=== PATIENT | female | born 1940 | race Caucasian/White ===

== ENCOUNTER 2020-09-12 22:04 | Inpatient (IN) | payer MEDICARE, BC ==
[~2020-09-12] VITALS: Ht 165.1 cm; Wt 102.3 kg
[~2020-09-12 22:04] MED LIST: ASPI-630 PO; FENO145T PO; FENO145T3 PO; FLAX1CAP PO; HYDR-2145 PO; LEVO125T PO; MAG355OR11 PO; MULT-245 PO; OMEG1CAP6 PO; PANT40TA77 PO; RAMI10CA53 PO; RAMI2.5C41 PO; SLOW RELEASE I142 MG PO
[2020-09-13] VITALS (7 sets, daily range): BP systolic 101–151; BP diastolic 65–80
--- NOTE | 2020-09-13 01:37 | NUR ---
Pt arrived to unit per cart accompanied by ems, pt ambulated to bed from cart.Tele monitor applied vs obtained and stable Assessment completed pt with c/o discomfort to lt side, Poc explained call light placed in reach will resume care and continue to monitor pt. Call placed to Dr. Bell for further admit orders. Orders received.
[2020-09-13] MEDS ORDERED: levOFLOXacin PER PHARMACY. MC PRN (01:45)
[2020-09-13] MEDS ORDERED: fentaNYL PF VIAL 100 MCG/2 ML VIAL IVP PRN (01:45)
[2020-09-13 06:27] LABS: ALBUMIN 2.7 g/dL (3.4-5.0); ALBUMIN/GLOBULIN RATIO 0.6 (1.0-1.7); CALCIUM 9.9 mg/dL (8.5-10.1); CREATININE 1.2 mg/dL (0.6-1.0); GFR 43.2; POTASSIUM 3.5 mmol/L (3.5-5.1); TOTAL BILIRUBIN 0.5 mg/dL (0.2-1.0)
[2020-09-13 07:00] LABS: HEMATOCRIT 41.8 % (36.0-47.0); HEMOGLOBIN 13.9 g/dL (12.0-15.5); RED BLOOD COUNT 4.66 x10^6/uL (3.50-5.40); RED CELL DISTRIBUTION WIDTH 13.2 % (11.5-14.5); WHITE BLOOD COUNT 11.6 x10^3/uL (4.0-11.0)
[2020-09-13] MEDS: ENOXAPARIN 40 MG/0.4 ML SYRINGE. SQ SCH ×2 (08:35→14:34)
[2020-09-13] MEDS ORDERED: ASPI-630 PO (08:45)
[2020-09-13] MEDS ORDERED: ACET325T9 PO (08:45)
[2020-09-13] MEDS ORDERED: FUROSEMIDE 40 MG/4 ML VIAL. IVP SCH (09:00)
[2020-09-13] MEDS ORDERED: HYDR12.58 PO (09:37)
[2020-09-13] MEDS ORDERED: METO-239 PO (09:37)
[2020-09-13] MEDS ORDERED: ATOR20TA58 PO (09:37)
[2020-09-13] MEDS ORDERED: LEVO112T55 PO (09:38)
[2020-09-13] MEDS ORDERED: VIT1CAPS12 PO (10:07)
--- NOTE | 2020-09-13 10:47 | HP ---
ADMIT DATE: 09/13/2020 HISTORY OF PRESENT ILLNESS: The patient is an 80-year-old female patient, who presented to the Emergency Room of [facility] with complaint of shortness of breath that has been going on for almost 10 days. She apparently was seen at urgent care about on 09/06/2020. She was treated with steroids, antibiotic and pain medication; however, felt a little bit better, but over the last 2-3 days, her shortness of breath has worsened. She also complained of orthopnea and swelling of both legs, but denied any paroxysmal nocturnal dyspnea. Denied any chest pain. She has cough, which is mostly dry. Denied any chills, rigors or fever. She apparently was extensively investigated in the Emergency Room and has had lab work, including a CBC and CMP as well as urinalysis. Has had a chest x-ray, which basically showed that the patient has large left-sided pleural effusion with adjacent opacities, hyperinflation with emphysematous changes, no pneumothorax. The heart size is obscured. Postoperative changes are left axilla. She apparently was treated with IV antibiotic in the form of levofloxacin. She was given IV Lasix and was transferred to [facility] for further evaluation and treatment. PAST MEDICAL HISTORY: Significant for hypertension, hyperlipidemia, coronary artery disease, status post PCI with stent deployment, hypothyroidism, generalized osteoarthritis. She has also history of breast cancer. PAST SURGICAL HISTORY: Significant for PCI and stent deployment, left mastectomy about 21 years ago, total abdominal hysterectomy, bilateral salpingo-oophorectomy, right total knee arthroplasty, bilateral cataract extraction, tonsillectomy and appendectomy. ALLERGIES: She has no known drug allergies. MEDICATIONS: She is currently on Synthroid 112 mcg once a day, fenofibrate 145 mg once a day, hydrochlorothiazide 12.5 mg once a day, atorvastatin 20 mg once a day, metoprolol extended release 25 mg once a day. FAMILY HISTORY: She has one older sister who at the age of 80 with Alzheimer disease. One of her younger brother at the age of 65 because of complication of diabetes. One brother who is younger and has diabetes. Her father at the age of 84 because of CVA and mother at the age of 92 of natural causes. SOCIAL HISTORY: She lives alone. She quit smoking when she was 26 years old. She does not drink alcohol or use any recreational drugs. She is fairly independent normally, but has been more short of breath and has been using her walker recently. REVIEW OF SYSTEMS: The patient denied any blurring of vision. Has had bilateral cataract extraction and is known to have senile macular degeneration; however, she denied any earache, tinnitus or sensorineural deafness. Denied any nosebleeds, stuffy nose or postnasal drip. Denied any sore throat, sore tongue, toothache, hoarseness of voice or difficulty swallowing. Denied any nausea, vomiting, diarrhea or constipation. Denied any hematemesis, melena or hematochezia. 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 She has had at the time esophagogastroduodenoscopy and colonoscopy. Denied any dysuria, frequency or hematuria. She denied any chest pain. Did complain of shortness of breath on exertion as well as orthopnea, but denied any paroxysmal nocturnal dyspnea. Has cough that is mostly dry. Denied any dizziness, lightheadedness, or vertigo. Denied any chills, rigors or fever. PHYSICAL EXAMINATION: GENERAL: On arrival to the Emergency Room, she looked well and was clearly in no apparent respiratory distress. No pallor, jaundice, cyanosis or thyromegaly. No jugular venous distension. No lower limb edema. VITAL SIGNS: Her heart rate on arrival was 91, blood pressure was 122/73, temperature was 98, respiratory rate 20, and oxygen saturation was 94% on 2 liters of oxygen. When she arrived, her oxygen was only 89% on room air. HEAD, EYES, EARS, NOSE AND THROAT: Showed normocephalic, atraumatic. NECK: Supple. HEART: Normal first and second heart sounds. No gallop or murmur. CHEST: Shows central trachea, equal bilateral chest expansion, air entry, vesicular breath sounds anteriorly, she has dull percussion noted and absent breath sound mostly on the left side posteriorly. I could not appreciate any rhonchi. ABDOMEN: Distended, soft, nontender. NEUROLOGIC: She is awake, alert, responding appropriately. All cranial nerves intact. EXTREMITIES: She moves extremities without difficulty. She apparently ambulates with a cane or a walker. LABORATORY DATA: Her lab work on arrival to the Emergency Room showed a white cell count of 10,900; hemoglobin 13.8; hematocrit 42; MCV 91; and platelet count of 579,000 with normal manual differential. Her chemistry showed a serum sodium 138, potassium 4.2, chloride 100, bicarbonate 29, anion gap of 9, BUN 33, creatinine 1.1, estimated GFR was 48 mL per minute. Her glucose was 114, calcium was 9.9. Total bilirubin, AST, ALT, alkaline phosphatase were normal. Her first set of cardiac enzymes showed troponin to be less than 0.017. Her beta natriuretic peptide was 171. Total protein was 7.4, albumin was 2.9. Her urinalysis was essentially unremarkable. Her chest x-ray showed that the patient has a large left-sided pleural effusion with adjacent opacities, hyperinflation with emphysematous changes, no pneumothorax. Heart size is obscured. She does have postoperative change at the left axilla. The patient was transferred to [facility] after she was treated with IV Lasix and levofloxacin. I have consulted the hoop riveter, the senior electrical design engineer as well as the interventional radiologist. Did have a CT scan done on 09/06/2020 at an urgent clinic, which basically showed that the patient has solid noncalcified pulmonary nodule in the right lower lobe, measuring 1.2 cm. Further characterization with a PET scan could be beneficial. Differential consideration include infectious/inflammatory pneumonitis versus metastatic disease or primary lung malignancy. She also has ill-defined band-like opacities in the left upper lobe abutting the major fissure, measuring up to 1.8 x 1.3 cm. This may be infectious and inflammatory, although metastatic disease remains a differential consideration. She has moderate left-sided pleural effusion with adjacent compressive atelectasis versus infiltrate. No pathologically enlarged thoracic lymph nodes were seen. OTONIEL SCOTT MD DR: SERGEI/ezio JOB#: [id number] / [id number]
[2020-09-13] MEDS ORDERED: POTASSIUM CHLORIDE 20 MEQ TABLET.ER. PO ONE (11:00)
[2020-09-13] MEDS: LEVOTHYROXINE 112 MCG TABLET PO SCH (11:57)
[2020-09-13] MEDS: MULTIVITAMIN I-VITE TABLET. PO SCH (11:57)
[2020-09-13] MEDS: FENOFIBRATE,MICRONIZED 134 MG CAPSULE PO SCH (11:57)
[2020-09-13] MEDS: MULTIVITAMIN with MINERAL TABLET. PO SCH (11:58)
[2020-09-13] MEDS: ASPIRIN CHEWABLE 81 MG TABLET. PO SCH (11:58)
[2020-09-13] MEDS: METOPROLOL SUCC 24HR ER 25 MG TAB.ER.24H. PO SCH (11:58)
--- NOTE | 2020-09-13 12:06 | NUR ---
SS following for discharge planning. SS reviewed pt chart and discussed with pt RN. Pt is from home alone and is currently requiring oxygen at two liters nasal canula. Pt has no home oxygen. Pt having thoracentesis tomorrow. Pt on IV Levaquin. SS will continue to follow for discharge planning.
--- NOTE | 2020-09-13 12:53 | CONS ---
DATE OF CONSULTATION: 09/13/2020 ATTENDING PHYSICIAN: Ivan Bell MD CONSULTING PHYSICIAN: Rafy Camp MD REASON FOR CONSULTATION: The patient is seen in pulmonary consultation at the request of Dr. Bell for a large left-sided effusion. HISTORY OF PRESENT ILLNESS: The patient is an 80-year-old that presented to the Emergency Room at [facility] after having undergone an outpatient CT chest. Several days ago, the patient was having some right-sided chest discomfort, shortness of air. She went to an urgent care center. She was treated with pain medication, steroids and antibiotics. CT chest was obtained. CT chest subsequently revealed several findings including a large right-sided effusion and pulmonary nodules on the right and the left. The patient was admitted. I was asked to see her in consultation for further evaluation and management. The patient denies any fever, chills, night sweats. There is no prior history of congestive heart failure. She does have a history of coronary artery disease, previous angioplasty approximately 3-5 years ago. PAST MEDICAL HISTORY: Remarkable for hypertension; hyperlipidemia; coronary artery disease, status post previous angioplasty 5 years ago. No history of CHF. There is a history of hypothyroidism, arthritis and breast cancer. Prior history of DVT, status post previous knee replacement. PAST SURGICAL HISTORY: PCI and stent deployment. She has had a mastectomy 21 years ago on the left side, total abdominal hysterectomy, bilateral salpingo-oophorectomy, right total knee arthroplasty, tonsillectomy, appendectomy. ALLERGIES: No known drug allergies. CURRENT MEDICATIONS: List was reviewed. FAMILY HISTORY: One sister at the age of 80 from complications of Alzheimer's. Brother with complications of diabetes. Father of 84 from CVA. Mother at the age of 92 from natural causes. SOCIAL HISTORY: She quit tobacco when she was 26 years old, lives alone. REVIEW OF SYSTEMS: CONSTITUTIONAL: No fever or chills. EYES: No change in visual acuity. HENT: No nasal congestion or sore throat. PULMONARY: As indicated above. CARDIOVASCULAR: As indicated above. GASTROINTESTINAL: No nausea, vomiting, diarrhea. GENITOURINARY: No dysuria or frequency. MUSCULOSKELETAL: No localized muscle aches or joint pains. SKIN: No new skin rashes. NEUROLOGIC: No headaches, diplopia or blurred vision. MEDICATIONS: List was reviewed. She is currently on Levaquin and multiple other antibiotics. She received a dose of furosemide. She did receive Lovenox today 40 mg. PHYSICAL EXAMINATION: VITAL SIGNS: Stable. O2 saturation was greater than 92%, currently on 2 liters of oxygen supplementation. GENERAL: The patient did not appear to be in any significant respiratory distress. HEENT: Eyes, the sclerae were nonicteric. NECK: Jugular venous distention was not elevated. No lymphadenopathy. CHEST: Full expansion. Previous history of mastectomy. LUNGS: Diminished breath sounds on the left. No wheezes. CARDIOVASCULAR: Regular rate and rhythm with S1, S2, no S3. ABDOMEN: Soft, nontender, nondistended. EXTREMITIES: No clubbing, cyanosis or edema. LABORATORY DATA: White count was 11,000, hemoglobin and hematocrit were noted. BUN and creatinine were elevated. Troponin was not elevated. Albumin was noted. BNP at [facility] was normal. IMPRESSION: 1. Large left-sided effusion. 2. CT scan dated 09/06/2020 showed a solid noncalcified pulmonary nodule right lower lobe measuring 1.2 cm, ill-defined band-like opacity in left upper lobe measuring 1.8 x 1.3. 3. History of breast cancer. 4. Left-sided chest pain, shortness of air related to pleural effusion. 5. Coronary artery disease with previous angioplasty. 6. Remote history of deep venous thrombosis 5 years ago, status post knee replacement. 7. Obesity. 8. Remote history of tobacco dependent. 9. Status post COVID-19 vaccination, first dose. Differential diagnosis in this case includes more than likely an exudative process such as malignancy, clinically I do not think that this is pneumonia with parapneumonic effusion, her BNP was normal at [facility], I doubt that this is CHF. PLAN: 1. We will proceed with continue empiric antibiotics. 2. Thoracentesis, rule out noncomplicated parapneumonic effusion versus related to malignancy. 3. We will need a repeat CT chest in approximately 6-8 weeks. 4. Follow up on fluid analysis and make further recommendations. 5. A 6-minute walk prior to discharge. I do appreciate the privilege in sharing in the patient's care. RAFY CAMP MD DR: EVANGELIST/ezio JOB#: [id number] / [id number]
[2020-09-13] MEDS ORDERED: DEXTROSE 50% 25 GM / 50ML DISP.SYRIN. IV PRN (13:30)
[2020-09-13] MEDS: LORazepam 0.5 MG TABLET PO PRN ×2 (15:39→21:21)
[2020-09-13] MEDS: INSULIN LISPRO 300 UNITS/3 ML VIAL. SQ SCH ×2 (16:30→21:22)
--- NOTE | 2020-09-13 17:41 | PDOC2 ---
CARDIAC CONSULT DATE OF CONSULT Date of Consult DATE: 09/13/20 TIME: 1015 REASON FOR CONSULT Reason for Consult: CHF REFERRING PHYSICIAN Referring Physician: Ray SOURCE Source: Chart review, Patient HISTORY OF PRESENT ILLNESS HISTORY OF PRESENT ILLNESS This is a pleasant 80 yo female admitted for complains of shortness of breath. Reports that she has been coughing at times and hurts on her left side sharp pain. She has been SOA with exertion and it has progressed to SOA at rest. Could not lay flat but denies any significant leg edema. Denies any nausea or vomiting. She was initially at urgent care few days ago and was sent home with antibiotics and steroids. She went to [facility] first then was noted with large pleur al effusion and was also suspected for CHF. She was then transferred to [facility] for further pulmonary evaluation and thoracentesis. Reports no palpitations. No recent falls or injury. No rpior covid-19 infection but had her vaccine last week. 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 No reported fever. PAST MEDICAL HISTORY Cardiovascular: CAD, CHF, HTN, Hyperlipidemia Pulmonary: COPD (?) CENTRAL NERVOUS SYSTEM: Other (No pertinent history) Heme/Onc: Cancer (breast), Other (DVT) Psych: Anxiety Musculoskeletal: Osteoarthritis Rheumatologic: No pertinent hx Infectious disease: No pertinent hx ENT: Other (macular degeneration) Renal/: No pertinent hx Endocrine: Hypothyroidism Dermatology: No pertinent hx PAST SURGICAL HISTORY Past Surgical History: Mastectomy (left), Other (PCI/NAN to LAD) FAMILY HISTORY Family History: Hypertension SOCIAL HISTORY Smoke: Quit ALCOHOL: none Drugs: None Lives: with Family CURRENT MEDICATIONS CURRENT MEDICATIONS Current Medications Medications (Trade) Dose Ordered Sig/Nelson Route PRN Reason Start Time Stop Time Status Last Admin Dose Admin Furosemide (Lasix) 40 mg DAILY IVP 09/13/20 09:00 09/13/20 10:25 DC 09/13/20 08:34 Enoxaparin Sodium (Lovenox 40mg Syringe) 40 mg Q24H SQ 09/13/20 09:00 09/13/20 08:35 Aspirin (Aspirin Chewable) 81 mg DAILY PO 09/13/20 12:00 09/13/20 11:58 Levothyroxine Sodium (Synthroid) 112 mcg DAILY06 PO 09/13/20 10:30 09/13/20 11:57 Metoprolol Succinate (Toprol Xl) 25 mg DAILY PO 09/13/20 12:00 09/13/20 11:58 Fenofibrate (Lofibra) 134 mg DAILY PO 09/13/20 12:00 09/13/20 11:57 Multivitamins (Thera M Plus) 1 tab DAILY PO 09/13/20 12:00 09/13/20 11:58 Multivitamins/ Minerals (I-Cheyanne) 1 tab DAILY PO 09/13/20 12:00 09/13/20 11:57 Potassium Chloride (Klor-Con) 40 meq 1X ONCE PO 09/13/20 11:00 09/13/20 11:01 DC 09/13/20 11:58 Lorazepam (Ativan) 0.5 mg PRN Q6HRS PRN PO ANXIETY / AGITATION 09/13/20 15:30 09/13/20 15:39 ALLERGIES ALLERGIES: Coded Allergies: No Known Drug Allergies (Unverified , 07/04/14) ROS Review of System 14 point ROS evaluated with pertinent positives noted per HPI PHYSICAL EXAM General: Alert, Oriented X3, Cooperative HEENT: Atraumatic, Mucous membr. moist/pink Lungs: Other (diminished ) Heart: Regular rate (SR), Other (distant heart sounds) Abdomen: Soft, No tenderness Extremities: No cyanosis, Other (1+ bilaterl LE pitting edema) Skin: No breakdown, No significant lesion Neuro: Normal speech, Sensation intact Psych/Mental Status: Mental status NL, Mood NL MUSCULOSKELETAL: Osteoarthritic changes both hands VITALS/I&O VITALS/I&O: Vital Signs Date Time Temp Pulse Resp B/P (MAP) Pulse Ox O2 Delivery O2 Flow Rate FiO2 09/13/20 14:44 98.1 83 18 151/76 (101) 96 Nasal Cannula 2.0 98.1 I & O 09/12/20 09/12/20 09/13/20 15:00 23:00 07:00 Intake Total 100 ml Balance 100 ml LABS Lab: Laboratory Tests Test 09/13/20 02:20 09/13/20 05:44 09/13/20 07:17 09/13/20 11:33 Troponin I Quantitative < 0.017 ng/mL (0.000-0.055) < 0.017 ng/mL (0.000-0.055) White Blood Count 11.6 x10^3/uL (4.0-11.0) H Red Blood Count 4.66 x10^6/uL (3.50-5.40) Hemoglobin 13.9 g/dL (12.0-15.5) Hematocrit 41.8 % (36.0-47.0) Mean Corpuscular Volume 90 fL (79-100) Mean Corpuscular Hemoglobin 30 pg (25-35) Mean Corpuscular Hemoglobin Concent 33 g/dL (31-37) Red Cell Distribution Width 13.2 % (11.5-14.5) Platelet Count 575 x10^3/uL (140-400) H Sodium Level 140 mmol/L (136-145) Potassium Level 3.5 mmol/L (3.5-5.1) Chloride Level 100 mmol/L (98-107) Carbon Dioxide Level 32 mmol/L (21-32) Anion Gap 8 (6-14) Blood Urea Nitrogen 29 mg/dL (7-20) H Creatinine 1.2 mg/dL (0.6-1.0) H Estimated GFR (Cockcroft-Gault) 43.2 BUN/Creatinine Ratio 24 (6-20) H Glucose Level 131 mg/dL (70-99) H Calcium Level 9.9 mg/dL (8.5-10.1) Total Bilirubin 0.5 mg/dL (0.2-1.0) Aspartate Amino Transferase (AST) 19 U/L (15-37) Alanine Aminotransferase (ALT) 15 U/L (14-59) Alkaline Phosphatase 59 U/L (46-116) Total Protein 7.0 g/dL (6.4-8.2) Albumin 2.7 g/dL (3.4-5.0) L Albumin/Globulin Ratio 0.6 (1.0-1.7) L Glucose (Fingerstick) 217 mg/dL (70-99) H Test 09/13/20 16:20 Glucose (Fingerstick) 189 mg/dL (70-99) H Laboratory Tests 09/13/20 05:44 Laboratory Tests 09/13/20 05:44 ECHOCARDIOGRAM ECHOCARDIOGRAM 05/2019 [facility] Left Ventricle: Normal size and mass. Concentric remodeling. Normal ejection fraction with LVEF=62% b Chatterjee's biplane and normal segmental wall motion. Right Ventricle: Normal size and ejection fraction. Normal biatrial size. The aortic valve is tricuspid. The non-coronary cusp is thickened/calcified with restricted motion. No stenosis. No regurgitation. Estimated Peak Systolic PA Pressure 17 mmHg No pericardial effusion. The ascending aorta is moderately dilated.(4.1cm) Compared with study dated 02/25/18, no significant change is noted STRESS TEST STRESS TEST FINDINGS: [facility] 12/14/2018 Pharmacological Stress Electrocardiogram: The patient's resting heart rate was 75 bpm and the resting blood pressure was 124/72. The patients peak stress heart rate was 94 bpm and the peak stress blood pressure was 120/68. Following demonstration of Regadenoson the patient experienced slight nausea, cramping, the symptoms resolved after administration of aminophylline. The resting ECG shows normal sinus rhythm with frequent PVCs. Upon administration of Regadenoson the PVCs continue. ST segments remained isoelectric. Conclusion: Pharmacologic stress ECG is negative for ischemia, note is made of frequent PVCs. ASSESSMENT/PLAN ASSESSMENT/PLAN 1. Large left pleural effusion: pneumonia? 2. Chronic diastolic CHF: clinically not acute CHF with pro NT BNP normal 3. Pleuritic chest pain with recent intractable coughing 4. CAD: past PCI/NAN to LAD with [employer] to RCA. Known to Dr. Serrano at [facility] Clinically stable. 5. HTN: controlled 6. HLP 7. Hypothyroidism 8. Mild MALDONADO: per PCP 9. Possible COPD 10. Hx of breast CA with left mastectomy. no checmo/rad 11. Steroid induced hyperglycemia vs DM2 Recommendations 1. Will obtain TTE tomorrow. Check TSH 2. Consult pulmonary, thoracentesis pending. 3. Continue secondary prevention measures 4. Supportive care. ROBIN DUNLAP APRN Sep 13, 2020 17:41
--- NOTE | 2020-09-13 19:45 | NUR ---
Assessment completed vss poc explained pt denied pain, c/o iv site hurting will restart iv and discontinue previous site. Will resume care and continue to monitor pt. Call light in reach.
[2020-09-13] MEDS: ACETAMINOPHEN 325 MG TABLET. PO PRN (20:03)
[2020-09-13] MEDS: ATORVASTATIN CALCIUM 20 MG TABLET PO SCH (21:22)
[2020-09-14] VITALS (8 sets, daily range): BP systolic 107–167; BP diastolic 55–83
[2020-09-14] MEDS: LEVOTHYROXINE 112 MCG TABLET PO SCH (05:55)
[2020-09-14] MEDS: LORazepam 0.5 MG TABLET PO PRN ×3 (05:55→18:44)
[2020-09-14] MEDS: INSULIN LISPRO 300 UNITS/3 ML VIAL. SQ SCH ×4 (07:30→21:11)
[2020-09-14 07:43] LABS: HEMATOCRIT 42.2 % (36.0-47.0); HEMOGLOBIN 13.6 g/dL (12.0-15.5); RED BLOOD COUNT 4.68 x10^6/uL (3.50-5.40); RED CELL DISTRIBUTION WIDTH 13.5 % (11.5-14.5); WHITE BLOOD COUNT 10.3 x10^3/uL (4.0-11.0)
[2020-09-14 08:01] LABS: ALBUMIN 2.6 g/dL (3.4-5.0); ALBUMIN/GLOBULIN RATIO 0.7 (1.0-1.7); CALCIUM 9.2 mg/dL (8.5-10.1); CREATININE 1.3 mg/dL (0.6-1.0); GFR 39.4; POTASSIUM 3.4 mmol/L (3.5-5.1); TOTAL BILIRUBIN 0.6 mg/dL (0.2-1.0); TOTAL PROTEIN 6.6 g/dL (6.4-8.2)
[2020-09-14 10:08] LABS: PROTHROMBIN TIME PATIENT 14.6 SEC (11.7-14.0)
--- NOTE | 2020-09-14 10:34 | PDOC ---
PULMONARY PROGRESS NOTES DATE: 09/14/20 TIME: 10:30 Subjective c/o SOA when laying flat on RA Vitals Vital Signs Date Time Temp Pulse Resp B/P (MAP) Pulse Ox O2 Delivery O2 Flow Rate FiO2 09/14/20 08:00 Nasal Cannula 2.0 09/14/20 06:46 98.8 82 18 131/71 (91) 95 98.8 General: Alert, No acute distress Lungs: Other (DECREASE LEFT BASE) Cardiovascular: S1 Abdomen: Soft Neuro Exam: Alert Extremities: No Edema Skin: Warm Labs Laboratory Tests Test 09/13/20 02:20 09/13/20 05:44 09/13/20 07:17 09/13/20 11:33 Troponin I Quantitative < 0.017 ng/mL (0.000-0.055) < 0.017 ng/mL (0.000-0.055) White Blood Count 11.6 x10^3/uL (4.0-11.0) Red Blood Count 4.66 x10^6/uL (3.50-5.40) Hemoglobin 13.9 g/dL (12.0-15.5) Hematocrit 41.8 % (36.0-47.0) Mean Corpuscular Volume 90 fL (79-100) Mean Corpuscular Hemoglobin 30 pg (25-35) Mean Corpuscular Hemoglobin Concent 33 g/dL (31-37) Red Cell Distribution Width 13.2 % (11.5-14.5) Platelet Count 575 x10^3/uL (140-400) Sodium Level 140 mmol/L (136-145) Potassium Level 3.5 mmol/L (3.5-5.1) Chloride Level 100 mmol/L (98-107) Carbon Dioxide Level 32 mmol/L (21-32) Anion Gap 8 (6-14) Blood Urea Nitrogen 29 mg/dL (7-20) Creatinine 1.2 mg/dL (0.6-1.0) Estimated GFR (Cockcroft-Gault) 43.2 BUN/Creatinine Ratio 24 (6-20) Glucose Level 131 mg/dL (70-99) Calcium Level 9.9 mg/dL (8.5-10.1) Total Bilirubin 0.5 mg/dL (0.2-1.0) Aspartate Amino Transf (AST/SGOT) 19 U/L (15-37) Alanine Aminotransferase (ALT/SGPT) 15 U/L (14-59) Alkaline Phosphatase 59 U/L (46-116) Total Protein 7.0 g/dL (6.4-8.2) Albumin 2.7 g/dL (3.4-5.0) Albumin/Globulin Ratio 0.6 (1.0-1.7) Thyroid Stimulating Hormone (TSH) 5.435 uIU/mL (0.358-3.74) Glucose (Fingerstick) 217 mg/dL (70-99) Test 09/13/20 16:20 09/13/20 20:19 09/14/20 06:30 09/14/20 09:12 Glucose (Fingerstick) 189 mg/dL (70-99) 164 mg/dL (70-99) White Blood Count 10.3 x10^3/uL (4.0-11.0) Red Blood Count 4.68 x10^6/uL (3.50-5.40) Hemoglobin 13.6 g/dL (12.0-15.5) Hematocrit 42.2 % (36.0-47.0) Mean Corpuscular Volume 90 fL (79-100) Mean Corpuscular Hemoglobin 29 pg (25-35) Mean Corpuscular Hemoglobin Concent 32 g/dL (31-37) Red Cell Distribution Width 13.5 % (11.5-14.5) Platelet Count 534 x10^3/uL (140-400) Prothrombin Time 14.6 SEC (11.7-14.0) Prothromb Time International Ratio 1.2 (0.8-1.1) Activated Partial Thromboplast Time 31 SEC (24-38) Sodium Level 138 mmol/L (136-145) Potassium Level 3.4 mmol/L (3.5-5.1) Chloride Level 99 mmol/L (98-107) Carbon Dioxide Level 30 mmol/L (21-32) Anion Gap 9 (6-14) Blood Urea Nitrogen 25 mg/dL (7-20) Creatinine 1.3 mg/dL (0.6-1.0) Estimated GFR (Cockcroft-Gault) 39.4 BUN/Creatinine Ratio 19 (6-20) Glucose Level 145 mg/dL (70-99) Calcium Level 9.2 mg/dL (8.5-10.1) Total Bilirubin 0.6 mg/dL (0.2-1.0) Aspartate Amino Transf (AST/SGOT) 18 U/L (15-37) Alanine Aminotransferase (ALT/SGPT) 10 U/L (14-59) Alkaline Phosphatase 54 U/L (46-116) Total Protein 6.6 g/dL (6.4-8.2) Albumin 2.6 g/dL (3.4-5.0) Albumin/Globulin Ratio 0.7 (1.0-1.7) SARS-CoV-2 Antigen (Rapid) Negative (NEGATIVE) Test 09/14/20 09:41 Glucose (Fingerstick) 152 mg/dL (70-99) Laboratory Tests Test 09/13/20 11:33 09/13/20 16:20 09/13/20 20:19 09/14/20 06:30 Glucose (Fingerstick) 217 mg/dL (70-99) 189 mg/dL (70-99) 164 mg/dL (70-99) White Blood Count 10.3 x10^3/uL (4.0-11.0) Red Blood Count 4.68 x10^6/uL (3.50-5.40) Hemoglobin 13.6 g/dL (12.0-15.5) Hematocrit 42.2 % (36.0-47.0) Mean Corpuscular Volume 90 fL (79-100) Mean Corpuscular Hemoglobin 29 pg (25-35) Mean Corpuscular Hemoglobin Concent 32 g/dL (31-37) Red Cell Distribution Width 13.5 % (11.5-14.5) Platelet Count 534 x10^3/uL (140-400) Prothrombin Time 14.6 SEC (11.7-14.0) Prothromb Time International Ratio 1.2 (0.8-1.1) Activated Partial Thromboplast Time 31 SEC (24-38) Sodium Level 138 mmol/L (136-145) Potassium Level 3.4 mmol/L (3.5-5.1) Chloride Level 99 mmol/L (98-107) Carbon Dioxide Level 30 mmol/L (21-32) Anion Gap 9 (6-14) Blood Urea Nitrogen 25 mg/dL (7-20) Creatinine 1.3 mg/dL (0.6-1.0) Estimated GFR (Cockcroft-Gault) 39.4 BUN/Creatinine Ratio 19 (6-20) Glucose Level 145 mg/dL (70-99) Calcium Level 9.2 mg/dL (8.5-10.1) Total Bilirubin 0.6 mg/dL (0.2-1.0) Aspartate Amino Transf (AST/SGOT) 18 U/L (15-37) Alanine Aminotransferase (ALT/SGPT) 10 U/L (14-59) Alkaline Phosphatase 54 U/L (46-116) Total Protein 6.6 g/dL (6.4-8.2) Albumin 2.6 g/dL (3.4-5.0) Albumin/Globulin Ratio 0.7 (1.0-1.7) Test 09/14/20 09:12 09/14/20 09:41 SARS-CoV-2 Antigen (Rapid) Negative (NEGATIVE) Glucose (Fingerstick) 152 mg/dL (70-99) Medications Active Scripts Medications Dose Route/Sig Max Daily Dose Days Date Category Preservision Areds Softgel (Vit A/Vit C/Vit E/Zinc/Copper) 1 Each Capsule 2 Each PO DAILY 09/13/20 Reported Euthyrox (Levothyroxine Sodium) 112 Mcg Tablet 112 Mcg PO DAILY06 09/13/20 Reported Atorvastatin Calcium 20 Mg Tablet 20 Mg PO HS 09/13/20 Reported Metoprolol Succinate ( Xl ) (Metoprolol Succinate) 25 Mg Tab.er.24h 25 Mg PO DAILY 09/13/20 Reported Hydrochlorothiazide Tablet (Hydrochlorothiazide) 12.5 Mg Tablet 25 Mg PO DAILY 09/13/20 Reported Tylenol (Acetaminophen) 325 Mg Tablet 500 Mg PO Q6HRS PRN 09/13/20 Reported Aspirin 81 Mg Tab.chew 81 Mg PO DAILY 09/13/20 Reported Multi Vitamin Daily (Multivitamin) 1 Each Tablet 1 Each PO DAILY 07/02/14 Reported Fish Oil 1,000 Mg Capsule ([place]-3 Fatty Acids/Fish Oil) 1 Each Capsule 1 Each PO DAILY 07/02/14 Reported Fenofibrate (Fenofibrate Nanocrystallized) 145 Mg Tablet 1 Tab PO DAILY 04/15/14 Reported Impression . 1. Large left-sided effusion.Suspect malignant 2. CT scan dated 09/06/2020 showed a solid noncalcified pulmonary nodule right lower lobe measuring 1.2 cm, ill-defined band-like opacity in left upper lobe measuring 1.8 x 1.3. 3. History of breast cancer. 20 yrs ago, neg LN 4. Left-sided chest pain, shortness of air related to pleural effusion. 5. Coronary artery disease with previous angioplasty. 6. Remote history of deep venous thrombosis 5 years ago, status post knee replacement. 7. Obesity. 8. Remote history of tobacco dependent. 9. Status post COVID-19 vaccination, first dose. Plan . Differential diagnosis in this case includes more than likely an exudative process such as malignancy, clinically I do not think that this is pneumonia with parapneumonic effusion, her BNP was normal at [facility], I doubt that this is CHF.No trauma PLAN: 1. We will proceed with continue empiric antibiotics. 2. Thoracentesis, rule out noncomplicated parapneumonic effusion versus related to malignancy. 3. We will need a repeat CT chest with contrast after thoracentesis 4. Follow up on fluid analysis and make further recommendations. 5. A 6-minute walk prior to discharge. d/w FRIDA Roberts MD Sep 14, 2020 10:34
--- NOTE | 2020-09-14 10:45 | PN ---
DATE: SUBJECTIVE: The patient is resting, slightly propped up in bed, in no apparent distress. She continued to have complaint of orthopnea. Denied any chest pain or cough. She was seen by the Cardiology team, had an echocardiogram, the result of which is still pending. She is scheduled for thoracentesis. Her COVID test was undetectable. PHYSICAL EXAMINATION: GENERAL: When I examined her this morning, she looked well and was clearly in no apparent respiratory distress. No pallor, jaundice, cyanosis or thyromegaly. No jugular venous distension. No limb edema. VITAL SIGNS: Her heart rate was 82, blood pressure was 131/71, temperature was 98.8, respiratory rate was 18 and oxygen saturation was 95% on 2 liters of oxygen. The rest of clinical exam is stable. ASSESSMENT: 1. New onset of shortness of breath with CT scan and chest x-ray showed large left-sided pleural effusion. 2. Possible pneumonia with parapneumonic effusion. 3. Hypertension. 4. Hyperlipidemia. 5. Coronary artery disease, status post PCI with stent deployment. 6. Hypothyroidism. 7. Generalized osteoarthritis. 8. The patient has history of breast cancer treated with left mastectomy about 21 years ago. She has not received any chemo or radiation therapy. PLAN: I will order SCD for DVT prophylaxis and await the results of thoracentesis. OTONIEL SCOTT MD DR: SERGEI/ezio JOB#: [id number] / [id number]
[2020-09-14] MEDS: FENOFIBRATE,MICRONIZED 134 MG CAPSULE PO SCH (11:17)
[2020-09-14] MEDS: MULTIVITAMIN I-VITE TABLET. PO SCH (11:17)
[2020-09-14] MEDS: ASPIRIN CHEWABLE 81 MG TABLET. PO SCH (11:17)
[2020-09-14] MEDS: MULTIVITAMIN with MINERAL TABLET. PO SCH (11:17)
[2020-09-14] MEDS: METOPROLOL SUCC 24HR ER 25 MG TAB.ER.24H. PO SCH (11:18)
[2020-09-14] MEDS ORDERED: LIDOCAINE WITH 8.4% SOD BICARB 3 ML DISP.SYRIN. ONE (11:32)
[2020-09-14] MEDS ORDERED: LIDOCAINE WITH 8.4% SOD BICARB 3 ML DISP.SYRIN. INJ ONE (12:00)
--- NOTE | 2020-09-14 13:24 | NUR ---
SS following up with discharge planning. SS reviewed pt chart and discussed with pt RN. Pt is currently on room air. Thoracentesis today. Pt on IV Levaquin. Discharge plan is to home when medically ready. SS will continue to follow for discharge planning.
[2020-09-14 13:26] LABS: BF CLARITY CLOUDY; BF COLOR AMBER; BF RBC COUNT 7903 /cmm (Not Established); BF SOURCE PLEURAL; BF WBC COUNT 955 /cmm (Not Established); PH,BODY FLUID 7.43
--- NOTE | 2020-09-14 16:08 | RAD ---
Ultrasound Guided Thoracentesis, left side Indication: Adult female with left pleural effusion Sedation: Local anesthesia only. Sterility: The procedure was performed in its entirety using appropriate elements of sterile technique. Technique and Findings: Following informed consent, the patient was prepped and draped in the usual sterile fashion. Ultrasound interrogation of the area of interest was performed revealing the presence of a pleural fluid collection. 1% Lidocaine was used to achieve local anesthesia over the area of interest. A small dermatotomy was made and a 5F [id number] catheter was advanced under ultrasound guidance into the pleural space and 1150 cc's of clear memy fluid was removed. The catheter was then removed and hemostasis was achieved with manual compression. Impression: US thoracentesis as described.
--- NOTE | 2020-09-14 16:33 | RAD ---
EXAM: CHEST ONE VIEW. HISTORY: Left thoracentesis. COMPARISON: 09/12/2020. FINDINGS: A frontal view of the chest is obtained. There is a moderate left pleural effusion with left basilar atelectasis. There is no pneumothorax. Th ere are mild interstitial opacities in the right midlung and right base. The heart is not enlarged. S urgical clips are noted in the left axilla. IMPRESSION: 1. Moderate left pleural effusion. Stable mild right basilar interstitial opacities correspond with m ultiple nodules on prior CT. Electronically signed by: Ulysses Contreras MD (09/14/2020 4:31 PM) [id number]
--- NOTE | 2020-09-14 17:49 | CARD ---
MR#: [id number] Date of Study: 09/14/2020 Ordering Physician: ROBIN DUNLAP, Referring Physician: ROBIN DUNLAP Tech: Denise Recinos [facility] APPROVED REPORT EXAM: Two-dimensional and M-mode echocardiogram with Doppler and color Doppler. Other Information Quality : Technically LimitedHR: 90bpm Rhythm : NSR INDICATION Dyspnea RISK FACTORS Hypertension Obesity Hyperlipidemia 2D DIMENSIONS IVSd1.2 (0.7-1.1cm)Aortic Root(2D)3.2 (2.0-3.7cm) LVDd3.1 (3.9-5.9cm)LVOT Diameter2.0 (1.8-2.4cm) PWd1.2 (0.7-1.1cm)LVDs1.2 (2.5-4.0cm) FS (%) 60.7 %SV34.0 ml Aortic Valve AoV Peak Hubert.131.0cm/sAoV VTI22.3cm AO Peak GR.6.9mmHgAO Mean GR.4mmHg Mitral Valve MV E Lizqfqwb84.0cm/sMV DECEL [id number] MV A Nwvgrdiv322.2cm/sMV BIK05lz E/A Ratio0.6MVA (PHT)2.93cm2 Pulmonary Valve PV Peak Aihqsufs47.5cm/sPV Peak Grad.2mmHg Tricuspid Valve TR P. Shcplqta594mm/sTR Peak Gr.16mmHg LEFT VENTRICLE The left ventricle is normal size. There is moderate concentric left ventricular hypertrophy. The lef t ventricular systolic function is normal and the ejection fraction is within normal range. Estimate d ejection fraction 60-65%. There is normal LV segmental wall motion. RIGHT VENTRICLE The right ventricle is normal size. There is normal right ventricular wall thickness. The right ventr icular systolic function is normal. ATRIA The left atrium size is normal. The right atrium size is normal. The interatrial septum is intact wit h no evidence for an atrial septal defect or patent foramen ovale as noted on 2-D or Doppler imaging. AORTIC VALVE The aortic valve is calcified and displays decreased opening. Doppler and Color Flow revealed no sign ificant aortic regurgitation. There is trace valvular aortic stenosis. MITRAL VALVE The mitral valve is normal in structure and function. There is no evidence of mitral valve prolapse. There is no mitral valve stenosis. Doppler and Color Flow revealed trace mitral valve regurgitation. TRICUSPID VALVE The tricuspid valve is normal in structure and function. Doppler and Color Flow revealed mild tricusp id regurgitation. Estimated PAP 36 mmHg. PULMONIC VALVE The pulmonary valve is normal in structure and function. Doppler and Color Flow revealed no pulmonic valvular regurgitation. GREAT VESSELS The aortic root is normal in size. The ascending aorta is normal in size. The IVC is dilated and sary apses >50% with inspiration. PERICARDIAL EFFUSION There is large left pleural effusion. There is no evidence of significant pericardial effusion. Critical Notification Critical Value: No <Conclusion> The left ventricle is normal size. The left ventricular systolic function is normal and the ejection fraction is within normal range. Estimated ejection fraction 60-65%. There is moderate concentric left ventricular hypertrophy. Doppler and Color Flow revealed no significant aortic regurgitation. There is trace valvular aortic stenosis. Doppler and Color Flow revealed trace mitral valve regurgitation. Doppler and Color Flow revealed mild tricuspid regurgitation. Estimated PAP 36 mmHg. Signed by : Mina Reinoso MD Electronically Approved : 09/14/2020 17:48:51
[2020-09-14 18:00] LABS: BF MON % 41 %; BF PMN % 44 %
[2020-09-14 18:01] LABS: BF OTHER % 15 %
--- NOTE | 2020-09-14 19:25 | NUR ---
Assessment completed vss poc explained pt denied pain will resume care and continue to monitor pt.call light in reach.
[2020-09-14] MEDS: ATORVASTATIN CALCIUM 20 MG TABLET PO SCH (21:10)
[2020-09-14] MEDS: LACTOBACILLUS RHAMNOSUS GG 1 CAPSULE. PO SCH (21:10)
[2020-09-15 02:47] VITALS: BP 125/78
[2020-09-15] MEDS: ACETAMINOPHEN 325 MG TABLET. PO PRN ×3 (04:30→20:01)
[2020-09-15] MEDS: LORazepam 0.5 MG TABLET PO PRN ×2 (04:33→20:01)
[2020-09-15] MEDS: LEVOTHYROXINE 112 MCG TABLET PO SCH (06:01)
[2020-09-15 07:00] VITALS: BP 139/61
[2020-09-15] MEDS: MULTIVITAMIN with MINERAL TABLET. PO SCH (08:14)
[2020-09-15] MEDS: LACTOBACILLUS RHAMNOSUS GG 1 CAPSULE. PO SCH ×2 (08:14→20:01)
[2020-09-15] MEDS: FENOFIBRATE,MICRONIZED 134 MG CAPSULE PO SCH (08:14)
[2020-09-15] MEDS: MULTIVITAMIN I-VITE TABLET. PO SCH (08:14)
[2020-09-15] MEDS: ASPIRIN CHEWABLE 81 MG TABLET. PO SCH (08:14)
[2020-09-15 08:18] LABS: CALCIUM 9.5 mg/dL (8.5-10.1); GFR 53.3; POTASSIUM 3.6 mmol/L (3.5-5.1)
[2020-09-15] MEDS: METOPROLOL SUCC 24HR ER 25 MG TAB.ER.24H. PO SCH (08:18)
[2020-09-15] MEDS: INSULIN LISPRO 300 UNITS/3 ML VIAL. SQ SCH ×4 (08:28→20:06)
[2020-09-15] MEDS: ENOXAPARIN 40 MG/0.4 ML SYRINGE. SQ SCH (09:00)
--- NOTE | 2020-09-15 10:46 | PDOC ---
PULMONARY PROGRESS NOTES DATE: 09/15/20 TIME: 10:42 Subjective feels better , s/p left thoracentesis 1150 cc removed Vitals Vital Signs Date Time Temp Pulse Resp B/P (MAP) Pulse Ox O2 Delivery O2 Flow Rate FiO2 09/15/20 08:18 82 139/82 09/15/20 07:00 97.6 18 92 Room Air 97.6 09/14/20 14:38 2.0 General: Alert, No acute distress Lungs: Other (DECREASE LEFT BASE) Cardiovascular: S1 Abdomen: Soft Neuro Exam: Alert Extremities: No Edema Skin: Warm Labs Laboratory Tests Test 09/13/20 11:33 09/13/20 16:20 09/13/20 20:19 09/14/20 06:30 Glucose (Fingerstick) 217 mg/dL (70-99) 189 mg/dL (70-99) 164 mg/dL (70-99) White Blood Count 10.3 x10^3/uL (4.0-11.0) Red Blood Count 4.68 x10^6/uL (3.50-5.40) Hemoglobin 13.6 g/dL (12.0-15.5) Hematocrit 42.2 % (36.0-47.0) Mean Corpuscular Volume 90 fL (79-100) Mean Corpuscular Hemoglobin 29 pg (25-35) Mean Corpuscular Hemoglobin Concent 32 g/dL (31-37) Red Cell Distribution Width 13.5 % (11.5-14.5) Platelet Count 534 x10^3/uL (140-400) Prothrombin Time 14.6 SEC (11.7-14.0) Prothromb Time International Ratio 1.2 (0.8-1.1) Activated Partial Thromboplast Time 31 SEC (24-38) Sodium Level 138 mmol/L (136-145) Potassium Level 3.4 mmol/L (3.5-5.1) Chloride Level 99 mmol/L (98-107) Carbon Dioxide Level 30 mmol/L (21-32) Anion Gap 9 (6-14) Blood Urea Nitrogen 25 mg/dL (7-20) Creatinine 1.3 mg/dL (0.6-1.0) Estimated GFR (Cockcroft-Gault) 39.4 BUN/Creatinine Ratio 19 (6-20) Glucose Level 145 mg/dL (70-99) Calcium Level 9.2 mg/dL (8.5-10.1) Total Bilirubin 0.6 mg/dL (0.2-1.0) Aspartate Amino Transf (AST/SGOT) 18 U/L (15-37) Alanine Aminotransferase (ALT/SGPT) 10 U/L (14-59) Alkaline Phosphatase 54 U/L (46-116) Total Protein 6.6 g/dL (6.4-8.2) Albumin 2.6 g/dL (3.4-5.0) Albumin/Globulin Ratio 0.7 (1.0-1.7) Test 09/14/20 09:12 09/14/20 09:41 09/14/20 11:20 09/14/20 11:50 Coronavirus (PCR) Not detected (Not Detected) SARS-CoV-2 Antigen (Rapid) Negative (NEGATIVE) Glucose (Fingerstick) 152 mg/dL (70-99) 212 mg/dL (70-99) Body Fluid Source Pleural Body Fluid Color Dodie Body Fluid Clarity Cloudy Body Fluid pH 7.43 Body Fluid Nucleated Cells 955 /cmm (Not Established) Body Fluid Mononuclear WBCs (%) 41 % Body Fluid Polymorphonuclear Cells 44 % Body Fluid Total RBCs Counted 7903 /cmm (Not Established) Body Fluid Other Cells (%) 15 % Test 09/14/20 16:09 09/14/20 20:15 09/15/20 07:02 09/15/20 07:52 Glucose (Fingerstick) 247 mg/dL (70-99) 245 mg/dL (70-99) 151 mg/dL (70-99) Sodium Level 138 mmol/L (136-145) Potassium Level 3.6 mmol/L (3.5-5.1) Chloride Level 100 mmol/L (98-107) Carbon Dioxide Level 29 mmol/L (21-32) Anion Gap 9 (6-14) Blood Urea Nitrogen 21 mg/dL (7-20) Creatinine 1.0 mg/dL (0.6-1.0) Estimated GFR (Cockcroft-Gault) 53.3 Glucose Level 147 mg/dL (70-99) Calcium Level 9.5 mg/dL (8.5-10.1) Laboratory Tests Test 09/14/20 11:20 09/14/20 11:50 09/14/20 16:09 09/14/20 20:15 Glucose (Fingerstick) 212 mg/dL (70-99) 247 mg/dL (70-99) 245 mg/dL (70-99) Body Fluid Source Pleural Body Fluid Color Dodie Body Fluid Clarity Cloudy Body Fluid pH 7.43 Body Fluid Nucleated Cells 955 /cmm (Not Established) Body Fluid Mononuclear WBCs (%) 41 % Body Fluid Polymorphonuclear Cells 44 % Body Fluid Total RBCs Counted 7903 /cmm (Not Established) Body Fluid Other Cells (%) 15 % Test 09/15/20 07:02 09/15/20 07:52 Sodium Level 138 mmol/L (136-145) Potassium Level 3.6 mmol/L (3.5-5.1) Chloride Level 100 mmol/L (98-107) Carbon Dioxide Level 29 mmol/L (21-32) Anion Gap 9 (6-14) Blood Urea Nitrogen 21 mg/dL (7-20) Creatinine 1.0 mg/dL (0.6-1.0) Estimated GFR (Cockcroft-Gault) 53.3 Glucose Level 147 mg/dL (70-99) Calcium Level 9.5 mg/dL (8.5-10.1) Glucose (Fingerstick) 151 mg/dL (70-99) Medications Active Scripts Medications Dose Route/Sig Max Daily Dose Days Date Category Preservision Areds Softgel (Vit A/Vit C/Vit E/Zinc/Copper) 1 Each Capsule 2 Each PO DAILY 09/13/20 Reported Euthyrox (Levothyroxine Sodium) 112 Mcg Tablet 112 Mcg PO DAILY06 09/13/20 Reported Atorvastatin Calcium 20 Mg Tablet 20 Mg PO HS 09/13/20 Reported Metoprolol Succinate ( Xl ) (Metoprolol Succinate) 25 Mg Tab.er.24h 25 Mg PO DAILY 09/13/20 Reported Hydrochlorothiazide Tablet (Hydrochlorothiazide) 12.5 Mg Tablet 25 Mg PO DAILY 09/13/20 Reported Tylenol (Acetaminophen) 325 Mg Tablet 500 Mg PO Q6HRS PRN 09/13/20 Reported Aspirin 81 Mg Tab.chew 81 Mg PO DAILY 09/13/20 Reported Multi Vitamin Daily (Multivitamin) 1 Each Tablet 1 Each PO DAILY 07/02/14 Reported Fish Oil 1,000 Mg Capsule ([place]-3 Fatty Acids/Fish Oil) 1 Each Capsule 1 Each PO DAILY 07/02/14 Reported Fenofibrate (Fenofibrate Nanocrystallized) 145 Mg Tablet 1 Tab PO DAILY 04/15/14 Reported Impression . 1. Large left-sided effusion.Suspect malignant, s/p left thoracentesis 2. CT scan dated 09/06/2020 showed a solid noncalcified pulmonary nodule right lower lobe measuring 1.2 cm, ill-defined band-like opacity in left upper lobe measuring 1.8 x 1.3. 3. History of breast cancer. 20 yrs ago, neg LN 4. Left-sided chest pain, shortness of air related to pleural effusion. 5. Coronary artery disease with previous angioplasty. 6. Remote history of deep venous thrombosis 5 years ago, status post knee replacement. 7. Obesity. 8. Remote history of tobacco dependent. 9. Status post COVID-19 vaccination, first dose. Plan . Differential diagnosis in this case includes more than likely an exudative process such as malignancy, clinically I do not think that this is pneumonia with parapneumonic effusion, her BNP was normal at [facility], I doubt that this is CHF.No trauma, Echo normal EF 1. continue empiric antibiotics. 2. Await Thoracentesis fluid analysis 3. We will need a repeat CT chest with contrast after thoracentesis 4. Follow up on fluid analysis and make further recommendations. 5. A 6-minute walk prior to discharge. d/w FRIDA Roberts MD Sep 15, 2020 10:46
--- NOTE | 2020-09-15 10:50 | PN ---
DATE: 09/15/2020 SUBJECTIVE: The patient is resting, slightly propped up in bed, in no apparent respiratory distress. She is awake, alert, stated that she is less short of breath, sleeps much better overnight. Her appetite, however, continues to be poor. She underwent thoracentesis successfully yesterday and 1150 mL of clear emmy fluid were removed. The catheter was then removed and hemostasis was achieved with manual compression and the fluid was sent for cytology, cell count and differential and Gram-stain culture and sensitivity. PHYSICAL EXAMINATION: GENERAL: When I examined her this morning, she looked well and was clearly in no apparent respiratory distress. No pallor, jaundice, cyanosis, or thyromegaly. No jugular venous distension. No lower limb edema. VITAL SIGNS: Her heart rate was 82, blood pressure was 139/82, temperature was 97.6, respiratory rate was 18, and oxygen saturation was 92%. HEAD, EYES, EARS, NOSE, AND THROAT: Showed she is normocephalic, atraumatic. NECK: Supple. HEART: Showed normal first and second heart sounds. No gallop or murmur. CHEST: Clear to auscultation. No crepitation or rhonchi. The chest showed that the patient has dull percussion noted and absent breath sounds on the left side posteriorly. ABDOMEN: Distended, soft, nontender. NEUROLOGIC: She is grossly intact. Her intake and output are incompletely recorded. LABORATORY DATA: Her lab work this morning showed a serum sodium 138, potassium 3.6, chloride 100, bicarbonate 29, anion gap of 9, BUN 21, creatinine 1, estimated GFR was 53 mL per minute. Her glucose was 147, calcium was 9.5. ASSESSMENT: 1. New onset of shortness of breath and CT scan and chest x-ray showed large left-sided pleural effusion. 2. Possible pneumonia with parapneumonic effusion. 3. Hypertension. 4. Hyperlipidemia. 5. Coronary artery disease, status post percutaneous coronary intervention with stent deployment. 6. Hypothyroidism. 7. Generalized osteoarthritis. 8. The patient has a history of breast cancer treated with left mastectomy about 21 years ago. She has not received any chemotherapy or radiation treatment. PLAN: To continue to monitoring her blood sugar and adjust insulin as needed. Continue with SCD for DVT prophylaxis. Await the result of her pleural fluid analysis. OTONIEL SCOTT MD DR: SERGEI/ezio JOB#: [id number] / [id number]
[2020-09-15 11:00] VITALS: BP 139/72
--- NOTE | 2020-09-15 13:08 | NUR ---
SS following up with discharge planning. SS reviewed pt chart and discussed with pt RN. Pt is currently on room air. Pt on IV Levaquin. Pt had thoracentesis yesterday. Currently awaiting results of pleural fluid analysis. Discharge plan is to home when medically ready. SS will continue to follow for discharge planning.
--- NOTE | 2020-09-15 14:43 | RAD ---
Portable chest x-ray compared to similar exam dated September 142020 for effusion. FINDINGS: Large left pleural effusion is redemonstrated, perhaps slightly improved. Right lung is unc hanged. Postsurgical changes of the left axilla are again noted. IMPRESSION: 1. Stable or perhaps very subtly improved large left pleural effusion. Electronically signed by: Robbie Cheek MD (09/15/2020 2:41 PM) [id number]
[2020-09-15 15:00] VITALS: BP 104/53
[2020-09-15 19:00] VITALS: BP 134/71
[2020-09-15] MEDS: ATORVASTATIN CALCIUM 20 MG TABLET PO SCH (20:01)
[2020-09-15 23:00] VITALS: BP 116/74
[2020-09-16 01:11] LABS: HEMOGLOBIN A1C 8.5 % (4.8-5.6)
[2020-09-16] MEDS: LORazepam 0.5 MG TABLET PO PRN ×2 (02:54→21:36)
[2020-09-16 03:00] VITALS: BP 112/62
[2020-09-16] MEDS: ACETAMINOPHEN 325 MG TABLET. PO PRN ×2 (05:59→17:38)
[2020-09-16] MEDS: traMADol 50 MG TABLET PO PRN ×2 (05:59→21:37)
[2020-09-16] MEDS: LEVOTHYROXINE 112 MCG TABLET PO SCH (06:30)
[2020-09-16 07:27] VITALS: BP 116/56
[2020-09-16] MEDS: MULTIVITAMIN I-VITE TABLET. PO SCH (08:33)
[2020-09-16] MEDS: ASPIRIN CHEWABLE 81 MG TABLET. PO SCH (08:34)
[2020-09-16] MEDS: FENOFIBRATE,MICRONIZED 134 MG CAPSULE PO SCH (08:34)
[2020-09-16] MEDS: LACTOBACILLUS RHAMNOSUS GG 1 CAPSULE. PO SCH ×2 (08:34→21:36)
[2020-09-16] MEDS: MULTIVITAMIN with MINERAL TABLET. PO SCH (08:34)
[2020-09-16] MEDS: ENOXAPARIN 40 MG/0.4 ML SYRINGE. SQ SCH (08:35)
[2020-09-16] MEDS: METOPROLOL SUCC 24HR ER 25 MG TAB.ER.24H. PO SCH (08:35)
[2020-09-16] MEDS: INSULIN LISPRO 300 UNITS/3 ML VIAL. SQ SCH ×4 (08:40→20:51)
--- NOTE | 2020-09-16 09:39 | PN ---
DATE: SUBJECTIVE: The patient is resting, slightly propped up in bed, in no apparent distress. She apparently has been extremely anxious, has not slept last night. Otherwise, she denied any other complaints. PHYSICAL EXAMINATION: GENERAL: When I examined her this morning, she was pale, but no jaundice, cyanosis or thyromegaly. No jugular venous distention or limb edema. VITAL SIGNS: Her heart rate was 80, blood pressure was 116/66, temperature was 98, respiratory rate was 18, and her oxygen saturation was 94% on room air. HEAD, EYES, EARS, NOSE AND THROAT: Showed normocephalic, atraumatic. NECK: Supple. HEART: Normal first and second heart sounds. No gallop or murmur. CHEST: Shows central trachea, equal bilateral expansion, air entry, vesicular sounds. No crepitation or rhonchi anteriorly. She has dull percussion noted and absent breath sounds in the left side posteriorly. ABDOMEN: Distended, soft, nontender. NEUROLOGIC: She is grossly intact. LABORATORY DATA: Her intake was 700, output was 1150. Her blood sugar seems to be much better controlled. ASSESSMENT: 1. New onset of shortness of breath and CT scan and chest x-ray showing large left side pleural effusion. 2. Possible pneumonia with parapneumonic effusion. 3. Hypertension. 4. Hyperlipidemia. 5. Coronary artery disease, status post percutaneous coronary intervention with stent deployment. 6. Hypothyroidism. 7. Generalized osteoarthritis. 8. The patient has a history of breast cancer treated with left mastectomy about 20 years ago. She has not received any chemotherapy or radiation treatment. She does have questionable malignant nodules in both the right lower lobe and left upper lobe; however, the results of cytology are still pending at the time of this dictation. PLAN: To continue to monitor blood sugar, adjust insulin as needed, continue with SCD for deep venous thrombosis prophylaxis for her anorexia. I will start her on tramadol, meanwhile, we will continue with all other medications. OTONIEL SCOTT MD DR: SERGEI/ezio JOB#: [id number] / [id number]
[2020-09-16 10:20] VITALS: BP 103/65
--- NOTE | 2020-09-16 11:05 | PDOC ---
PULMONARY PROGRESS NOTES DATE: 09/16/20 TIME: 11:00 Subjective feels better , s/p left thoracentesis 1150 cc removed Remains on room air no increased cough or SOA Vitals Vital Signs Date Time Temp Pulse Resp B/P (MAP) Pulse Ox O2 Delivery O2 Flow Rate FiO2 09/16/20 10:20 98.7 81 18 103/65 (78) 93 Room Air 98.7 ROS: No Nausea, No Chest Pain, No Abdominal Pain, No Increase Cough General: Alert, Oriented X4, No acute distress Lungs: Other (DECREASE LEFT BASE) Cardiovascular: S1 Abdomen: Soft Neuro Exam: Alert Extremities: No Edema Skin: Warm, Dry Labs Laboratory Tests Test 09/14/20 11:20 09/14/20 11:50 09/14/20 16:09 09/14/20 20:15 Glucose (Fingerstick) 212 mg/dL (70-99) 247 mg/dL (70-99) 245 mg/dL (70-99) Body Fluid Source Pleural Body Fluid Color Dodie Body Fluid Clarity Cloudy Body Fluid pH 7.43 Body Fluid Nucleated Cells 955 /cmm (Not Established) Body Fluid Mononuclear WBCs (%) 41 % Body Fluid Polymorphonuclear Cells 44 % Body Fluid Total RBCs Counted 7903 /cmm (Not Established) Body Fluid Other Cells (%) 15 % Body Fluid Total Protein 4.8 g/dL (.) Body Fluid Lactate Dehydrogenase 398 IU/L (.) Test 09/15/20 07:02 09/15/20 07:52 09/15/20 11:42 09/15/20 16:49 Sodium Level 138 mmol/L (136-145) Potassium Level 3.6 mmol/L (3.5-5.1) Chloride Level 100 mmol/L (98-107) Carbon Dioxide Level 29 mmol/L (21-32) Anion Gap 9 (6-14) Blood Urea Nitrogen 21 mg/dL (7-20) Creatinine 1.0 mg/dL (0.6-1.0) Estimated GFR (Cockcroft-Gault) 53.3 Glucose Level 147 mg/dL (70-99) Hemoglobin A1c 8.5 % (4.8-5.6) Calcium Level 9.5 mg/dL (8.5-10.1) Glucose (Fingerstick) 151 mg/dL (70-99) 167 mg/dL (70-99) 186 mg/dL (70-99) Test 09/15/20 20:02 09/16/20 08:08 Glucose (Fingerstick) 178 mg/dL (70-99) 156 mg/dL (70-99) Laboratory Tests Test 09/15/20 11:42 09/15/20 16:49 09/15/20 20:02 09/16/20 08:08 Glucose (Fingerstick) 167 mg/dL (70-99) 186 mg/dL (70-99) 178 mg/dL (70-99) 156 mg/dL (70-99) Medications Active Scripts Medications Dose Route/Sig Max Daily Dose Days Date Category Preservision Areds Softgel (Vit A/Vit C/Vit E/Zinc/Copper) 1 Each Capsule 2 Each PO DAILY 09/13/20 Reported Euthyrox (Levothyroxine Sodium) 112 Mcg Tablet 112 Mcg PO DAILY06 09/13/20 Reported Atorvastatin Calcium 20 Mg Tablet 20 Mg PO HS 09/13/20 Reported Metoprolol Succinate ( Xl ) (Metoprolol Succinate) 25 Mg Tab.er.24h 25 Mg PO DAILY 09/13/20 Reported Hydrochlorothiazide Tablet (Hydrochlorothiazide) 12.5 Mg Tablet 25 Mg PO DAILY 09/13/20 Reported Tylenol (Acetaminophen) 325 Mg Tablet 500 Mg PO Q6HRS PRN 09/13/20 Reported Aspirin 81 Mg Tab.chew 81 Mg PO DAILY 09/13/20 Reported Multi Vitamin Daily (Multivitamin) 1 Each Tablet 1 Each PO DAILY 07/02/14 Reported Fish Oil 1,000 Mg Capsule ([place]-3 Fatty Acids/Fish Oil) 1 Each Capsule 1 Each PO DAILY 07/02/14 Reported Fenofibrate (Fenofibrate Nanocrystallized) 145 Mg Tablet 1 Tab PO DAILY 04/15/14 Reported Comments CXR 09/15 mod Left effusion Impression . 1. Large left-sided effusion.Suspect malignant, s/p left thoracentesis 2. CT scan dated 09/06/2020 showed a solid noncalcified pulmonary nodule right lower lobe measuring 1.2 cm, ill-defined band-like opacity in left upper lobe measuring 1.8 x 1.3. 3. History of breast cancer. 20 yrs ago, neg LN 4. Left-sided chest pain, shortness of air related to pleural effusion. 5. Coronary artery disease with previous angioplasty. 6. Remote history of deep venous thrombosis 5 years ago, status post knee replacement. 7. Obesity. 8. Remote history of tobacco dependent. 9. Status post COVID-19 vaccination, first dose. Plan . Pt. remains on room air Follow CXR PRN--reviewed S/P Thoracentesis -- pre-noble cytology Atypical cells await pathology, gram stain neg ECHO-EF WNL D/C ABX Hold CT chest as pt. has ongoing Mod. Left effusion DVT/GI PPX D/W RN and Family at bedside FRIDA FERNANDES MD Sep 16, 2020 11:05
[2020-09-16] MEDS: DRONABINOL 2.5 MG CAPSULE. PO SCH ×2 (12:20→17:38)
[2020-09-16 14:47] VITALS: BP 112/76
[2020-09-16 18:31] VITALS: BP 133/67
[2020-09-16] MEDS: ATORVASTATIN CALCIUM 20 MG TABLET PO SCH (21:37)
[2020-09-16 22:36] VITALS: BP 132/71
[2020-09-17] MEDS: ACETAMINOPHEN 325 MG TABLET. PO PRN (01:09)
[2020-09-17 02:54] VITALS: BP 121/77
[2020-09-17] MEDS: LEVOTHYROXINE 112 MCG TABLET PO SCH (06:00)
[2020-09-17 06:40] VITALS: BP 124/71
[2020-09-17] MEDS: INSULIN LISPRO 300 UNITS/3 ML VIAL. SQ SCH ×4 (07:30→20:53)
[2020-09-17 08:05] LABS: HEMATOCRIT 40.4 % (36.0-47.0); HEMOGLOBIN 13.6 g/dL (12.0-15.5); RED BLOOD COUNT 4.56 x10^6/uL (3.50-5.40); RED CELL DISTRIBUTION WIDTH 13.4 % (11.5-14.5); WHITE BLOOD COUNT 10.1 x10^3/uL (4.0-11.0)
[2020-09-17] MEDS: LACTOBACILLUS RHAMNOSUS GG 1 CAPSULE. PO SCH ×2 (08:26→21:05)
[2020-09-17] MEDS: FENOFIBRATE,MICRONIZED 134 MG CAPSULE PO SCH (08:26)
[2020-09-17] MEDS: ASPIRIN CHEWABLE 81 MG TABLET. PO SCH (08:26)
[2020-09-17] MEDS: MULTIVITAMIN I-VITE TABLET. PO SCH (08:26)
[2020-09-17] MEDS: MULTIVITAMIN with MINERAL TABLET. PO SCH (08:27)
[2020-09-17] MEDS: METOPROLOL SUCC 24HR ER 25 MG TAB.ER.24H. PO SCH (08:27)
[2020-09-17] MEDS: LORazepam 0.5 MG TABLET PO PRN (08:29)
[2020-09-17] MEDS: ENOXAPARIN 40 MG/0.4 ML SYRINGE. SQ SCH (08:30)
--- NOTE | 2020-09-17 08:43 | PN ---
DATE: 09/17/2020 SUBJECTIVE: The patient is resting, slightly propped up, eating her breakfast comfortably, in no apparent distress. She continued to be anxious and has slept very well, but denied any chest pain or shortness of breath. PHYSICAL EXAMINATION: GENERAL: When I examined her, she was pale. No jaundice, cyanosis or thyromegaly. No jugular venous distension. No limb edema. VITAL SIGNS: Her heart rate was 84, blood pressure was 124/71, temperature was 98.1, respiratory rate 18, and oxygen saturation was 91% on room air. The rest of exam is stable. LABORATORY DATA: Her CBC showed a white cell count of 10,100, hemoglobin 13.6, hematocrit 40.4, MCV 89 and platelet count of 436,000. Her chemistry is still pending at the time of this dictation. ASSESSMENT: 1. New onset shortness of breath. CT and chest x-ray showing large left sided pleural effusion. 2. Possible pneumonia with parapneumonic effusion. 3. Hypertension. 4. Hyperlipidemia. 5. Coronary artery disease, status post percutaneous coronary intervention with stent deployment. 6. Hypothyroidism. 7. Generalized osteoarthritis. 8. The patient has a history of breast cancer, treated with left mastectomy more than 20 years ago. She has not received any chemotherapy and radiation treatment. She does have questionable malignant nodules in both right lower lobe and left upper lobe. The result of the cytology are still pending at the time of this dictation. PLAN: To continue to monitor blood sugar and adjust insulin as needed. Continue with SCDs for DVT prophylaxis. Continue with Marinol for anorexia and tramadol and lorazepam for pain and anxiety. OTONIEL SCOTT MD DR: SERGEI/ezio JOB#: [id number] / [id number]
[2020-09-17 08:54] LABS: ALBUMIN 2.4 g/dL (3.4-5.0); ALBUMIN/GLOBULIN RATIO 0.6 (1.0-1.7); GFR 53.3; POTASSIUM 3.9 mmol/L (3.5-5.1); TOTAL BILIRUBIN 0.7 mg/dL (0.2-1.0); TOTAL PROTEIN 6.5 g/dL (6.4-8.2)
--- NOTE | 2020-09-17 09:52 | PDOC ---
PULMONARY PROGRESS NOTES DATE: 09/17/20 TIME: 09:50 Subjective feels better , s/p left thoracentesis 1150 cc removed Remains on room air no increased cough or SOA Vitals Vital Signs Date Time Temp Pulse Resp B/P (MAP) Pulse Ox O2 Delivery O2 Flow Rate FiO2 09/17/20 08:27 84 124/71 09/17/20 06:40 98.1 18 91 Room Air 98.1 ROS: No Nausea, No Chest Pain, No Abdominal Pain, No Increase Cough General: Alert, Oriented X4, No acute distress Lungs: Other (DECREASE LEFT BASE) Cardiovascular: S1 Abdomen: Soft Neuro Exam: Alert Extremities: No Edema Skin: Warm, Dry Labs Laboratory Tests Test 09/15/20 11:42 09/15/20 16:49 09/15/20 20:02 09/16/20 08:08 Glucose (Fingerstick) 167 mg/dL (70-99) 186 mg/dL (70-99) 178 mg/dL (70-99) 156 mg/dL (70-99) Test 09/16/20 12:06 09/16/20 16:50 09/16/20 20:32 09/17/20 07:25 Glucose (Fingerstick) 238 mg/dL (70-99) 233 mg/dL (70-99) 180 mg/dL (70-99) White Blood Count 10.1 x10^3/uL (4.0-11.0) Red Blood Count 4.56 x10^6/uL (3.50-5.40) Hemoglobin 13.6 g/dL (12.0-15.5) Hematocrit 40.4 % (36.0-47.0) Mean Corpuscular Volume 89 fL (79-100) Mean Corpuscular Hemoglobin 30 pg (25-35) Mean Corpuscular Hemoglobin Concent 34 g/dL (31-37) Red Cell Distribution Width 13.4 % (11.5-14.5) Platelet Count 436 x10^3/uL (140-400) Sodium Level 139 mmol/L (136-145) Potassium Level 3.9 mmol/L (3.5-5.1) Chloride Level 100 mmol/L (98-107) Carbon Dioxide Level 30 mmol/L (21-32) Anion Gap 9 (6-14) Blood Urea Nitrogen 14 mg/dL (7-20) Creatinine 1.0 mg/dL (0.6-1.0) Estimated GFR (Cockcroft-Gault) 53.3 BUN/Creatinine Ratio 14 (6-20) Glucose Level 138 mg/dL (70-99) Calcium Level 9.0 mg/dL (8.5-10.1) Total Bilirubin 0.7 mg/dL (0.2-1.0) Aspartate Amino Transf (AST/SGOT) 21 U/L (15-37) Alanine Aminotransferase (ALT/SGPT) 13 U/L (14-59) Alkaline Phosphatase 55 U/L (46-116) Total Protein 6.5 g/dL (6.4-8.2) Albumin 2.4 g/dL (3.4-5.0) Albumin/Globulin Ratio 0.6 (1.0-1.7) Test 09/17/20 08:01 Glucose (Fingerstick) 141 mg/dL (70-99) Laboratory Tests Test 09/16/20 12:06 09/16/20 16:50 09/16/20 20:32 09/17/20 07:25 Glucose (Fingerstick) 238 mg/dL (70-99) 233 mg/dL (70-99) 180 mg/dL (70-99) White Blood Count 10.1 x10^3/uL (4.0-11.0) Red Blood Count 4.56 x10^6/uL (3.50-5.40) Hemoglobin 13.6 g/dL (12.0-15.5) Hematocrit 40.4 % (36.0-47.0) Mean Corpuscular Volume 89 fL (79-100) Mean Corpuscular Hemoglobin 30 pg (25-35) Mean Corpuscular Hemoglobin Concent 34 g/dL (31-37) Red Cell Distribution Width 13.4 % (11.5-14.5) Platelet Count 436 x10^3/uL (140-400) Sodium Level 139 mmol/L (136-145) Potassium Level 3.9 mmol/L (3.5-5.1) Chloride Level 100 mmol/L (98-107) Carbon Dioxide Level 30 mmol/L (21-32) Anion Gap 9 (6-14) Blood Urea Nitrogen 14 mg/dL (7-20) Creatinine 1.0 mg/dL (0.6-1.0) Estimated GFR (Cockcroft-Gault) 53.3 BUN/Creatinine Ratio 14 (6-20) Glucose Level 138 mg/dL (70-99) Calcium Level 9.0 mg/dL (8.5-10.1) Total Bilirubin 0.7 mg/dL (0.2-1.0) Aspartate Amino Transf (AST/SGOT) 21 U/L (15-37) Alanine Aminotransferase (ALT/SGPT) 13 U/L (14-59) Alkaline Phosphatase 55 U/L (46-116) Total Protein 6.5 g/dL (6.4-8.2) Albumin 2.4 g/dL (3.4-5.0) Albumin/Globulin Ratio 0.6 (1.0-1.7) Test 09/17/20 08:01 Glucose (Fingerstick) 141 mg/dL (70-99) Medications Active Scripts Medications Dose Route/Sig Max Daily Dose Days Date Category Preservision Areds Softgel (Vit A/Vit C/Vit E/Zinc/Copper) 1 Each Capsule 2 Each PO DAILY 09/13/20 Reported Euthyrox (Levothyroxine Sodium) 112 Mcg Tablet 112 Mcg PO DAILY06 09/13/20 Reported Atorvastatin Calcium 20 Mg Tablet 20 Mg PO HS 09/13/20 Reported Metoprolol Succinate ( Xl ) (Metoprolol Succinate) 25 Mg Tab.er.24h 25 Mg PO DAILY 09/13/20 Reported Hydrochlorothiazide Tablet (Hydrochlorothiazide) 12.5 Mg Tablet 25 Mg PO DAILY 09/13/20 Reported Tylenol (Acetaminophen) 325 Mg Tablet 500 Mg PO Q6HRS PRN 09/13/20 Reported Aspirin 81 Mg Tab.chew 81 Mg PO DAILY 09/13/20 Reported Multi Vitamin Daily (Multivitamin) 1 Each Tablet 1 Each PO DAILY 07/02/14 Reported Fish Oil 1,000 Mg Capsule ([place]-3 Fatty Acids/Fish Oil) 1 Each Capsule 1 Each PO DAILY 07/02/14 Reported Fenofibrate (Fenofibrate Nanocrystallized) 145 Mg Tablet 1 Tab PO DAILY 04/15/14 Reported Comments CXR 09/15 mod Left effusion Impression . 1. Large left-sided effusion.Suspect malignant, s/p left thoracentesis 2. CT scan dated 09/06/2020 showed a solid noncalcified pulmonary nodule right lower lobe measuring 1.2 cm, ill-defined band-like opacity in left upper lobe measuring 1.8 x 1.3. 3. History of breast cancer. 20 yrs ago, neg LN 4. Left-sided chest pain, shortness of air related to pleural effusion. improved 5. Coronary artery disease with previous angioplasty. 6. Remote history of deep venous thrombosis 5 years ago, status post knee replacement. 7. Obesity. 8. Remote history of tobacco dependent. 9. Status post COVID-19 vaccination, first dose. Plan . Pt. remains on room air Follow CXR post tap, still has moderate left effusion S/P Thoracentesis -- pre-noble cytology Atypical cells await pathology, gram stain neg . If malignant, may consider PleurX catheter ECHO-EF WNL off ABX Tumor marke for breast cancer antigen ordered Hold repeat CT chest as pt. has ongoing Mod. Left effusion DVT/GI PPX D/W FRIDA MEJIA MD Sep 17, 2020 09:52
[2020-09-17 10:37] VITALS: BP 121/75
[2020-09-17] MEDS: DRONABINOL 2.5 MG CAPSULE. PO SCH ×2 (12:24→17:57)
[2020-09-17 14:37] VITALS: BP 122/72
[2020-09-17 18:37] VITALS: BP 136/53
[2020-09-17] MEDS: ATORVASTATIN CALCIUM 20 MG TABLET PO SCH (21:05)
[2020-09-17] MEDS: traMADol 50 MG TABLET PO PRN (21:05)
[2020-09-17] MEDS: TEMAZEPAM 15 MG CAPSULE PO PRN (22:47)
[2020-09-17 23:19] VITALS: BP 120/78
[2020-09-18] MEDS: ACETAMINOPHEN 325 MG TABLET. PO PRN (02:45)
[2020-09-18 03:08] VITALS: BP 135/76
[2020-09-18] MEDS: LEVOTHYROXINE 112 MCG TABLET PO SCH (06:11)
[2020-09-18 07:00] VITALS: BP 134/85
[2020-09-18] MEDS: INSULIN LISPRO 300 UNITS/3 ML VIAL. SQ SCH ×4 (07:30→20:42)
[2020-09-18] MEDS: ASPIRIN CHEWABLE 81 MG TABLET. PO SCH (08:48)
[2020-09-18] MEDS: LACTOBACILLUS RHAMNOSUS GG 1 CAPSULE. PO SCH ×2 (08:48→20:44)
[2020-09-18] MEDS: FENOFIBRATE,MICRONIZED 134 MG CAPSULE PO SCH (08:48)
[2020-09-18] MEDS: METOPROLOL SUCC 24HR ER 25 MG TAB.ER.24H. PO SCH (08:48)
[2020-09-18] MEDS: DRONABINOL 2.5 MG CAPSULE. PO SCH ×2 (08:48→16:28)
[2020-09-18] MEDS: MULTIVITAMIN I-VITE TABLET. PO SCH (08:48)
[2020-09-18] MEDS: MULTIVITAMIN with MINERAL TABLET. PO SCH (08:48)
[2020-09-18] MEDS: ENOXAPARIN 40 MG/0.4 ML SYRINGE. SQ SCH (08:49)
[2020-09-18 11:00] VITALS: BP 130/77
[2020-09-18] MEDS ORDERED: IOHEXOL 240 MG/ML 50ML VIAL. PO ONE (12:00)
[2020-09-18] MEDS ORDERED: IOHEXOL 300 MG/ML 100ML VIAL. IV ONE (12:00)
--- NOTE | 2020-09-18 12:07 | PDOC ---
PULMONARY PROGRESS NOTES DATE: 09/18/20 TIME: 12:01 Subjective feels better , s/p left thoracentesis 1150 cc removed on 09/13 now requiring 2 liters N/C mild SOA today Vitals Vital Signs Date Time Temp Pulse Resp B/P (MAP) Pulse Ox O2 Delivery O2 Flow Rate FiO2 09/18/20 11:00 97.8 84 18 130/77 (94) 90 Room Air 97.8 09/18/20 08:00 2.0 ROS: No Nausea, No Chest Pain, No Abdominal Pain, No Increase Cough General: Alert, Oriented X4, No acute distress Lungs: Other (DECREASE LEFT BASE) Cardiovascular: S1 Abdomen: Soft Neuro Exam: Alert Extremities: No Edema Skin: Warm, Dry Labs Laboratory Tests Test 09/16/20 12:06 09/16/20 16:50 09/16/20 20:32 09/17/20 07:25 Glucose (Fingerstick) 238 mg/dL (70-99) 233 mg/dL (70-99) 180 mg/dL (70-99) White Blood Count 10.1 x10^3/uL (4.0-11.0) Red Blood Count 4.56 x10^6/uL (3.50-5.40) Hemoglobin 13.6 g/dL (12.0-15.5) Hematocrit 40.4 % (36.0-47.0) Mean Corpuscular Volume 89 fL (79-100) Mean Corpuscular Hemoglobin 30 pg (25-35) Mean Corpuscular Hemoglobin Concent 34 g/dL (31-37) Red Cell Distribution Width 13.4 % (11.5-14.5) Platelet Count 436 x10^3/uL (140-400) Sodium Level 139 mmol/L (136-145) Potassium Level 3.9 mmol/L (3.5-5.1) Chloride Level 100 mmol/L (98-107) Carbon Dioxide Level 30 mmol/L (21-32) Anion Gap 9 (6-14) Blood Urea Nitrogen 14 mg/dL (7-20) Creatinine 1.0 mg/dL (0.6-1.0) Estimated GFR (Cockcroft-Gault) 53.3 BUN/Creatinine Ratio 14 (6-20) Glucose Level 138 mg/dL (70-99) Calcium Level 9.0 mg/dL (8.5-10.1) Total Bilirubin 0.7 mg/dL (0.2-1.0) Aspartate Amino Transf (AST/SGOT) 21 U/L (15-37) Alanine Aminotransferase (ALT/SGPT) 13 U/L (14-59) Alkaline Phosphatase 55 U/L (46-116) Total Protein 6.5 g/dL (6.4-8.2) Albumin 2.4 g/dL (3.4-5.0) Albumin/Globulin Ratio 0.6 (1.0-1.7) Test 09/17/20 08:01 09/17/20 12:08 09/17/20 16:39 09/17/20 20:35 Glucose (Fingerstick) 141 mg/dL (70-99) 159 mg/dL (70-99) 201 mg/dL (70-99) 217 mg/dL (70-99) Test 09/18/20 07:28 09/18/20 11:29 Glucose (Fingerstick) 141 mg/dL (70-99) 171 mg/dL (70-99) Laboratory Tests Test 09/17/20 12:08 09/17/20 16:39 09/17/20 20:35 09/18/20 07:28 Glucose (Fingerstick) 159 mg/dL (70-99) 201 mg/dL (70-99) 217 mg/dL (70-99) 141 mg/dL (70-99) Test 09/18/20 11:29 Glucose (Fingerstick) 171 mg/dL (70-99) Medications Active Scripts Medications Dose Route/Sig Max Daily Dose Days Date Category Preservision Areds Softgel (Vit A/Vit C/Vit E/Zinc/Copper) 1 Each Capsule 2 Each PO DAILY 09/13/20 Reported Euthyrox (Levothyroxine Sodium) 112 Mcg Tablet 112 Mcg PO DAILY06 09/13/20 Reported Atorvastatin Calcium 20 Mg Tablet 20 Mg PO HS 09/13/20 Reported Metoprolol Succinate ( Xl ) (Metoprolol Succinate) 25 Mg Tab.er.24h 25 Mg PO DAILY 09/13/20 Reported Hydrochlorothiazide Tablet (Hydrochlorothiazide) 12.5 Mg Tablet 25 Mg PO DAILY 09/13/20 Reported Tylenol (Acetaminophen) 325 Mg Tablet 500 Mg PO Q6HRS PRN 09/13/20 Reported Aspirin 81 Mg Tab.chew 81 Mg PO DAILY 09/13/20 Reported Multi Vitamin Daily (Multivitamin) 1 Each Tablet 1 Each PO DAILY 07/02/14 Reported Fish Oil 1,000 Mg Capsule ([place]-3 Fatty Acids/Fish Oil) 1 Each Capsule 1 Each PO DAILY 07/02/14 Reported Fenofibrate (Fenofibrate Nanocrystallized) 145 Mg Tablet 1 Tab PO DAILY 04/15/14 Reported Comments CXR 09/15 mod Left effusion Impression . 1. Large left-sided effusion, pre-noble pathology adenocarnioma, s/p left thorac entesis 2. CT scan dated 09/06/2020 showed a solid noncalcified pulmonary nodule right lower lobe measuring 1.2 cm, ill-defined band-like opacity in left upper lobe measuring 1.8 x 1.3. 3. History of breast cancer. 20 yrs ago, neg LN 4. Left-sided chest pain, shortness of air related to pleural effusion. improved 5. Coronary artery disease with previous angioplasty. 6. Remote history of deep venous thrombosis 5 years ago, status post knee replacement. 7. Obesity. 8. Remote history of tobacco dependent. 9. Status post COVID-19 vaccination, first dose. Plan . Continue Supplemental oxygen as need to keep sats above 94%, currently on 2 liters N/C Follow CXR post thoracentesis, still has moderate left effusion-- consult IR for PleurX catheter, D/W family and they are agreeable S/P Thoracentesis -- pre-noble cytology-- showed Adenocarcinoma, awaiting final pathology, planned for PleurX catheter ECHO-EF WNL Consult HEM/ONC obtain CT chest and ABD/PLV today Tumor marke for breast cancer antigen ordered-- still pending DVT/GI PPX D/W RN Discussed at length with Family and patient at bedside also Discussed with FRIDA Mullins MD Sep 18, 2020 12:07
[2020-09-18] MEDS ORDERED: CONTRAST GIVEN. MC PRN (12:15)
--- NOTE | 2020-09-18 12:31 | PN ---
DATE: 09/18/2020 SUBJECTIVE: The patient is sitting on the edge of the bed comfortably, in no apparent distress. She slept very well last night after we started her on temazepam. She continued to be weak. We did start her also on Marinol as an appetite stimulant. 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 She is scheduled for a CT scan of the chest, abdomen and pelvis with oral contrast as well as placement of a PleurX. PHYSICAL EXAMINATION: GENERAL: When I examined her this morning, she looked well and was clearly in no apparent respiratory distress. No pallor, jaundice, cyanosis or thyromegaly. No jugular venous distention. No lower limb edema. VITAL SIGNS: Her heart rate was 84, blood pressure was 130/77, temperature was 97.8, respiratory rate was 18 and oxygen saturation was 90% on room air. HEAD, EYES, EARS, NOSE AND THROAT: Showed normocephalic, atraumatic. NECK: Supple. HEART: Showed normal first and second heart sounds. No gallop, rub or murmur. CHEST: Clear to auscultation. No crepitation or rhonchi anteriorly. Posteriorly, she has dull percussion noted and absent breath sounds on the left side posteriorly. ABDOMEN: Distended, soft, nontender. NEUROLOGIC: She is grossly intact. LABORATORY DATA: Her intake was 1370, no output was recorded. Her blood sugars seems to be well controlled. As of yesterday, her white cell count was 10,000, hemoglobin 13.6, hematocrit 40, MCV 89 and platelet count of 436,000. Her most recent chemistry showed a serum sodium 139, potassium 3.9, chloride 100, bicarbonate 30, anion gap of 9, BUN 14, creatinine 1, estimated GFR was 53 mL per minute. She has glucose 138, calcium was 9. Total bilirubin, AST, ALT, alkaline phosphatase were normal. Total protein was 6.5, albumin was 2.4. ASSESSMENT: 1. New onset of shortness of breath. The CT scan and chest x-ray are showing left sided pleural effusion. Cytology of which showed adenocarcinoma. The primary could be breast or lung. 2. The patient was treated for possible pneumonia with parapneumonic effusion, although it is clearly malignant. 3. Hypertension. 4. Hyperlipidemia. 5. Coronary artery disease, status post percutaneous coronary intervention with stent deployment. 6. Hypothyroidism. 7. Generalized osteoarthritis. 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 She is scheduled for CT scan of the chest, abdomen and pelvis, as well as placement of a PleurX tube. We would consult the oncologist to assist with management of her malignant left sided pleural effusion. OTONIEL SCOTT MD DR: SERGEI/eizo JOB#: [id number] / [id number]
--- NOTE | 2020-09-18 13:40 | PDOC2 ---
CONSULT Date of Consult Date of Consult DATE: 09/18/20 TIME: 13:34 Reason for Consult Reason for Consult: Metastatic adenocarcinoma Referring Physician Referring Physician: Dr. Bell Identification/Chief Complaint Chief Complaint Shortness of breath Source Source: Caregiver, Chart review, Patient History of Present Illness Reason for Visit: Mary Mcallister is an 80-year-old female who has been admitted to the hospital for further evaluation and management of shortness of breath. She reports a history of breast cancer nearly 2 decades ago for which she underwent left mastectomy but did not receive adjuvant chemotherapy or endocrine therapy. Patient was informed at the time that it was an early stage cancer. She had been doing well up until 2 to 3 weeks ago when she developed worsening exert ional dyspnea. This progressed to dyspnea at rest. She received further evaluation with a x-ray chest showing a large left-sided pleural effusion. She underwent diagnostic and therapeutic thoracentesis with improvement in her dyspnea following this. She states her dyspnea has gradually worsened since then. Pathology from pleural fluid effusion evaluation has resulted in a prel iminary results of adenocarcinoma. Additional immunohistochemistry stains are in process to determine the organ of origin. Medical oncology consultation has been sought due to the patient's new diagnosis of metastatic cancer. Patient was accompanied by her daughter and son and her hospital room. She denies any additional concerns at this time. She denies chest pain She denies headache, blurred vision, double vision or loss of consciousness or seizure She denies abdominal pain, nausea, vomiting, hematemesis, melena, hematochezia She denies any new focal pain anywhere in her body Past Medical History Cardiovascular: CAD, CHF, HTN, Hyperlipidemia Pulmonary: COPD (?) CENTRAL NERVOUS SYSTEM: Other (No pertinent history) Heme/Onc: Cancer (breast), Other (DVT) Psych: Anxiety Musculoskeletal: Osteoarthritis Rheumatologic: No pertinent hx Infectious disease: No pertinent hx ENT: Other (macular degeneration) Renal/: No pertinent hx Endocrine: Hypothyroidism Dermatology: No pertinent hx Past Surgical History Past Surgical History: Mastectomy (left), Other (PCI/NAN to LAD) Family History Family History: Hypertension Social History Quit ALCOHOL: none Drugs: None Lives: with Family Current Medications Current Medications Current Medications Levofloxacin/ Dextrose (Levaquin Per Pharmacy) 1 each PRN DAILY PRN MC SEE COMMENTS; Start 09/13/20 at 01:45; Status Cancel Furosemide (Lasix) 40 mg DAILY IVP Last administered on 09/13/20at 08:34; Start 09/13/20 at 09:00; Stop 09/13/20 at 10:25; Status DC Enoxaparin Sodium (Lovenox 40mg Syringe) 40 mg Q24H SQ Last administered on 09/18/20at 08:49; Start 09/13/20 at 09:00 Fentanyl Citrate (Fentanyl 2ml Vial) 50 mcg PRN Q2HR PRN IVP SEVERE PAIN 7-10; Start 09/13/20 at 01:45 Levofloxacin/ Dextrose 100 ml @ 100 mls/hr Q24H IV Last administered on 09/13/20at 20:03; Start 09/13/20 at 20:00; Stop 09/14/20 at 14:43; Status DC Acetaminophen (Tylenol) 500 mg PRN Q6HRS PRN PO MILD PAIN 1-3 Last administered on 09/18/20at 02:45; Start 09/13/20 at 10:15 Aspirin (Aspirin Chewable) 81 mg DAILY PO Last administered on 09/18/20at 08:48; Start 09/13/20 at 12:00 Atorvastatin Calcium (Lipitor) 20 mg HS PO Last administered on 09/17/20at 21:05; Start 09/13/20 at 21:00 Levothyroxine Sodium (Synthroid) 112 mcg DAILY06 PO Last administered on 09/18/20at 06:11; Start 09/13/20 at 10:30 Metoprolol Succinate (Toprol Xl) 25 mg DAILY PO Last administered on 09/18/20at 08:48; Start 09/13/20 at 12:00 Fenofibrate (Lofibra) 134 mg DAILY PO Last administered on 09/18/20at 08:48; Start 09/13/20 at 12:00 Multivitamins (Thera M Plus) 1 tab DAILY PO Last administered on 09/18/20at 08:48; Start 09/13/20 at 12:00 Multivitamins/ Minerals (I-Cheyanne) 1 tab DAILY PO Last administered on 09/18/20at 08:48; Start 09/13/20 at 12:00 Potassium Chloride (Klor-Con) 40 meq 1X ONCE PO Last administered on 09/13/20at 11:58; Start 09/13/20 at 11:00; Stop 09/13/20 at 11:01; Status DC Insulin Human Lispro (HumaLOG) 0-5 UNITS QIDACHS SQ Last administered on 09/17/20at 18:03; Start 09/13/20 at 16:30 Dextrose (Dextrose 50%-Water Syringe) 12.5 gm PRN Q15MIN PRN IV SEE COMMENTS; Start 09/13/20 at 13:30 Lorazepam (Ativan) 0.5 mg PRN Q6HRS PRN PO ANXIETY / AGITATION Last administered on 09/17/20at 08:29; Start 09/13/20 at 15:30 Lidocaine HCl (Buffered Lidocaine 1%) 3 ml STK-MED ONCE .ROUTE ; Start 09/14/20 at 11:32; Stop 09/14/20 at 11:32; Status DC Lidocaine HCl (Buffered Lidocaine 1%) 6 ml 1X ONCE INJ Last administered on 09/14/20at 11:45; Start 09/14/20 at 12:00; Stop 09/14/20 at 12:01; Status DC Lactobacillus Rhamnosus (Culturelle) 1 cap BID PO Last administered on 09/18/20at 08:48; Start 09/14/20 at 21:00 Levofloxacin/ Dextrose 50 ml @ 50 mls/hr Q24H IV Last administered on 09/15/20at 20:01; Start 09/14/20 at 21:00; Stop 09/16/20 at 11:00; Status DC Tramadol HCl (Ultram) 50 mg PRN Q6HRS PRN PO MODERATE - SEVERE PAIN Last administered on 09/17/20at 21:05; Start 09/16/20 at 05:45 Dronabinol (Marinol) 2.5 mg BIDACLD PO Last administered on 09/18/20at 08:48; Start 09/16/20 at 11:30 Temazepam (Restoril) 15 mg PRN QHS PRN PO INSOMNIA Last administered on 09/17/20at 22:47; Start 09/17/20 at 18:30 Iohexol (Omnipaque 240 Mg/ml) 50 ml 1X ONCE PO Last administered on 09/18/20at 12:00; Start 09/18/20 at 12:00; Stop 09/18/20 at 12:03; Status DC Iohexol (Omnipaque 300 Mg/ml) 60 ml 1X ONCE IV Last administered on 09/18/20at 12:00; Start 09/18/20 at 12:00; Stop 09/18/20 at 12:03; Status DC Info (CONTRAST GIVEN -- Rx MONITORING) 1 each PRN DAILY PRN MC SEE COMMENTS; Start 09/18/20 at 12:15; Stop 09/20/20 at 12:14 Active Scripts Active Reported Preservision Areds Softgel (Vit A/Vit C/Vit E/Zinc/Copper) 1 Each Capsule 2 Each PO DAILY Euthyrox (Levothyroxine Sodium) 112 Mcg Tablet 112 Mcg PO DAILY06 Atorvastatin Calcium 20 Mg Tablet 20 Mg PO HS Metoprolol Succinate ( Xl ) (Metoprolol Succinate) 25 Mg Tab.er.24h 25 Mg PO DAILY Hydrochlorothiazide Tablet (Hydrochlorothiazide) 12.5 Mg Tablet 25 Mg PO DAILY Tylenol (Acetaminophen) 325 Mg Tablet 500 Mg PO Q6HRS PRN Aspirin 81 Mg Tab.chew 81 Mg PO DAILY Multi Vitamin Daily (Multivitamin) 1 Each Tablet 1 Each PO DAILY Fish Oil 1,000 Mg Capsule ([place]-3 Fatty Acids/Fish Oil) 1 Each Capsule 1 Each PO DAILY Fenofibrate (Fenofibrate Nanocrystallized) 145 Mg Tablet 1 Tab PO DAILY Allergies Allergies: Coded Allergies: No Known Drug Allergies (Unverified , 07/04/14) ROS General: YES: Fatigue, Malaise PSYCHOLOGICAL ROS: No: Hallucinations, Hostility Eyes: No Eye Pain, No Itchy Eyes HEENT: No: Oral lesions, Sinus pain ALLERGY AND IMMUNOLOGY: No: Nasal Congestion, Post Nasal Drip Hematological and Lymphatic: No: Brusing, Night Sweats ENDOCRINE: No: Malaise/lethargy, Mood Swings Breast: No Nipple discharge Respiratory: YES: Cough, Shortness of breath, SOB with excertion; No: Hemoptysis Cardiovascular: No Paroxysmal Noc. Dyspnea Gastrointestinal: No Diarrhea Genitourinary: No Urgency, No Pain Musculoskeletal: No Joint Swelling Neurological: No Memory Loss Skin: No Mole Changes Physical Exam General: Alert, Oriented X3 HEENT: Atraumatic Lungs: Clear to auscultation Heart: Regular rate, Normal S1, Normal S2 Abdomen: Normal bowel sounds, Soft, No masses Extremities: No clubbing Skin: No breakdown Neuro: Normal speech Psych/Mental Status: Mental status NL MUSCULOSKELETAL: No swelling Vitals VITALS Vital Signs Date Time Temp Pulse Resp B/P (MAP) Pulse Ox O2 Delivery O2 Flow Rate FiO2 09/18/20 11:00 97.8 84 18 130/77 (94) 90 Room Air 97.8 09/18/20 08:00 2.0 Labs Labs Laboratory Tests Test 09/16/20 16:50 09/16/20 20:32 09/17/20 07:25 09/17/20 08:01 Glucose (Fingerstick) 233 mg/dL (70-99) 180 mg/dL (70-99) 141 mg/dL (70-99) White Blood Count 10.1 x10^3/uL (4.0-11.0) Red Blood Count 4.56 x10^6/uL (3.50-5.40) Hemoglobin 13.6 g/dL (12.0-15.5) Hematocrit 40.4 % (36.0-47.0) Mean Corpuscular Volume 89 fL (79-100) Mean Corpuscular Hemoglobin 30 pg (25-35) Mean Corpuscular Hemoglobin Concent 34 g/dL (31-37) Red Cell Distribution Width 13.4 % (11.5-14.5) Platelet Count 436 x10^3/uL (140-400) Sodium Level 139 mmol/L (136-145) Potassium Level 3.9 mmol/L (3.5-5.1) Chloride Level 100 mmol/L (98-107) Carbon Dioxide Level 30 mmol/L (21-32) Anion Gap 9 (6-14) Blood Urea Nitrogen 14 mg/dL (7-20) Creatinine 1.0 mg/dL (0.6-1.0) Estimated GFR (Cockcroft-Gault) 53.3 BUN/Creatinine Ratio 14 (6-20) Glucose Level 138 mg/dL (70-99) Calcium Level 9.0 mg/dL (8.5-10.1) Total Bilirubin 0.7 mg/dL (0.2-1.0) Aspartate Amino Transf (AST/SGOT) 21 U/L (15-37) Alanine Aminotransferase (ALT/SGPT) 13 U/L (14-59) Alkaline Phosphatase 55 U/L (46-116) Total Protein 6.5 g/dL (6.4-8.2) Albumin 2.4 g/dL (3.4-5.0) Albumin/Globulin Ratio 0.6 (1.0-1.7) Test 09/17/20 12:08 09/17/20 16:39 09/17/20 20:35 09/18/20 07:28 Glucose (Fingerstick) 159 mg/dL (70-99) 201 mg/dL (70-99) 217 mg/dL (70-99) 141 mg/dL (70-99) Test 09/18/20 11:29 Glucose (Fingerstick) 171 mg/dL (70-99) Laboratory Tests Test 09/17/20 16:39 09/17/20 20:35 09/18/20 07:28 09/18/20 11:29 Glucose (Fingerstick) 201 mg/dL (70-99) 217 mg/dL (70-99) 141 mg/dL (70-99) 171 mg/dL (70-99) Assessment/Plan Assessment/Plan Assessment: Metastatic adenocarcinoma of unknown origin History of breast cancer Malignant pleural effusion, left-sided Coronary artery disease Hypertension Recommendations: -We will follow up on results of surgical pathology. -Recommend CT of chest, abdomen and pelvis for further evaluation of extent of disease and to potentially assist in identifying the organ of origin if IHC is not consistent with metastatic breast adenocarcinoma -I discussed the evaluation of cancer of unknown origin with the patient and her family -We will discuss additional treatment recommendations once final pathology and CT results are available. -Pleurx catheter placement seems reasonable if pleural effusion reoccurs. Will defer to pulmonology -Rest per Dr. Bell -Thank you for the consult. I will continue to follow Roel Corbin MD Medical Oncology/Hematology Ph: [phone] ELVER CORBIN MD Sep 18, 2020 13:40
--- NOTE | 2020-09-18 13:54 | NUR ---
SS following up with discharge planning. SS reviewed pt chart and discussed with pt RN. Pt is from home and is currently on room air. COVID19 negative. Per RN, new diagnosis of cancer. Oncology consulted. SS will continue to follow for discharge planning.
[2020-09-18 15:00] VITALS: BP 121/49
--- NOTE | 2020-09-18 16:52 | RAD ---
EXAM: CT CHEST, ABDOMEN, AND PELVIS WITH CONTRAST INDICATION: Mass, positive cytology COMPARISON: CT chest 09/05/2020 TECHNIQUE: Helical CT imaging performed of the chest, abdomen and pelvis after administration of 60 m L Omnipaque 300 contrast. Sagittal and coronal reformats were obtained. One or more of the following individualized dose reduction techniques were utilized for this examinat ion: 1. Automated exposure control 2. Adjustment of the mA and/or kV according to patient size 3. Use of iterative reconstruction technique. FINDINGS: CHEST: Thyroid gland and thoracic inlet: Unremarkable. Heart and great vessels: Heart is normal in size. No pericardial effusion. There are coronary artery calcifications and mitral valve calcifications. Descending thoracic aorta is at the upper limit of no rmal measuring 4 cm. Mediastinum and joey: No mediastinal or hilar lymphadenopathy. Lungs and pleura: A large partially loculated left pleural effusion is similar to prior exam. There i s near complete atelectasis of the left lower lobe and partial atelectasis of the left upper lobe. Th ere are calcified granulomas in the left lung. Multiple right pulmonary nodules are unchanged. This i ncludes multiple nodules along the major fissure measuring up to 1.6 cm, a 1.3 cm nodule in the right lower lobe, and other smaller nodules in the right lung. There is no right pleural effusion. Chest wall and axillae: There are surgical changes of left mastectomy and axillary node dissection. N o axillary lymphadenopathy Bones: A sclerotic lesion in the posterior aspect of T7 is unchanged. ABDOMEN AND PELVIS: Liver: Normal. No focal lesion. Gallbladder/Biliary Tree: Normal. Pancreas: Normal. Spleen: There is an area of fullness in the pancreatic body measuring approximately 2.5 x 2.0 cm (eulalio ge 28 series 4; image 22 series 8). This could be due to an underlying mass or a pseudolesion due to relative fatty atrophy of the pancreatic head and neck. Adrenal Glands: Normal. Kidneys: Kidneys are normal in size and enhance symmetrically. Proximal ureters are normal. No hydron ephrosis. Stomach and visualized bowel: Stomach is normal. Visualized small bowel and colon are normal. Vasculature: Abdominal aorta is normal in caliber. Lymph Nodes: No lymphadenopathy. Peritoneum and retroperitoneum: No free fluid or free air. Bones: No acute osseous abnormality in the abdomen. There is mild lumbar scoliosis and moderate to se alexandr degenerative disc disease. There is a focus of gas in the subcutaneous left lateral abdominal wall, likely related to medication injection. IMPRESSION: 1. Unchanged large loculated left pleural effusion. Slightly increased atelectasis of the left lung. 2. Unchanged right pulmonary nodules. 3. Unchanged sclerotic lesion in T7 suspicious for metastatic disease. 4. Fullness in the pancreatic body. This may be a pseudolesion due to relative atrophy in the pancrea tic head and neck, however an underlying pancreatic mass is possible. Further evaluation could be obt ained by CT or MRI with pancreatic protocol. 5. No other evidence of malignancy or metastatic disease in the abdomen. 6. Coronary artery calcifications, aortic annulus calcifications, and upper limit of normal caliber a scending thoracic aorta. Electronically signed by: Pam Canales MD (09/18/2020 4:49 PM) [id number]
[2020-09-18 19:00] VITALS: BP 128/56
[2020-09-18] MEDS: ATORVASTATIN CALCIUM 20 MG TABLET PO SCH (20:44)
[2020-09-18] MEDS: traMADol 50 MG TABLET PO PRN (22:50)
[2020-09-18] MEDS: TEMAZEPAM 15 MG CAPSULE PO PRN (22:50)
[2020-09-18 23:00] VITALS: BP 135/74
[2020-09-19] VITALS (7 sets, daily range): BP systolic 105–146; BP diastolic 63–75
[2020-09-19 04:56] LABS: HEMOGLOBIN 12.9 g/dL (12.0-15.5); RED BLOOD COUNT 4.32 x10^6/uL (3.50-5.40); RED CELL DISTRIBUTION WIDTH 13.7 % (11.5-14.5); WHITE BLOOD COUNT 8.8 x10^3/uL (4.0-11.0)
[2020-09-19 05:19] LABS: ALBUMIN 2.4 g/dL (3.4-5.0); ALBUMIN/GLOBULIN RATIO 0.6 (1.0-1.7); CALCIUM 8.5 mg/dL (8.5-10.1); CREATININE 0.7 mg/dL (0.6-1.0); GFR 80.5; POTASSIUM 3.9 mmol/L (3.5-5.1); TOTAL BILIRUBIN 0.5 mg/dL (0.2-1.0); TOTAL PROTEIN 6.4 g/dL (6.4-8.2)
[2020-09-19] MEDS: LEVOTHYROXINE 112 MCG TABLET PO SCH (06:00)
[2020-09-19] MEDS: INSULIN LISPRO 300 UNITS/3 ML VIAL. SQ SCH ×4 (07:30→22:00)
[2020-09-19] MEDS: MULTIVITAMIN I-VITE TABLET. PO SCH (09:00)
[2020-09-19] MEDS: ENOXAPARIN 40 MG/0.4 ML SYRINGE. SQ SCH (09:00)
--- NOTE | 2020-09-19 09:00 | PDOC ---
PROGRESS NOTES Date of Service DATE: 09/19/20 TIME: 08:54 Subjective Subjective No interval events. Waiting for pathology report. No new symptoms. Objective Objective Vital Signs Date Time Temp Pulse Resp B/P (MAP) Pulse Ox O2 Delivery O2 Flow Rate FiO2 09/19/20 07:00 97.5 87 18 105/75 (85) 90 Nasal Cannula 1.0 97.5 Intake and Output 09/19/20 07:00 Intake Total 540 ml Balance 540 ml Intake Oral 540 ml # Voids 4 Physical Exam Abdomen: Normal bowel sounds, Soft Heart: Regular rate, Normal S1 Extremities: No clubbing, No cyanosis General: Alert, Cooperative HEENT: Atraumatic Lungs: Clear to auscultation MUSCULOSKELETAL: No swelling Neck: Supple Neuro: Normal gait Psych/Mental Status: Mental status NL Skin: No rashes Assessment Assessment Metastatic adenocarcinoma of unknown origin History of breast cancer Malignant pleural effusion, left-sided Coronary artery disease Hypertension Plan Plan of Care -We will follow up on results of surgical pathology. Preliminary results indicate that it is positive for adenocarcinoma. Immunohistochemistry studies to identify the origin are pending at this time but were not immediately suggestive of breast or pulmonary adenocarcinoma -Reviewed CT of chest, abdomen and pelvis showing loculated left pleural effusion, multiple right-sided pulmonary nodules, T7 lesion and unclear pancreatic head prominence. Can consider further imaging if pathology report is not conclusive for origin of her cancer -Check CEA, CA-125, CA 19-9. Noted CA 27-29 is elevated -I previously discussed the evaluation of cancer of unknown origin with the patient and her family -We will discuss additional treatment recommendations once final pathology and CT results are available. -Pleurx catheter placement seems reasonable if pleural effusion reoccurs. Will defer to pulmonology -Rest per Dr. Ray Corbin MD Medical Oncology/Hematology Ph: [phone] Comment Review of Relevant I have reviewed the following items mo (where applicable) has been applied. Labs Laboratory Tests Test 09/17/20 12:08 09/17/20 16:39 09/17/20 20:35 09/18/20 07:28 Glucose (Fingerstick) 159 mg/dL (70-99) 201 mg/dL (70-99) 217 mg/dL (70-99) 141 mg/dL (70-99) Test 09/18/20 11:29 09/18/20 16:51 09/18/20 20:41 09/19/20 04:16 Glucose (Fingerstick) 171 mg/dL (70-99) 191 mg/dL (70-99) 258 mg/dL (70-99) White Blood Count 8.8 x10^3/uL (4.0-11.0) Red Blood Count 4.32 x10^6/uL (3.50-5.40) Hemoglobin 12.9 g/dL (12.0-15.5) Hematocrit 39.0 % (36.0-47.0) Mean Corpuscular Volume 90 fL (79-100) Mean Corpuscular Hemoglobin 30 pg (25-35) Mean Corpuscular Hemoglobin Concent 33 g/dL (31-37) Red Cell Distribution Width 13.7 % (11.5-14.5) Platelet Count 387 x10^3/uL (140-400) Sodium Level 136 mmol/L (136-145) Potassium Level 3.9 mmol/L (3.5-5.1) Chloride Level 101 mmol/L (98-107) Carbon Dioxide Level 30 mmol/L (21-32) Anion Gap 5 (6-14) Blood Urea Nitrogen 12 mg/dL (7-20) Creatinine 0.7 mg/dL (0.6-1.0) Estimated GFR (Cockcroft-Gault) 80.5 BUN/Creatinine Ratio 17 (6-20) Glucose Level 128 mg/dL (70-99) Calcium Level 8.5 mg/dL (8.5-10.1) Total Bilirubin 0.5 mg/dL (0.2-1.0) Aspartate Amino Transf (AST/SGOT) 21 U/L (15-37) Alanine Aminotransferase (ALT/SGPT) 11 U/L (14-59) Alkaline Phosphatase 53 U/L (46-116) Total Protein 6.4 g/dL (6.4-8.2) Albumin 2.4 g/dL (3.4-5.0) Albumin/Globulin Ratio 0.6 (1.0-1.7) Test 09/19/20 07:33 Glucose (Fingerstick) 152 mg/dL (70-99) Laboratory Tests Test 09/18/20 11:29 09/18/20 16:51 2/22/21 20:41 09/19/20 04:16 Glucose (Fingerstick) 171 mg/dL (70-99) 191 mg/dL (70-99) 258 mg/dL (70-99) White Blood Count 8.8 x10^3/uL (4.0-11.0) Red Blood Count 4.32 x10^6/uL (3.50-5.40) Hemoglobin 12.9 g/dL (12.0-15.5) Hematocrit 39.0 % (36.0-47.0) Mean Corpuscular Volume 90 fL (79-100) Mean Corpuscular Hemoglobin 30 pg (25-35) Mean Corpuscular Hemoglobin Concent 33 g/dL (31-37) Red Cell Distribution Width 13.7 % (11.5-14.5) Platelet Count 387 x10^3/uL (140-400) Sodium Level 136 mmol/L (136-145) Potassium Level 3.9 mmol/L (3.5-5.1) Chloride Level 101 mmol/L (98-107) Carbon Dioxide Level 30 mmol/L (21-32) Anion Gap 5 (6-14) Blood Urea Nitrogen 12 mg/dL (7-20) Creatinine 0.7 mg/dL (0.6-1.0) Estimated GFR (Cockcroft-Gault) 80.5 BUN/Creatinine Ratio 17 (6-20) Glucose Level 128 mg/dL (70-99) Calcium Level 8.5 mg/dL (8.5-10.1) Total Bilirubin 0.5 mg/dL (0.2-1.0) Aspartate Amino Transf (AST/SGOT) 21 U/L (15-37) Alanine Aminotransferase (ALT/SGPT) 11 U/L (14-59) Alkaline Phosphatase 53 U/L (46-116) Total Protein 6.4 g/dL (6.4-8.2) Albumin 2.4 g/dL (3.4-5.0) Albumin/Globulin Ratio 0.6 (1.0-1.7) Test 09/19/20 07:33 Glucose (Fingerstick) 152 mg/dL (70-99) Microbiology 09/14/20 Gram Stain - Final, Complete 09/14/20 Aerobic Culture - Final, Complete Medications Current Medications Levofloxacin/ Dextrose (Levaquin Per Pharmacy) 1 each PRN DAILY PRN MC SEE COMMENTS; Start 09/13/20 at 01:45; Status Cancel Furosemide (Lasix) 40 mg DAILY IVP Last administered on 09/13/20at 08:34; Start 09/13/20 at 09:00; Stop 09/13/20 at 10:25; Status DC Enoxaparin Sodium (Lovenox 40mg Syringe) 40 mg Q24H SQ Last administered on 09/18/20at 08:49; Start 09/13/20 at 09:00 Fentanyl Citrate (Fentanyl 2ml Vial) 50 mcg PRN Q2HR PRN IVP SEVERE PAIN 7-10; Start 09/13/20 at 01:45 Levofloxacin/ Dextrose 100 ml @ 100 mls/hr Q24H IV Last administered on 09/13/20at 20:03; Start 09/13/20 at 20:00; Stop 09/14/20 at 14:43; Status DC Acetaminophen (Tylenol) 500 mg PRN Q6HRS PRN PO MILD PAIN 1-3 Last administered on 09/18/20at 02:45; Start 09/13/20 at 10:15 Aspirin (Aspirin Chewable) 81 mg DAILY PO Last administered on 09/18/20at 08:48; Start 09/13/20 at 12:00 Atorvastatin Calcium (Lipitor) 20 mg HS PO Last administered on 09/18/20at 20:44; Start 09/13/20 at 21:00 Levothyroxine Sodium (Synthroid) 112 mcg DAILY06 PO Last administered on 09/18/20at 06:11; Start 09/13/20 at 10:30 Metoprolol Succinate (Toprol Xl) 25 mg DAILY PO Last administered on 09/18/20at 08:48; Start 09/13/20 at 12:00 Fenofibrate (Lofibra) 134 mg DAILY PO Last administered on 09/18/20at 08:48; Start 09/13/20 at 12:00 Multivitamins (Thera M Plus) 1 tab DAILY PO Last administered on 09/18/20at 08:48; Start 09/13/20 at 12:00 Multivitamins/ Minerals (I-Cheyanne) 1 tab DAILY PO Last administered on 09/18/20at 08:48; Start 09/13/20 at 12:00 Potassium Chloride (Klor-Con) 40 meq 1X ONCE PO Last administered on 09/13/20at 11:58; Start 09/13/20 at 11:00; Stop 09/13/20 at 11:01; Status DC Insulin Human Lispro (HumaLOG) 0-5 UNITS QIDACHS SQ Last administered on 09/17/20at 18:03; Start 09/13/20 at 16:30 Dextrose (Dextrose 50%-Water Syringe) 12.5 gm PRN Q15MIN PRN IV SEE COMMENTS; Start 09/13/20 at 13:30 Lorazepam (Ativan) 0.5 mg PRN Q6HRS PRN PO ANXIETY / AGITATION Last adminis tered on 09/17/20at 08:29; Start 09/13/20 at 15:30 Lidocaine HCl (Buffered Lidocaine 1%) 3 ml STK-MED ONCE .ROUTE ; Start 09/14/20 at 11:32; Stop 09/14/20 at 11:32; Status DC Lidocaine HCl (Buffered Lidocaine 1%) 6 ml 1X ONCE INJ Last administered on 09/14/20at 11:45; Start 09/14/20 at 12:00; Stop 09/14/20 at 12:01; Status DC Lactobacillus Rhamnosus (Culturelle) 1 cap BID PO Last administered on 09/18/20at 20:44; Start 09/14/20 at 21:00 Levofloxacin/ Dextrose 50 ml @ 50 mls/hr Q24H IV Last administered on 09/15/20at 20:01; Start 09/14/20 at 21:00; Stop 09/16/20 at 11:00; Status DC Tramadol HCl (Ultram) 50 mg PRN Q6HRS PRN PO MODERATE - SEVERE PAIN Last administered on 09/18/20at 22:50; Start 09/16/20 at 05:45 Dronabinol (Marinol) 2.5 mg BIDACLD PO Last administered on 09/18/20at 16:28; Start 09/16/20 at 11:30 Temazepam (Restoril) 15 mg PRN QHS PRN PO INSOMNIA Last administered on 09/18/20at 22:50; Start 09/17/20 at 18:30 Iohexol (Omnipaque 240 Mg/ml) 50 ml 1X ONCE PO Last administered on 09/18/20at 12:00; Start 09/18/20 at 12:00; Stop 09/18/20 at 12:03; Status DC Iohexol (Omnipaque 300 Mg/ml) 60 ml 1X ONCE IV Last administered on 09/18/20at 12:00; Start 09/18/20 at 12:00; Stop 09/18/20 at 12:03; Status DC Info (CONTRAST GIVEN -- Rx MONITORING) 1 each PRN DAILY PRN MC SEE COMMENTS; Start 09/18/20 at 12:15; Stop 09/20/20 at 12:14 Active Scripts Active Reported Preservision Areds Softgel (Vit A/Vit C/Vit E/Zinc/Copper) 1 Each Capsule 2 Each PO DAILY Euthyrox (Levothyroxine Sodium) 112 Mcg Tablet 112 Mcg PO DAILY06 Atorvastatin Calcium 20 Mg Tablet 20 Mg PO HS Metoprolol Succinate ( Xl ) (Metoprolol Succinate) 25 Mg Tab.er.24h 25 Mg PO DAILY Hydrochlorothiazide Tablet (Hydrochlorothiazide) 12.5 Mg Tablet 25 Mg PO DAILY Tylenol (Acetaminophen) 325 Mg Tablet 500 Mg PO Q6HRS PRN Aspirin 81 Mg Tab.chew 81 Mg PO DAILY Multi Vitamin Daily (Multivitamin) 1 Each Tablet 1 Each PO DAILY Fish Oil 1,000 Mg Capsule ([place]-3 Fatty Acids/Fish Oil) 1 Each Capsule 1 Each PO DAILY Fenofibrate (Fenofibrate Nanocrystallized) 145 Mg Tablet 1 Tab PO DAILY Vitals/I & O Vital Sign - Last 24 Hours 09/18/20 09/18/20 09/18/20 09/18/20 11:00 15:00 19:00 19:30 Temp 97.8 97.7 97.9 97.8 97.7 97.9 Pulse 84 64 84 Resp 18 18 20 B/P (MAP) 130/77 (94) 121/49 (73) 128/56 (80) Pulse Ox 90 92 94 O2 Delivery Room Air Room Air Room Air Nasal Cannula O2 Flow Rate 2.0 09/18/20 09/18/20 09/18/20 09/19/20 22:50 23:00 23:52 03:13 Temp 98.4 98.2 98.4 98.2 Pulse 80 72 Resp 16 18 B/P (MAP) 135/74 (94) 120/69 (86) Pulse Ox 94 94 94 95 O2 Delivery Nasal Cannula Room Air Nasal Cannula Room Air O2 Flow Rate 2.0 2.0 09/19/20 07:00 Temp 97.5 97.5 Pulse 87 Resp 18 B/P (MAP) 105/75 (85) Pulse Ox 90 O2 Delivery Nasal Cannula O2 Flow Rate 1.0 Intake and Output 09/18/20 09/18/20 09/19/20 15:00 23:00 07:00 Intake Total 300 ml 240 ml 0 ml Balance 300 ml 240 ml 0 ml Justifications for Admission Other Justification ELVER CORBIN MD Sep 19, 2020 09:00
[2020-09-19] MEDS ORDERED: LIDOCAINE 2%/EPI 1:100,000 20 ML VIAL. ONE (09:04)
[2020-09-19] MEDS ORDERED: MIDAZOLAM HCL/PF 2 MG/2 ML VIAL. ONE (09:23)
[2020-09-19] MEDS ORDERED: fentaNYL PF VIAL 100 MCG/2 ML VIAL ONE (09:23)
[2020-09-19] MEDS ORDERED: fentaNYL PF VIAL 100 MCG/2 ML VIAL IV ONE (09:30)
[2020-09-19] MEDS ORDERED: LIDOCAINE 2%/EPI 1:100,000 20 ML VIAL. IJ ONE (09:30)
[2020-09-19] MEDS ORDERED: MIDAZOLAM HCL/PF 2 MG/2 ML VIAL. IV ONE (09:30)
[2020-09-19] MEDS: traMADol 50 MG TABLET PO PRN ×2 (11:36→21:15)
[2020-09-19] MEDS: ASPIRIN CHEWABLE 81 MG TABLET. PO SCH (11:44)
[2020-09-19] MEDS: LACTOBACILLUS RHAMNOSUS GG 1 CAPSULE. PO SCH ×2 (11:44→21:15)
[2020-09-19] MEDS: MULTIVITAMIN with MINERAL TABLET. PO SCH (11:44)
[2020-09-19] MEDS: METOPROLOL SUCC 24HR ER 25 MG TAB.ER.24H. PO SCH (11:44)
[2020-09-19] MEDS: FENOFIBRATE,MICRONIZED 134 MG CAPSULE PO SCH (11:44)
--- NOTE | 2020-09-19 11:44 | PDOC ---
PULMONARY PROGRESS NOTES DATE: 09/19/20 TIME: 11:41 Subjective Patient is now status post left Pleurx catheter No increased shortness of air or cough s/p left thoracentesis 1150 cc removed on 09/13 Vitals Vital Signs Date Time Temp Pulse Resp B/P (MAP) Pulse Ox O2 Delivery O2 Flow Rate FiO2 09/19/20 11:36 20 99 Nasal Cannula 2.0 09/19/20 11:00 98.0 85 129/63 (85) 98.0 ROS: No Nausea, No Chest Pain, No Abdominal Pain, No Increase Cough General: Alert, Oriented X4, No acute distress Lungs: Other (DECREASE LEFT BASE) Cardiovascular: S1 Abdomen: Soft Neuro Exam: Alert Extremities: No Edema Skin: Warm, Dry Labs Laboratory Tests Test 09/17/20 12:08 09/17/20 16:39 09/17/20 20:35 09/18/20 07:28 Glucose (Fingerstick) 159 mg/dL (70-99) 201 mg/dL (70-99) 217 mg/dL (70-99) 141 mg/dL (70-99) Test 09/18/20 11:29 09/18/20 16:51 09/18/20 20:41 09/19/20 04:16 Glucose (Fingerstick) 171 mg/dL (70-99) 191 mg/dL (70-99) 258 mg/dL (70-99) White Blood Count 8.8 x10^3/uL (4.0-11.0) Red Blood Count 4.32 x10^6/uL (3.50-5.40) Hemoglobin 12.9 g/dL (12.0-15.5) Hematocrit 39.0 % (36.0-47.0) Mean Corpuscular Volume 90 fL (79-100) Mean Corpuscular Hemoglobin 30 pg (25-35) Mean Corpuscular Hemoglobin Concent 33 g/dL (31-37) Red Cell Distribution Width 13.7 % (11.5-14.5) Platelet Count 387 x10^3/uL (140-400) Sodium Level 136 mmol/L (136-145) Potassium Level 3.9 mmol/L (3.5-5.1) Chloride Level 101 mmol/L (98-107) Carbon Dioxide Level 30 mmol/L (21-32) Anion Gap 5 (6-14) Blood Urea Nitrogen 12 mg/dL (7-20) Creatinine 0.7 mg/dL (0.6-1.0) Estimated GFR (Cockcroft-Gault) 80.5 BUN/Creatinine Ratio 17 (6-20) Glucose Level 128 mg/dL (70-99) Calcium Level 8.5 mg/dL (8.5-10.1) Total Bilirubin 0.5 mg/dL (0.2-1.0) Aspartate Amino Transf (AST/SGOT) 21 U/L (15-37) Alanine Aminotransferase (ALT/SGPT) 11 U/L (14-59) Alkaline Phosphatase 53 U/L (46-116) Total Protein 6.4 g/dL (6.4-8.2) Albumin 2.4 g/dL (3.4-5.0) Albumin/Globulin Ratio 0.6 (1.0-1.7) Test 09/19/20 07:33 Glucose (Fingerstick) 152 mg/dL (70-99) Laboratory Tests Test 09/18/20 16:51 09/18/20 20:41 09/19/20 04:16 09/19/20 07:33 Glucose (Fingerstick) 191 mg/dL (70-99) 258 mg/dL (70-99) 152 mg/dL (70-99) White Blood Count 8.8 x10^3/uL (4.0-11.0) Red Blood Count 4.32 x10^6/uL (3.50-5.40) Hemoglobin 12.9 g/dL (12.0-15.5) Hematocrit 39.0 % (36.0-47.0) Mean Corpuscular Volume 90 fL (79-100) Mean Corpuscular Hemoglobin 30 pg (25-35) Mean Corpuscular Hemoglobin Concent 33 g/dL (31-37) Red Cell Distribution Width 13.7 % (11.5-14.5) Platelet Count 387 x10^3/uL (140-400) Sodium Level 136 mmol/L (136-145) Potassium Level 3.9 mmol/L (3.5-5.1) Chloride Level 101 mmol/L (98-107) Carbon Dioxide Level 30 mmol/L (21-32) Anion Gap 5 (6-14) Blood Urea Nitrogen 12 mg/dL (7-20) Creatinine 0.7 mg/dL (0.6-1.0) Estimated GFR (Cockcroft-Gault) 80.5 BUN/Creatinine Ratio 17 (6-20) Glucose Level 128 mg/dL (70-99) Calcium Level 8.5 mg/dL (8.5-10.1) Total Bilirubin 0.5 mg/dL (0.2-1.0) Aspartate Amino Transf (AST/SGOT) 21 U/L (15-37) Alanine Aminotransferase (ALT/SGPT) 11 U/L (14-59) Alkaline Phosphatase 53 U/L (46-116) Total Protein 6.4 g/dL (6.4-8.2) Albumin 2.4 g/dL (3.4-5.0) Albumin/Globulin Ratio 0.6 (1.0-1.7) Medications Active Scripts Medications Dose Route/Sig Max Daily Dose Days Date Category Preservision Areds Softgel (Vit A/Vit C/Vit E/Zinc/Copper) 1 Each Capsule 2 Each PO DAILY 09/13/20 Reported Euthyrox (Levothyroxine Sodium) 112 Mcg Tablet 112 Mcg PO DAILY06 09/13/20 Reported Atorvastatin Calcium 20 Mg Tablet 20 Mg PO HS 09/13/20 Reported Metoprolol Succinate ( Xl ) (Metoprolol Succinate) 25 Mg Tab.er.24h 25 Mg PO DAILY 09/13/20 Reported Hydrochlorothiazide Tablet (Hydrochlorothiazide) 12.5 Mg Tablet 25 Mg PO DAILY 09/13/20 Reported Tylenol (Acetaminophen) 325 Mg Tablet 500 Mg PO Q6HRS PRN 09/13/20 Reported Aspirin 81 Mg Tab.chew 81 Mg PO DAILY 09/13/20 Reported Multi Vitamin Daily (Multivitamin) 1 Each Tablet 1 Each PO DAILY 07/02/14 Reported Fish Oil 1,000 Mg Capsule ([place]-3 Fatty Acids/Fish Oil) 1 Each Capsule 1 Each PO DAILY 07/02/14 Reported Fenofibrate (Fenofibrate Nanocrystallized) 145 Mg Tablet 1 Tab PO DAILY 04/15/14 Reported Comments CXR 09/15 mod Left effusion Impression . 1. Large left-sided effusion, pre-noble pathology adenocarnioma, s/p left thoracentesis 2. CT scan dated 09/06/2020 showed a solid noncalcified pulmonary nodule right lower lobe measuring 1.2 cm, ill-defined band-like opacity in left upper lobe measuring 1.8 x 1.3. 3. History of breast cancer. 20 yrs ago, neg LN 4. Left-sided chest pain, shortness of air related to pleural effusion. improved--- now status post Pleurx catheter 5. Coronary artery disease with previous angioplasty. 6. Remote history of deep venous thrombosis 5 years ago, status post knee replacement. 7. Obesity. 8. Remote history of tobacco dependent. 9. Status post COVID-19 vaccination, first dose. 10. Pancreatic density/malignancy? Plan . Continue Supplemental oxygen as need to keep sats above 94%, Follow CXR post right thoracentesis, reoccurring pleural effusion, now status post Pleurx catheter S/P Thoracentesis -- pre-noble cytology-- showed Adenocarcinoma, awaiting final pathology, ECHO-EF WNL Consult HEM/ONC obtain CT chest and ABD/PLV, showed hypodensity/pancreatic mass Consulted GI for further work-up of pancreatic mass, MRCP? Tumor marker for breast cancer antigen--elevated at 62.6 DVT/GI PPX D/W RN also Discussed with RAFY Haji MD Sep 19, 2020 11:44
[2020-09-19] MEDS: DRONABINOL 2.5 MG CAPSULE. PO SCH ×3 (11:48→17:00)
--- NOTE | 2020-09-19 12:04 | PDOC ---
MODERATE SEDATION ASSESSMENT RISKS/ALTERNATIVES Risks/Alternatives Risks and alternatives of this type of sedation and procedure discussed with: RISK/ALTERNATIVES: Patient H & P ON CHART H & P H & P on chart and reviewed for co-morbid conditions and appropriate labs. H&P ON CHART: Yes STATUS PREG STATUS ASSESSED: Yes MEDS/ALLERGIES REVIEWED Meds/Allergies Reviewed Medications and Allergies including time and route of recently administered narcotics and sedatives. MEDS/ALLERGIES REVIEWED: Yes ASA RATING ASA RATING: II AIRWAY ASSESSMENT Airway Assessment Airway patency, oral function limitations, presence of caps, crowns, dentures, partials, and ability to extend neck assessed. AIRWAY ASSESSMENT: Yes MALLAMPATI SCORE MALLAMPATI SCORE: II PRE-SEDATION ASSESSMENT PRE-SEDATION ASSESSMENT: Yes PANCHITO GREEN MD Sep 19, 2020 12:04
--- NOTE | 2020-09-19 12:04 | PDOC ---
BRIEF OPERATIVE NOTE Pre-Op Diagnosis malignant left effusion Post-Op Diagnosis same Procedure Performed US left chest pleurX Surgeon Ham EBL minimal Anesthesia Type: Conscious Sedation Specimens Obtained 1050 cc fluid Findings Left chest pleurX Complications no immediate PANCHITO GREEN MD Sep 19, 2020 12:04
--- NOTE | 2020-09-19 12:19 | RAD ---
Procedure: Ultrasound and fluoroscopic guided left chest tunneled Pleurx catheter placement Clinical Indication: Adult female with history of breast cancer and malignant left pleural effusion, recurrent Sedation: Conscious sedation was administered with a total intraprocedural [id number] time of 32 minutes. The patient was monitored by a qualified independent observer throughout the time of sedation. Please refer to the medical record for exact doses of medications utilized to achieve moderate sedation. Antibiotics: Antibiotic was administered intravenously within 1 hour of the procedure start time. Sterility: All elements of maximal sterile barrier technique including the use of a cap, mask, sterile gown, sterile gloves, large sterile sheet, appropriate hand hygiene, and 2% chlorhexidine for cutaneous antisepsis (or acceptable alternative antiseptic per current guidelines) were followed for this procedure. Consent: The procedure was explained in its entirety to the patient or the patients designated shipping services sales representative by a member of the treatment team, including a discussion of the risks, benefits and commonly accepted alternatives to the procedure, as well as the expected consequences of no therapy whatsoever. Discussion of the risks included, but was not limited to, those that are most frequent and those that are rare but possibly severe or life-threatening, as well as the possibility of unforeseen complications. Technique and Findings: Following informed consent, the patient was prepped and draped in usual sterile fashion. Ultrasound interrogation of the left chest revealed a large pleural effusion. 1% lidocaine was used to achieve local anesthesia. A small dermatotomy was made. An 18-gauge sheath needle was then advanced into the pleural space. Hardcopy ultrasound image was recorded. The skin over the left lateral chest wall was then copiously anesthetized with 1% lidocaine plus epinephrine. A second small dermatotomy was made. The Pleurx catheter was then tunneled subcutaneously towards the pleural access sheath. The sheath was then removed over an Amplatz wire and a large caliber peel-away sheath was placed into the pleural space. This was used to deploy the Pleurx catheter into the pleural space. The catheter was then placed to suction and 1050 cc of thin yellow fluid was aspirated. A 4 oh dissolvable suture was used to close a small dermatotomy over the pleural puncture site. A 2-0 Ethilon suture was used to suture the catheter to the skin. Single fluoroscopic image was then obtained demonstrating good configuration of the catheter which is distributed anteriorly within the pleural space. Complications: No immediate Impression: 1. Ultrasound and fluoroscopic guided placement of a left chest Pleurx catheter as described.
--- NOTE | 2020-09-19 12:20 | PDOC2 ---
GI CONSULT Date of Service: DATE: 09/19/20 TIME: 12:10 Reason For Consult: pancreatic mass HPI: HPI: 80 y/o female admitted last week w/ SOA. Noted w/ left pleural effusion, had thoracentesis - prelim results w/ adenocarcinoma. H/o breast cancer 21 years ago s/p mastectomy. Persistent pleural effusion, had PleurX placement today. Oncology following - CA27-29 elevated w/ pending CEA, CA19-9, CA125. We are asked to see re: abnormal pancreas imaging; CT yesterday noted fullness in pancreatic head (underlying mass vs pseudolesion). Occasional reflux after eating in the evening, improved w/ Tums PRN. No dysphagia, n/v, early satiety, diarrhea, hematochezia, or melena. Recently did have some RUQ pain awhile ago - noted while laying on right side. Reports outpt US was unrevealing. Poor appetite for a month or so. Possibly has lost a few pounds during this time. In 2013, EGD and colonoscopy showed non-erosive gastritis and diverticulosis. Follow-up SBS (for anemia, melena) was unremarkable. She reports SBCE showed source of bleeding (report unavailable to review - ?SB AVMs). No GB, liver, pancreas, or PUD history. CAD on ASA. PMH: PMH: CAD w/ stent, CHF, HTN, HLD, COPD, breast cancer, DVT, anxiety, OA, macular degeneration, hypothyroidism left mastectomy, hysterectomy and BSO, right knee surgery, bilateral cataract removal, tonsillectomy, appendectomy FH: Family History: Cancer (daughters and aunt - breast), DM, Other (Alzheimer's) Social History: Smoke: Quit ALCOHOL: none Drugs: None ROS: GEN: Denies fevers, chills, sweats HEENT: Denies blurred vision, sore throat CV: Denies chest pain RESP: Denies shortness of air, cough GI: Per HPI : Denies hematuria, dysuria ENDO: Denies weight changes NEURO: Denies confusion, dizziness MSK: Denies weakness, joint pain/swelling SKIN: Denies jaundice, pruritus Vitals: Vitals: Vital Signs Date Time Temp Pulse Resp B/P (MAP) Pulse Ox O2 Delivery O2 Flow Rate FiO2 09/19/20 11:44 85 129/63 09/19/20 11:36 20 99 Nasal Cannula 2.0 09/19/20 11:00 98.0 98.0 Labs: Labs: Laboratory Tests Test 09/18/20 16:51 09/18/20 20:41 09/19/20 04:16 09/19/20 07:33 Glucose (Fingerstick) 191 mg/dL (70-99) 258 mg/dL (70-99) 152 mg/dL (70-99) White Blood Count 8.8 x10^3/uL (4.0-11.0) Red Blood Count 4.32 x10^6/uL (3.50-5.40) Hemoglobin 12.9 g/dL (12.0-15.5) Hematocrit 39.0 % (36.0-47.0) Mean Corpuscular Volume 90 fL (79-100) Mean Corpuscular Hemoglobin 30 pg (25-35) Mean Corpuscular Hemoglobin Concent 33 g/dL (31-37) Red Cell Distribution Width 13.7 % (11.5-14.5) Platelet Count 387 x10^3/uL (140-400) Sodium Level 136 mmol/L (136-145) Potassium Level 3.9 mmol/L (3.5-5.1) Chloride Level 101 mmol/L (98-107) Carbon Dioxide Level 30 mmol/L (21-32) Anion Gap 5 (6-14) Blood Urea Nitrogen 12 mg/dL (7-20) Creatinine 0.7 mg/dL (0.6-1.0) Estimated GFR (Cockcroft-Gault) 80.5 BUN/Creatinine Ratio 17 (6-20) Glucose Level 128 mg/dL (70-99) Calcium Level 8.5 mg/dL (8.5-10.1) Total Bilirubin 0.5 mg/dL (0.2-1.0) Aspartate Amino Transf (AST/SGOT) 21 U/L (15-37) Alanine Aminotransferase (ALT/SGPT) 11 U/L (14-59) Alkaline Phosphatase 53 U/L (46-116) Total Protein 6.4 g/dL (6.4-8.2) Albumin 2.4 g/dL (3.4-5.0) Albumin/Globulin Ratio 0.6 (1.0-1.7) Test 09/19/20 11:39 Glucose (Fingerstick) 132 mg/dL (70-99) Allergies: Coded Allergies: No Known Drug Allergies (Unverified , 07/04/14) Medications: Current Medications Medications (Trade) Dose Ordered Sig/Nelson Route PRN Reason Start Time Stop Time Status Last Admin Dose Admin Midazolam HCl (Versed) 2 mg 1X ONCE IV 09/19/20 09:30 09/19/20 09:35 DC 09/19/20 10:18 Fentanyl Citrate (Fentanyl 2ml Vial) 100 mcg 1X ONCE IV 09/19/20 09:30 09/19/20 09:35 DC 09/19/20 10:18 Lidocaine/ Epinephrine (LIDOCAINE 2%-EPI 1:100,000 multi-dose) 20 ml 1X ONCE IJ 09/19/20 09:30 09/19/20 09:35 DC 09/19/20 10:21 Cefazolin Sodium/ Dextrose 50 ml @ 100 mls/hr 1X ONCE IV 09/19/20 09:30 09/19/20 09:59 DC 09/19/20 10:00 Imaging: Imaging: Chest/Abd CT 09/18 IMPRESSION: 1. Unchanged large loculated left pleural effusion. Slightly increased atelectasis of the left lung. 2. Unchanged right pulmonary nodules. 3. Unchanged sclerotic lesion in T7 suspicious for metastatic disease. 4. Fullness in the pancreatic body. This may be a pseudolesion due to relative atrophy in the pancreatic head and neck, however an underlying pancreatic mass is possible. Further evaluation could be obtained by CT or MRI with pancreatic protocol. 5. No other evidence of malignancy or metastatic disease in the abdomen. 6. Coronary artery calcifications, aortic annulus calcifications, and upper limit of normal caliber ascending thoracic aorta. CXR 09/15 IMPRESSION: 1. Stable or perhaps very subtly improved large left pleural effusion. Thoracentesis 09/13 1150cc PE: GEN: NAD HEENT: Atraumatic, PERRL LUNGS: CTAB HEART: RRR ABD: NABS, S/ND/NT EXTREMITY: No edema SKIN: No rashes, no jaundice NEURO/PSYCH: A & O 3 A/P: A/P: Left pleural effusion - concern for metastatic adenocarcinoma of unknown origin Decreased appetite H/o breast cancer Abnormal CT - fullness in pancreatic body - LFTs normal CRC screen - UTD (2013) Diverticulosis COVID negative 09/14 CAD on ASA -- Oncology following. Reviewed w/ Dr. Hilario re: further workup/imaging of pancreas findings on CT - for now will await tumor markers. May need to consider biopsy and/or EUS in CA19-9 significantly elevated. DIANA ANGELES Sep 19, 2020 12:20
--- NOTE | 2020-09-19 14:11 | NUR ---
SS following up with discharge planning. SS reviewed pt chart and discussed with pt RN. Pt is currently requiring oxygen at two liters nasal canula. COVID19 negative. Pt had tunneled pleural tube placed placed today. PT/OT ordered to assess needs. Possible need for six minute walk if going home with home healthcare. SS will continue to follow for discharge planning.
--- NOTE | 2020-09-19 14:45 | RAD ---
Portable chest x-ray compared to September 15, 2020 for status post Pleurx catheter placement. FINDINGS: Moderate left pleural effusion is redemonstrated, now with a small lateral pneumothorax, li gloria ex vacuo related to Pleurx catheter placement. There is a new Pleurx catheter in the left hemith orax. Right lung is clear. Heart size is normal. Atelectasis or infiltrate throughout the left lung b ase is grossly unchanged. IMPRESSION: 1. New left Pleurx catheter placement evaluation of some fluid, though a left moderate hydropneumotho rax persists. The air component may be due to ex vacuo changes indicative of trapped lung. 2. Otherwise stable chest x-ray. Electronically signed by: Robbie Cheek MD (09/19/2020 2:42 PM) [id number]
--- NOTE | 2020-09-19 19:01 | PN ---
DATE: 09/19/2020 SUBJECTIVE: The patient is resting, slightly propped up in bed, in no apparent distress. She has had her PleurX catheter placed in successfully; however, she is complaining of pain in her left shoulder. After the procedure, apparently about more than a liter of fluid were drained. PHYSICAL EXAMINATION: GENERAL: When I examined her, she looked pale, but no jaundice, cyanosis or thyromegaly. No jugular venous distension. No limb edema. VITAL SIGNS: Her heart rate was 85, blood pressure was 129/63. Her temperature was 98, respiratory rate 20. She actually was 96% on room air. HEAD, EYES, EARS, NOSE AND THROAT: Showed normocephalic, atraumatic. NECK: Supple. HEART: Showed normal first and second heart sounds. No gallop, rub or murmur. CHEST: Showed central trachea, equal chest expansion, air entry, vesicular breath sounds with crepitation mostly on the left side. ABDOMEN: Distended, soft, nontender. NEUROLOGIC: She was grossly intact. Her intake was 1690, no output was incompletely recorded. LABORATORY DATA: As of this morning showed a serum sodium 136, potassium 3.9, chloride 101, bicarbonate 30, anion gap of 5, BUN 12, creatinine was 0.7, estimated GFR was 80 mL per minute. Her glucose was 128, calcium was 8.5. Total bilirubin, AST, ALT, alkaline phosphatase were normal. Total protein 6.4, albumin was 2.4. Her white cell count was 8800, hemoglobin 13, hematocrit 39, MCV 90 and platelet count 387,000. ASSESSMENT: 1. New onset shortness of breath with CT scan and chest x-ray showing left-sided pleural effusion, cytology, which showed adenocarcinoma. The primary could be breast or lung. She has had a PleurX placed successfully this morning. 2. The patient has had a CT scan of the chest, abdomen and pelvis, which showed basically, the patient has unchanged large loculated left-sided pleural effusion, slightly increased atelectasis in the left lung, unchanged right pulmonary nodule, unchanged sclerotic lesion in T7, suspicious for metastatic disease. There is also fullness in the pancreatic body. This may be a pseudolesion due to relative atrophy in the pancreatic head and neck; however, an underlying pancreatic mass is possible. Further evaluation could be obtained by CT or MRI with pancreatic protocol. No other evidence of malignancy or metastatic disease in the abdomen. She also has coronary artery calcification, aortic annulus calcification in the upper limit of normal caliber, ascending thoracic aorta. 3. The patient was treated for possible pneumonia with parapneumonic effusion, although it is clearly malignant. The Gram stain showed no wbc's or organisms and cultures are so far negative. 4. Hypertension. 5. Hyperlipidemia. 6. Coronary artery disease, status post percutaneous coronary intervention with stent deployment. 7. Hypothyroidism. 8. Generalized osteoarthritis. PLAN: Obviously to wait for further identification of the primary whether it is breast, lung, or pancreas. Oncologist as well as the racing secretary both were consulted. OTONIEL SCOTT MD DR: SERGEI/ezio JOB#: [id number] / [id number]
[2020-09-19] MEDS: LORazepam 0.5 MG TABLET PO PRN (21:14)
[2020-09-19] MEDS: TEMAZEPAM 15 MG CAPSULE PO PRN (21:14)
[2020-09-19] MEDS: ATORVASTATIN CALCIUM 20 MG TABLET PO SCH (21:15)
[2020-09-20] MEDS: LEVOTHYROXINE 112 MCG TABLET PO SCH (06:11)
[2020-09-20 07:00] VITALS: BP 118/66
[2020-09-20] MEDS: ASPIRIN CHEWABLE 81 MG TABLET. PO SCH (08:19)
[2020-09-20] MEDS: PANTOPRAZOLE 40 MG TABLET.DR. PO SCH (08:19)
[2020-09-20] MEDS: MULTIVITAMIN with MINERAL TABLET. PO SCH (08:19)
[2020-09-20] MEDS: FENOFIBRATE,MICRONIZED 134 MG CAPSULE PO SCH (08:19)
[2020-09-20] MEDS: LACTOBACILLUS RHAMNOSUS GG 1 CAPSULE. PO SCH ×2 (08:19→21:17)
[2020-09-20] MEDS: MULTIVITAMIN I-VITE TABLET. PO SCH (08:19)
[2020-09-20] MEDS: ENOXAPARIN 40 MG/0.4 ML SYRINGE. SQ SCH (08:20)
[2020-09-20] MEDS: METOPROLOL SUCC 24HR ER 25 MG TAB.ER.24H. PO SCH (08:20)
[2020-09-20] MEDS: INSULIN LISPRO 300 UNITS/3 ML VIAL. SQ SCH ×4 (08:29→21:45)
--- NOTE | 2020-09-20 09:53 | PDOC ---
Date of Service: DATE: 09/20/20 TIME: 09:50 Subjective: Subjective: Doing okay, didn't eat much, didn't like food and also had a lot of people in her room so she didn't get a chance to eat much, Objective: Objective: D/w nurse - no GI concerns, ate 75% of breakfast. Vital Signs: Vital Signs Date Time Temp Pulse Resp B/P (MAP) Pulse Ox O2 Delivery O2 Flow Rate FiO2 09/20/20 08:20 79 118/66 09/20/20 08:00 Room Air 09/20/20 07:00 98.5 16 90 98.5 09/19/20 19:10 2.0 Labs: Laboratory Tests Test 09/19/20 11:39 09/19/20 18:10 09/20/20 07:00 Glucose (Fingerstick) 132 mg/dL 202 mg/dL 154 mg/dL PE: GEN: NAD, talking on phone LUNGS: decreased to left HEART: RRR ABD: soft, non-tender NEURO/PSYCH: A & O 3 A/P: Left pleural effusion s/p PleurX - concern for metastatic adenocarcinoma, oncology following H/o breast cancer s/p left mastectomy, elevated CA27-[address] - "fullness in pancreatic body" - LFTs normal, CA19-9 pending COVID negative 09/14 -- Awaiting pending labs. Encouraged PO. Justicifation of Admission Dx: Justifications for Admission: Justification of Admission Dx: Yes DIANA ANGELES Sep 20, 2020 09:53
[2020-09-20 10:27] VITALS: BP 110/68
--- NOTE | 2020-09-20 10:33 | PN ---
DATE: 09/20/2020 SUBJECTIVE: The patient is sitting comfortably in her chair, in no apparent distress, stated that she has slept very well last night. She continued to have problem with her appetite. I did double the dose of Marinol. Apparently, her daughter's tested positive for COVID, so we swabbed her also. PHYSICAL EXAMINATION: GENERAL: When I examined her this morning, she was pale, but no jaundice, cyanosis or thyromegaly. No jugular venous distension. No limb edema. VITAL SIGNS: Her heart rate was 79, blood pressure was 118/66, temperature was 98.5, respiratory rate was 16, and oxygen saturation was 91% on room air. The rest of clinical exam is stable. Her intake over the last 24 hours was 540, no output was recorded. LABORATORY DATA: No lab work done this morning; however, her white cell count was 8800, hemoglobin 12.9, hematocrit 39, MCV 90, and platelet count 387,000. Her chemistry showed a serum sodium 136, potassium 3.9, chloride 101, bicarbonate 30, anion gap of 5, BUN 12, creatinine 0.7, estimated GFR was 80 mL per minute, her glucose 128, calcium was 8.5. Total bilirubin, AST, ALT, alkaline phosphatase were normal. Total protein was 6.4, albumin was 2.4. Her CA 27-29 is high at 62.8, normal range 0-38. Multiple other tumor markers are still pending at the time of this dictation. ASSESSMENT: 1. New onset shortness of breath with CT scan and chest x-ray showing large left-sided pleural effusion, the cytology of which showed adenocarcinoma, the primary of which could be breast, lung or pancreas. She has had a PleurX placed successfully yesterday. 2. The patient has a CT scan of the chest, abdomen and pelvis which showed basically the patient has unchanged large loculated left-sided pleural effusion, slightly increased atelectasis of the left lung, unchanged right pulmonary nodule, unchanged sclerotic lesion at T7, suspicious for metastatic disease. There is also fullness in the pancreatic body. This may be a pseudolesion due to relative atrophy of the pancreatic head and neck; however, underlying pancreatic mass is possible. Further evaluation could be obtained by CT or MRI with pancreatic protocol. No other evidence of malignancy or metastatic disease in the abdomen. 3. She has also coronary artery calcification, aortic annulus calcification in the upper limit of normal caliber, ascending thoracic aorta. 4. The patient was treated for possible pneumonia with parapneumonic effusion, although it is clearly malignant. The gram stain showed no wbc's and culture so far negative. 5. Hypertension. 6. Hyperlipidemia. 7. Coronary artery disease, status post percutaneous coronary intervention with stent deployment. 8. Hypothyroidism. 9. Generalized osteoarthritis. PLAN: To await the result of tumor markers and obviously she can be discharged to a halfway facility. Once that happens, she can be treated as an outpatient with chemotherapy if that decision she makes. OTONIEL SCOTT MD DR: SERGEI/ezio JOB#: [id number] / [id number]
--- NOTE | 2020-09-20 11:46 | NUR ---
SS following up with discharge planning. SS reviewed pt chart and discussed with pt RN. Pt is currently on room air. Pleural cath in place. COVID19 negative. Pt being re-swabbed for COVID19 due to son in law testing positive for COVID19 recently. PT/OT recommended halfway unit today. SS contacted pt's daughter and discussed discharge planning and halfway unit. Pt's daughter requesting referral be phoned and faxed to [facility], ; fax [phone]. SS phoned and faxed referral as requested. SS will continue to follow for discharge planning.
--- NOTE | 2020-09-20 12:06 | PDOC ---
PULMONARY PROGRESS NOTES DATE: 09/20/20 TIME: 12:04 Subjective Patient is now on room air status post left Pleurx catheter on 09/19/20 No increased shortness of air or cough s/p left thoracentesis 1150 cc removed on 09/13 Since daughter and son tested positive for COVID-19, patient is now PUI Vitals Vital Signs Date Time Temp Pulse Resp B/P (MAP) Pulse Ox O2 Delivery O2 Flow Rate FiO2 09/20/20 10:27 98.1 78 16 110/68 (82) 90 Room Air 98.1 09/19/20 19:10 2.0 ROS: No Nausea, No Chest Pain, No Abdominal Pain, No Increase Cough General: Alert, Oriented X4, No acute distress Lungs: Clear, Other Cardiovascular: S1 Abdomen: Soft Neuro Exam: Alert Extremities: No Edema Skin: Warm, Dry Labs Laboratory Tests Test 09/18/20 16:51 09/18/20 20:41 09/19/20 04:16 09/19/20 07:33 Glucose (Fingerstick) 191 mg/dL (70-99) 258 mg/dL (70-99) 152 mg/dL (70-99) White Blood Count 8.8 x10^3/uL (4.0-11.0) Red Blood Count 4.32 x10^6/uL (3.50-5.40) Hemoglobin 12.9 g/dL (12.0-15.5) Hematocrit 39.0 % (36.0-47.0) Mean Corpuscular Volume 90 fL (79-100) Mean Corpuscular Hemoglobin 30 pg (25-35) Mean Corpuscular Hemoglobin Concent 33 g/dL (31-37) Red Cell Distribution Width 13.7 % (11.5-14.5) Platelet Count 387 x10^3/uL (140-400) Sodium Level 136 mmol/L (136-145) Potassium Level 3.9 mmol/L (3.5-5.1) Chloride Level 101 mmol/L (98-107) Carbon Dioxide Level 30 mmol/L (21-32) Anion Gap 5 (6-14) Blood Urea Nitrogen 12 mg/dL (7-20) Creatinine 0.7 mg/dL (0.6-1.0) Estimated GFR (Cockcroft-Gault) 80.5 BUN/Creatinine Ratio 17 (6-20) Glucose Level 128 mg/dL (70-99) Calcium Level 8.5 mg/dL (8.5-10.1) Total Bilirubin 0.5 mg/dL (0.2-1.0) Aspartate Amino Transf (AST/SGOT) 21 U/L (15-37) Alanine Aminotransferase (ALT/SGPT) 11 U/L (14-59) Alkaline Phosphatase 53 U/L (46-116) Total Protein 6.4 g/dL (6.4-8.2) Albumin 2.4 g/dL (3.4-5.0) Albumin/Globulin Ratio 0.6 (1.0-1.7) Test 09/19/20 11:39 09/19/20 18:10 09/20/20 07:00 09/20/20 12:01 Glucose (Fingerstick) 132 mg/dL (70-99) 202 mg/dL (70-99) 154 mg/dL (70-99) 146 mg/dL (70-99) Laboratory Tests Test 09/19/20 18:10 09/20/20 07:00 09/20/20 12:01 Glucose (Fingerstick) 202 mg/dL (70-99) 154 mg/dL (70-99) 146 mg/dL (70-99) Medications Active Scripts Medications Dose Route/Sig Max Daily Dose Days Date Category Preservision Areds Softgel (Vit A/Vit C/Vit E/Zinc/Copper) 1 Each Capsule 2 Each PO DAILY 09/13/20 Reported Euthyrox (Levothyroxine Sodium) 112 Mcg Tablet 112 Mcg PO DAILY06 09/13/20 Reported Atorvastatin Calcium 20 Mg Tablet 20 Mg PO HS 09/13/20 Reported Metoprolol Succinate ( Xl ) (Metoprolol Succinate) 25 Mg Tab.er.24h 25 Mg PO DAILY 09/13/20 Reported Hydrochlorothiazide Tablet (Hydrochlorothiazide) 12.5 Mg Tablet 25 Mg PO DAILY 09/13/20 Reported Tylenol (Acetaminophen) 325 Mg Tablet 500 Mg PO Q6HRS PRN 09/13/20 Reported Aspirin 81 Mg Tab.chew 81 Mg PO DAILY 09/13/20 Reported Multi Vitamin Daily (Multivitamin) 1 Each Tablet 1 Each PO DAILY 07/02/14 Reported Fish Oil 1,000 Mg Capsule ([place]-3 Fatty Acids/Fish Oil) 1 Each Capsule 1 Each PO DAILY 07/02/14 Reported Fenofibrate (Fenofibrate Nanocrystallized) 145 Mg Tablet 1 Tab PO DAILY 04/15/14 Reported Comments CXR 09/15 mod Left effusion Impression . 1. Large left-sided effusion, pre-noble pathology adenocarnioma, s/p left thoracentesis 2. CT scan dated 09/06/2020 showed a solid noncalcified pulmonary nodule right lower lobe measuring 1.2 cm, ill-defined band-like opacity in left upper lobe measuring 1.8 x 1.3. 3. History of breast cancer. 20 yrs ago, neg LN 4. Left-sided chest pain, shortness of air related to pleural effusion. improved--- now status post Pleurx catheter 5. Coronary artery disease with previous angioplasty. 6. Remote history of deep venous thrombosis 5 years ago, status post knee replacement. 7. Obesity. 8. Remote history of tobacco dependent. 9. Status post COVID-19 vaccination, first dose. 10. Pancreatic density/malignancy? Plan . Continue Supplemental oxygen as need to keep sats above 94%, Follow CXR post right thoracentesis, reoccurring pleural effusion, status post Pleurx catheter 09/19/20, drain Pleurx catheter today Test for COVID-19 infection, placed on isolation precautions S/P Thoracentesis -- pre-noble cytology-- showed Adenocarcinoma, awaiting final pathology, ECHO-EF WNL Follow HEM/ONC recommendations in regards to chemotherapy/radiation and other treatment options. obtain CT chest and ABD/PLV, showed hypodensity/pancreatic mass Consulted GI for further work-up of pancreatic mass/density Tumor marker for breast cancer antigen--elevated at 62.6 DVT/GI PPX D/W structural steel worker helper for DC planning, patient could discharge to [facility] for further rehab RAFY CAMP MD Sep 20, 2020 12:06
[2020-09-20] MEDS: DRONABINOL 2.5 MG CAPSULE. PO SCH ×2 (12:17→16:27)
--- NOTE | 2020-09-20 13:40 | NUR ---
Pt arrived on unit at approx 1335 via bed. Tele monitor applied. POC/orders reviewed. Will assume care of this pt.
[2020-09-20 14:44] VITALS: BP 123/58
[2020-09-20 15:14] LABS: CA 27.29 63.6 U/mL (0.0-38.6)
[2020-09-20] MEDS: ACETAMINOPHEN 325 MG TABLET. PO PRN (15:36)
[2020-09-20 16:17] LABS: CEA 5.2 ng/mL (0.0-4.7)
--- NOTE | 2020-09-20 16:36 | NUR ---
Nancy, RN on 2N notified this RN that she received verbal orders per Dr. Bruce to drain pleurX. This RN started to drain pleurX at approx 1540. At approx 1545, pt began to experience chest discomfort/pain. At this time, tubing was clamped and draining was stopped. Tylenol was administered later per pt's request, refer to EMAR for details. Pt reported to this RN that chest pain had subsided and felt better after clamping tube off. This RN called and spoke with Dr. Bruce who gave orders to stop draining today and could reattempt tomorrow.
--- NOTE | 2020-09-20 18:11 | PATHOLOGY ---
Note [facility] Accession Number: [id number] TESTS RESULT FLAG UNITS REF RANGE LAB Clinician Provided Cytology Information No. of containers..01 Other (Miscellaneous) Source: [A] 01 LFT PLEURAL DIAGNOSIS: [A] 02 LEFT PLEURAL POSITIVE FOR MALIGNANT CELLS. ADENOCARCINOMA IS PRESENT. THE MALIGNANT CELLS ARE CK7, BEREP4, AND CDX2 (FOCAL) POSITIVE. THE MALIGNANT CELLS ARE CALRETININ, TTF1, NAPSIN A, MAMMAGLOBIN, BCA-225, FERNANDO-3, AND CK20 NEGATIVE. ORIGIN FROM BREAST APPEARS UNLIKELY. POSSIBLE PRIMARY SITES INCLUDE LUNG AND PANCREATICO- BILIARY TRACT. RESULTS ARE DISCUSSED WITH DR. CORBIN ON 09/20/20 AT 3:00 PM. THIS INTERPRETATION INCLUDES EVALUATION OF A CELL BLOCK. Signed out by: 02 Ravinder Bagley MD, Pathologist NPI- [id number] Performed by: Lisbet Jones Navy Fighter Pilot ([facility]) Gross description: 01 25 ML, ORANGE, 1TP 1CB /LCS 09/15/2020 0638 Local FLAG LEGEND: L-Low Normal,H-High Normal,LL-Alert Low,HH-Alert High <-Panic Low,>-Panic High,A-Abnormal,AA-Critical Abnormal Performed at: [facility] [address] [place] [address] Franko Love MD, 02 [facility] [facility] [address] [place] [id number] Ravinder Bagley MD, Specimen Comment: Report sent to Performed at: [address], [place] [id number] MD Franko Love MD Phone: [phone]
[2020-09-20 19:00] VITALS: BP 160/77
[2020-09-20] MEDS: TEMAZEPAM 15 MG CAPSULE PO PRN (21:17)
[2020-09-20] MEDS: ATORVASTATIN CALCIUM 20 MG TABLET PO SCH (21:17)
[2020-09-20] MEDS: LORazepam 0.5 MG TABLET PO PRN (21:22)
[2020-09-20 23:00] VITALS: BP 151/70
[2020-09-21 03:00] VITALS: BP 134/75
[2020-09-21] MEDS: LEVOTHYROXINE 112 MCG TABLET PO SCH (05:49)
[2020-09-21 06:32] LABS: HEMATOCRIT 40.7 % (36.0-47.0); HEMOGLOBIN 13.5 g/dL (12.0-15.5); RED BLOOD COUNT 4.56 x10^6/uL (3.50-5.40); RED CELL DISTRIBUTION WIDTH 13.8 % (11.5-14.5); WHITE BLOOD COUNT 9.2 x10^3/uL (4.0-11.0)
[2020-09-21 07:00] VITALS: BP 155/65
[2020-09-21 07:06] LABS: ALBUMIN 2.5 g/dL (3.4-5.0); ALBUMIN/GLOBULIN RATIO 0.7 (1.0-1.7); CALCIUM 8.7 mg/dL (8.5-10.1); CREATININE 0.8 mg/dL (0.6-1.0); POTASSIUM 4.2 mmol/L (3.5-5.1); TOTAL BILIRUBIN 0.7 mg/dL (0.2-1.0); TOTAL PROTEIN 5.9 g/dL (6.4-8.2)
[2020-09-21] MEDS: INSULIN LISPRO 300 UNITS/3 ML VIAL. SQ SCH ×4 (07:16→21:00)
[2020-09-21] MEDS: PANTOPRAZOLE 40 MG TABLET.DR. PO SCH (07:17)
[2020-09-21] MEDS: MULTIVITAMIN I-VITE TABLET. PO SCH (08:35)
[2020-09-21] MEDS: FENOFIBRATE,MICRONIZED 134 MG CAPSULE PO SCH (08:35)
[2020-09-21] MEDS: LACTOBACILLUS RHAMNOSUS GG 1 CAPSULE. PO SCH ×2 (08:35→20:53)
[2020-09-21] MEDS: ASPIRIN CHEWABLE 81 MG TABLET. PO SCH (08:35)
[2020-09-21] MEDS: MULTIVITAMIN with MINERAL TABLET. PO SCH (08:35)
[2020-09-21] MEDS: METOPROLOL SUCC 24HR ER 25 MG TAB.ER.24H. PO SCH (08:36)
[2020-09-21] MEDS: ENOXAPARIN 40 MG/0.4 ML SYRINGE. SQ SCH (08:36)
[2020-09-21 11:00] VITALS: BP 141/63
--- NOTE | 2020-09-21 11:24 | PDOC ---
Date of Service: DATE: 09/21/20 TIME: 11:21 Subjective: Subjective: Son-in-law had a cold, eventually got test for COVID, was positive. Daughter has been visiting the hospital, started to feel bad, also tested positive. Nothing sounds appetizing. Objective: Objective: D/w nurse - no GI concerns, not eating much, transferred to 6th floor for COVID exposure/re-test. Vital Signs: Vital Signs Date Time Temp Pulse Resp B/P (MAP) Pulse Ox O2 Delivery O2 Flow Rate FiO2 09/21/20 11:00 96.8 82 20 141/63 (89) 98 Room Air 96.8 Labs: Laboratory Tests Test 09/20/20 12:01 09/20/20 15:32 09/20/20 21:32 09/21/20 06:00 Glucose (Fingerstick) 146 mg/dL 210 mg/dL 144 mg/dL White Blood Count 9.2 x10^3/uL Red Blood Count 4.56 x10^6/uL Hemoglobin 13.5 g/dL Hematocrit 40.7 % Mean Corpuscular Volume 89 fL Mean Corpuscular Hemoglobin 30 pg Mean Corpuscular Hemoglobin Concent 33 g/dL Red Cell Distribution Width 13.8 % Platelet Count 416 x10^3/uL Sodium Level 136 mmol/L Potassium Level 4.2 mmol/L Chloride Level 101 mmol/L Carbon Dioxide Level 27 mmol/L Anion Gap 8 Blood Urea Nitrogen 13 mg/dL Creatinine 0.8 mg/dL Estimated GFR (Cockcroft-Gault) 69.0 BUN/Creatinine Ratio 16 Glucose Level 138 mg/dL Calcium Level 8.7 mg/dL Total Bilirubin 0.7 mg/dL Aspartate Amino Transf (AST/SGOT) 26 U/L Alanine Aminotransferase (ALT/SGPT) 13 U/L Alkaline Phosphatase 60 U/L Total Protein 5.9 g/dL Albumin 2.5 g/dL Albumin/Globulin Ratio 0.7 Test 09/21/20 06:56 09/21/20 10:57 Glucose (Fingerstick) 159 mg/dL 189 mg/dL Source: [A] 01 LFT PLEURAL DIAGNOSIS: [A] 02 LEFT PLEURAL POSITIVE FOR MALIGNANT CELLS. ADENOCARCINOMA IS PRESENT. THE MALIGNANT CELLS ARE CK7, BEREP4, AND CDX2 (FOCAL) POSITIVE. THE MALIGNANT CELLS ARE CALRETININ, TTF1, NAPSIN A, MAMMAGLOBIN, BCA-225, FERNANDO-3, AND CK20 NEGATIVE. ORIGIN FROM BREAST APPEARS UNLIKELY. POSSIBLE PRIMARY SITES INCLUDE LUNG AND PANCREATICO- BILIARY TRACT. RESULTS ARE DISCUSSED WITH DR. CORBIN ON 09/20/20 AT 3:00 PM. THIS INTERPRETATION INCLUDES EVALUATION OF A CELL BLOCK. Signed out by: 02 Ravinder Bagley MD, Pathologist NPI- [id number] Performed by: 01 Lisbet Jones, Fire Sprinkler Apparatus Inspector ([facility]) PE: GEN: NAD LUNGS: CTAB HEART: RRR ABD: NABS, S/ND/NT NEURO/PSYCH: A & O 3 A/P: Left pleural effusion s/p PleurX - pleural fluid results as above w/ adenocarcin em H/o breast cancer s/p left mastectomy, elevated CA27-29 and CEA "Fullness in pancreatic body" - LFTs still normal Exposure to COVID, negative tests 09/14 and 09/20 -- Still awaiting CA19-9. Encouraged PO. Wants ice for Ensure - d/w nurse. Since I have seen, note orders for MRCP per oncology. Justicifation of Admission Dx: Justifications for Admission: Justification of Admission Dx: Yes DIANA ANGELES Sep 21, 2020 11:24
[2020-09-21] MEDS: DRONABINOL 2.5 MG CAPSULE. PO SCH ×2 (11:51→17:12)
--- NOTE | 2020-09-21 11:52 | NUR ---
SS following up with discharge planning. SS reviewed pt chart and discussed with pt RN. Pt is currently on room air. COVID19 negative x2. Pt/OT recommended long-term unit. Referral was sent to [facility], ; fax [phone], and SS currently awaiting acceptance decision at this time. SS will continue to follow for discharge planning. Addendum: 09/21/20 at 1217 by JULIO KATE [facility] requested clinical be phoned and faxed again to fax number [phone]. SS faxed clinical as requested.
--- NOTE | 2020-09-21 12:41 | PN ---
DATE: 09/21/2020 SUBJECTIVE: The patient is sitting at the edge of the bed, eating her lunch comfortably. She continues to have poor appetite despite the Marinol. Her left side pleural effusion was drained by PleurX yesterday and about 500 mL of fluid was removed. The left pleural effusion was positive for malignant cells; however, the origin from breast is unlikely according to the pathologist and possible primary sites include lung and pancreatic biliary tract. Her CA 19-9 is still pending at the time of this dictation. PHYSICAL EXAMINATION: GENERAL: When I saw her this afternoon, she looked well, slightly pale, but no jaundice, cyanosis or thyromegaly. No jugular venous distention. No limb edema. VITAL SIGNS: Her heart rate was 82, blood pressure was 141/63, temperature was 96.8, respiratory rate was 20, and oxygen saturation was 98% on room air. HEAD, EYES, EARS, NOSE, AND THROAT: Showed normocephalic and atraumatic. NECK: Supple. HEART: Showed normal first and second heart sounds. No gallop, rub or murmur. CHEST: Showed central trachea, equal bilateral chest expansion, air entry, vesicular sounds. No crepitation or rhonchi anteriorly. She has dull percussion noted and absent breath sounds. On the left side posteriorly, she has also a PleurX catheter in place. ABDOMEN: Soft, nontender. NEUROLOGIC: She was grossly intact. Her intake over the last 24 hours was 1100, output was 1350. LABORATORY DATA: As of this morning, her white cell count was 9200, hemoglobin 13.5, hematocrit 40, MCV 89 and platelet count 416,000. Her serum sodium was 136, potassium 4.2, chloride 101, bicarbonate 27, anion gap of 8, BUN 13, creatinine 0.8, estimated GFR was 69 mL per minute. ASSESSMENT: 1. New onset of shortness of breath with CT scan and chest x-ray showing large left side pleural effusion and that was apparently malignant, showing adenocarcinoma. The primary origin is unlikely to be breast and likely to be either lung or pancreaticobiliary. 2. The patient has a CT scan of the chest, abdomen and pelvis, which showed basically the patient has unchanged large loculated left side pleural effusion, increased atelectasis in the left lung, unchanged right pulmonary nodule, unchanged sclerotic lesion at T7, suspicious for metastatic disease. There is also fullness in the pancreatic body. This may be a pseudolesion due to relative atrophy of the pancreatic head and neck; however, underlying pancreatic mass is possible. Further evaluation could be obtained by CT or MRI. 3. She has also coronary artery calcification, aortic annulus calcification in the upper limit of normal caliber, ascending thoracic aorta. 4. The patient was treated for possible pneumonia with parapneumonic effusion, although it is unlikely as the cytology showed it is malignant effusion. The gram stain and the cultures are so far negative. 5. Hypertension. 6. Hyperlipidemia. 7. Coronary artery disease, status post percutaneous intervention with stent deployment. 8. Hypothyroidism. 9. Generalized osteoarthritis. PLAN: To continue with all current medications. Continue with DVT prophylaxis. Continue with pain management. Await the result of the tumor markers to decide on further management. OTONIEL SCOTT MD DR: SERGEI/ezio JOB#: [id number] / [id number]
--- NOTE | 2020-09-21 14:19 | PDOC ---
PULMONARY PROGRESS NOTES DATE: 09/21/20 TIME: 14:19 Subjective Patient feels better today after removing 500 cc of pleural fluid through the Pleurx catheter yesterday status post left Pleurx catheter on 09/19/20 Vitals Vital Signs Date Time Temp Pulse Resp B/P (MAP) Pulse Ox O2 Delivery O2 Flow Rate FiO2 09/21/20 11:00 96.8 82 20 141/63 (89) 98 Room Air 96.8 ROS: No Nausea, No Chest Pain, No Abdominal Pain, No Increase Cough General: Alert, Oriented X4, No acute distress Lungs: Clear, Other Cardiovascular: S1 Abdomen: Soft Neuro Exam: Alert Extremities: No Edema Skin: Warm, Dry Labs Laboratory Tests Test 09/19/20 18:10 09/20/20 07:00 09/20/20 09:25 09/20/20 12:01 Glucose (Fingerstick) 202 mg/dL (70-99) 154 mg/dL (70-99) 146 mg/dL (70-99) Coronavirus (PCR) Not detected (Not Detected) Test 09/20/20 15:32 09/20/20 21:32 09/21/20 06:00 09/21/20 06:56 Glucose (Fingerstick) 210 mg/dL (70-99) 144 mg/dL (70-99) 159 mg/dL (70-99) White Blood Count 9.2 x10^3/uL (4.0-11.0) Red Blood Count 4.56 x10^6/uL (3.50-5.40) Hemoglobin 13.5 g/dL (12.0-15.5) Hematocrit 40.7 % (36.0-47.0) Mean Corpuscular Volume 89 fL (79-100) Mean Corpuscular Hemoglobin 30 pg (25-35) Mean Corpuscular Hemoglobin Concent 33 g/dL (31-37) Red Cell Distribution Width 13.8 % (11.5-14.5) Platelet Count 416 x10^3/uL (140-400) Sodium Level 136 mmol/L (136-145) Potassium Level 4.2 mmol/L (3.5-5.1) Chloride Level 101 mmol/L (98-107) Carbon Dioxide Level 27 mmol/L (21-32) Anion Gap 8 (6-14) Blood Urea Nitrogen 13 mg/dL (7-20) Creatinine 0.8 mg/dL (0.6-1.0) Estimated GFR (Cockcroft-Gault) 69.0 BUN/Creatinine Ratio 16 (6-20) Glucose Level 138 mg/dL (70-99) Calcium Level 8.7 mg/dL (8.5-10.1) Total Bilirubin 0.7 mg/dL (0.2-1.0) Aspartate Amino Transf (AST/SGOT) 26 U/L (15-37) Alanine Aminotransferase (ALT/SGPT) 13 U/L (14-59) Alkaline Phosphatase 60 U/L (46-116) Total Protein 5.9 g/dL (6.4-8.2) Albumin 2.5 g/dL (3.4-5.0) Albumin/Globulin Ratio 0.7 (1.0-1.7) Test 09/21/20 10:57 Glucose (Fingerstick) 189 mg/dL (70-99) Laboratory Tests Test 09/20/20 15:32 09/20/20 21:32 09/21/20 06:00 09/21/20 06:56 Glucose (Fingerstick) 210 mg/dL (70-99) 144 mg/dL (70-99) 159 mg/dL (70-99) White Blood Count 9.2 x10^3/uL (4.0-11.0) Red Blood Count 4.56 x10^6/uL (3.50-5.40) Hemoglobin 13.5 g/dL (12.0-15.5) Hematocrit 40.7 % (36.0-47.0) Mean Corpuscular Volume 89 fL (79-100) Mean Corpuscular Hemoglobin 30 pg (25-35) Mean Corpuscular Hemoglobin Concent 33 g/dL (31-37) Red Cell Distribution Width 13.8 % (11.5-14.5) Platelet Count 416 x10^3/uL (140-400) Sodium Level 136 mmol/L (136-145) Potassium Level 4.2 mmol/L (3.5-5.1) Chloride Level 101 mmol/L (98-107) Carbon Dioxide Level 27 mmol/L (21-32) Anion Gap 8 (6-14) Blood Urea Nitrogen 13 mg/dL (7-20) Creatinine 0.8 mg/dL (0.6-1.0) Estimated GFR (Cockcroft-Gault) 69.0 BUN/Creatinine Ratio 16 (6-20) Glucose Level 138 mg/dL (70-99) Calcium Level 8.7 mg/dL (8.5-10.1) Total Bilirubin 0.7 mg/dL (0.2-1.0) Aspartate Amino Transf (AST/SGOT) 26 U/L (15-37) Alanine Aminotransferase (ALT/SGPT) 13 U/L (14-59) Alkaline Phosphatase 60 U/L (46-116) Total Protein 5.9 g/dL (6.4-8.2) Albumin 2.5 g/dL (3.4-5.0) Albumin/Globulin Ratio 0.7 (1.0-1.7) Test 09/21/20 10:57 Glucose (Fingerstick) 189 mg/dL (70-99) Medications Active Scripts Medications Dose Route/Sig Max Daily Dose Days Date Category Preservision Areds Softgel (Vit A/Vit C/Vit E/Zinc/Copper) 1 Each Capsule 2 Each PO DAILY 09/13/20 Reported Euthyrox (Levothyroxine Sodium) 112 Mcg Tablet 112 Mcg PO DAILY06 09/13/20 Reported Atorvastatin Calcium 20 Mg Tablet 20 Mg PO HS 09/13/20 Reported Metoprolol Succinate ( Xl ) (Metoprolol Succinate) 25 Mg Tab.er.24h 25 Mg PO DAILY 09/13/20 Reported Hydrochlorothiazide Tablet (Hydrochlorothiazide) 12.5 Mg Tablet 25 Mg PO DAILY 09/13/20 Reported Tylenol (Acetaminophen) 325 Mg Tablet 500 Mg PO Q6HRS PRN 09/13/20 Reported Aspirin 81 Mg Tab.chew 81 Mg PO DAILY 09/13/20 Reported Multi Vitamin Daily (Multivitamin) 1 Each Tablet 1 Each PO DAILY 07/02/14 Reported Fish Oil 1,000 Mg Capsule ([place]-3 Fatty Acids/Fish Oil) 1 Each Capsule 1 Each PO DAILY 07/02/14 Reported Fenofibrate (Fenofibrate Nanocrystallized) 145 Mg Tablet 1 Tab PO DAILY 04/15/14 Reported Comments CXR 09/15 mod Left effusion Impression . 1. Large left-sided effusion, pre-noble pathology adenocarnioma, s/p left thoracentesis 2. CT scan dated 09/06/2020 showed a solid noncalcified pulmonary nodule right lower lobe measuring 1.2 cm, ill-defined band-like opacity in left upper lobe measuring 1.8 x 1.3. 3. History of breast cancer. 20 yrs ago, neg LN 4. Left-sided chest pain, shortness of air related to pleural effusion. improved--- now status post Pleurx catheter 5. Coronary artery disease with previous angioplasty. 6. Remote history of deep venous thrombosis 5 years ago, status post knee replacement. 7. Obesity. 8. Remote history of tobacco dependent. 9. Status post COVID-19 vaccination, first dose. 10. Pancreatic density/malignancy? Plan . Updated September 21, 2020 SARS Covid 2 is pending Patient feeling better after removal of 500 cc of pleural fluid Continue current support Discharge or transfer okay from my standpoint of view Continue Supplemental oxygen as need to keep sats above 94%, Follow CXR post right thoracentesis, reoccurring pleural effusion, status post Pleurx catheter 09/19/20, drain Pleurx catheter today Test for COVID-19 infection, placed on isolation precautions S/P Thoracentesis -- pre-noble cytology-- showed Adenocarcinoma, awaiting final pathology, ECHO-EF WNL Follow HEM/ONC recommendations in regards to chemotherapy/radiation and other treatment options. obtain CT chest and ABD/PLV, showed hypodensity/pancreatic mass Consulted GI for further work-up of pancreatic mass/density Tumor marker for breast cancer antigen--elevated at 62.6 DVT/GI PPX D/W sand worker for DC planning, patient could discharge to [facility] for further rehab RAFY CAMP MD Sep 21, 2020 14:19
[2020-09-21 15:00] VITALS: BP 138/58
--- NOTE | 2020-09-21 16:24 | NUR ---
Attempted to call report x3 to 2N. Will attempt again at later time.
--- NOTE | 2020-09-21 17:25 | NUR ---
Patient transferred to room 203 via wheelchair from 6th floor at 1725. Patient A&O, resting in bed with call light. Will continue to monitor.
--- NOTE | 2020-09-21 17:33 | NUR ---
Pt transferred to room 203 by wheelchair at approx 1725. Belongings sent with pt. Report given to MARCELINO [place].
[2020-09-21 19:00] VITALS: BP 149/64
[2020-09-21] MEDS: ATORVASTATIN CALCIUM 20 MG TABLET PO SCH (20:53)
[2020-09-21] MEDS: TEMAZEPAM 15 MG CAPSULE PO PRN (20:53)
[2020-09-21] MEDS: LORazepam 0.5 MG TABLET PO PRN (20:53)
[2020-09-21] MEDS: ACETAMINOPHEN 325 MG TABLET. PO PRN (20:56)
[2020-09-21 22:29] VITALS: BP 137/65
--- NOTE | 2020-09-21 23:31 | NUR ---
Pluerx drained per written orders from Dr. Bruce on 09/21 at 2300 after giving 25 mcg fentanyl. 510 cc serous fluid drained, roller clamp closed when patient began feeling 4-5/10 pain chest. Pt reports pain rapidly resolved after clamping.
[2020-09-22] MEDS: traMADol 50 MG TABLET PO PRN (01:11)
[2020-09-22 02:39] VITALS: BP 118/67
[2020-09-22] MEDS: LEVOTHYROXINE 112 MCG TABLET PO SCH (05:56)
[2020-09-22 07:00] VITALS: BP 106/78
[2020-09-22] MEDS: INSULIN LISPRO 300 UNITS/3 ML VIAL. SQ SCH ×4 (07:30→21:00)
[2020-09-22] MEDS ORDERED: GADOTERATE 5 MMOL/10ML VIAL. IVP ONE ×2 (09:00)
--- NOTE | 2020-09-22 09:10 | PN ---
DATE: 09/22/2020 SUBJECTIVE: The patient's COVID-19 by PCR was negative. She is back down to second floor. When I saw her this morning, she was resting slightly propped up in bed, in no apparent distress. She apparently did complain of neck pain. She had a heating pad that helped with the pain and slept very well overnight. She is apparently scheduled for MRCP with and without contrast, but still waiting for her CA 19-9. PHYSICAL EXAMINATION: GENERAL: On examining her, she looked well and was clearly in no apparent respiratory distress. No pallor, jaundice or cyanosis. No thyromegaly. No jugular venous distention. No limb edema. VITAL SIGNS: Her heart rate was 84, blood pressure was 106/78, temperature was 97.7, respiratory rate 20 and oxygen saturation was 91%. The rest of clinical exam is stable. LABORATORY DATA: As of yesterday, her white cell count was 9200, hemoglobin 13.5, hematocrit 40, MCV 89 and platelet count of 116,000. Her serum sodium was 136, potassium 4.2, chloride 101, bicarbonate 27, anion gap of 8, BUN 13, creatinine 0.8, estimated GFR was 69 mL per minute, her glucose 138, calcium was 8.7. Total bilirubin, AST, ALT and alkaline phosphatase were normal. Total protein 5.9. Albumin 2.5. ASSESSMENT: 1. New-onset shortness of breath. CT scan and chest x-ray showing large left-sided pleural effusion that was proved to be malignant, showing adenocarcinoma. The primary origin is unlikely to be breast and likely to be either lung or pancreaticobiliary. 2. The patient had a CT scan of the chest, abdomen and pelvis, which showed basically the patient has unchanged large left-sided pleural effusion, increased atelectasis in the left lung, unchanged right pulmonary nodule, unchanged sclerotic lesion at T7, suspicious for metastatic disease, there is also fullness of the pancreatic body for which she is scheduled for MRCP with and without contrast. 3. The patient has also coronary artery calcification, aortic annulus calcification and the upper limit of normal caliber ascending thoracic aorta. 4. The patient was treated for possible pneumonia and parapneumonic effusion, although it is unlikely as the cytology showed that it is malignant effusion. The Gram stain and the cultures are so far negative. 5. Hypertension. 6. Hyperlipidemia. 7. Coronary artery disease, status post percutaneous intervention with stent deployment. 8. Hypothyroidism. 9. Generalized osteoarthritis. PLAN: To await the result of CA 19-9 and also the result of the MRCP to decide on further management. OTONIEL SCOTT MD DR: SERGEI/ezio JOB#: [id number] / [id number]
--- NOTE | 2020-09-22 09:42 | PDOC ---
PULMONARY PROGRESS NOTE Objective Vital Signs Date Time Temp Pulse Resp B/P (MAP) Pulse Ox O2 Delivery O2 Flow Rate FiO2 09/22/20 08:15 Room Air 09/22/20 07:00 97.7 84 20 106/78 (87) 91 97.7 09/22/20 01:11 2.0 Intake and Output 09/22/20 07:00 Intake Total 720 ml Output Total 510 ml Balance 210 ml Intake Oral 720 ml Drainage Total 510 ml # Voids 3 VITALS/I&O Vital Sign - Last 24 Hours 09/21/20 09/21/20 09/21/20 09/21/20 11:00 15:00 19:00 20:00 Temp 96.8 98.9 98.3 96.8 98.9 98.3 Pulse 82 82 61 Resp 20 18 18 B/P (MAP) 141/63 (89) 138/58 (84) 149/64 (92) Pulse Ox 98 98 92 O2 Delivery Room Air Room Air Room Air Room Air 09/21/20 09/21/20 09/21/20 09/22/20 22:29 22:50 23:25 01:11 Temp 98.7 98.7 Pulse 69 Resp 18 16 20 B/P (MAP) 137/65 (89) Pulse Ox 93 93 93 93 O2 Delivery Room Air Room Air Room Air Room Air O2 Flow Rate 2.0 2.0 2.0 09/22/20 09/22/20 09/22/20 09/22/20 02:20 02:39 07:00 08:15 Temp 98.0 97.7 98.0 97.7 Pulse 78 84 Resp 20 19 20 B/P (MAP) 118/67 (84) 106/78 (87) Pulse Ox 93 93 91 O2 Delivery Room Air Room Air Room Air Room Air Intake and Output 09/21/20 09/21/20 09/22/20 15:00 23:00 07:00 Intake Total 480 ml 240 ml Output Total 510 ml Balance 480 ml -270 ml Review of Relevant I have reviewed the following items mo (where applicable) has been applied. Labs Laboratory Tests Test 09/20/20 12:01 09/20/20 15:32 09/20/20 21:32 09/21/20 06:00 Glucose (Fingerstick) 146 mg/dL (70-99) 210 mg/dL (70-99) 144 mg/dL (70-99) White Blood Count 9.2 x10^3/uL (4.0-11.0) Red Blood Count 4.56 x10^6/uL (3.50-5.40) Hemoglobin 13.5 g/dL (12.0-15.5) Hematocrit 40.7 % (36.0-47.0) Mean Corpuscular Volume 89 fL (79-100) Mean Corpuscular Hemoglobin 30 pg (25-35) Mean Corpuscular Hemoglobin Concent 33 g/dL (31-37) Red Cell Distribution Width 13.8 % (11.5-14.5) Platelet Count 416 x10^3/uL (140-400) Sodium Level 136 mmol/L (136-145) Potassium Level 4.2 mmol/L (3.5-5.1) Chloride Level 101 mmol/L (98-107) Carbon Dioxide Level 27 mmol/L (21-32) Anion Gap 8 (6-14) Blood Urea Nitrogen 13 mg/dL (7-20) Creatinine 0.8 mg/dL (0.6-1.0) Estimated GFR (Cockcroft-Gault) 69.0 BUN/Creatinine Ratio 16 (6-20) Glucose Level 138 mg/dL (70-99) Calcium Level 8.7 mg/dL (8.5-10.1) Total Bilirubin 0.7 mg/dL (0.2-1.0) Aspartate Amino Transf (AST/SGOT) 26 U/L (15-37) Alanine Aminotransferase (ALT/SGPT) 13 U/L (14-59) Alkaline Phosphatase 60 U/L (46-116) Total Protein 5.9 g/dL (6.4-8.2) Albumin 2.5 g/dL (3.4-5.0) Albumin/Globulin Ratio 0.7 (1.0-1.7) Test 09/21/20 06:56 09/21/20 10:57 09/21/20 16:29 09/21/20 20:21 Glucose (Fingerstick) 159 mg/dL (70-99) 189 mg/dL (70-99) 129 mg/dL (70-99) 153 mg/dL (70-99) Test 09/22/20 07:13 Glucose (Fingerstick) 155 mg/dL (70-99) Laboratory Tests Test 09/21/20 10:57 09/21/20 16:29 09/21/20 20:21 09/22/20 07:13 Glucose (Fingerstick) 189 mg/dL (70-99) 129 mg/dL (70-99) 153 mg/dL (70-99) 155 mg/dL (70-99) Microbiology 09/14/20 Gram Stain - Final, Complete 09/14/20 Aerobic Culture - Final, Complete Medications Current Medications Levofloxacin/ Dextrose (Levaquin Per Pharmacy) 1 each PRN DAILY PRN MC SEE COMMENTS; Start 09/13/20 at 01:45; Status Cancel Furosemide (Lasix) 40 mg DAILY IVP Last administered on 09/13/20at 08:34; Start 09/13/20 at 09:00; Stop 09/13/20 at 10:25; Status DC Enoxaparin Sodium (Lovenox 40mg Syringe) 40 mg Q24H SQ Last administered on 09/21/20at 08:36; Start 09/13/20 at 09:00 Fentanyl Citrate (Fentanyl 2ml Vial) 50 mcg PRN Q2HR PRN IVP SEVERE PAIN 7-10 Last administered on 09/21/20at 22:50; Start 09/13/20 at 01:45 Levofloxacin/ Dextrose 100 ml @ 100 mls/hr Q24H IV Last administered on 09/13/20at 20:03; Start 09/13/20 at 20:00; Stop 09/14/20 at 14:43; Status DC Acetaminophen (Tylenol) 500 mg PRN Q6HRS PRN PO MILD PAIN 1-3 Last administered on 09/21/20at 20:56; Start 09/13/20 at 10:15 Aspirin (Aspirin Chewable) 81 mg DAILY PO Last administered on 09/21/20at 08:35; Start 09/13/20 at 12:00 Atorvastatin Calcium (Lipitor) 20 mg HS PO Last administered on 09/21/20at 20:53; Start 09/13/20 at 21:00 Levothyroxine Sodium (Synthroid) 112 mcg DAILY06 PO Last administered on 09/22at 05:56; Start 09/13/20 at 10:30 Metoprolol Succinate (Toprol Xl) 25 mg DAILY PO Last administered on 09/21/20 08:36; Start 09/13/20 at 12:00 Fenofibrate (Lofibra) 134 mg DAILY PO Last administered on 09/21/20 08:35; Start 09/13/20 at 12:00 Multivitamins (Thera M Plus) 1 tab DAILY PO Last administered on 09/21/20 08:35; Start 09/13/20 at 12:00 Multivitamins/ Minerals (I-Cheyanne) 1 tab DAILY PO Last administered on 09/21/20 08:35; Start 09/13/20 at 12:00 Potassium Chloride (Klor-Con) 40 meq 1X ONCE PO Last administered on 09/13/20at 11:58; Start 09/13/20 at 11:00; Stop 09/13/20 at 11:01; Status DC Insulin Human Lispro (HumaLOG) 0-5 UNITS QIDACHS SQ Last administered on 09/21/20 11:48; Start 09/13/20 at 16:30 Dextrose (Dextrose 50%-Water Syringe) 12.5 gm PRN Q15MIN PRN IV SEE COMMENTS; Start 09/13/20 at 13:30 Lorazepam (Ativan) 0.5 mg PRN Q6HRS PRN PO ANXIETY / AGITATION Last administered on 09/21/20 20:53; Start 09/13/20 at 15:30 Lidocaine HCl (Buffered Lidocaine 1%) 3 ml STK-MED ONCE .ROUTE ; Start 09/14/20 at 11:32; Stop 09/14/20 at 11:32; Status DC Lidocaine HCl (Buffered Lidocaine 1%) 6 ml 1X ONCE INJ Last administered on 09/14/20at 11:45; Start 09/14/20 at 12:00; Stop 09/14/20 at 12:01; Status DC Lactobacillus Rhamnosus (Culturelle) 1 cap BID PO Last administered on 09/21/20 20:53; Start 09/14/20 at 21:00 Levofloxacin/ Dextrose 50 ml @ 50 mls/hr Q24H IV Last administered on 09/15/20at 20:01; Start 09/14/20 at 21:00; Stop 09/16/20 at 11:00; Status DC Tramadol HCl (Ultram) 50 mg PRN Q6HRS PRN PO MODERATE - SEVERE PAIN Last administered on 09/22/20at 01:11; Start 09/16/20 at 05:45 Dronabinol (Marinol) 2.5 mg BIDACLD PO Last administered on 09/19/20at 11:48; Start 09/16/20 at 11:30; Stop 09/19/20 at 12:21; Status DC Temazepam (Restoril) 15 mg PRN QHS PRN PO INSOMNIA Last administered on 09/21/20at 20:53; Start 09/17/20 at 18:30 Iohexol (Omnipaque 240 Mg/ml) 50 ml 1X ONCE PO Last administered on 09/18/20at 12:00; Start 09/18/20 at 12:00; Stop 09/18/20 at 12:03; Status DC Iohexol (Omnipaque 300 Mg/ml) 60 ml 1X ONCE IV Last administered on 09/18/20at 12:00; Start 09/18/20 at 12:00; Stop 09/18/20 at 12:03; Status DC Info (CONTRAST GIVEN -- Rx MONITORING) 1 each PRN DAILY PRN MC SEE COMMENTS; Start 09/18/20 at 12:15; Stop 09/20/20 at 12:14; Status DC Lidocaine/ Epinephrine (LIDOCAINE 2%-EPI 1:100,000 multi-dose) 20 ml STK-MED ONCE .ROUTE ; Start 09/19/20 at 09:04; Stop 09/19/20 at 09:04; Status DC Midazolam HCl (Versed) 2 mg STK-MED ONCE .ROUTE ; Start 09/19/20 at 09:23; Stop 09/19/20 at 09:24; Status DC Fentanyl Citrate (Fentanyl 2ml Vial) 100 mcg STK-MED ONCE .ROUTE ; Start 09/19/20 at 09:23; Stop 09/19/20 at 09:24; Status DC Cefazolin Sodium/ Dextrose 50 ml @ As Directed STK-MED ONCE IV ; Start 09/19/20 at 09:24; Stop 09/19/20 at 09:24; Status DC Midazolam HCl (Versed) 2 mg 1X ONCE IV Last administered on 09/19/20at 10:18; Start 09/19/20 at 09:30; Stop 09/19/20 at 09:35; Status DC Fentanyl Citrate (Fentanyl 2ml Vial) 100 mcg 1X ONCE IV Last administered on 09/19/20at 10:18; Start 09/19/20 at 09:30; Stop 09/19/20 at 09:35; Status DC Lidocaine/ Epinephrine (LIDOCAINE 2%-EPI 1:100,000 multi-dose) 20 ml 1X ONCE IJ Last administered on 09/19/20at 10:21; Start 09/19/20 at 09:30; Stop 09/19/20 at 09:35; Status DC Cefazolin Sodium/ Dextrose 50 ml @ 100 mls/hr 1X ONCE IV Last administered on 09/19/20at 10:00; Start 09/19/20 at 09:30; Stop 09/19/20 at 09:59; Status DC Dronabinol (Marinol) 5 mg BIDACLD PO Last administered on 09/21/20at 17:12; Start 09/19/20 at 12:30 Pantoprazole Sodium (Protonix) 40 mg DAILYAC PO Last administered on 09/21/20at 07:17; Start 09/20/20 at 07:30 Gadoterate Meglumine (Clariscan) 10 ml 1X ONCE IVP ; Start 09/22/20 at 09:00; Stop 09/22/20 at 09:05; Status DC Gadoterate Meglumine (Clariscan) 10 ml 1X ONCE IVP ; Start 09/22/20 at 09:00; Stop 09/22/20 at 09:05; Status DC Active Scripts Active Reported Preservision Areds Softgel (Vit A/Vit C/Vit E/Zinc/Copper) 1 Each Capsule 2 Each PO DAILY Euthyrox (Levothyroxine Sodium) 112 Mcg Tablet 112 Mcg PO DAILY06 Atorvastatin Calcium 20 Mg Tablet 20 Mg PO HS Metoprolol Succinate ( Xl ) (Metoprolol Succinate) 25 Mg Tab.er.24h 25 Mg PO DAILY Hydrochlorothiazide Tablet (Hydrochlorothiazide) 12.5 Mg Tablet 25 Mg PO DAILY Tylenol (Acetaminophen) 325 Mg Tablet 500 Mg PO Q6HRS PRN Aspirin 81 Mg Tab.chew 81 Mg PO DAILY Multi Vitamin Daily (Multivitamin) 1 Each Tablet 1 Each PO DAILY Fish Oil 1,000 Mg Capsule ([place]-3 Fatty Acids/Fish Oil) 1 Each Capsule 1 Each PO DAILY Fenofibrate (Fenofibrate Nanocrystallized) 145 Mg Tablet 1 Tab PO DAILY Justicifation of Admission Dx: Justifications for Admission: Justification of Admission Dx: Yes RAFY CAMP MD Sep 22, 2020 09:42
--- NOTE | 2020-09-22 09:46 | PDOC ---
PROGRESS NOTES Date of Service DATE: 09/22/20 TIME: 09:42 Objective Objective Vital Signs Date Time Temp Pulse Resp B/P (MAP) Pulse Ox O2 Delivery O2 Flow Rate FiO2 09/22/20 08:15 Room Air 09/22/20 07:00 97.7 84 20 106/78 (87) 91 97.7 09/22/20 01:11 2.0 Intake and Output 09/22/20 07:00 Intake Total 720 ml Output Total 510 ml Balance 210 ml Intake Oral 720 ml Drainage Total 510 ml # Voids 3 Physical Exam Abdomen: Normal bowel sounds, Soft Heart: Regular rate Extremities: No clubbing General: Alert HEENT: Atraumatic Lungs: Clear to auscultation MUSCULOSKELETAL: No deformity Neck: Supple Neuro: Normal speech Assessment Assessment Metastatic adenocarcinoma of unknown origin History of breast cancer Malignant pleural effusion, left-sided Pancreatic body prominence Coronary artery disease Hypertension Plan Plan of Care -I discussed the results of surgical pathology from thoracentesis with the patient and her son. While adenocarcinoma is confirmed, the origin is indeterminate at this point and immunohistochemistry stains are suggestive of either pulmonary or pancreaticobiliary primary. -I previously discussed the results of CT chest, abdomen and pelvis with the patient. Given possible pancreatic primary cancer and indeterminate pathology results, I recommended MRCP for further evaluation for pancreatic malignancy. -Recommended CA 19-9 testing. CEA is mildly elevated and CA 27-29 is also mildly elevated -Reviewed CT of chest, abdomen and pelvis showing loculated left pleural effusion, multiple right-sided pulmonary nodules, T7 lesion and unclear pancreatic head prominence. -We will discuss additional treatment recommendations after completion of MRI -She does not require additional hospital stay after completion of MRCP. Outpatient follow-up can be arranged to discuss initiating systemic therapy -Rest per Dr. Ray Corbin MD Medical Oncology/Hematology Ph: [phone] Comment Review of Relevant I have reviewed the following items mo (where applicable) has been applied. Labs Laboratory Tests Test 09/20/20 12:01 09/20/20 15:32 09/20/20 21:32 09/21/20 06:00 Glucose (Fingerstick) 146 mg/dL (70-99) 210 mg/dL (70-99) 144 mg/dL (70-99) White Blood Count 9.2 x10^3/uL (4.0-11.0) Red Blood Count 4.56 x10^6/uL (3.50-5.40) Hemoglobin 13.5 g/dL (12.0-15.5) Hematocrit 40.7 % (36.0-47.0) Mean Corpuscular Volume 89 fL (79-100) Mean Corpuscular Hemoglobin 30 pg (25-35) Mean Corpuscular Hemoglobin Concent 33 g/dL (31-37) Red Cell Distribution Width 13.8 % (11.5-14.5) Platelet Count 416 x10^3/uL (140-400) Sodium Level 136 mmol/L (136-145) Potassium Level 4.2 mmol/L (3.5-5.1) Chloride Level 101 mmol/L (98-107) Carbon Dioxide Level 27 mmol/L (21-32) Anion Gap 8 (6-14) Blood Urea Nitrogen 13 mg/dL (7-20) Creatinine 0.8 mg/dL (0.6-1.0) Estimated GFR (Cockcroft-Gault) 69.0 BUN/Creatinine Ratio 16 (6-20) Glucose Level 138 mg/dL (70-99) Calcium Level 8.7 mg/dL (8.5-10.1) Total Bilirubin 0.7 mg/dL (0.2-1.0) Aspartate Amino Transf (AST/SGOT) 26 U/L (15-37) Alanine Aminotransferase (ALT/SGPT) 13 U/L (14-59) Alkaline Phosphatase 60 U/L (46-116) Total Protein 5.9 g/dL (6.4-8.2) Albumin 2.5 g/dL (3.4-5.0) Albumin/Globulin Ratio 0.7 (1.0-1.7) Test 09/21/20 06:56 09/21/20 10:57 09/21/20 16:29 09/21/20 20:21 Glucose (Fingerstick) 159 mg/dL (70-99) 189 mg/dL (70-99) 129 mg/dL (70-99) 153 mg/dL (70-99) Test 09/22/20 07:13 Glucose (Fingerstick) 155 mg/dL (70-99) Laboratory Tests Test 09/21/20 10:57 09/21/20 16:29 09/21/20 20:21 09/22/20 07:13 Glucose (Fingerstick) 189 mg/dL (70-99) 129 mg/dL (70-99) 153 mg/dL (70-99) 155 mg/dL (70-99) Microbiology 09/14/20 Gram Stain - Final, Complete 09/14/20 Aerobic Culture - Final, Complete Medications Current Medications Levofloxacin/ Dextrose (Levaquin Per Pharmacy) 1 each PRN DAILY PRN MC SEE COMMENTS; Start 09/13/20 at 01:45; Status Cancel Furosemide (Lasix) 40 mg DAILY IVP Last administered on 09/13/20at 08:34; Start 09/13/20 at 09:00; Stop 09/13/20 at 10:25; Status DC Enoxaparin Sodium (Lovenox 40mg Syringe) 40 mg Q24H SQ Last administered on 09/21/20at 08:36; Start 09/13/20 at 09:00 Fentanyl Citrate (Fentanyl 2ml Vial) 50 mcg PRN Q2HR PRN IVP SEVERE PAIN 7-10 Last administered on 09/21/20at 22:50; Start 09/13/20 at 01:45 Levofloxacin/ Dextrose 100 ml @ 100 mls/hr Q24H IV Last administered on 09/13/20at 20:03; Start 09/13/20 at 20:00; Stop 09/14/20 at 14:43; Status DC Acetaminophen (Tylenol) 500 mg PRN Q6HRS PRN PO MILD PAIN 1-3 Last administered on 09/21/20at 20:56; Start 09/13/20 at 10:15 Aspirin (Aspirin Chewable) 81 mg DAILY PO Last administered on 09/21/20at 08:35; Start 09/13/20 at 12:00 Atorvastatin Calcium (Lipitor) 20 mg HS PO Last administered on 09/21/20at 20:53; Start 09/13/20 at 21:00 Levothyroxine Sodium (Synthroid) 112 mcg DAILY06 PO Last administered on 09/22/20at 05:56; Start 09/13/20 at 10:30 Metoprolol Succinate (Toprol Xl) 25 mg DAILY PO Last administered on 09/21/20at 08:36; Start 09/13/20 at 12:00 Fenofibrate (Lofibra) 134 mg DAILY PO Last administered on 09/21/20at 08:35; Start 09/13/20 at 12:00 Multivitamins (Thera M Plus) 1 tab DAILY PO Last administered on 09/21/20 08:35; Start 09/13/20 at 12:00 Multivitamins/ Minerals (I-Cheyanne) 1 tab DAILY PO Last administered on 09/21/20at 08:35; Start 09/13/20 at 12:00 Potassium Chloride (Klor-Con) 40 meq 1X ONCE PO Last administered on 09/13/20at 11:58; Start 09/13/20 at 11:00; Stop 09/13/20 at 11:01; Status DC Insulin Human Lispro (HumaLOG) 0-5 UNITS QIDACHS SQ Last administered on 09/21/20 11:48; Start 09/13/20 at 16:30 Dextrose (Dextrose 50%-Water Syringe) 12.5 gm PRN Q15MIN PRN IV SEE COMMENTS; Start 09/13/20 at 13:30 Lorazepam (Ativan) 0.5 mg PRN Q6HRS PRN PO ANXIETY / AGITATION Last administered on 09/21/20at 20:53; Start 09/13/20 at 15:30 Lidocaine HCl (Buffered Lidocaine 1%) 3 ml STK-MED ONCE .ROUTE ; Start 09/14/20 at 11:32; Stop 09/14/20 at 11:32; Status DC Lidocaine HCl (Buffered Lidocaine 1%) 6 ml 1X ONCE INJ Last administered on 09/14/20at 11:45; Start 09/14/20 at 12:00; Stop 09/14/20 at 12:01; Status DC Lactobacillus Rhamnosus (Culturelle) 1 cap BID PO Last administered on 09/21/20at 20:53; Start 09/14/20 at 21:00 Levofloxacin/ Dextrose 50 ml @ 50 mls/hr Q24H IV Last administered on 09/15/20at 20:01; Start 09/14/20 at 21:00; Stop 09/16/20 at 11:00; Status DC Tramadol HCl (Ultram) 50 mg PRN Q6HRS PRN PO MODERATE - SEVERE PAIN Last administered on 09/22/20at 01:11; Start 09/16/20 at 05:45 Dronabinol (Marinol) 2.5 mg BIDACLD PO Last administered on 09/19/20at 11:48; Start 09/16/20 at 11:30; Stop 09/19/20 at 12:21; Status DC Temazepam (Restoril) 15 mg PRN QHS PRN PO INSOMNIA Last administered on 09/21/20at 20:53; Start 09/17/20 at 18:30 Iohexol (Omnipaque 240 Mg/ml) 50 ml 1X ONCE PO Last administered on 09/18/20at 12:00; Start 09/18/20 at 12:00; Stop 09/18/20 at 12:03; Status DC Iohexol (Omnipaque 300 Mg/ml) 60 ml 1X ONCE IV Last administered on 09/18/20at 12:00; Start 09/18/20 at 12:00; Stop 09/18/20 at 12:03; Status DC Info (CONTRAST GIVEN -- Rx MONITORING) 1 each PRN DAILY PRN MC SEE COMMENTS; Start 09/18/20 at 12:15; Stop 09/20/20 at 12:14; Status DC Lidocaine/ Epinephrine (LIDOCAINE 2%-EPI 1:100,000 multi-dose) 20 ml STK-MED ONCE .ROUTE ; Start 09/19/20 at 09:04; Stop 09/19/20 at 09:04; Status DC Midazolam HCl (Versed) 2 mg STK-MED ONCE .ROUTE ; Start 09/19/20 at 09:23; Stop 09/19/20 at 09:24; Status DC Fentanyl Citrate (Fentanyl 2ml Vial) 100 mcg STK-MED ONCE .ROUTE ; Start 09/19/20 at 09:23; Stop 09/19/20 at 09:24; Status DC Cefazolin Sodium/ Dextrose 50 ml @ As Directed STK-MED ONCE IV ; Start 09/19/20 at 09:24; Stop 09/19/20 at 09:24; Status DC Midazolam HCl (Versed) 2 mg 1X ONCE IV Last administered on 09/19/20at 10:18; Start 09/19/20 at 09:30; Stop 09/19/20 at 09:35; Status DC Fentanyl Citrate (Fentanyl 2ml Vial) 100 mcg 1X ONCE IV Last administered on 09/19/20at 10:18; Start 09/19/20 at 09:30; Stop 09/19/20 at 09:35; Status DC Lidocaine/ Epinephrine (LIDOCAINE 2%-EPI 1:100,000 multi-dose) 20 ml 1X ONCE IJ Last administered on 09/19/20at 10:21; Start 09/19/20 at 09:30; Stop 09/19/20 at 09:35; Status DC Cefazolin Sodium/ Dextrose 50 ml @ 100 mls/hr 1X ONCE IV Last administered on 09/19/20at 10:00; Start 09/19/20 at 09:30; Stop 09/19/20 at 09:59; Status DC Dronabinol (Marinol) 5 mg BIDACLD PO Last administered on 09/21/20at 17:12; Start 09/19/20 at 12:30 Pantoprazole Sodium (Protonix) 40 mg DAILYAC PO Last administered on 09/21/20at 07:17; Start 09/20/20 at 07:30 Gadoterate Meglumine (Clariscan) 10 ml 1X ONCE IVP ; Start 09/22/20 at 09:00; Stop 09/22/20 at 09:05; Status DC Gadoterate Meglumine (Clariscan) 10 ml 1X ONCE IVP ; Start 09/22/20 at 09:00; Stop 09/22/20 at 09:05; Status DC Active Scripts Active Reported Preservision Areds Softgel (Vit A/Vit C/Vit E/Zinc/Copper) 1 Each Capsule 2 Each PO DAILY Euthyrox (Levothyroxine Sodium) 112 Mcg Tablet 112 Mcg PO DAILY06 Atorvastatin Calcium 20 Mg Tablet 20 Mg PO HS Metoprolol Succinate ( Xl ) (Metoprolol Succinate) 25 Mg Tab.er.24h 25 Mg PO DAILY Hydrochlorothiazide Tablet (Hydrochlorothiazide) 12.5 Mg Tablet 25 Mg PO DAILY Tylenol (Acetaminophen) 325 Mg Tablet 500 Mg PO Q6HRS PRN Aspirin 81 Mg Tab.chew 81 Mg PO DAILY Multi Vitamin Daily (Multivitamin) 1 Each Tablet 1 Each PO DAILY Fish Oil 1,000 Mg Capsule ([place]-3 Fatty Acids/Fish Oil) 1 Each Capsule 1 Each PO DAILY Fenofibrate (Fenofibrate Nanocrystallized) 145 Mg Tablet 1 Tab PO DAILY Vitals/I & O Vital Sign - Last 24 Hours 09/21/20 09/21/20 09/21/20 09/21/20 11:00 15:00 19:00 20:00 Temp 96.8 98.9 98.3 96.8 98.9 98.3 Pulse 82 82 61 Resp 20 18 18 B/P (MAP) 141/63 (89) 138/58 (84) 149/64 (92) Pulse Ox 98 98 92 O2 Delivery Room Air Room Air Room Air Room Air 09/21/20 09/21/20 09/21/20 09/22/20 22:29 22:50 23:25 01:11 Temp 98.7 98.7 Pulse 69 Resp 18 16 20 B/P (MAP) 137/65 (89) Pulse Ox 93 93 93 93 O2 Delivery Room Air Room Air Room Air Room Air O2 Flow Rate 2.0 2.0 2.0 09/22/20 09/22/20 09/22/20 09/22/20 02:20 02:39 07:00 08:15 Temp 98.0 97.7 98.0 97.7 Pulse 78 84 Resp 20 19 20 B/P (MAP) 118/67 (84) 106/78 (87) Pulse Ox 93 93 91 O2 Delivery Room Air Room Air Room Air Room Air Intake and Output 09/21/20 09/21/20 09/22/20 15:00 23:00 07:00 Intake Total 480 ml 240 ml Output Total 510 ml Balance 480 ml -270 ml Justifications for Admission Other Justification ELVER CORBIN MD Sep 22, 2020 09:46
--- NOTE | 2020-09-22 10:16 | PDOC ---
Date of Service: DATE: 09/22/20 TIME: 10:14 Objective: Objective: D/w nurse - out of room for MRCP per oncology. No GI concerns. Vital Signs: Vital Signs Date Time Temp Pulse Resp B/P (MAP) Pulse Ox O2 Delivery O2 Flow Rate FiO2 09/22/20 08:15 Room Air 09/22/20 07:00 97.7 84 20 106/78 (87) 91 97.7 09/22/20 01:11 2.0 Labs: Laboratory Tests Test 09/21/20 10:57 09/21/20 16:29 09/21/20 20:21 09/22/20 07:13 Glucose (Fingerstick) 189 mg/dL 129 mg/dL 153 mg/dL 155 mg/dL PE: GEN: out of room A/P: Left pleural effusion s/p PleurX - pleural fluid w/ adenocarcinoma H/o breast cancer s/p left mastectomy, elevated CA27-29 and CEA "Fullness in pancreatic body" - LFTs WNL, CA19-9 pending COVID negative x 2 -- Still awaiting CA19-9 - looks like ordered again per oncology along w/ MRCP - follow-up on results, may need to consider EUS and/or biopsy. Justicifation of Admission Dx: Justifications for Admission: Justification of Admission Dx: Yes DIAAN ANGELES Sep 22, 2020 10:16
[2020-09-22] MEDS: PANTOPRAZOLE 40 MG TABLET.DR. PO SCH (10:22)
[2020-09-22] MEDS: MULTIVITAMIN with MINERAL TABLET. PO SCH (10:22)
[2020-09-22] MEDS: FENOFIBRATE,MICRONIZED 134 MG CAPSULE PO SCH (10:22)
[2020-09-22] MEDS: ASPIRIN CHEWABLE 81 MG TABLET. PO SCH (10:22)
[2020-09-22] MEDS: MULTIVITAMIN I-VITE TABLET. PO SCH (10:22)
[2020-09-22] MEDS: LACTOBACILLUS RHAMNOSUS GG 1 CAPSULE. PO SCH ×2 (10:22→21:03)
[2020-09-22] MEDS: ENOXAPARIN 40 MG/0.4 ML SYRINGE. SQ SCH (10:28)
[2020-09-22] MEDS: METOPROLOL SUCC 24HR ER 25 MG TAB.ER.24H. PO SCH (10:28)
--- NOTE | 2020-09-22 10:46 | NUR ---
SS following up with discharge planning. SS reviewed pt chart and discussed with pt RN. Pt is currently on room air. COVID19 negative. [address] Bell currently awaiting results of CA 19-9 and MRCP to decide further management. PT/OT recommended half-way unit. Referral has been sent to [facility], ; fax [phone]. SS discussed with Dr. Bell and he reported that pt will be ready for discharge early next week. [facility] has not provided acceptance decision at this time but requested updates be phoned and faxed on 09/25/2020. SS will continue to follow for discharge planning.
--- NOTE | 2020-09-22 10:54 | NUR ---
Patient NPO this morning for MRCP. She left for the MRI at 0902 and came back to the floor around 1018. Upon return her medications were administered, breakfast given, vitals taken, and she was hooked back up to the tele monitor. No new concerns noted. Will continue to monitor. TELE BEING MONITORED BY CHARGE NURSE RAKESH
[2020-09-22 11:00] VITALS: BP 107/62
[2020-09-22] MEDS: DRONABINOL 2.5 MG CAPSULE. PO SCH ×2 (12:07→17:07)
[2020-09-22 15:00] VITALS: BP 103/76
--- NOTE | 2020-09-22 15:31 | PDOC ---
PULMONARY PROGRESS NOTES DATE: 09/22/20 TIME: 15:27 Subjective Resting on room air, no increased SOA or cough status post left Pleurx catheter on 09/19/20 Vitals Vital Signs Date Time Temp Pulse Resp B/P (MAP) Pulse Ox O2 Delivery O2 Flow Rate FiO2 09/22/20 11:00 97.7 75 20 107/62 (77) 100 Room Air 97.7 09/22/20 01:11 2.0 ROS: No Nausea, No Chest Pain, No Abdominal Pain, No Increase Cough General: Alert, Oriented X4, No acute distress Lungs: Clear, Other Cardiovascular: S1 Abdomen: Soft Neuro Exam: Alert Extremities: No Edema Skin: Warm, Dry Labs Laboratory Tests Test 09/20/20 15:32 09/20/20 21:32 09/21/20 06:00 09/21/20 06:56 Glucose (Fingerstick) 210 mg/dL (70-99) 144 mg/dL (70-99) 159 mg/dL (70-99) White Blood Count 9.2 x10^3/uL (4.0-11.0) Red Blood Count 4.56 x10^6/uL (3.50-5.40) Hemoglobin 13.5 g/dL (12.0-15.5) Hematocrit 40.7 % (36.0-47.0) Mean Corpuscular Volume 89 fL (79-100) Mean Corpuscular Hemoglobin 30 pg (25-35) Mean Corpuscular Hemoglobin Concent 33 g/dL (31-37) Red Cell Distribution Width 13.8 % (11.5-14.5) Platelet Count 416 x10^3/uL (140-400) Sodium Level 136 mmol/L (136-145) Potassium Level 4.2 mmol/L (3.5-5.1) Chloride Level 101 mmol/L (98-107) Carbon Dioxide Level 27 mmol/L (21-32) Anion Gap 8 (6-14) Blood Urea Nitrogen 13 mg/dL (7-20) Creatinine 0.8 mg/dL (0.6-1.0) Estimated GFR (Cockcroft-Gault) 69.0 BUN/Creatinine Ratio 16 (6-20) Glucose Level 138 mg/dL (70-99) Calcium Level 8.7 mg/dL (8.5-10.1) Total Bilirubin 0.7 mg/dL (0.2-1.0) Aspartate Amino Transf (AST/SGOT) 26 U/L (15-37) Alanine Aminotransferase (ALT/SGPT) 13 U/L (14-59) Alkaline Phosphatase 60 U/L (46-116) Total Protein 5.9 g/dL (6.4-8.2) Albumin 2.5 g/dL (3.4-5.0) Albumin/Globulin Ratio 0.7 (1.0-1.7) Test 09/21/20 10:57 09/21/20 16:29 09/21/20 20:21 09/22/20 07:13 Glucose (Fingerstick) 189 mg/dL (70-99) 129 mg/dL (70-99) 153 mg/dL (70-99) 155 mg/dL (70-99) Test 09/22/20 11:59 Glucose (Fingerstick) 213 mg/dL (70-99) Laboratory Tests Test 09/21/20 16:29 09/21/20 20:21 09/22/20 07:13 09/22/20 11:59 Glucose (Fingerstick) 129 mg/dL (70-99) 153 mg/dL (70-99) 155 mg/dL (70-99) 213 mg/dL (70-99) Medications Active Scripts Medications Dose Route/Sig Max Daily Dose Days Date Category Preservision Areds Softgel (Vit A/Vit C/Vit E/Zinc/Copper) 1 Each Capsule 2 Each PO DAILY 09/13/20 Reported Euthyrox (Levothyroxine Sodium) 112 Mcg Tablet 112 Mcg PO DAILY06 09/13/20 Reported Atorvastatin Calcium 20 Mg Tablet 20 Mg PO HS 09/13/20 Reported Metoprolol Succinate ( Xl ) (Metoprolol Succinate) 25 Mg Tab.er.24h 25 Mg PO DAILY 09/13/20 Reported Hydrochlorothiazide Tablet (Hydrochlorothiazide) 12.5 Mg Tablet 25 Mg PO DAILY 09/13/20 Reported Tylenol (Acetaminophen) 325 Mg Tablet 500 Mg PO Q6HRS PRN 09/13/20 Reported Aspirin 81 Mg Tab.chew 81 Mg PO DAILY 09/13/20 Reported Multi Vitamin Daily (Multivitamin) 1 Each Tablet 1 Each PO DAILY 07/02/14 Reported Fish Oil 1,000 Mg Capsule (Dillard-3 Fatty Acids/Fish Oil) 1 Each Capsule 1 Each PO DAILY 07/02/14 Reported Fenofibrate (Fenofibrate Nanocrystallized) 145 Mg Tablet 1 Tab PO DAILY 04/15/14 Reported Comments CXR 09/15 mod Left effusion Impression . 1. Large left-sided effusion, s/p left thoracentesis 2. CT scan dated 09/06/2020 showed a solid noncalcified pulmonary nodule right lower lobe measuring 1.2 cm, ill-defined band-like opacity in left upper lobe measuring 1.8 x 1.3.---- While adenocarcinoma is confirmed, the origin is indeterminate at this point and immunohistochemistry stains are suggestive of either pulmonary or pancreaticobiliary primary. 3. History of breast cancer. 20 yrs ago, neg LN 4. Left-sided chest pain, shortness of air related to pleural effusion. improved--- now status post Pleurx catheter 5. Coronary artery disease with previous angioplasty. 6. Remote history of deep venous thrombosis 5 years ago, status post knee replacement. 7. Obesity. 8. Remote history of tobacco dependent. 9. Status post COVID-19 vaccination, first dose. Plan . Continue Supplemental oxygen as need to keep sats above 94%, Follow CXR post right thoracentesis, reoccurring pleural effusion, status post Pleurx catheter 09/19/20, 500cc drained from Pleurx on 09/21 COVID-19 negative S/P Thoracentesis -- While adenocarcinoma is confirmed, the origin is indeterminate at this point and immunohistochemistry stains are suggestive of either pulmonary or pancreaticobiliary primary. ECHO-EF WNL Follow HEM/ONC recommendations in regards to chemotherapy/radiation and other treatment options, planned for outpatient follow up[ for systemic treatment Consulted GI for further work-up of pancreatic mass/density-- planned for MRCP today DVT/GI PPX D/W hand worker for DC planning, patient could discharge to [place] for further rehab OK to D/C from our stand point RAFY CAMP MD Sep 22, 2020 15:31
--- NOTE | 2020-09-22 16:34 | RAD ---
MRI abdomen without and with contrast Contrast: 20 mL Clariscan gadolinium intravenous contrast. HISTORY: Pancreatic mass. COMPARISON: CT abdomen and pelvis September 18, 2020. FINDINGS: Moderate left pleural effusion with collapse of the left lower lobe and pleural catheter in place. Heterogeneous enhancement throughout the collapsed left lower lobe and there is thickened ple ural enhancement. Mild gallbladder sludge and probable tiny gravel-type calculi dependently. No inflammatory change of the gallbladder. No choledocholithiasis, biliary ductal dilation or ductal stricture. Common duct elias meter is 2 mm proximal and tapers distal. Pancreatic duct diameter normal measuring 2 mm at the head and tapering to a smaller diameter 1 mm at the tail. No pancreatic ductal dilation, stricture or divi sum. There is a small 4 mm simple cyst at the head of pancreas. Separately at the proximal tail the pancreas infiltrating masslike lesion with diffusion weighted hyp erintensity and restricted diffusion, with loss of the signal of the normal fatty interstices, which demonstrates solid type contrast enhancement, distally within the tail the pancreas there is pancreat ic ductal dilation leading up to an abrupt stricture and effacement of the duct at the lesion, this m easures 6 cm in length and 2 cm in diameter does not extend outside of the pancreas. There is no disc rete encasement of the splenic vessels. Tiny subcentimeter left renal upper pole cyst. Right kidney, adrenals, spleen, liver and upper GI tra ct are unremarkable. There is a T8 thoracic vertebral body enhancing lesion with loss of normal fatty marrow signal and co rresponding to the sclerotic bone lesion on prior CT imaging concerning for metastasis. No abdominal fluid or adenopathy. IMPRESSION: 1. 6 x 2 cm infiltrating soft tissue mass of the tail of the pancreas with a malignant stricture effa cing the duct at the proximal tail of the pancreas, with mild distention of the duct at the distal ta il of the pancreas. This is concerning for pancreatic malignancy. This mass does not involve the head or body the pancreas, and does not involve the splenic vessels. 2. Collapse with enhancement due to infiltrate or malignancy of the left lower lobe and moderate left pleural effusion with thickened pleural enhancement with a pleural catheter in place. 3. T8 thoracic vertebral body enhancing lesion corresponding to a sclerotic lesion on prior CT imagin g concerning for metastasis. 4. 4 mm simple cyst of the head of the pancreas. 5. Gallbladder sludge and tiny gallstones. Electronically signed by: Dorian Sumner MD (09/22/2020 4:32 PM) [facility]
[2020-09-22 19:43] VITALS: BP 134/70
[2020-09-22] MEDS: ATORVASTATIN CALCIUM 20 MG TABLET PO SCH (21:03)
[2020-09-22] MEDS: TEMAZEPAM 15 MG CAPSULE PO PRN (22:00)
[2020-09-22] MEDS: LORazepam 0.5 MG TABLET PO PRN (22:01)
[2020-09-22 22:51] VITALS: BP 137/56
[2020-09-23 03:22] VITALS: BP 126/58
[2020-09-23] MEDS: ACETAMINOPHEN 325 MG TABLET. PO PRN (03:34)
[2020-09-23] MEDS: LEVOTHYROXINE 112 MCG TABLET PO SCH (06:13)
[2020-09-23 07:00] VITALS: BP 132/78
[2020-09-23] MEDS: INSULIN LISPRO 300 UNITS/3 ML VIAL. SQ SCH ×4 (07:30→21:00)
--- NOTE | 2020-09-23 07:42 | PDOC ---
PULMONARY PROGRESS NOTES DATE: 09/23/20 TIME: 07:41 Subjective Resting on room air, has some sob, occ cough status post left Pleurx catheter on 09/19/20 Vitals Vital Signs Date Time Temp Pulse Resp B/P (MAP) Pulse Ox O2 Delivery O2 Flow Rate FiO2 09/23/20 07:00 97.5 79 16 132/78 (96) 92 Room Air 97.5 ROS: No Nausea, No Chest Pain, No Abdominal Pain, No Increase Cough General: Alert, Oriented X4, No acute distress Lungs: Other (pleurex diminished bs ) Cardiovascular: S1 Abdomen: Soft Neuro Exam: Alert Extremities: No Edema Skin: Warm, Dry Labs Laboratory Tests Test 09/21/20 10:57 09/21/20 16:29 09/21/20 20:21 09/22/20 07:13 Glucose (Fingerstick) 189 mg/dL (70-99) 129 mg/dL (70-99) 153 mg/dL (70-99) 155 mg/dL (70-99) Test 09/22/20 11:59 09/22/20 16:34 09/22/20 20:38 09/23/20 07:01 Glucose (Fingerstick) 213 mg/dL (70-99) 93 mg/dL (70-99) 159 mg/dL (70-99) 141 mg/dL (70-99) Laboratory Tests Test 09/22/20 11:59 09/22/20 16:34 09/22/20 20:38 09/23/20 07:01 Glucose (Fingerstick) 213 mg/dL (70-99) 93 mg/dL (70-99) 159 mg/dL (70-99) 141 mg/dL (70-99) Medications Active Scripts Medications Dose Route/Sig Max Daily Dose Days Date Category Preservision Areds Softgel (Vit A/Vit C/Vit E/Zinc/Copper) 1 Each Capsule 2 Each PO DAILY 09/13/20 Reported Euthyrox (Levothyroxine Sodium) 112 Mcg Tablet 112 Mcg PO DAILY06 09/13/20 Reported Atorvastatin Calcium 20 Mg Tablet 20 Mg PO HS 09/13/20 Reported Metoprolol Succinate ( Xl ) (Metoprolol Succinate) 25 Mg Tab.er.24h 25 Mg PO DAILY 09/13/20 Reported Hydrochlorothiazide Tablet (Hydrochlorothiazide) 12.5 Mg Tablet 25 Mg PO DAILY 09/13/20 Reported Tylenol (Acetaminophen) 325 Mg Tablet 500 Mg PO Q6HRS PRN 09/13/20 Reported Aspirin 81 Mg Tab.chew 81 Mg PO DAILY 09/13/20 Reported Multi Vitamin Daily (Multivitamin) 1 Each Tablet 1 Each PO DAILY 07/02/14 Reported Fish Oil 1,000 Mg Capsule (Dahlgren-3 Fatty Acids/Fish Oil) 1 Each Capsule 1 Each PO DAILY 07/02/14 Reported Fenofibrate (Fenofibrate Nanocrystallized) 145 Mg Tablet 1 Tab PO DAILY 04/15/14 Reported Comments CXR 09/15 mod Left effusion Impression . 1. Large left-sided effusion, s/p left thoracentesis 2. CT scan dated 09/06/2020 showed a solid noncalcified pulmonary nodule right lower lobe measuring 1.2 cm, ill-defined band-like opacity in left upper lobe measuring 1.8 x 1.3.---- While adenocarcinoma is confirmed, the origin is indeterminate at this point and immunohistochemistry stains are suggestive of either pulmonary or pancreaticobiliary primary. 3. History of breast cancer. 20 yrs ago, neg LN 4. Left-sided chest pain, shortness of air related to pleural effusion. improved--- now status post Pleurx catheter 5. Coronary artery disease with previous angioplasty. 6. Remote history of deep venous thrombosis 5 years ago, status post knee replacement. 7. Obesity. 8. Remote history of tobacco dependent. 9. Status post COVID-19 vaccination, first dose. Plan . Continue Supplemental oxygen as need to keep sats above 92%, Follow CXR post right thoracentesis, reoccurring pleural effusion, status post Pleurx catheter 09/19/20, 500cc drained from Pleurx on 09/21, will drain today discussed w pt and rn COVID-19 negative S/P Thoracentesis -- While adenocarcinoma is confirmed, the origin is indeterminate at this point and immunohistochemistry stains are suggestive of either pulmonary or pancreaticobiliary primary. ECHO-EF WNL Follow HEM/ONC recommendations in regards to chemotherapy/radiation and other treatment options, planned for outpatient follow up for systemic treatment Consulted GI for further work-up of pancreatic mass/density-- planned for MRCP today DVT/GI PPX D/W farmworker for DC planning, patient could discharge to [place] for further rehab OK to D/C from our stand point JAKE JIMENES MD Sep 23, 2020 07:42
[2020-09-23] MEDS: MULTIVITAMIN I-VITE TABLET. PO SCH (08:19)
[2020-09-23] MEDS: LACTOBACILLUS RHAMNOSUS GG 1 CAPSULE. PO SCH ×2 (08:19→20:36)
[2020-09-23] MEDS: MULTIVITAMIN with MINERAL TABLET. PO SCH (08:19)
[2020-09-23] MEDS: PANTOPRAZOLE 40 MG TABLET.DR. PO SCH (08:19)
[2020-09-23] MEDS: ASPIRIN CHEWABLE 81 MG TABLET. PO SCH (08:20)
[2020-09-23] MEDS: FENOFIBRATE,MICRONIZED 134 MG CAPSULE PO SCH (08:20)
[2020-09-23] MEDS: METOPROLOL SUCC 24HR ER 25 MG TAB.ER.24H. PO SCH (08:20)
[2020-09-23] MEDS: ENOXAPARIN 40 MG/0.4 ML SYRINGE. SQ SCH (08:21)
[2020-09-23] MEDS: traMADol 50 MG TABLET PO PRN (10:14)
[2020-09-23] MEDS ORDERED: DOCUSATE SODIUM 100 MG CAPSULE. PO PRN (10:15)
[2020-09-23 10:33] VITALS: BP 130/66
[2020-09-23] MEDS: DRONABINOL 2.5 MG CAPSULE. PO SCH ×2 (12:04→16:53)
--- NOTE | 2020-09-23 12:47 | PN ---
DATE: 09/23/2020 SUBJECTIVE: The patient is resting, slightly propped up in bed, eating her breakfast comfortably. On questioning her, she denied any complaint. The nursing staff did not voice any concern that she has an uneventful night. Her CA 19-9 was slightly elevated and her MRCP did show that the patient has mass in the tail of the pancreas. It is about 6 times 2 cm infiltrating soft tissue mass of the tail of the pancreas with a malignant stricture facing the duct at the proximal tail of the pancreas with mild distention of the duct at the distal tail of the pancreas. This is concerning for pancreatic malignancy. This mass does not involve the head or body of the pancreas and does not involve the splenic vessels. She has collapse with enhancement due to infiltrate or malignancy of the left lower lobe and moderate left pleural effusion with thickened pleural enhancement and pleural catheter in place. She has T8 thoracic vertebral body enhancing lesion corresponding to sclerotic lesion on the prior CT imaging concerning for metastases. I spoke to the patient that we have all the answers now and the patient stated that she is not really interested in any chemotherapy or radiation treatment as she has seen her daughter going through this and she has decided not to pursue that plan of treatment. PHYSICAL EXAMINATION: GENERAL: When I examined her today, she looked well and was clearly in no apparent respiratory distress. No pallor, jaundice, cyanosis or thyromegaly. No jugular venous distension. No limb edema. VITAL SIGNS: Her heart rate was 79, blood pressure was 132/78, temperature 97.5, respiratory rate was 16, and oxygen saturation was 92%. The rest of clinical exam is stable. In conclusion, the patient has probably metastatic pancreatic cancer with malignant left-sided pleural effusion and metastasis to bone and lung. The patient herself stated that she will not pursue any chemoradiation therapy. My plan is probably to discharge her on Friday to [facility]. OTONIEL SCOTT MD DR: SERGEI/ezio JOB#: [id number] / [id number]
[2020-09-23 14:42] VITALS: BP 166/70
--- NOTE | 2020-09-23 14:46 | PDOC ---
PROGRESS NOTES Date of Service DATE: 09/23/20 TIME: 14:42 Subjective Subjective Tasha reports no symptoms today. She reports she had a good restful day yesterday. Her son Donell joined us by phone. Donell resides in [facility]. We reviewed results of CA 19-9 testing and MRCP Objective Objective Vital Signs Date Time Temp Pulse Resp B/P (MAP) Pulse Ox O2 Delivery O2 Flow Rate FiO2 09/23/20 11:35 Room Air 09/23/20 10:33 98.4 82 16 130/66 (87) 91 98.4 09/22/20 01:11 2.0 Intake and Output 09/23/20 07:00 Intake Total 850 ml Balance 850 ml Intake Oral 850 ml # Voids 2 Physical Exam Abdomen: Normal bowel sounds, Soft Heart: Regular rate, Normal S1 Extremities: No clubbing, No cyanosis General: Alert, Oriented X3 HEENT: Atraumatic Lungs: Clear to auscultation MUSCULOSKELETAL: No swelling Neck: Supple Neuro: Normal gait, Normal speech Psych/Mental Status: Mental status NL Skin: No rashes Assessment Assessment Metastatic pancreatic adenocarcinoma, [place] NX M1 Malignant pleural effusion, left-sided History of breast cancer Coronary artery disease Hypertension Deconditioning Plan Plan of Care -I discussed the results of MRCP that showed a pancreatic tail mass with the patient. In combination with the elevated CA 19-9 in the immunohistochemistry staining profile on her pleural fluid cytology that was compatible with pancreatic ability primary, I suspect she has metastatic pancreatic adenocarcinoma -We discussed the management of metastatic pancreatic adenocarcinoma. I reviewed her options at this time including palliative chemotherapy or supportive care and hospice. I informed the patient that the goal of treatment in this setting is palliation of disease related symptoms and prolonging life. We discussed that treatments are unlikely to be curative. -Given her advanced age, would be concerned about toxicity with FOLFIRINOX. I discussed gemcitabine and Abraxane combination chemotherapy as a viable alternative with more favorable toxicity profile. I discussed the potential side effects of gemcitabine and Abraxane with the patient and her son and provided her with educational literature regarding this drug -She plans on being discharged to [facility] and subsequently following up with medical oncology to discuss continuation of care -We will continue to follow during hospital course -No additional recommendations while inpatient from medical oncology standpoint Roel Corbin MD Medical Oncology/Hematology Ph: [phone] Comment Review of Relevant I have reviewed the following items mo (where applicable) has been applied. Labs Laboratory Tests Test 09/21/20 16:29 09/21/20 20:21 09/22/20 07:13 09/22/20 11:59 Glucose (Fingerstick) 129 mg/dL (70-99) 153 mg/dL (70-99) 155 mg/dL (70-99) 213 mg/dL (70-99) Test 09/22/20 16:34 09/22/20 20:38 09/23/20 07:01 09/23/20 11:20 Glucose (Fingerstick) 93 mg/dL (70-99) 159 mg/dL (70-99) 141 mg/dL (70-99) 188 mg/dL (70-99) Laboratory Tests Test 09/22/20 16:34 09/22/20 20:38 09/23/20 07:01 09/23/20 11:20 Glucose (Fingerstick) 93 mg/dL (70-99) 159 mg/dL (70-99) 141 mg/dL (70-99) 188 mg/dL (70-99) Microbiology 09/14/20 Gram Stain - Final, Complete 09/14/20 Aerobic Culture - Final, Complete Medications Current Medications Levofloxacin/ Dextrose (Levaquin Per Pharmacy) 1 each PRN DAILY PRN MC SEE COMMENTS; Start 09/13/20 at 01:45; Status Cancel Furosemide (Lasix) 40 mg DAILY IVP Last administered on 09/13/20at 08:34; Start 09/13/20 at 09:00; Stop 09/13/20 at 10:25; Status DC Enoxaparin Sodium (Lovenox 40mg Syringe) 40 mg Q24H SQ Last administered on 09/23/20at 08:21; Start 09/13/20 at 09:00 Fentanyl Citrate (Fentanyl 2ml Vial) 50 mcg PRN Q2HR PRN IVP SEVERE PAIN 7-10 Last administered on 09/21/20at 22:50; Start 09/13/20 at 01:45 Levofloxacin/ Dextrose 100 ml @ 100 mls/hr Q24H IV Last administered on 09/13/20at 20:03; Start 09/13/20 at 20:00; Stop 09/14/20 at 14:43; Status DC Acetaminophen (Tylenol) 500 mg PRN Q6HRS PRN PO MILD PAIN 1-3 Last administered on 09/23/20at 03:34; Start 09/13/20 at 10:15 Aspirin (Aspirin Chewable) 81 mg DAILY PO Last administered on 09/23/20at 08:20; Start 09/13/20 at 12:00 Atorvastatin Calcium (Lipitor) 20 mg HS PO Last administered on 09/22/20at 21:03; Start 09/13/20 at 21:00 Levothyroxine Sodium (Synthroid) 112 mcg DAILY06 PO Last administered on 09/23/20at 06:13; Start 09/13/20 at 10:30 Metoprolol Succinate (Toprol Xl) 25 mg DAILY PO Last administered on 09/23/20at 08:20; Start 09/13/20 at 12:00 Fenofibrate (Lofibra) 134 mg DAILY PO Last administered on 09/23/20at 08:20; Start 09/13/20 at 12:00 Multivitamins (Thera M Plus) 1 tab DAILY PO Last administered on 09/23/20at 08:19; Start 09/13/20 at 12:00 Multivitamins/ Minerals (I-Cheyanne) 1 tab DAILY PO Last administered on 09/23/20at 08:19; Start 09/13/20 at 12:00 Potassium Chloride (Klor-Con) 40 meq 1X ONCE PO Last administered on 09/13/20at 11:58; Start 09/13/20 at 11:00; Stop 09/13/20 at 11:01; Status DC Insulin Human Lispro (HumaLOG) 0-5 UNITS QIDACHS SQ Last administered on 09/23/20at 12:09; Start 09/13/20 at 16:30 Dextrose (Dextrose 50%-Water Syringe) 12.5 gm PRN Q15MIN PRN IV SEE COMMENTS; Start 09/13/20 at 13:30 Lorazepam (Ativan) 0.5 mg PRN Q6HRS PRN PO ANXIETY / AGITATION Last administered on 09/22/20at 22:01; Start 09/13/20 at 15:30 Lidocaine HCl (Buffered Lidocaine 1%) 3 ml STK-MED ONCE .ROUTE ; Start 09/14/20 at 11:32; Stop 09/14/20 at 11:32; Status DC Lidocaine HCl (Buffered Lidocaine 1%) 6 ml 1X ONCE INJ Last administered on 09/14/20at 11:45; Start 09/14/20 at 12:00; Stop 09/14/20 at 12:01; Status DC Lactobacillus Rhamnosus (Culturelle) 1 cap BID PO Last administered on 09/23at 08:19; Start 09/14/20 at 21:00 Levofloxacin/ Dextrose 50 ml @ 50 mls/hr Q24H IV Last administered on 09/15/20at 20:01; Start 09/14/20 at 21:00; Stop 09/16/20 at 11:00; Status DC Tramadol HCl (Ultram) 50 mg PRN Q6HRS PRN PO MODERATE - SEVERE PAIN Last administered on 09/23/20at 10:14; Start 09/16/20 at 05:45 Dronabinol (Marinol) 2.5 mg BIDACLD PO Last administered on 09/19/20at 11:48; Start 09/16/20 at 11:30; Stop 09/19/20 at 12:21; Status DC Temazepam (Restoril) 15 mg PRN QHS PRN PO INSOMNIA Last administered on 09/22/20at 22:00; Start 09/17/20 at 18:30 Iohexol (Omnipaque 240 Mg/ml) 50 ml 1X ONCE PO Last administered on 09/18/20at 12:00; Start 09/18/20 at 12:00; Stop 09/18/20 at 12:03; Status DC Iohexol (Omnipaque 300 Mg/ml) 60 ml 1X ONCE IV Last administered on 09/18/20at 12:00; Start 09/18/20 at 12:00; Stop 09/18/20 at 12:03; Status DC Info (CONTRAST GIVEN -- Rx MONITORING) 1 each PRN DAILY PRN MC SEE COMMENTS; Start 09/18/20 at 12:15; Stop 09/20/20 at 12:14; Status DC Lidocaine/ Epinephrine (LIDOCAINE 2%-EPI 1:100,000 multi-dose) 20 ml STK-MED ONCE .ROUTE ; Start 09/19/20 at 09:04; Stop 09/19/20 at 09:04; Status DC Midazolam HCl (Versed) 2 mg STK-MED ONCE .ROUTE ; Start 09/19/20 at 09:23; Stop 09/19/20 at 09:24; Status DC Fentanyl Citrate (Fentanyl 2ml Vial) 100 mcg STK-MED ONCE .ROUTE ; Start 09/19/20 at 09:23; Stop 09/19/20 at 09:24; Status DC Cefazolin Sodium/ Dextrose 50 ml @ As Directed STK-MED ONCE IV ; Start 09/19/20 at 09:24; Stop 09/19/20 at 09:24; Status DC Midazolam HCl (Versed) 2 mg 1X ONCE IV Last administered on 09/19/20at 10:18; Start 09/19/20 at 09:30; Stop 09/19/20 at 09:35; Status DC Fentanyl Citrate (Fentanyl 2ml Vial) 100 mcg 1X ONCE IV Last administered on 09/19/20at 10:18; Start 09/19/20 at 09:30; Stop 09/19/20 at 09:35; Status DC Lidocaine/ Epinephrine (LIDOCAINE 2%-EPI 1:100,000 multi-dose) 20 ml 1X ONCE IJ Last administered on 09/19/20at 10:21; Start 09/19/20 at 09:30; Stop 09/19/20 at 09:35; Status DC Cefazolin Sodium/ Dextrose 50 ml @ 100 mls/hr 1X ONCE IV Last administered on 09/19/20at 10:00; Start 09/19/20 at 09:30; Stop 09/19/20 at 09:59; Status DC Dronabinol (Marinol) 5 mg BIDACLD PO Last administered on 09/23/20at 12:04; Start 09/19/20 at 12:30 Pantoprazole Sodium (Protonix) 40 mg DAILYAC PO Last administered on 09/23/20at 08:19; Start 09/20/20 at 07:30 Gadoterate Meglumine (Clariscan) 10 ml 1X ONCE IVP Last administered on at 10:19; Start 09/22/20 at 09:00; Stop 09/22/20 at 09:05; Status DC Gadoterate Meglumine (Clariscan) 10 ml 1X ONCE IVP Last administered on 09/22/20at 10:19; Start 09/22/20 at 09:00; Stop 09/22/20 at 09:05; Status DC Docusate Sodium (Colace) 100 mg PRN DAILY PRN PO HARD STOOLS Last administered on 09/23/20at 10:13; Start 09/23/20 at 10:15 Active Scripts Active Reported Preservision Areds Softgel (Vit A/Vit C/Vit E/Zinc/Copper) 1 Each Capsule 2 Each PO DAILY Euthyrox (Levothyroxine Sodium) 112 Mcg Tablet 112 Mcg PO DAILY06 Atorvastatin Calcium 20 Mg Tablet 20 Mg PO HS Metoprolol Succinate ( Xl ) (Metoprolol Succinate) 25 Mg Tab.er.24h 25 Mg PO DAILY Hydrochlorothiazide Tablet (Hydrochlorothiazide) 12.5 Mg Tablet 25 Mg PO DAILY Tylenol (Acetaminophen) 325 Mg Tablet 500 Mg PO Q6HRS PRN Aspirin 81 Mg Tab.chew 81 Mg PO DAILY Multi Vitamin Daily (Multivitamin) 1 Each Tablet 1 Each PO DAILY Fish Oil 1,000 Mg Capsule ([place]-3 Fatty Acids/Fish Oil) 1 Each Capsule 1 Each PO DAILY Fenofibrate (Fenofibrate Nanocrystallized) 145 Mg Tablet 1 Tab PO DAILY Vitals/I & O Vital Sign - Last 24 Hours 09/22/20 09/22/20 09/22/20 09/22/20 15:00 19:43 20:00 22:51 Temp 97.3 98.0 98.4 97.3 98.0 98.4 Pulse 79 84 75 Resp 20 16 16 B/P (MAP) 103/76 (85) 134/70 (91) 137/56 (83) Pulse Ox 94 92 91 O2 Delivery Room Air Room Air Room Air Room Air 09/23/20 09/23/20 09/23/20 09/23/20 03:22 07:00 08:00 08:20 Temp 97.7 97.5 97.7 97.5 Pulse 81 79 79 Resp 16 16 B/P (MAP) 126/58 (80) 132/78 (96) 132/78 Pulse Ox 91 92 O2 Delivery Room Air Room Air Room Air 09/23/20 09/23/20 09/23/20 10:14 10:33 11:35 Temp 98.4 98.4 Pulse 82 Resp 16 B/P (MAP) 130/66 (87) Pulse Ox 91 O2 Delivery Room Air Room Air Room Air Intake and Output 09/22/20 09/22/20 09/23/20 15:00 23:00 07:00 Intake Total 250 ml 200 ml 400 ml Balance 250 ml 200 ml 400 ml Justifications for Admission Other Justification ELVER CORBIN MD Sep 23, 2020 14:46
[2020-09-23 19:58] VITALS: BP 130/64
[2020-09-23] MEDS: ATORVASTATIN CALCIUM 20 MG TABLET PO SCH (20:36)
[2020-09-23] MEDS: LORazepam 0.5 MG TABLET PO PRN (22:01)
[2020-09-23] MEDS: TEMAZEPAM 15 MG CAPSULE PO PRN (22:01)
[2020-09-23 22:39] VITALS: BP 129/72
[2020-09-24 03:00] VITALS: BP 121/46
[2020-09-24] MEDS: LEVOTHYROXINE 112 MCG TABLET PO SCH (06:00)
[2020-09-24 07:00] VITALS: BP 133/72
[2020-09-24] MEDS: INSULIN LISPRO 300 UNITS/3 ML VIAL. SQ SCH ×4 (07:30→20:39)
--- NOTE | 2020-09-24 07:56 | PDOC ---
PULMONARY PROGRESS NOTES DATE: 09/24/20 TIME: 07:55 Subjective Resting on room air, sob better, occ cough pleurex drained on 09/23 600cc status post left Pleurx catheter on 09/19/20 Vitals Vital Signs Date Time Temp Pulse Resp B/P (MAP) Pulse Ox O2 Delivery O2 Flow Rate FiO2 09/24/20 07:27 Room Air 09/24/20 07:00 97.9 85 16 133/72 (92) 91 97.9 ROS: No Nausea, No Chest Pain, No Abdominal Pain, No Increase Cough General: Alert, Oriented X4, No acute distress Lungs: Other (pleurex diminished bs ) Cardiovascular: S1 Abdomen: Soft Neuro Exam: Alert Extremities: No Edema Skin: Warm, Dry Labs Laboratory Tests Test 09/22/20 11:59 09/22/20 16:34 09/22/20 20:38 09/23/20 07:01 Glucose (Fingerstick) 213 mg/dL (70-99) 93 mg/dL (70-99) 159 mg/dL (70-99) 141 mg/dL (70-99) Test 09/23/20 11:20 09/23/20 16:09 09/23/20 20:35 09/24/20 06:50 Glucose (Fingerstick) 188 mg/dL (70-99) 197 mg/dL (70-99) 129 mg/dL (70-99) 134 mg/dL (70-99) Laboratory Tests Test 09/23/20 11:20 09/23/20 16:09 09/23/20 20:35 09/24/20 06:50 Glucose (Fingerstick) 188 mg/dL (70-99) 197 mg/dL (70-99) 129 mg/dL (70-99) 134 mg/dL (70-99) Medications Active Scripts Medications Dose Route/Sig Max Daily Dose Days Date Category Preservision Areds Softgel (Vit A/Vit C/Vit E/Zinc/Copper) 1 Each Capsule 2 Each PO DAILY 09/13/20 Reported Euthyrox (Levothyroxine Sodium) 112 Mcg Tablet 112 Mcg PO DAILY06 09/13/20 Reported Atorvastatin Calcium 20 Mg Tablet 20 Mg PO HS 09/13/20 Reported Metoprolol Succinate ( Xl ) (Metoprolol Succinate) 25 Mg Tab.er.24h 25 Mg PO DAILY 09/13/20 Reported Hydrochlorothiazide Tablet (Hydrochlorothiazide) 12.5 Mg Tablet 25 Mg PO DAILY 09/13/20 Reported Tylenol (Acetaminophen) 325 Mg Tablet 500 Mg PO Q6HRS PRN 09/13/20 Reported Aspirin 81 Mg Tab.chew 81 Mg PO DAILY 09/13/20 Reported Multi Vitamin Daily (Multivitamin) 1 Each Tablet 1 Each PO DAILY 07/02/14 Reported Fish Oil 1,000 Mg Capsule ([place]-3 Fatty Acids/Fish Oil) 1 Each Capsule 1 Each PO DAILY 07/02/14 Reported Fenofibrate (Fenofibrate Nanocrystallized) 145 Mg Tablet 1 Tab PO DAILY 04/15/14 Reported Comments CXR 09/15 mod Left effusion Impression . 1. Large left-sided effusion, s/p left thoracentesis 2. CT scan dated 09/06/2020 showed a solid noncalcified pulmonary nodule right lower lobe measuring 1.2 cm, ill-defined band-like opacity in left upper lobe measuring 1.8 x 1.3.---- While adenocarcinoma is confirmed, the origin is indeterminate at this point and immunohistochemistry stains are suggestive of either pulmonary or pancreaticobiliary primary. 3. History of breast cancer. 20 yrs ago, neg LN 4. Left-sided chest pain, shortness of air related to pleural effusion. improved--- now status post Pleurx catheter 5. Coronary artery disease with previous angioplasty. 6. Remote history of deep venous thrombosis 5 years ago, status post knee replacement. 7. Obesity. 8. Remote history of tobacco dependent. 9. Status post COVID-19 vaccination, first dose. Plan . Continue Supplemental oxygen as need to keep sats above 92%, Follow CXR post right thoracentesis, reoccurring pleural effusion, status post Pleurx catheter 09/19/20, 500cc drained from Pleurx on 09/21, 09/23 pleurex drained 600 cc COVID-19 negative S/P Thoracentesis -- While adenocarcinoma is confirmed, the origin is indeterminate at this point and immunohistochemistry stains are suggestive of either pulmonary or pancreaticobiliary primary. ECHO-EF WNL Follow HEM/ONC recommendations in regards to chemotherapy/radiation and other treatment options, planned for outpatient follow up for systemic treatment Consulted GI for further work-up of pancreatic mass/density-- planned for MRCP today DVT/GI PPX D/W agricultural service worker for DC planning, patient could discharge to [place] for further rehab OK to D/C from our stand point JAKE JIMENES MD Sep 24, 2020 07:56
[2020-09-24] MEDS: PANTOPRAZOLE 40 MG TABLET.DR. PO SCH (08:15)
[2020-09-24] MEDS: ASPIRIN CHEWABLE 81 MG TABLET. PO SCH (08:15)
[2020-09-24] MEDS: FENOFIBRATE,MICRONIZED 134 MG CAPSULE PO SCH (08:16)
[2020-09-24] MEDS: MULTIVITAMIN with MINERAL TABLET. PO SCH (08:16)
[2020-09-24] MEDS: METOPROLOL SUCC 24HR ER 25 MG TAB.ER.24H. PO SCH (08:16)
[2020-09-24] MEDS: LACTOBACILLUS RHAMNOSUS GG 1 CAPSULE. PO SCH ×2 (08:16→20:30)
[2020-09-24] MEDS: MULTIVITAMIN I-VITE TABLET. PO SCH (08:16)
[2020-09-24] MEDS: ENOXAPARIN 40 MG/0.4 ML SYRINGE. SQ SCH (08:17)
[2020-09-24 10:49] VITALS: BP 133/63
--- NOTE | 2020-09-24 11:06 | PN ---
DATE: 09/24/2020 SUBJECTIVE: The patient is resting, slightly propped up in bed, in no apparent respiratory distress. She is eating her breakfast. She apparently had a good night sleep. She was seen yesterday by the oncologist and she knows that her primary tumor is pancreatic given the finding with MRCP as well as the elevated CA 19-9, was given option for treatment and apparently has not made up their mind yet. The plan is for her to be discharged to [facility] tomorrow and to follow with the oncologist as an outpatient. PHYSICAL EXAMINATION: GENERAL: When I saw her this morning, she looked well and was clearly in no apparent respiratory distress. No pallor, jaundice, cyanosis or thyromegaly. No jugular venous distention or limb edema. VITAL SIGNS: Her heart rate was 85, blood pressure was 133/72, temperature was 97.9, respiratory rate was 16 and oxygen saturation was 91%. The rest of the clinical exam is stable, nothing has changed. LABORATORY DATA: Her blood sugar is reasonably controlled and her chemistry is stable. ASSESSMENT: Metastatic pancreatic cancer with large left-sided malignant pleural effusion, status post thoracentesis and PleurX catheter placement. The left-sided pleural effusion was drained yesterday and about 600 mL of fluid removed. Other medical problems include: A. Hypertension. B. Hyperlipidemia. C. Coronary artery disease, status post percutaneous coronary intervention and stent deployment. D. Hypothyroidism. E. Generalized osteoarthritis. F. Breast cancer, status post left mastectomy 21 years ago. PLAN: To continue with current management. She will be discharged tomorrow to [facility]. OTONIEL SCOTT MD DR: SERGEI/ezio JOB#: [id number] / [id number]
[2020-09-24] MEDS: DRONABINOL 2.5 MG CAPSULE. PO SCH ×2 (11:59→17:10)
[2020-09-24 14:51] VITALS: BP 132/67
[2020-09-24 19:08] VITALS: BP 114/41
[2020-09-24] MEDS: LORazepam 0.5 MG TABLET PO PRN (20:31)
[2020-09-24] MEDS: TEMAZEPAM 15 MG CAPSULE PO PRN (20:31)
[2020-09-24] MEDS: ATORVASTATIN CALCIUM 20 MG TABLET PO SCH (20:31)
[2020-09-24] MEDS: ACETAMINOPHEN 325 MG TABLET. PO PRN (21:59)
[2020-09-24 23:15] VITALS: BP 123/63
[2020-09-25 03:33] VITALS: BP 128/70
[2020-09-25] MEDS: LEVOTHYROXINE 112 MCG TABLET PO SCH (06:13)
[2020-09-25 07:00] VITALS: BP 141/72
[2020-09-25] MEDS: INSULIN LISPRO 300 UNITS/3 ML VIAL. SQ SCH (07:30)
--- NOTE | 2020-09-25 08:28 | PDOC ---
PULMONARY PROGRESS NOTES DATE: 09/25/20 TIME: 08:28 Subjective Patient feels better, had 300 cc removed today. status post left Pleurx catheter on 09/19/20 Vitals Vital Signs Date Time Temp Pulse Resp B/P (MAP) Pulse Ox O2 Delivery O2 Flow Rate FiO2 09/25/20 03:33 98.0 81 16 128/70 (89) 94 Room Air 98.0 ROS: No Nausea, No Chest Pain, No Abdominal Pain, No Increase Cough General: Alert, Oriented X4, No acute distress Lungs: Other (pleurex diminished bs ) Cardiovascular: S1 Abdomen: Soft Neuro Exam: Alert Extremities: No Edema Skin: Warm, Dry Labs Laboratory Tests Test 09/23/20 11:20 09/23/20 16:09 09/23/20 20:35 09/24/20 06:50 Glucose (Fingerstick) 188 mg/dL (70-99) 197 mg/dL (70-99) 129 mg/dL (70-99) 134 mg/dL (70-99) Test 09/24/20 11:38 09/24/20 16:11 09/24/20 20:30 09/25/20 07:39 Glucose (Fingerstick) 190 mg/dL (70-99) 227 mg/dL (70-99) 138 mg/dL (70-99) 141 mg/dL (70-99) Laboratory Tests Test 09/24/20 11:38 09/24/20 16:11 09/24/20 20:30 09/25/20 07:39 Glucose (Fingerstick) 190 mg/dL (70-99) 227 mg/dL (70-99) 138 mg/dL (70-99) 141 mg/dL (70-99) Medications Active Scripts Medications Dose Route/Sig Max Daily Dose Days Date Category Preservision Areds Softgel (Vit A/Vit C/Vit E/Zinc/Copper) 1 Each Capsule 2 Each PO DAILY 09/13/20 Reported Euthyrox (Levothyroxine Sodium) 112 Mcg Tablet 112 Mcg PO DAILY06 09/13/20 Reported Atorvastatin Calcium 20 Mg Tablet 20 Mg PO HS 09/13/20 Reported Metoprolol Succinate ( Xl ) (Metoprolol Succinate) 25 Mg Tab.er.24h 25 Mg PO DAILY 09/13/20 Reported Hydrochlorothiazide Tablet (Hydrochlorothiazide) 12.5 Mg Tablet 25 Mg PO DAILY 09/13/20 Reported Tylenol (Acetaminophen) 325 Mg Tablet 500 Mg PO Q6HRS PRN 09/13/20 Reported Aspirin 81 Mg Tab.chew 81 Mg PO DAILY 09/13/20 Reported Multi Vitamin Daily (Multivitamin) 1 Each Tablet 1 Each PO DAILY 07/02/14 Reported Fish Oil 1,000 Mg Capsule ([place]-3 Fatty Acids/Fish Oil) 1 Each Capsule 1 Each PO DAILY 07/02/14 Reported Fenofibrate (Fenofibrate Nanocrystallized) 145 Mg Tablet 1 Tab PO DAILY 04/15/14 Reported Comments CXR 09/15 mod Left effusion Impression . 1. Large left-sided effusion, s/p left thoracentesis 2. CT scan dated 09/06/2020 showed a solid noncalcified pulmonary nodule right lower lobe measuring 1.2 cm, ill-defined band-like opacity in left upper lobe measuring 1.8 x 1.3.---- While adenocarcinoma is confirmed, the origin is indeterminate at this point and immunohistochemistry stains are suggestive of either pulmonary or pancreaticobiliary primary. 3. History of breast cancer. 20 yrs ago, neg LN 4. Left-sided chest pain, shortness of air related to pleural effusion. improved--- now status post Pleurx catheter 5. Coronary artery disease with previous angioplasty. 6. Remote history of deep venous thrombosis 5 years ago, status post knee replacement. 7. Obesity. 8. Remote history of tobacco dependent. 9. Status post COVID-19 vaccination, first dose. Plan . Updated September 25, 2020 Transfer to rehab Drain Pleurx catheter, if patient become symptomatic Follow-up in my office in 4 weeks Follow CXR post right thoracentesis, reoccurring pleural effusion, status post Pleurx catheter 09/19/20, 500cc drained from Pleurx on 09/21, 09/23 pleurex drained 600 cc COVID-19 negative S/P Thoracentesis -- While adenocarcinoma is confirmed, the origin is inde terminate at this point and immunohistochemistry stains are suggestive of either pulmonary or pancreaticobiliary primary. ECHO-EF WNL Follow HEM/ONC recommendations in regards to chemotherapy/radiation and other treatment options, planned for outpatient follow up for systemic treatment Consulted GI for further work-up of pancreatic mass/density-- planned for MRCP today DVT/GI PPX D/W shake out worker for DC planning, patient could discharge to [place] for further rehab OK to D/C from our stand point RAFY CAMP MD Sep 25, 2020 08:28
[2020-09-25] MEDS: MULTIVITAMIN with MINERAL TABLET. PO SCH (08:35)
[2020-09-25] MEDS: PANTOPRAZOLE 40 MG TABLET.DR. PO SCH (08:35)
[2020-09-25] MEDS: FENOFIBRATE,MICRONIZED 134 MG CAPSULE PO SCH (08:35)
[2020-09-25] MEDS: ENOXAPARIN 40 MG/0.4 ML SYRINGE. SQ SCH (08:35)
[2020-09-25] MEDS: ASPIRIN CHEWABLE 81 MG TABLET. PO SCH (08:35)
[2020-09-25] MEDS: LACTOBACILLUS RHAMNOSUS GG 1 CAPSULE. PO SCH (08:35)
[2020-09-25] MEDS: METOPROLOL SUCC 24HR ER 25 MG TAB.ER.24H. PO SCH (08:35)
[2020-09-25] MEDS: MULTIVITAMIN I-VITE TABLET. PO SCH (08:35)
--- NOTE | 2020-09-25 08:35 | SNU/HH DC ---
DISCHARGE ORDERS DISCHARGE INFORMATION: DISCHARGE DATE: Sep 25, 2020 FINAL DIAGNOSIS malignant pancreatic cancer with metastasi to lungs and bone malignant left sided pleural effusion hypertension hyperlipidemia hypothyroidism CONDITION ON DISCHARGE: Stable CODE STATUS: Code Status: Full CARE HOME: SNF STAY <30 DAYS: Yes POST DISCHARGE ORDERS: ACTIVITY ORDERS: Activity as tolerated DIET AFTER DISCHARGE: ADA TREATMENT/EQUIPMENT ORDERS: Physical Therapy For: Evalulation/Treatment Occupational Therapy For: Evaluation/Treatment DISCHARGE MEDICATIONS: Home Meds Reported Medications Vit A/Vit C/Vit E/Zinc/Copper (PRESERVISION AREDS SOFTGEL) 1 Each Capsule, 2 EACH PO DAILY for eyes, CAP 09/13/20 Levothyroxine Sodium (Euthyrox) 112 Mcg Tablet, 112 MCG PO DAILY06 for thyroid, TAB 09/13/20 Atorvastatin Calcium (ATORVASTATIN CALCIUM) 20 Mg Tablet, 20 MG PO HS for FOR CHOLESTEROL, #30 TAB 0 Refills 09/13/20 Metoprolol Succinate (METOPROLOL SUCCINATE ( XL )) 25 Mg Tab.er.24h, 25 MG PO DAILY for FOR HYPERTENSION, #30 TAB 0 Refills 09/13/20 Acetaminophen (TYLENOL) 325 Mg Tablet, 500 MG PO Q6HRS PRN for pain , TAB 09/13/20 Aspirin (ASPIRIN) 81 Mg Tab.chew, 81 MG PO DAILY for heart health, TAB.CHEW 09/13/20 Multivitamin (MULTI VITAMIN DAILY) 1 Each Tablet, 1 EACH PO DAILY 07/02/14 [place]-3 Fatty Acids/Fish Oil (FISH OIL 1,000 MG CAPSULE) 1 Each Capsule, 1 EACH PO DAILY 07/02/14 Fenofibrate Nanocrystallized (FENOFIBRATE) 145 Mg Tablet, 1 TAB PO DAILY, #30 TAB 5 Refills 04/15/14 Discontinued Reported Medications Hydrochlorothiazide (HYDROCHLOROTHIAZIDE TABLET) 12.5 Mg Tablet, 25 MG PO DAILY for DIURETIC, TAB 0 Refills 09/13/20 OTONIEL SCOTT MD Sep 25, 2020 08:35
--- NOTE | 2020-09-25 09:50 | PDOC ---
Date of Service: DATE: 09/25/20 TIME: 09:46 Subjective: Subjective: Appetite not great but trying. Has a runny nose this morning. [facility] and then follow-up w/ oncology as outpt to discuss plans moving forward. Objective: Objective: Reviewed onc note from 09/23. Vital Signs: Vital Signs Date Time Temp Pulse Resp B/P (MAP) Pulse Ox O2 Delivery O2 Flow Rate FiO2 09/25/20 08:35 81 128/70 09/25/20 07:00 97.6 20 93 Room Air 97.6 Labs: Laboratory Tests Test 09/24/20 11:38 09/24/20 16:11 09/24/20 20:30 09/25/20 07:39 Glucose (Fingerstick) 190 mg/dL (70-99) 227 mg/dL (70-99) 138 mg/dL (70-99) 141 mg/dL (70-99) Imaging: MRCP 09/22 IMPRESSION: 1. 6 x 2 cm infiltrating soft tissue mass of the tail of the pancreas with a malignant stricture effacing the duct at the proximal tail of the pancreas, with mild distention of the duct at the distal tail of the pancreas. This is concerning for pancreatic malignancy. This mass does not involve the head or body the pancreas, and does not involve the splenic vessels. 2. Collapse with enhancement due to infiltrate or malignancy of the left lower lobe and moderate left pleural effusion with thickened pleural enhancement with a pleural catheter in place. 3. T8 thoracic vertebral body enhancing lesion corresponding to a sclerotic lesion on prior CT imaging concerning for metastasis. 4. 4 mm simple cyst of the head of the pancreas. 5. Gallbladder sludge and tiny gallstones. PE: GEN: NAD LUNGS: clear anteriorly HEART: RRR ABD: S/ND/NT NEURO/PSYCH: A & O 3 A/P: Malignant pleural effusion s/p PleurX Pancreatic tail mass w/ stricture, elevated CA19-9 H/o breast cancer -- Plans to DC to rehab - oncology discussed possible treatment - pt undecided re: this. DC per primary, follow-up w/ oncology as planned. Justicifation of Admission Dx: Justifications for Admission: Justification of Admission Dx: Yes DIANA ANGELES Sep 25, 2020 09:50
--- NOTE | 2020-09-25 09:58 | NUR ---
SS following up with discharge planning. SS reviewed pt chart and discussed with pt RN. Pt is currently on room air. PT/OT recommended intermediate unit. COVID19 negative. Discharge orders received for intermediate unit. SS phoned and faxed clinical updates and discharge orders to [facility], ; fax [phone]. SS communicated with Jennifer at [facility] and am currently awaiting final acceptance decision and transportation time. SS will continue to follow for discharge planning.
[2020-09-25 11:00] VITALS: BP 123/63
--- NOTE | 2020-09-25 13:23 | NUR ---
SS following up with discharge planning. Pt accepted at [facility], ; fax [phone]. Pt will discharge today and go to [facility] at 1400 via wheelchair. [facility] to provide transportation. Pt, pt's RN, and pt's daughter notified.
--- NOTE | 2020-09-25 14:15 | NUR ---
DISCHARGED PATIENT TO THE [facility]. REPORT GIVEN TO NURSE DEBBIE. TAN ESCORTED OFF UNIT [facility] WHEELCHAIR [facility].
--- NOTE | 2020-10-16 16:14 | DS ---
DATE OF DISCHARGE: 09/25/2020 HOSPITAL COURSE: The patient is an 80-year-old female patient who was admitted with shortness of breath and generalized weakness and poor appetite. She was seen initially at [facility] Emergency Room where she was found to have large left side pleural effusion and at that time she was diagnosed with possible pneumonia, congestive heart failure; however, she was seen in consultation by the district resource officer and she underwent thoracentesis. Her pleural effusion turned out to be malignant and the pathologist felt that the cells are more likely to be either lung carcinoma versus biliary pancreatic cancer. She has had a CT scan of the abdomen and pelvis and showed that she has mass in the tail of the pancreas and eventually she was diagnosed with adenocarcinoma of pancreatic origin with left-sided malignant pleural effusion. She did have also metastasis to the bone as the CT scan showed that the patient has sclerotic lesion at T7, suspicious for metastatic disease. She underwent Pleurx tube placement on the left side and the patient was discharged to [facility] to continue the process of rehabilitation. PHYSICAL EXAMINATION: GENERAL: On the day of discharge, the patient looked well and was clearly in no apparent respiratory distress. No pallor, jaundice, cyanosis or thyromegaly. No jugular venous distension. No limb edema. VITAL SIGNS: Her heart rate was 79, blood pressure was 123/63, temperature 98, respiratory rate was 18 and oxygen saturation was 95% on room air. HEAD, EYES, EARS, NOSE AND THROAT: Showed normocephalic, atraumatic. NECK: Supple. HEART: Normal first and second heart sounds. No gallop, rub or murmur. CHEST: Showed central trachea, good chest expansion, air entry on the right side with vesicular breath sounds. There is dull percussion noted and absent breath sounds in the left side posteriorly. ABDOMEN: Distended, soft, nontender. She has Pleurx in the left hemithorax. NEUROLOGIC: She was grossly intact. LABORATORY DATA: Her lab work prior to discharge showed that her blood sugar was fairly well controlled. Her serum sodium was 136, potassium 4.2, chloride 101, bicarbonate 27, anion gap of 8, BUN 13, creatinine 0.8, estimated GFR was 69 mL per minute. Her glucose 138, calcium was 8.7. Total bilirubin, AST, ALT, alkaline phosphatase were normal. Total protein 5.9, albumin was 2.5. Her CA 19-9 antigen was 383. Her white cell count was 9000, hemoglobin 13, hematocrit 40, MCV 89 and platelet count of 116,000. DISCHARGE MEDICATIONS: She was discharged to [facility] to continue on acetaminophen 650 mg every 4 hours as needed, aspirin 81 mg once a day, atorvastatin 20 mg at bedtime, levothyroxine sodium 112 mcg once a day, metoprolol tartrate 25 mg twice a day, and multivitamin 1 tablet once a day. She is also on PreserVision AREDS soft gel one capsule once a day. FINAL DISCHARGE DIAGNOSES: 1. Metastatic pancreatic cancer with large left sided malignant pleural effusion, status post thoracentesis and Pleurx catheter placement. 2. Left side pleural effusion was drained and about 600 mL of fluid were removed. 3. The patient has multiple other medical problems including: A. Hypertension. B. Hyperlipidemia. C. Coronary artery disease, status post percutaneous intervention with stent deployment. D. Hypothyroidism. E. Generalized osteoarthritis. F. Breast cancer, status post left mastectomy 21 years ago. OTONIEL SCOTT MD DR: SERGEI/ezio JOB#: [id number] / [id number]
== END 2020-09-25 14:15 | DRG 435 ==
LOC: 2 NORTH 09-13 00:46 → 6 SOUTH 09-20 13:30 → 2 NORTH 09-21 17:25
PROVIDERS: ADMIT Internal Medicine; ATTEND Internal Medicine
PROC: 0W9B3ZZ Drainage of Left Pleural Cavity, Percutaneous Approach (ICD-10-PCS; principal; 2020-09-14)
PROC: 0W9B30Z Drainage of Left Pleural Cavity with Drainage Device, Percutaneous Approach (ICD-10-PCS; 2020-09-19)
DX: C25.9 Malignant neoplasm of pancreas, unspecified (principal); N17.0 Acute kidney failure with tubular necrosis; E43 Unspecified severe protein-calorie malnutrition; I50.33 Acute on chronic diastolic (congestive) heart failure; C79.9 Secondary malignant neoplasm of unspecified site; C34.32 Malignant neoplasm of lower lobe, left bronchus or lung; J91.0 Malignant pleural effusion; J98.11 Atelectasis; K57.90 Diverticulosis of intestine, part unspecified, without perforation or abscess without bleeding; I25.10 Atherosclerotic heart disease of native coronary artery without angina pectoris; Z68.37 Body mass index [BMI] 37.0-37.9, adult; E03.9 Hypothyroidism, unspecified; E66.9 Obesity, unspecified; E78.5 Hyperlipidemia, unspecified; F41.9 Anxiety disorder, unspecified; H35.30 Unspecified macular degeneration; K21.9 Gastro-esophageal reflux disease without esophagitis; I11.0 Hypertensive heart disease with heart failure; I25.82 Chronic total occlusion of coronary artery; J44.9 Chronic obstructive pulmonary disease, unspecified; K82.8 Other specified diseases of gallbladder; M15.9 Polyosteoarthritis, unspecified; Z20.822 Contact with and (suspected) exposure to COVID-19; Z82.0 Family history of epilepsy and other diseases of the nervous system; Z82.3 Family history of stroke; Z83.3 Family history of diabetes mellitus; Z82.49 Family history of ischemic heart disease and other diseases of the circulatory system; Z85.3 Personal history of malignant neoplasm of breast; Z86.718 Personal history of other venous thrombosis and embolism; Z87.891 Personal history of nicotine dependence; Z90.12 Acquired absence of left breast and nipple; Z90.710 Acquired absence of both cervix and uterus; Z95.5 Presence of coronary angioplasty implant and graft; Z96.651 Presence of right artificial knee joint; Z98.41 Cataract extraction status, right eye; Z98.42 Cataract extraction status, left eye; Z90.49 Acquired absence of other specified parts of digestive tract; Z90.722 Acquired absence of ovaries, bilateral; Z60.2 Problems related to living alone
CPT/HCPCS: 32550; 32555; 36415; 71045; 71260; 74160; 74182; 75989; 76942; 80048; 80053; 82378; 82962; 83036; 83615; 83986; 84157; 84443; 84484; 85027; 85610; 85730; 86300; 86301; 87070; 87426; 88112; 88305; 88341; 88342; 89050; 93306; 99152; 99153; A9575; C1729; C1769; C1892; J0690; J1650; J1815; J1940; J1956; J2250; J3010; J3490; Q9966; Q9967; U0003; 97110-GP; 97116-GP; 97530-GO; 97530-GP; 97535-GO; G0378; Q0167

== ENCOUNTER 2020-10-15 14:04 | Inpatient (IN) | payer MEDICARE, BC ==
[~2020-10-15] VITALS: Ht 167.6 cm; Wt 100.2 kg
[~2020-10-15 14:04] MED LIST changes: +ACET325T9 PO; +ATOR20TA58 PO; +HYDR12.58 PO; +LEVO112T55 PO; +METO-239 PO; +VIT1CAPS12 PO
[2020-10-15 15:18] LABS: BASE EXCESS COOX -5 mmol/L (-3-3); HCO3 COOX 21 mmol/L (21-28); METHEMOGLOBIN 0.6 % (0.0-1.9); OXYHEMOGLOBIN 94.2 %; PCO2 COOX 44 mmHg (35-46); PO2 COOX 83 mmHg (65-108); SAT O2 COOX 95 % (92-99)
--- NOTE | 2020-10-15 15:37 | RAD ---
XR CHEST 1V History: Reason: SHORTNESS OF BREATH. LEFT PLEURITIC LUNG DRAIN / Spl. Instructions: / History: Comparison: CT October 03, 2020 Findings: Moderate left hydropneumothorax with loculated air component within the lung base and laterally. Unch anged left lower extremity. Left mid and basilar consolidations, unchanged. Unchanged heart size. Ugo ateral interstitial thickening, unchanged. Impression: 1. Decreased moderate left loculated hydropneumothorax. Stable left Pleurx catheter. 2. Unchanged left mid and basilar consolidations. Electronically signed by: Papito Olea DO (10/15/2020 3:35 PM) [facility]
[2020-10-15 16:21] LABS: INFLUENZA A PATIENT NEGATIVE (NEGATIVE); INFLUENZA B PATIENT NEGATIVE (NEGATIVE)
[2020-10-15 16:25] LABS: BASO # 0.1 x10^3/uL (0.0-0.2); BASO % 1 % (0-3); EOS # 0.1 x10^3/uL (0.0-0.7); EOS % 1 % (0-3); HEMATOCRIT 43.1 % (36.0-47.0); LYMPH # 1.9 x10^3/uL (1.0-4.8); LYMPH % 19 % (24-48); MEAN CORPUSCULAR HEMOGLOBIN 29 pg (25-35); MEAN CORPUSCULAR HGB CONC 33 g/dL (31-37); MEAN CORPUSCULAR VOLUME 89 fL (79-100); MONO # 0.8 x10^3/uL (0.0-1.1); MONO % 8 % (0-9); NEUT # 6.8 x10^3/uL (1.8-7.7); NEUT % 71 % (31-73); PLATELET COUNT 416 x10^3/uL (140-400); RED BLOOD COUNT 4.83 x10^6/uL (3.50-5.40); RED CELL DISTRIBUTION WIDTH 15.1 % (11.5-14.5); WHITE BLOOD COUNT 9.6 x10^3/uL (4.0-11.0)
[2020-10-15 18:07] LABS: CALCIUM 9.6 mg/dL (8.5-10.1); CREATININE 1.2 mg/dL (0.6-1.0); GFR 43.2
[2020-10-15 18:13] LABS: ALBUMIN 2.8 g/dL (3.4-5.0); ALBUMIN/GLOBULIN RATIO 0.8 (1.0-1.7); TOTAL BILIRUBIN 0.8 mg/dL (0.2-1.0); TOTAL PROTEIN 6.4 g/dL (6.4-8.2)
[2020-10-15] MEDS ORDERED: MORPHINE SULFATE 4 MG/ML VIAL. IV PRN (18:30)
[2020-10-15] MEDS ORDERED: IOHEXOL 350 MG/ML 100 ML VIAL. IV ONE (18:30)
[2020-10-15] MEDS ORDERED: CONTRAST GIVEN. MC PRN (18:30)
[2020-10-15] MEDS ORDERED: ONDANSETRON PF 4 MG/2 ML VIAL. IV PRN (18:30)
--- NOTE | 2020-10-15 18:43 | PHYS DOC ---
Past Medical History Past Medical History: CAD, Cancer, GERD, High Cholesterol Additional Past Medical Histor: Breast CA, Lung CA, Pancreas CA, OA, Pleural effusions Past Surgical History: Appendectomy, Hysterectomy, Tonsillectomy Additional Past Surgical Histo: L Mastectomy, R Knee Smoking Status: Former Smoker Alcohol Use: None Adult General Chief Complaint Chief Complaint: OTHER COMPLAINTS HPI HPI Patient is a 80 year old female with a known history of pancreatic cancer with metastasis to the left lung with a previously drained persistent left-sided pneumothorax with loculated thorax and pleural effusion along his hypertension now presenting the emergency department for worsening shortness of breath and chest pain. Patient was diagnosed with cancer at 3 weeks ago and since that time has been followed by Dr. Scott and her nurses who have been treating her pleural effusion on a daily basis. Using it approximately 300 cc out. Today they attempted to drain it and even after the drainage the patient still was complaining of pain. Patient then noted to be hypoxic. On arrival EMS stated that the patient had an action saturation of 85% placed on 2 L miguel up to 95%. Patient is currently complaining of mild left-sided chest pain. Denies any fever, chills, nausea or vomiting Review of Systems Review of Systems Constitutional: Denies fever or chills [] Eyes: Denies change in visual acuity, redness, or eye pain [] HENT: Denies nasal congestion or sore throat [] Respiratory: Denies cough or shortness of breath [] Cardiovascular: No additional information not addressed in HPI [] GI: Denies abdominal pain, nausea, vomiting, bloody stools or diarrhea [] : Denies dysuria or hematuria [] Musculoskeletal: Denies back pain or joint pain [] Integument: Denies rash or skin lesions [] Neurologic: Denies headache, focal weakness or sensory changes [] Endocrine: Denies polyuria or polydipsia [] All other systems were reviewed and found to be within normal limits, except as documented in this note. Current Medications Current Medications Current Medications Medications (Trade) Dose Ordered Sig/Nelson Start Time Stop Time Status Last Admin Dose Admin Info (CONTRAST GIVEN -- Rx MONITORING) 1 each PRN DAILY PRN 10/15/20 18:30 10/17/20 18:29 Iohexol (Omnipaque 350 Mg/ml) 75 ml 1X ONCE 10/15/20 18:30 10/15/20 18:31 DC Morphine Sulfate (Morphine Sulfate) 4 mg PRN Q2HR PRN 10/15/20 18:30 10/16/20 18:29 Ondansetron HCl (Zofran) 4 mg PRN Q8HRS PRN 10/15/20 18:30 10/16/20 18:29 Allergies Allergies Allergies Coded Allergies Type Severity Reaction Last Updated Verified No Known Drug Allergies 07/04/14 No Physical Exam Physical Exam Constitutional: Well developed, well nourished, no acute distress, non-toxic appearance. [] HENT: Normocephalic, atraumatic, bilateral external ears normal, oropharynx moist, no oral exudates, nose normal. [] Eyes: PERRLA, EOMI, conjunctiva normal, no discharge. [] Neck: Normal range of motion, no tenderness, supple, no stridor. [] Cardiovascular:Heart rate regular rhythm, no murmur [] Lungs & Thorax: Bilateral breath sounds clear to auscultation, left lower back site appears clean dry and intact with drain in place Abdomen: Bowel sounds normal, soft, no tenderness, no masses, no pulsatile masses. [] Skin: Warm, dry, no erythema, no rash. [] Back: No tenderness, no CVA tenderness. [] Extremities: No tenderness, no cyanosis, no clubbing, ROM intact, no edema. [] Neurologic: Alert and oriented X 3, normal motor function, normal sensory function, no focal deficits noted. [] Psychologic: Affect normal, judgement normal, mood normal. [] Current Patient Data Vital Signs Vital Signs Date Time Temp Pulse Resp B/P (MAP) Pulse Ox O2 Delivery O2 Flow Rate FiO2 10/15/20 15:22 94 Nasal Cannula 4.0 10/15/20 14:04 97.9 86 20 122/69 (86) 97.9 Lab Values Laboratory Tests Test 10/15/20 14:29 10/15/20 15:47 10/15/20 16:18 10/15/20 17:30 O2 Saturation 95 % (92-99) Arterial Blood pH 7.30 (7.35-7.45) L Arterial Blood pCO2 at Patient Temp 44 mmHg (35-46) Arterial Blood pO2 at Patient Temp 83 mmHg (65-108) Arterial Blood HCO3 21 mmol/L (21-28) Arterial Blood Base Excess -5 mmol/L (-3-3) L Oxyhemoglobin 94.2 % Methemoglobin 0.6 % (0.0-1.9) Carbon Monoxide, Quantitative 0.7 % (0.0-1.9) FiO2 4l nc Influenza Type A Antigen Negative (NEGATIVE) Influenza Type B Antigen Negative (NEGATIVE) White Blood Count 9.6 x10^3/uL (4.0-11.0) Red Blood Count 4.83 x10^6/uL (3.50-5.40) Hemoglobin 14.0 g/dL (12.0-15.5) Hematocrit 43.1 % (36.0-47.0) Mean Corpuscular Volume 89 fL (79-100) Mean Corpuscular Hemoglobin 29 pg (25-35) Mean Corpuscular Hemoglobin Concent 33 g/dL (31-37) Red Cell Distribution Width 15.1 % (11.5-14.5) H Platelet Count 416 x10^3/uL (140-400) H Neutrophils (%) (Auto) 71 % (31-73) Lymphocytes (%) (Auto) 19 % (24-48) L Monocytes (%) (Auto) 8 % (0-9) Eosinophils (%) (Auto) 1 % (0-3) Basophils (%) (Auto) 1 % (0-3) Neutrophils # (Auto) 6.8 x10^3/uL (1.8-7.7) Lymphocytes # (Auto) 1.9 x10^3/uL (1.0-4.8) Monocytes # (Auto) 0.8 x10^3/uL (0.0-1.1) Eosinophils # (Auto) 0.1 x10^3/uL (0.0-0.7) Basophils # (Auto) 0.1 x10^3/uL (0.0-0.2) Sodium Level 141 mmol/L (136-145) Potassium Level 5.0 mmol/L (3.5-5.1) Chloride Level 103 mmol/L (98-107) Carbon Dioxide Level 31 mmol/L (21-32) Anion Gap 7 (6-14) Blood Urea Nitrogen 15 mg/dL (7-20) Creatinine 1.2 mg/dL (0.6-1.0) H Estimated GFR (Cockcroft-Gault) 43.2 BUN/Creatinine Ratio 13 (6-20) Glucose Level 117 mg/dL (70-99) H Calcium Level 9.6 mg/dL (8.5-10.1) Total Bilirubin 0.8 mg/dL (0.2-1.0) Aspartate Amino Transferase (AST) 48 U/L (15-37) H Alanine Aminotransferase (ALT) 19 U/L (14-59) Alkaline Phosphatase 70 U/L (46-116) Creatine Kinase 25 U/L (26-192) L MH-Sjx-M-Type Natriuretic Peptide 756 pg/mL (0-449) H Total Protein 6.4 g/dL (6.4-8.2) Albumin 2.8 g/dL (3.4-5.0) L Albumin/Globulin Ratio 0.8 (1.0-1.7) L Laboratory Tests 10/15/20 16:18 Laboratory Tests 10/15/20 17:30 EKG EKG [] Radiology/Procedures Radiology/Procedures [] Course & Med Decision Making Course & Med Decision Making Pertinent Labs and Imaging studies reviewed. (See chart for details) 80F presenting the emergency department complaining of new onset of left-sided chest pain after drainage of the pleural effusion. At this time the primary concern is for recurrent accumulation of pleural effusion, development of an empyema or return of the patient's pneumothorax. Chest x-ray was obtained which did demonstrate redemonstration of the pneumothorax without any evidence of effusion. Care was delayed because labs were delayed secondary to a problem with chemistries. I did discuss the case with the patient's primary care physician he is also concerned about pulmonary embolism. That was obtained which is within normal limits therefore will obtain a CT angiogram at this time planning to admit the patient for hypoxic respiratory failure Dragon Disclaimer Dragon Disclaimer This electronic medical record was generated, in whole or in part, using a voice recognition dictation system. Departure Departure Impression: Primary Impression: Acute respiratory failure with hypoxia Disposition: 09 ADMITTED INPT THIS HOSP Condition: GUARDED Referrals: OTONIEL SCOTT MD (PCP) ATILIO LOPES MD Oct 15, 2020 18:43
[2020-10-15 20:01] LABS: BILIRUBIN,URINE NEGATIVE (NEG); CLARITY,URINE CLOUDY; NITRITE,URINE NEGATIVE (NEG); PROTEIN,URINE 30 mg/dL (NEG-TRACE)
[2020-10-15 20:04] LABS: COLOR,URINE AMBER
[2020-10-15 20:07] LABS: HYALINE CASTS, URINE MANY /HPF
[2020-10-15 20:08] LABS: BACTERIA,URINE FEW /HPF (0-FEW); WBC,URINE 20-40 /HPF (0-4)
[2020-10-15 20:09] LABS: RBC,URINE 0 /HPF (0-2)
--- NOTE | 2020-10-15 20:30 | EKG ---
[facility] [address] [place] [address] Test Date: 2020-10-15 Test Time: 15:44:08 Pat Name: ARUN SANTOS Department: Room: Gender: F [employer]: : 1940 Requested By: ATILIO LOPES Order Number: [id number] Reading MD: Measurements Intervals [place] Rate: 79 P: 34 NH: 140 QRS: 23 QRSD: 82 T: 0 QT: 372 QTc: 433 Interpretive Statements SINUS RHYTHM NORMAL ECG RI6.02 No previous ECG available for comparison
--- NOTE | 2020-10-15 20:42 | RAD ---
Exam: CT of chest with contrast INDICATION: Chest pain TECHNIQUE: Sequential axial images through the chest obtained following the administration of 75 mL o f Isovue-370 IV contrast. Sagittal and coronal reformatted images were reconstructed from the axial d henrietta and reviewed. 3-D reformatted images were reconstructed from the axial data and reviewed. Comparisons: Chest x-ray same day FINDINGS: Visualized portions of the thyroid are unremarkable. No enlarged mediastinal lymph nodes. Heart size is normal. No pericardial effusion. Mild coronary artery calcifications. Thoracic aorta last s a normal course and caliber. Pulmonary artery is not enlarged. No pulmonary embolus identified with in the main, lobar or segmental pulmonary arteries. There is a moderate-sized left hydropneumothorax with a chest tube coiled in the pleural space. There is atelectatic changes in the left lower lobe with peripheral consolidative changes. Mild intralobul ar septal thickening is noted. Evaluation of known pulmonary nodules limited secondary to respiratory motion. Visualized upper abdomen is unremarkable. No suspicious osseous lesions or acute fractures. IMPRESSION: 1. No pulmonary embolus identified within the main, lobar or segmental pulmonary arteries. 2. Moderate-sized left hydropneumothorax with chest tube. There is adjacent airspace disease in the left lung, which may partially represent atelectasis. Superimposed infectious process difficult to ex clude. Exposure: One or more of the following in the visualized dose reduction techniques were utilized for this examination: 1. Automated exposure control 2. Adjustment of the MA and/or KV according to patient size 3. Use of iterative of reconstructive technique Electronically signed by: Ruben Ontiveros MD (10/15/2020 8:39 PM) [facility]
[2020-10-15 23:00] VITALS: BP 121/55
[2020-10-16 03:00] VITALS: BP 116/62
[2020-10-16] MEDS ORDERED: TRAM50TA PO (03:17)
[2020-10-16] MEDS ORDERED: PANT20TA2 PO (03:17)
[2020-10-16] MEDS ORDERED: LORA0.5T96 PO (03:17)
[2020-10-16] MEDS ORDERED: ASCO500C PO (03:17)
[2020-10-16] MEDS ORDERED: FENO134C PO (03:17)
[2020-10-16] MEDS ORDERED: DRON10CA5 PO (03:17)
[2020-10-16] MEDS ORDERED: ONDA4TAB7 PO (03:17)
[2020-10-16] MEDS ORDERED: TEMA15CA6 PO (03:17)
[2020-10-16] MEDS ORDERED: DOCU-109 PO (03:17)
[2020-10-16] MEDS ORDERED: ACETAMINOPHEN 325 MG TABLET. PO PRN (03:45)
[2020-10-16] MEDS: LEVOTHYROXINE 112 MCG TABLET PO SCH (06:24)
[2020-10-16] MEDS: traMADol 50 MG TABLET PO PRN ×2 (06:32→22:17)
[2020-10-16 07:00] VITALS: BP 121/61
[2020-10-16 07:34] LABS: CALCIUM 9.7 mg/dL (8.5-10.1); GFR 53.3; POTASSIUM 4.8 mmol/L (3.5-5.1)
[2020-10-16 08:50] LABS: BASO % 1 % (0-3); EOS # 0.2 x10^3/uL (0.0-0.7); EOS % 3 % (0-3); HEMATOCRIT 40.9 % (36.0-47.0); HEMOGLOBIN 13.2 g/dL (12.0-15.5); LYMPH # 1.4 x10^3/uL (1.0-4.8); LYMPH % 17 % (24-48); MEAN CORPUSCULAR HEMOGLOBIN 29 pg (25-35); MEAN CORPUSCULAR HGB CONC 32 g/dL (31-37); MEAN CORPUSCULAR VOLUME 90 fL (79-100); MONO # 0.7 x10^3/uL (0.0-1.1); MONO % 8 % (0-9); NEUT # 5.9 x10^3/uL (1.8-7.7); NEUT % 72 % (31-73); PLATELET COUNT 372 x10^3/uL (140-400); RED BLOOD COUNT 4.56 x10^6/uL (3.50-5.40); WHITE BLOOD COUNT 8.2 x10^3/uL (4.0-11.0)
[2020-10-16] MEDS: FENOFIBRATE,MICRONIZED 134 MG CAPSULE PO SCH (08:50)
[2020-10-16] MEDS: ASPIRIN CHEWABLE 81 MG TABLET. PO SCH (08:50)
[2020-10-16] MEDS: PANTOPRAZOLE 40 MG TABLET.DR. PO SCH (08:50)
[2020-10-16] MEDS: MULTIVITAMIN with MINERAL TABLET. PO SCH (08:50)
[2020-10-16] MEDS: ASCORBIC ACID 500 MG TABLET PO SCH ×2 (08:50→22:05)
[2020-10-16] MEDS: MULTIVITAMIN I-VITE TABLET. PO SCH (08:50)
[2020-10-16] MEDS: METOPROLOL SUCC 24HR ER 25 MG TAB.ER.24H. PO SCH (08:50)
[2020-10-16] MEDS: DRONABINOL 2.5 MG CAPSULE. PO SCH ×2 (09:00→22:05)
[2020-10-16] MEDS: ACETAMINOPHEN 500 MG TABLET PO PRN (10:03)
[2020-10-16 11:00] VITALS: BP 117/63
[2020-10-16] MEDS ORDERED: PIPERACILLIN/TAZOBACTAM 3.375 GM in IV NORMAL SALINE 50ML 50 ML IV SCH (12:00)
[2020-10-16] MEDS: ENOXAPARIN 40 MG/0.4 ML SYRINGE. SQ SCH (12:26)
[2020-10-16] MEDS: PIPERACILLIN/TAZOBACTAM 4.5 GM in IV NORMAL SALINE 100ML 100 ML IV SCH ×2 (12:26→17:36)
--- NOTE | 2020-10-16 12:29 | HP ---
ADMIT DATE: 10/15/2020 HISTORY OF PRESENT ILLNESS: The patient is an 80-year-old female patient, a resident at [facility], who was noted by the nursing staff there to be hypoxic with oxygen saturation down to 80% on room air. On 2 liters, it has improved and she also complained of chest pain and shortness of breath on exertion. The pain is mostly in the right side, aggravated by movement rather than taking a deep breath and was transferred to [facility] Emergency Room where she was extensively investigated, has had lab work as well as imaging. Her chest x-ray showed that she has decreased moderate left loculated hydropneumothorax, stable left thorax catheter and unchanged left mid and basilar consolidation. CT scan of the chest with PE protocol showed no pulmonary embolism; however, she has moderate-sized left hydropneumothorax with chest tube and there is also adjacent airspace disease in the left lung, which may partially represent atelectasis. Superimposed infection cannot be ruled out. Her white cell count was normal. Her chemistry was unremarkable and her blood gases also were unremarkable. The patient was admitted for further evaluation and treatment. PAST MEDICAL HISTORY: Significant for hypertension; hyperlipidemia; coronary artery disease, status post PCI with stent deployment; hypothyroidism; generalized osteoarthritis. She also has a history of breast cancer. She was recently also diagnosed with malignant left side pleural effusion and was diagnosed with pancreatic cancer with metastasis to the bone and the lung, for which she has PleurX. PAST SURGICAL HISTORY: Significant for PCI with stent deployment, left mastectomy about 20 years ago, total abdominal hysterectomy, bilateral salpingo-oophorectomy, right total knee arthroplasty, bilateral cataract extraction, tonsillectomy and appendectomy. ALLERGIES: She has no known drug allergies. FAMILY HISTORY: She had one older sister who at the age of 80 with Alzheimer disease. One of her younger brothers at age of 65 because of complication of diabetes. One brother who is younger and has diabetes. Her father at age of 84 because of CVA and mother at age of 92 of natural causes. SOCIAL HISTORY: She lives alone. She quit smoking when she was 26 years old. She does not drink alcohol or use recreational drugs. She is fairly independent normally, but has been at [facility] since 09/25/2020. REVIEW OF SYSTEMS: As per history of present illness. MEDICATIONS: She is currently on following medications: She is currently on fenofibrate 134 mg once a day, atorvastatin calcium 20 mg at bedtime, metoprolol succinate 25 mg daily, aspirin 81 mg once a day, tramadol 50 mg every 6 hours, acetaminophen 500 mg every 6 hours, lorazepam 0.5 mg at bedtime, temazepam 15 mg at bedtime, Colace 100 mg twice a day, ondansetron 4 mg every 6 hours. She is on dronabinol 5 mg twice a day, Protonix 40 mg daily and levothyroxine sodium 112 mcg once a day, ascorbic acid 500 mg twice a day, multivitamin 1 tablet once a day and PreserVision added soft gel 1 tablet once a day. PHYSICAL EXAMINATION: GENERAL: On arrival to the Emergency Room, the patient looked somewhat pale, but no jaundice or cyanosis. No lymphadenopathy, no thyromegaly. No jugular venous distension. No lower limb edema. VITAL SIGNS: Her heart rate was 86, blood pressure was 122/69, temperature was 97.9, respiratory rate 20, and oxygen saturation was 96% on 4 liters of oxygen. HEAD, EYES, EARS, NOSE AND THROAT: Showed normocephalic, atraumatic. NECK: Supple. HEART: Showed normal first and second heart sounds. No gallop, rub or murmur. CHEST: Shows central trachea, good chest expansion, air entry on the right side. Decreased chest expansion, reduced air entry on the left side. ABDOMEN: Distended, soft, nontender. NEUROLOGIC: She is awake, alert, responding appropriately. All cranial nerves intact. EXTREMITIES: She moves extremities without difficulty. She ambulates with a walker. LABORATORY DATA: Her lab work on arrival to the Emergency Room showed a white cell count 9600, hemoglobin 14, hematocrit 43, MCV 89 and platelet count of 416,000. Her chemistry showed a serum sodium 141, potassium 5, chloride 103, bicarbonate 31, anion gap of 7, BUN 15, creatinine 1.2, estimated GFR was 43 mL per minute, her glucose 117, calcium was 9.6. Total bilirubin, AST, ALT, alkaline phosphatase were normal. CK was 25. CK-MB was 756. Total protein 6.4, albumin was 2.8. Her blood gases showed a pH of 7.30, pCO2 of 44, pO2 of 83, bicarbonate was 21 and oxygen saturation was 94% on 4 liters by nasal cannula, maintaining her oxygen saturation at 95%. Her urinalysis was essentially unremarkable and showed the urine was emmy, cloudy with a pH of 5, specific gravity more than 1.030, there was small amount of protein. The urine was negative for glucose, ketones, blood, nitrite and small amount of leukocyte esterase. There are 20-40 wbc's and very few bacteria. Her influenza A and B were negative and her COVID by PCR is still pending at the time of this dictation. Her chest x-ray showed moderate left-sided hydropneumothorax with loculated air component within the lung base and laterally unchanged left lower extremity as left mid and basilar consolidation, unchanged, unchanged heart size, bilateral interstitial thickening unchanged. The CT angio of the chest showed the patient has no pulmonary embolus identified within the main lobar and segmental pulmonary arteries, moderate sized left hydropneumothorax with chest tube. There is adjacent airspace disease in the left lung, which may partially represent atelectasis. Superimposed infectious process is difficult to exclude. PLAN: My plan is to start her on IV antibiotic in the form of Zosyn and vancomycin. I have consulted the merchandising coordinator. I will also start her on Lovenox 40 mg subcutaneous once a day for DVT prophylaxis. I will also arrange for left-sided rib views and probably eventually bone scan to see if there is metastatic disease to the right side of the chest. OTONIEL SCOTT MD DR: SERGEI/ezio JOB#: [id number] / [id number]
[2020-10-16] MEDS: VANCOMYCIN PER PHARMACY MC PRN (12:50)
--- NOTE | 2020-10-16 12:50 | NUR ---
Pharmacy Vancomycin Dosing Note S:Consulted to monitor and dose vancomycin started 10/16/20. O:ARUN SANTOS is a 80 year old F with pneumonia, h/o IV antibiotics in Aug 2020. Height: 5 feet, 6 inches Weight: 99.5 kg Dosing Weight: Actual Other Antibiotics: ZOSYN 4.5G IV Q6HRS LABS: Last BUN: 14 Last Creatinine: 1 Creatinine Clearance: 52 mL/min Last WBC: 8.2 Tmax (past 24 hours): 98 Microbiology: N/A A: Patient requires vancomycin for possible pneumonia, goal trough 15-20 mcg/ml. Her SCr is 1.0 with an eCrCl of 52 ml/min. Patient's SCr slightly elevated on admission; due to this and advanced age will omit loading dose for her regimen. P: 1. Initiate Vancomycin 1500 mg IV q24h 2. Follow up Trough level on 10/18/20 at 1230 3. Pharmacy will continue to monitor, follow and adjust therapy as needed. JOHANN WINN [facility], 10/16/20 [id number]
--- NOTE | 2020-10-16 13:18 | PN ---
DATE: 10/16/2020 SUBJECTIVE: The patient is resting, slightly propped up in bed, no apparent distress. She denied any shortness of breath or pain while in bed; however, she does complain of shortness of breath on exertion and the pain is aggravated by movement. She was extensively investigated yesterday. There is no evidence of any pulmonary embolism. She has a UTI and as she has more than 40 wbc's and she has also possible lung infiltrate; however, the CT into the chest showed no evidence of pulmonary embolism. I did start him on IV antibiotic in the form of Zosyn and vancomycin for possible healthcare-associated pneumonia as well as UTI. PHYSICAL EXAMINATION: GENERAL: When I examined her this morning, she looked pale, but no jaundice, cyanosis or thyromegaly. No jugular venous distension. No lower limb edema. VITAL SIGNS: Her heart rate was 78, blood pressure was 117/63, temperature was 98, respiratory rate 22, and oxygen saturation was 97% on 4 liters of oxygen. HEAD, EYES, EARS, NOSE AND THROAT: Showed normocephalic, atraumatic. NECK: Supple. HEART: Showed normal first and second heart sounds. No gallop or murmur. CHEST: Showed good chest expansion, air entry on the right side. No crepitation or rhonchi. THE left side showed decreased chest expansion. Decreased air entry, vesicular breath sounds. I could not appreciate any crepitation or rhonchi. ABDOMEN: Distended, soft, nontender. NEUROLOGIC: She was grossly intact. LABORATORY DATA: Her lab work this morning showed a white cell count of 8200, hemoglobin 13, hematocrit 40, MCV 90 and platelet count of 372,000. Her chemistry showed a serum sodium 140, potassium 4.8, chloride 103, bicarbonate 28, anion gap of 9, BUN 14, creatinine 1, estimated GFR was 53 mL per minute. Her glucose 106, calcium was 9.7. 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 Patient had developed acute hypoxic respiratory failure with no evidence of pulmonary embolism. She probably has lung infiltrate and she has also urinary tract infection for which she is now on IV Zosyn and vancomycin. The patient has multiple medical problems including hypertension, hyperlipidemia, coronary artery disease, status post PCI with stent deployment. She also has a history of breast cancer, status post left mastectomy 21 years ago. She has a history of hypothyroidism and generalized osteoarthritis. OTONIEL SCOTT MD DR: SERGEI/ezio JOB#: [id number] / [id number]
[2020-10-16] MEDS: VANCOMYCIN 1.5 GM in IV NORMAL SALINE 500ML BAG 500 ML IV SCH (14:40)
--- NOTE | 2020-10-16 14:54 | NUR ---
SW following for discharge planning. Spoke with RN and reviewed chart. SW confirmed with Jennifer that pt resides in LTC at [facility]. Pt COVID pending and on . Pt negative for flu. Pt has a pleurx drain. Cardiac diet. Clinicals faxed to [facility] for coordination of care. SW following.
[2020-10-16 15:00] VITALS: BP 139/72
--- NOTE | 2020-10-16 16:25 | RAD ---
Right RIBS AP and oblique views. HISTORY: Fall right-sided chest pain AP and oblique views were taken of the right ribs. There is a small right pleural effusion. There are hazy right lung infiltrates and atelectasis. Left lung is incompletely evaluated. There is a left pl eural effusion with left lung infiltrates. A definite rib fracture is not identified. There is arthri tis in the right shoulder. Lower ribs are not optimally evaluated. IMPRESSION: 1. No definite rib fracture noted. 2. Small right pleural effusion with right lung infiltrates. 3. Larger left pleural effusion with left lung infiltrates. 4. There is a catheter on the left possibly a Pleurx catheter. Electronically signed by: Guanako Guidry MD (10/16/2020 4:23 PM) [facility]
[2020-10-16 19:00] VITALS: BP 112/63
--- NOTE | 2020-10-16 20:20 | CONS ---
DATE OF CONSULTATION: 10/16/2020 ATTENDING PHYSICIAN: Dr. Bell. REASON FOR CONSULTATION: The patient is seen in pulmonary consultation at the request of Dr. Bell for acute hypoxemic respiratory failure. Chest x-ray revealing moderate hydropneumothorax. HISTORY OF PRESENT ILLNESS: The patient is an 80-year-old that is known to me from previous hospitalization. She presented with a malignant pleural effusion and underwent a PleurX catheter placement on the left. She was transferred to [facility] for rehabilitation. She was noted to have O2 saturation in the 80s on room air. She was not wearing oxygen at [facility]. The patient presented and she had a CT chest for PE protocol revealing no evidence of pulmonary emboli. There was moderate-sized left hydropneumothorax with tube in place. There are also some patchy infiltrates. I was asked to see her in consultation. The patient informed me that she has metastatic disease, unknown for primary at this time. She met with the medical oncologist, who recommended no treatment at this time. Specifics at this time none known. PAST MEDICAL HISTORY: Remarkable for previous history of breast cancer. She had a recent large-sized left effusion. She underwent drainage and eventually had a PleurX catheter. The pleural fluid was positive for malignant cells. It is unclear if we have identified the primary etiology for the malignant effusion. I do not think it is related to her prior history of breast cancer. According to the current notes, the patient was diagnosed with pancreatic metastatic cancer, metastases to the bone and lungs. PAST SURGICAL HISTORY: Status post left-sided PleurX catheter. She had previous coronary artery disease with previous PCI and stent development. She has had previous left-sided mastectomy, total abdominal hysterectomy, bilateral salpingo-oophorectomy and right total knee. ALLERGIES: No known drug allergies. FAMILY HISTORY: She had a recent daughter that with recurrent breast cancer. She had a sister at the age of 80 with Alzheimer's. SOCIAL HISTORY: She smoked, but quit when she was 26 years old. Denies any alcohol intake. REVIEW OF SYSTEMS: As indicated above, otherwise a 10-point system was reviewed and negative. ALLERGIES: No known drug allergies. CURRENT MEDICATION: List was reviewed. She is currently on vancomycin and piperacillin. PHYSICAL EXAMINATION: VITAL SIGNS: Stable. O2 saturation was greater than 92%, currently on 4 liters. HEENT: Eyes, the sclerae were nonicteric. NECK: Jugular venous distention was not elevated. No lymphadenopathy. CHEST: Full expansion. LUNGS: She had diminished breath sounds in the left. No wheezes. CARDIOVASCULAR: Regular rate and rhythm with S1, S2, no S3. ABDOMEN: Soft, nontender and nondistended. EXTREMITIES: No clubbing, cyanosis or pitting edema. NEUROLOGICAL: The patient was awake, alert, following commands. A detailed neuro exam was not performed. LABORATORY DATA: Reviewed. White count was normal. Serology for influenza was negative. Electrolytes were noted. Arterial blood gas; pH of 7.33, PaCO2 of 40 and PaO2 of 83. IMPRESSION: 1. Acute hypoxemic respiratory failure, suspect multifactorial secondary to pneumonia and hydropneumothorax. 2. Metastatic pancreatic cancer, we will discuss with Medical Oncology. 3. 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 4. Possible pneumonia, gram-positive and gram-negative. 5. CT chest revealing no evidence of pulmonary embolism. There is a moderate-sized hydropneumothorax. 6. Negative influenza screen. 7. Coronary artery disease with previous percutaneous coronary intervention. 8. History of breast cancer 20 years ago, status post mastectomy. 9. History of status post abdominal hysterectomy. PLAN: 1. We will continue empiric antibiotics for both gram-positive and gram-negative organisms. 2. We will discuss case with Medical Oncology and make further recommendations. 3. 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 I do not think that the lung will reexpand with the current chest tube that is in place. May consider discontinuing PleurX catheter. 4. Ideally, if the patient did not have comorbidities as such stated above, I would recommend a video-assisted thorascopic approach for decortication of the left lung. Considering her comorbidities, I do not think that this is a great option at this time. 5. I attempted calling her son who lives in [place], there was no answer, I left a message on his cell phone. I do appreciate the privilege in sharing in the patient's care. RAFY CAMP MD DR: EVANGELIST/ezio JOB#: [id number] / [id number]
[2020-10-16] MEDS ORDERED: TEMAZEPAM 15 MG CAPSULE PO SCH (21:00)
[2020-10-16] MEDS: LORazepam 0.5 MG TABLET PO SCH (22:05)
[2020-10-16] MEDS: ATORVASTATIN CALCIUM 20 MG TABLET PO SCH (22:05)
[2020-10-16] MEDS: LACTOBACILLUS RHAMNOSUS GG 1 CAPSULE. PO SCH (22:05)
[2020-10-16 22:59] VITALS: BP 105/59
[2020-10-17] MEDS: PIPERACILLIN/TAZOBACTAM 4.5 GM in IV NORMAL SALINE 100ML 100 ML IV SCH ×5 (00:33→23:34)
[2020-10-17 03:00] VITALS: BP 124/59
[2020-10-17] MEDS: LEVOTHYROXINE 112 MCG TABLET PO SCH (06:30)
[2020-10-17 07:00] VITALS: BP 120/69
[2020-10-17] MEDS: ASPIRIN CHEWABLE 81 MG TABLET. PO SCH (08:39)
[2020-10-17] MEDS: FENOFIBRATE,MICRONIZED 134 MG CAPSULE PO SCH (08:39)
[2020-10-17] MEDS: PANTOPRAZOLE 40 MG TABLET.DR. PO SCH (08:40)
[2020-10-17] MEDS: ASCORBIC ACID 500 MG TABLET PO SCH ×2 (08:40→20:43)
[2020-10-17] MEDS: MULTIVITAMIN with MINERAL TABLET. PO SCH (08:40)
[2020-10-17] MEDS: LACTOBACILLUS RHAMNOSUS GG 1 CAPSULE. PO SCH ×2 (08:40→20:43)
[2020-10-17] MEDS: MULTIVITAMIN I-VITE TABLET. PO SCH (08:40)
[2020-10-17] MEDS: METOPROLOL SUCC 24HR ER 25 MG TAB.ER.24H. PO SCH (08:40)
[2020-10-17] MEDS: traMADol 50 MG TABLET PO PRN ×2 (09:08→18:13)
[2020-10-17] MEDS: DOCUSATE SODIUM 100 MG CAPSULE. PO PRN (09:08)
--- NOTE | 2020-10-17 09:59 | PDOC ---
PULMONARY PROGRESS NOTES DATE: 10/17/20 TIME: 09:59 Subjective Patient not more short of air today, feels better. Vitals Vital Signs Date Time Temp Pulse Resp B/P (MAP) Pulse Ox O2 Delivery O2 Flow Rate FiO2 10/17/20 09:08 18 95 Nasal Cannula 4.0 10/17/20 08:40 79 120/69 10/17/20 07:00 97.9 97.9 ROS: No Nausea, No Chest Pain, No Abdominal Pain, No Increase Cough General: Alert, No acute distress Lungs: Crackles Cardiovascular: S1, S2 Abdomen: Soft Neuro Exam: Alert Extremities: No Edema Skin: Warm Labs Laboratory Tests Test 10/15/20 14:29 10/15/20 15:47 10/15/20 16:18 10/15/20 17:30 O2 Saturation 95 % (92-99) Arterial Blood pH 7.30 (7.35-7.45) Arterial Blood pCO2 at Patient Temp 44 mmHg (35-46) Arterial Blood pO2 at Patient Temp 83 mmHg (65-108) Arterial Blood HCO3 21 mmol/L (21-28) Arterial Blood Base Excess -5 mmol/L (-3-3) Oxyhemoglobin 94.2 % Methemoglobin 0.6 % (0.0-1.9) Carbon Monoxide, Quantitative 0.7 % (0.0-1.9) FiO2 4l nc Influenza Type A Antigen Negative (NEGATIVE) Influenza Type B Antigen Negative (NEGATIVE) White Blood Count 9.6 x10^3/uL (4.0-11.0) Red Blood Count 4.83 x10^6/uL (3.50-5.40) Hemoglobin 14.0 g/dL (12.0-15.5) Hematocrit 43.1 % (36.0-47.0) Mean Corpuscular Volume 89 fL (79-100) Mean Corpuscular Hemoglobin 29 pg (25-35) Mean Corpuscular Hemoglobin Concent 33 g/dL (31-37) Red Cell Distribution Width 15.1 % (11.5-14.5) Platelet Count 416 x10^3/uL (140-400) Neutrophils (%) (Auto) 71 % (31-73) Lymphocytes (%) (Auto) 19 % (24-48) Monocytes (%) (Auto) 8 % (0-9) Eosinophils (%) (Auto) 1 % (0-3) Basophils (%) (Auto) 1 % (0-3) Neutrophils # (Auto) 6.8 x10^3/uL (1.8-7.7) Lymphocytes # (Auto) 1.9 x10^3/uL (1.0-4.8) Monocytes # (Auto) 0.8 x10^3/uL (0.0-1.1) Eosinophils # (Auto) 0.1 x10^3/uL (0.0-0.7) Basophils # (Auto) 0.1 x10^3/uL (0.0-0.2) Sodium Level 141 mmol/L (136-145) Potassium Level 5.0 mmol/L (3.5-5.1) Chloride Level 103 mmol/L (98-107) Carbon Dioxide Level 31 mmol/L (21-32) Anion Gap 7 (6-14) Blood Urea Nitrogen 15 mg/dL (7-20) Creatinine 1.2 mg/dL (0.6-1.0) Estimated GFR (Cockcroft-Gault) 43.2 BUN/Creatinine Ratio 13 (6-20) Glucose Level 117 mg/dL (70-99) Calcium Level 9.6 mg/dL (8.5-10.1) Total Bilirubin 0.8 mg/dL (0.2-1.0) Aspartate Amino Transf (AST/SGOT) 48 U/L (15-37) Alanine Aminotransferase (ALT/SGPT) 19 U/L (14-59) Alkaline Phosphatase 70 U/L (46-116) Creatine Kinase 25 U/L (26-192) Troponin I Quantitative < 0.017 ng/mL (0.000-0.055) HJ-Lgm-T-Type Natriuretic Peptide 756 pg/mL (0-449) Total Protein 6.4 g/dL (6.4-8.2) Albumin 2.8 g/dL (3.4-5.0) Albumin/Globulin Ratio 0.8 (1.0-1.7) Test 10/15/20 19:54 10/16/20 05:45 10/16/20 08:15 Urine Collection Type Void Urine Color Dodie Urine Clarity Cloudy Urine pH 5.0 (<5.0-8.0) Urine Specific [place] >=1.030 (1.000-1.030) Urine Protein 30 mg/dL (NEG-TRACE) Urine Glucose (UA) Negative mg/dL (NEG) Urine Ketones (Stick) Negative mg/dL (NEG) Urine Blood Negative (NEG) Urine Nitrite Negative (NEG) Urine Bilirubin Negative (NEG) Urine Urobilinogen Dipstick 1.0 mg/dL (0.2 mg/dL) Urine Leukocyte Esterase Small (NEG) Urine RBC 0 /HPF (0-2) Urine WBC 20-40 /HPF (0-4) Urine Squamous Epithelial Cells Mod /LPF Urine Bacteria Few /HPF (0-FEW) Urine Hyaline Casts Many /HPF Urine Mucus Marked /LPF Sodium Level 140 mmol/L (136-145) Potassium Level 4.8 mmol/L (3.5-5.1) Chloride Level 103 mmol/L (98-107) Carbon Dioxide Level 28 mmol/L (21-32) Anion Gap 9 (6-14) Blood Urea Nitrogen 14 mg/dL (7-20) Creatinine 1.0 mg/dL (0.6-1.0) Estimated GFR (Cockcroft-Gault) 53.3 Glucose Level 106 mg/dL (70-99) Calcium Level 9.7 mg/dL (8.5-10.1) White Blood Count 8.2 x10^3/uL (4.0-11.0) Red Blood Count 4.56 x10^6/uL (3.50-5.40) Hemoglobin 13.2 g/dL (12.0-15.5) Hematocrit 40.9 % (36.0-47.0) Mean Corpuscular Volume 90 fL (79-100) Mean Corpuscular Hemoglobin 29 pg (25-35) Mean Corpuscular Hemoglobin Concent 32 g/dL (31-37) Red Cell Distribution Width 15.0 % (11.5-14.5) Platelet Count 372 x10^3/uL (140-400) Neutrophils (%) (Auto) 72 % (31-73) Lymphocytes (%) (Auto) 17 % (24-48) Monocytes (%) (Auto) 8 % (0-9) Eosinophils (%) (Auto) 3 % (0-3) Basophils (%) (Auto) 1 % (0-3) Neutrophils # (Auto) 5.9 x10^3/uL (1.8-7.7) Lymphocytes # (Auto) 1.4 x10^3/uL (1.0-4.8) Monocytes # (Auto) 0.7 x10^3/uL (0.0-1.1) Eosinophils # (Auto) 0.2 x10^3/uL (0.0-0.7) Basophils # (Auto) 0.0 x10^3/uL (0.0-0.2) Medications Active Scripts Medications Dose Route/Sig Max Daily Dose Days Date Category Zofran (Ondansetron Hcl) 4 Mg Tablet 4 Mg PO PRN Q6HRS PRN 10/16/20 Reported Vitamin C (Ascorbic Acid) 500 Mg Capsule.er 500 Mg PO BID 10/16/20 Reported Tramadol Hcl 50 Mg Tablet 50 Mg PO Q6HRS PRN 10/16/20 Reported Restoril (Temazepam) 15 Mg Capsule 15 Mg PO HS 10/16/20 Reported Protonix (Pantoprazole Sodium) 20 Mg Tablet.dr 40 Mg PO DAILY 10/16/20 Reported Dronabinol 10 Mg Capsule 5 Mg PO BID 10/16/20 Reported Fenofibrate (Fenofibrate,Micronized) 134 Mg Capsule 134 Mg PO DAILY 10/16/20 Reported Colace (Docusate Sodium) 100 Mg Capsule 100 Mg PO PRN DAILY PRN 10/16/20 Reported Ativan (Lorazepam) 0.5 Mg Tablet 0.5 Mg PO HS 10/16/20 Reported Preservision Areds Softgel (Vit A/Vit C/Vit E/Zinc/Copper) 1 Each Capsule 1 Tab PO DAILY 09/13/20 Reported Euthyrox (Levothyroxine Sodium) 112 Mcg Tablet 112 Mcg PO DAILY06 09/13/20 Reported Atorvastatin Calcium 20 Mg Tablet 20 Mg PO HS 09/13/20 Reported Metoprolol Succinate ( Xl ) (Metoprolol Succinate) 25 Mg Tab.er.24h 25 Mg PO DAILY 09/13/20 Reported Tylenol (Acetaminophen) 325 Mg Tablet 500 Mg PO Q6HRS PRN 09/13/20 Reported Aspirin 81 Mg Tab.chew 81 Mg PO DAILY 09/13/20 Reported Multi Vitamin Daily (Multivitamin) 1 Each Tablet 1 Each PO DAILY 07/02/14 Reported Impression . IMPRESSION: 1. Acute hypoxemic respiratory failure, suspect multifactorial secondary to pneumonia and hydropneumothorax. 2. Metastatic pancreatic cancer, 3. 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 4. Possible pneumonia, gram-positive and gram-negative. 5. CT chest revealing no evidence of pulmonary embolism. There is a moderate- sized hydropneumothorax. 6. Negative influenza screen. 7. Coronary artery disease with previous percutaneous coronary intervention. 8. History of breast cancer 20 years ago, status post mastectomy. 9. History of status post abdominal hysterectomy. Plan . Updated 10/17 Case discussed with medical oncology and interventional radiology We will proceed with removal of Pleurx catheter, currently nonfunctional, risk of infection is high Continue empiric antibiotics for pneumonia Once patient improves she will revisit with medical oncology for possible palliative chemotherapy The above was discussed with the son Donell who lives in [place] per telephone, I informed them that we will be removing the Pleurx catheter, I informed them that she will be treated for pneumonia I answered all of his questions, he was satisfied with the above plan. 10/16 1. We will continue empiric antibiotics for both gram-positive and gram-negative organisms. 2. We will discuss case with Medical Oncology and make further recommendations. 3. 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 I do not think that the lung will reexpand with the current chest tube that is in place. May consider discontinuing PleurX catheter. 4. Ideally, if the patient did not have comorbidities as such stated above, I would recommend a video-assisted thorascopic approach for decortication of the left lung. Considering her comorbidities, I do not think that this is a great option at this time. 5. I attempted calling her son who lives in [place], there was no answer, I left a message on his cell phone. RAFY CAMP MD Oct 17, 2020 09:59
[2020-10-17 10:35] VITALS: BP 129/62
--- NOTE | 2020-10-17 10:42 | NUR ---
ADRIAN following for discharge planning. Spoke with RN and reviewed chart. COVID result came back negative. ADRIAN obtained a copy (placed copy on chart) and faxed to [facility]. Discharge plan remains to [facility] when stable. Pt not ready for discharge today per Dr. Bell. Pt remains on 4l 02. Pt on IV Vancomycin and IV Zosyn. ADRIAN following. Addendum: 10/18/20 at 1003 by DEANDRE CAMPBELL Pt identified as BPCI today, 10/18. Discharge planners to follow.
--- NOTE | 2020-10-17 11:07 | PN ---
DATE: 10/17/2020 SUBJECTIVE: The patient is resting, slightly propped up in bed, in no apparent distress. She is awake, alert, continued to complain of pain in her right side of the chest and generalized weakness. She has no pain when she is lying in bed, but movement aggravates. We did right sided rib view; however, it showed no evidence of rib fracture; however, she has small right-sided pleural effusion, right-sided lung infiltrate, has also large left-sided pleural effusion and left lung infiltrate. There is a catheter in the left, possibly PleurX catheter. PHYSICAL EXAMINATION: GENERAL: When I examined her this morning, she looked well and was clearly in no apparent distress, pale, but no jaundice, cyanosis or thyromegaly. No jugular venous distention. No lower limb edema. VITAL SIGNS: Her heart rate was 79, blood pressure was 120/69, temperature 97.9, respiratory rate was 16, and oxygen saturation was 95% on 4 liters of oxygen by nasal cannula. HEAD, EYES, EARS, NOSE AND THROAT: Showed normocephalic, atraumatic. NECK: Supple. HEART: Showed normal first and second heart sounds. No gallop or murmur. CHEST: Shows central trachea, equal bilateral chest expansion, air entry is actually much, much better on the right side posteriorly. I could not appreciate any crepitation or rhonchi. ABDOMEN: Distended, soft, nontender. NEUROLOGIC: She is grossly intact. LABORATORY DATA: Her intake and output are incompletely recorded. No lab works ordered today; however, her white cell count is normal. ASSESSMENT: 1. Acute hypoxic respiratory failure. 2. Bilateral lung infiltrates and probably indicating healthcare-associated pneumonia for which she is on antibiotic empirically. 3. Metastatic pancreatic cancer, metastases to bone and lung. 4. Malignant pleural effusion for which she has PleurX placed and the patient has been drained on a daily basis at [facility]; however, she has a loculated hydropneumothorax that has not connected to the PleurX. PLAN: My plan is to continue with IV antibiotic. I will consult the oncologist as well as arrange for a bone scan to see if there is any metastasis to the right sided chest wall. OTONIEL SCOTT MD DR: SERGEI/ezio JOB#: [id number] / [id number]
[2020-10-17] MEDS: ENOXAPARIN 40 MG/0.4 ML SYRINGE. SQ SCH (12:29)
[2020-10-17] MEDS: DRONABINOL 2.5 MG CAPSULE. PO SCH ×2 (12:29→18:13)
[2020-10-17] MEDS: VANCOMYCIN PER PHARMACY MC PRN (13:46)
[2020-10-17] MEDS: VANCOMYCIN 1.5 GM in IV NORMAL SALINE 500ML BAG 500 ML IV SCH (14:27)
--- NOTE | 2020-10-17 16:32 | RAD ---
EXAM: BONE SCINTIGRAPHY. HISTORY: Right-sided chest pain and back pain. Question metastatic disease. History of breast cancer and metastatic pancreatic cancer. TECHNIQUE: Following the intravenous injection of 23 mCi of Tc-99m labeled methylene diphosphonate (M DP), delayed images of the whole body were performed in anterior and posterior projections. COMPARISON: CT chest 10/15/2020. CT chest, abdomen and pelvis 09/18/2020. FINDINGS: Focal increased radiotracer activity is noted at the thoracic spine at the level of T7 cons istent with sclerotic focus seen on comparison chest examinations. Mildly increased focal activity no rosalio at the anterior right first or second rib, suspect degenerative change. There is mild increased a ctivity associated with the left knee consistent with degenerative change. Photopenic defect in the r ight knee most likely represents arthroplasty changes. IMPRESSION: 1. Focal hyperintense activity at the level of T7 vertebral body consistent with osseous metastatic d isease. 2. Additional subtle foci of increased activity likely represent degenerative changes. Electronically signed by: Robert Medrano MD (10/17/2020 4:30 PM) [facility]
[2020-10-17 19:00] VITALS: BP 103/59
[2020-10-17] MEDS: LORazepam 0.5 MG TABLET PO SCH (20:42)
[2020-10-17] MEDS: ATORVASTATIN CALCIUM 20 MG TABLET PO SCH (20:43)
[2020-10-17] MEDS: TEMAZEPAM 7.5 MG CAPSULE PO SCH (20:43)
[2020-10-17] MEDS: ACETAMINOPHEN 500 MG TABLET PO PRN (21:45)
[2020-10-17 23:00] VITALS: BP 134/62
[2020-10-18 03:00] VITALS: BP 124/67
[2020-10-18] MEDS: PANTOPRAZOLE 40 MG TABLET.DR. PO SCH (05:15)
[2020-10-18] MEDS: PIPERACILLIN/TAZOBACTAM 4.5 GM in IV NORMAL SALINE 100ML 100 ML IV SCH ×3 (05:15→18:38)
[2020-10-18] MEDS: traMADol 50 MG TABLET PO PRN ×3 (05:16→21:29)
[2020-10-18] MEDS: LEVOTHYROXINE 112 MCG TABLET PO SCH (05:16)
[2020-10-18 07:00] VITALS: BP 143/73
[2020-10-18 07:02] LABS: HEMATOCRIT 38.7 % (36.0-47.0); HEMOGLOBIN 12.4 g/dL (12.0-15.5); RED BLOOD COUNT 4.3 x10^6/uL (3.50-5.40); RED CELL DISTRIBUTION WIDTH 14.9 % (11.5-14.5); WHITE BLOOD COUNT 7.4 x10^3/uL (4.0-11.0)
[2020-10-18 07:33] LABS: ALBUMIN 2.2 g/dL (3.4-5.0); ALBUMIN/GLOBULIN RATIO 0.6 (1.0-1.7); CALCIUM 9.2 mg/dL (8.5-10.1); CREATININE 0.9 mg/dL (0.6-1.0); GFR 60.2; POTASSIUM 3.7 mmol/L (3.5-5.1); TOTAL BILIRUBIN 0.8 mg/dL (0.2-1.0); TOTAL PROTEIN 6.2 g/dL (6.4-8.2)
[2020-10-18] MEDS: FENOFIBRATE,MICRONIZED 134 MG CAPSULE PO SCH (08:16)
[2020-10-18] MEDS: MULTIVITAMIN with MINERAL TABLET. PO SCH (08:16)
[2020-10-18] MEDS: MULTIVITAMIN I-VITE TABLET. PO SCH (08:16)
[2020-10-18] MEDS: LACTOBACILLUS RHAMNOSUS GG 1 CAPSULE. PO SCH ×2 (08:16→21:29)
[2020-10-18] MEDS: DRONABINOL 2.5 MG CAPSULE. PO SCH ×2 (08:17→17:17)
[2020-10-18] MEDS: ASPIRIN CHEWABLE 81 MG TABLET. PO SCH (08:17)
[2020-10-18] MEDS: ASCORBIC ACID 500 MG TABLET PO SCH ×2 (08:17→21:29)
[2020-10-18] MEDS: METOPROLOL SUCC 24HR ER 25 MG TAB.ER.24H. PO SCH (08:18)
[2020-10-18] MEDS: DOCUSATE SODIUM 100 MG CAPSULE. PO PRN (08:30)
--- NOTE | 2020-10-18 08:45 | PDOC ---
PULMONARY PROGRESS NOTES DATE: 10/18/20 TIME: 08:45 Subjective Patient has some back pain, no increasing shortness of air Vitals Vital Signs Date Time Temp Pulse Resp B/P (MAP) Pulse Ox O2 Delivery O2 Flow Rate FiO2 10/18/20 08:18 76 143/73 10/18/20 06:10 20 95 Nasal Cannula 3.0 10/18/20 03:00 97.9 97.9 ROS: No Nausea, No Chest Pain, No Abdominal Pain, No Increase Cough General: Alert, No acute distress Lungs: Crackles Cardiovascular: S1, S2 Abdomen: Soft Neuro Exam: Alert Extremities: No Edema Skin: Warm Labs Laboratory Tests Test 10/18/20 06:30 White Blood Count 7.4 x10^3/uL (4.0-11.0) Red Blood Count 4.30 x10^6/uL (3.50-5.40) Hemoglobin 12.4 g/dL (12.0-15.5) Hematocrit 38.7 % (36.0-47.0) Mean Corpuscular Volume 90 fL (79-100) Mean Corpuscular Hemoglobin 29 pg (25-35) Mean Corpuscular Hemoglobin Concent 32 g/dL (31-37) Red Cell Distribution Width 14.9 % (11.5-14.5) Platelet Count 364 x10^3/uL (140-400) Sodium Level 143 mmol/L (136-145) Potassium Level 3.7 mmol/L (3.5-5.1) Chloride Level 107 mmol/L (98-107) Carbon Dioxide Level 28 mmol/L (21-32) Anion Gap 8 (6-14) Blood Urea Nitrogen 13 mg/dL (7-20) Creatinine 0.9 mg/dL (0.6-1.0) Estimated GFR (Cockcroft-Gault) 60.2 BUN/Creatinine Ratio 14 (6-20) Glucose Level 100 mg/dL (70-99) Calcium Level 9.2 mg/dL (8.5-10.1) Total Bilirubin 0.8 mg/dL (0.2-1.0) Aspartate Amino Transf (AST/SGOT) 35 U/L (15-37) Alanine Aminotransferase (ALT/SGPT) 11 U/L (14-59) Alkaline Phosphatase 53 U/L (46-116) Total Protein 6.2 g/dL (6.4-8.2) Albumin 2.2 g/dL (3.4-5.0) Albumin/Globulin Ratio 0.6 (1.0-1.7) Laboratory Tests Test 10/18/20 06:30 White Blood Count 7.4 x10^3/uL (4.0-11.0) Red Blood Count 4.30 x10^6/uL (3.50-5.40) Hemoglobin 12.4 g/dL (12.0-15.5) Hematocrit 38.7 % (36.0-47.0) Mean Corpuscular Volume 90 fL (79-100) Mean Corpuscular Hemoglobin 29 pg (25-35) Mean Corpuscular Hemoglobin Concent 32 g/dL (31-37) Red Cell Distribution Width 14.9 % (11.5-14.5) Platelet Count 364 x10^3/uL (140-400) Sodium Level 143 mmol/L (136-145) Potassium Level 3.7 mmol/L (3.5-5.1) Chloride Level 107 mmol/L (98-107) Carbon Dioxide Level 28 mmol/L (21-32) Anion Gap 8 (6-14) Blood Urea Nitrogen 13 mg/dL (7-20) Creatinine 0.9 mg/dL (0.6-1.0) Estimated GFR (Cockcroft-Gault) 60.2 BUN/Creatinine Ratio 14 (6-20) Glucose Level 100 mg/dL (70-99) Calcium Level 9.2 mg/dL (8.5-10.1) Total Bilirubin 0.8 mg/dL (0.2-1.0) Aspartate Amino Transf (AST/SGOT) 35 U/L (15-37) Alanine Aminotransferase (ALT/SGPT) 11 U/L (14-59) Alkaline Phosphatase 53 U/L (46-116) Total Protein 6.2 g/dL (6.4-8.2) Albumin 2.2 g/dL (3.4-5.0) Albumin/Globulin Ratio 0.6 (1.0-1.7) Medications Active Scripts Medications Dose Route/Sig Max Daily Dose Days Date Category Zofran (Ondansetron Hcl) 4 Mg Tablet 4 Mg PO PRN Q6HRS PRN 10/16/20 Reported Vitamin C (Ascorbic Acid) 500 Mg Capsule.er 500 Mg PO BID 10/16/20 Reported Tramadol Hcl 50 Mg Tablet 50 Mg PO Q6HRS PRN 10/16/20 Reported Restoril (Temazepam) 15 Mg Capsule 15 Mg PO HS 10/16/20 Reported Protonix (Pantoprazole Sodium) 20 Mg Tablet.dr 40 Mg PO DAILY 10/16/20 Reported Dronabinol 10 Mg Capsule 5 Mg PO BID 10/16/20 Reported Fenofibrate (Fenofibrate,Micronized) 134 Mg Capsule 134 Mg PO DAILY 10/16/20 Reported Colace (Docusate Sodium) 100 Mg Capsule 100 Mg PO PRN DAILY PRN 10/16/20 Reported Ativan (Lorazepam) 0.5 Mg Tablet 0.5 Mg PO HS 10/16/20 Reported Preservision Areds Softgel (Vit A/Vit C/Vit E/Zinc/Copper) 1 Each Capsule 1 Tab PO DAILY 09/13/20 Reported Euthyrox (Levothyroxine Sodium) 112 Mcg Tablet 112 Mcg PO DAILY06 09/13/20 Reported Atorvastatin Calcium 20 Mg Tablet 20 Mg PO HS 09/13/20 Reported Metoprolol Succinate ( Xl ) (Metoprolol Succinate) 25 Mg Tab.er.24h 25 Mg PO DAILY 09/13/20 Reported Tylenol (Acetaminophen) 325 Mg Tablet 500 Mg PO Q6HRS PRN 09/13/20 Reported Aspirin 81 Mg Tab.chew 81 Mg PO DAILY 09/13/20 Reported Multi Vitamin Daily (Multivitamin) 1 Each Tablet 1 Each PO DAILY 07/02/14 Reported Impression . IMPRESSION: 1. Acute hypoxemic respiratory failure, suspect multifactorial secondary to pneumonia and hydropneumothorax. 2. Metastatic pancreatic cancer, 3. 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 4. Possible pneumonia, gram-positive and gram-negative. 5. CT chest revealing no evidence of pulmonary embolism. There is a moderate- sized hydropneumothorax. 6. Negative influenza screen. 7. Coronary artery disease with previous percutaneous coronary intervention. 8. History of breast cancer 20 years ago, status post mastectomy. 9. History of status post abdominal hysterectomy. Plan . Updated 10/18 Radiation oncology recommended palliative radiotherapy to T7 metastatic disease to help the pain Dr. Manrique to remove Pleurx catheter Continue treatment for pneumonia PT OT Appreciate medical oncology input, Dr. Abraham, recommended deferring systemic therapy until functional status improved Discussed with Dr. Bell Updated 10/17 Case discussed with medical oncology and interventional radiology We will proceed with removal of Pleurx catheter, currently nonfunctional, risk of infection is high Continue empiric antibiotics for pneumonia Once patient improves she will revisit with medical oncology for possible palliative chemotherapy The above was discussed with the son Donell who lives in [place] per telephone, I informed them that we will be removing the Pleurx catheter, I informed them that she will be treated for pneumonia I answered all of his questions, he was satisfied with the above plan. 10/16 1. We will continue empiric antibiotics for both gram-positive and gram-negative organisms. 2. We will discuss case with Medical Oncology and make further recommendations. 3. 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 I do not think that the lung will reexpand with the current chest tube that is in place. May consider discontinuing PleurX catheter. 4. Ideally, if the patient did not have comorbidities as such stated above, I would recommend a video-assisted thorascopic approach for decortication of the left lung. Considering her comorbidities, I do not think that this is a great option at this time. 5. I attempted calling her son who lives in [place], there was no answer, I left a message on his cell phone. RAFY CAMP MD Oct 18, 2020 08:45
[2020-10-18 11:00] VITALS: BP 127/60
--- NOTE | 2020-10-18 11:24 | PN ---
DATE: 10/18/2020 SUBJECTIVE: The patient is resting, slightly propped up in bed, continued to complain of back pain; however, her bone scan showed only evidence of increased radiotracer activity at the thoracic spine at the level of T7 consistent with sclerotic focus seen on comparison chest examination and mild increased focal activity noted at the anterior right first or second rib, suspect degenerative changes. Her coronavirus is negative. Influenza A and B were negative. Her urinalysis showed that she has 20-40 wbc's and few bacteria. PHYSICAL EXAMINATION: GENERAL: When I examined her today, she looked pale, but no jaundice, cyanosis or thyromegaly. No jugular venous distension. No limb edema. VITAL SIGNS: Her heart rate was 78, blood pressure 143/73, temperature 97.5, respiratory rate 20, and oxygen saturation was 95% on 4 liters of oxygen. HEAD, EYES, EARS, NOSE AND THROAT: Showed normocephalic, atraumatic. NECK: Supple. HEART: Showed normal first and second heart sounds. No gallop, rub or murmur. CHEST: Clear to auscultation. No crepitation or rhonchi. ABDOMEN: Distended, soft, nontender. No guarding or rigidity. No organomegaly. All hernial orifice intact. Bowel sounds normal. NEUROLOGIC: She is grossly intact. ASSESSMENT: 1. Acute hypoxic respiratory failure. 2. Bilateral lung infiltrates, probably indicating healthcare-associated pneumonia, for which she is now on antibiotic empirically. 3. Metastatic pancreatic cancer, metastases to bone and lung. 4. Malignant pleural effusion for which she has a PleurX placed and the patient has been drained on a daily basis at [facility]; however, she has a loculated hydropneumothorax that is not connected to the PleurX. PLAN: Continue with IV antibiotic. I have consulted the oncologist or perhaps radiation oncologist to see if radiation treatment of the T7 metastasis might alleviate her pain. I will also increase her tramadol to be given every 4 hours. OTONIEL SCOTT MD DR: SERGEI/ezio JOB#: [id number] / [id number]
[2020-10-18] MEDS: ENOXAPARIN 40 MG/0.4 ML SYRINGE. SQ SCH (12:05)
--- NOTE | 2020-10-18 12:22 | PDOC2 ---
CONSULT Date of Consult Date of Consult DATE: 10/18/20 TIME: 12:12 Reason for Consult Reason for Consult: Metastatic pancreatic cancer Referring Physician Referring Physician: Dr. Bell Identification/Chief Complaint Chief Complaint Shortness of breath Source Source: Chart review, Patient History of Present Illness Reason for Visit: Mary Mcallister is an 80-year-old female with metastatic pancreatic cancer who has been admitted with shortness of breath. Patient is known to me from a recent hospitalization for shortness of breath. She was found to have recurrent left-sided pleural effusion at the time and received placement of a Pleurx catheter prior to hospital discharge. Cytology from pleural fluid analysis showed adenocarcinoma. Given the patient's history of breast cancer, and extensive evaluation was performed for identification of a primary tumor. She did receive an MRCP which showed a mass in the pancreatic body. CA 19-9 was also elevated. We previously therefore attributed her pleural effusion to metastatic pancreatic adenocarcinoma. I had previously discussed with the patient and her son Donell (who joined by phone from [place]) that the goal of systemic therapy in advanced pancreatic cancer is palliation of disease related symptoms and prolonging life. We previously discussed that systemic therapy is unlikely to be curative. She was open to considering systemic therapy but was initially discharged to [facility]. She has since been readmitted due to shortness of breath. A repeat CT chest was obtained to evaluate her symptoms and did not show pulmonary embolus. CT did show a moderate sized left hydropneumothorax with chest tube and adjacent airspace disease indicative of pneumonia or atelectasis. She is receiving empiric antibiotic therapy per Dr. Bruce. Medical oncology consultation has been sought due to the patient's metastatic pancreatic cancer. Patient's son Donell joined the visit again by phone. Today she reports continued pain in the chest. Dr. Bell has requested a bone scan for evaluation of her symptoms and this shows a T7 vertebral metastasis. Patient reports continued fatigue and generalized weakness. She continues to use a bedside commode. Past Medical History Cardiovascular: CAD, CHF, HTN, Hyperlipidemia Pulmonary: COPD CENTRAL NERVOUS SYSTEM: Other Heme/Onc: Cancer, Other Psych: Anxiety Musculoskeletal: Osteoarthritis Rheumatologic: No pertinent hx Infectious disease: No pertinent hx Renal/: No pertinent hx Endocrine: Hypothyroidism Past Surgical History Past Surgical History: Mastectomy, Other Family History Family History: Hypertension Social History ALCOHOL: none Drugs: None Lives: with Family Current Problem List Problem List Problems Medical Problems: (1) Acute respiratory failure with hypoxia Status: Acute Current Medications Current Medications Current Medications Iohexol (Omnipaque 350 Mg/ml) 75 ml 1X ONCE IV Last administered on 10/15/20at 19:34; Start 10/15/20 at 18:30; Stop 10/15/20 at 18:31; Status DC Info (CONTRAST GIVEN -- Rx MONITORING) 1 each PRN DAILY PRN MC SEE COMMENTS; Start 10/15/20 at 18:30; Stop 10/17/20 at 18:29; Status DC Ondansetron HCl (Zofran) 4 mg PRN Q8HRS PRN IV NAUSEA/VOMITING; Start 10/15/20 at 18:30; Stop 10/16/20 at 18:29; Status DC Morphine Sulfate (Morphine Sulfate) 4 mg PRN Q2HR PRN IV PAIN; Start 10/15/20 at 18:30; Stop 10/16/20 at 18:29; Status DC Acetaminophen (Tylenol) 500 mg PRN Q6HRS PRN PO pain ; Start 10/16/20 at 03:45; Stop 10/16/20 at 09:07; Status DC Aspirin (Aspirin Chewable) 81 mg DAILYWBKFT PO Last administered on 10/18/20at 08:17; Start 10/16/20 at 08:00 Atorvastatin Calcium (Lipitor) 20 mg HS PO Last administered on 10/17/20at 20: 43; Start 10/16/20 at 21:00 Docusate Sodium (Colace) 100 mg PRN DAILY PRN PO CONSTIPATION Last administered on 10/18/20at 08:30; Start 10/16/20 at 03:45 Fenofibrate (Lofibra) 134 mg DAILY PO Last administered on 10/18/20 08:16; Start 10/16/20 at 09:00 Levothyroxine Sodium (Synthroid) 112 mcg DAILY06 PO Last administered on 10/18/20at 05:16; Start 10/16/20 at 06:00 Lorazepam (Ativan) 0.5 mg HS PO Last administered on 10/17/20at 20:42; Start 10/16/20 at 21:00 Metoprolol Succinate (Toprol Xl) 25 mg DAILY PO Last administered on 10/18/20at 08:18; Start 10/16/20 at 09:00 Temazepam (Restoril) 15 mg HS PO Last administered on 10/16/20at 22:05; Start 10/16/20 at 21:00; Stop 10/17/20 at 13:33; Status DC Tramadol HCl (Ultram) 50 mg PRN Q6HRS PRN PO PAIN Last administered on 10/18/20at 05:16; Start 10/16/20 at 03:45; Stop 10/18/20 at 10:13; Status DC Ascorbic Acid (Vitamin C) 500 mg BID PO Last administered on 10/18/20at 08:17; Start 10/16/20 at 09:00 Dronabinol (Marinol) 5 mg BID PO Last administered on 10/17/20 12:29; Start 10/16/20 at 09:00; Stop 10/17/20 at 13:19; Status DC Multivitamins (Thera M Plus) 1 tab DAILY PO Last administered on 10/18/20at 08:16; Start 10/16/20 at 09:00 Ondansetron HCl (Zofran Odt) 4 mg PRN Q6HRS PRN PO NAUSEA/VOMITING; Start 10/16/20 at 04:00 Pantoprazole Sodium (Protonix) 40 mg DAILYAC PO Last administered on 10/18/20 05:15; Start 10/16/20 at 07:30 Multivitamins/ Minerals (I-Cheyanne) 1 tab DAILY PO Last administered on 10/18/20at 08:16; Start 10/16/20 at 09:00 Acetaminophen (Tylenol) 500 mg PRN Q6HRS PRN PO MILD PAIN 1-3 Last administered on 10/17/20at 21:45; Start 10/16/20 at 09:15 Piperacillin Sod/ Tazobactam Sod 3.375 gm/Sodium Chloride 50 ml @ 100 mls/hr Q6HRS IV ; Start 10/16/20 at 12:00; Status UNV Vancomycin HCl (Vanco Per Pharmacy) 1 each PRN DAILY PRN MC SEE COMMENTS Last administered on 10/17/20at 13:46; Start 10/16/20 at 11:45 Enoxaparin Sodium (Lovenox 40mg Syringe) 40 mg Q24H SQ Last administered on 10/18/20at 12:05; Start 10/16/20 at 12:00 Piperacillin Sod/ Tazobactam Sod 4.5 gm/Sodium Chloride 100 ml @ 200 mls/hr Q6HRS IV Last administered on 10/18/20at 12:05; Start 10/16/20 at 12:00 Vancomycin HCl 1.5 gm/Sodium Chloride 500 ml @ 250 mls/hr Q24H IV Last administered on 10/17/20at 14:27; Start 10/16/20 at 13:00 Vancomycin HCl (Vancomycin Trough Level) 1 each 1X ONCE MC ; Start 10/18/20 at 12:30; Stop 10/18/20 at 12:31 Lactobacillus Rhamnosus (Culturelle) 1 cap BID PO Last administered on 10/18/20at 08:16; Start 10/16/20 at 21:00 Dronabinol (Marinol) 5 mg BIDWMEALS PO Last administered on 10/18/20at 08:17; Start 10/17/20 at 17:00 Temazepam (Restoril) 7.5 mg HS PO Last administered on 10/17/20at 20:43; Start 10/17/20 at 21:00 Tramadol HCl (Ultram) 50 mg PRN Q4HRS PRN PO MODERATE PAIN, SEVERE PAIN; Start 10/18/20 at 10:15 Active Scripts Active Reported Zofran (Ondansetron Hcl) 4 Mg Tablet 4 Mg PO PRN Q6HRS PRN Vitamin C (Ascorbic Acid) 500 Mg Capsule.er 500 Mg PO BID Tramadol Hcl 50 Mg Tablet 50 Mg PO Q6HRS PRN Restoril (Temazepam) 15 Mg Capsule 15 Mg PO HS Protonix (Pantoprazole Sodium) 20 Mg Tablet.dr 40 Mg PO DAILY Dronabinol 10 Mg Capsule 5 Mg PO BID Fenofibrate (Fenofibrate,Micronized) 134 Mg Capsule 134 Mg PO DAILY Colace (Docusate Sodium) 100 Mg Capsule 100 Mg PO PRN DAILY PRN Ativan (Lorazepam) 0.5 Mg Tablet 0.5 Mg PO HS Preservision Areds Softgel (Vit A/Vit C/Vit E/Zinc/Copper) 1 Each Capsule 1 Tab PO DAILY Euthyrox (Levothyroxine Sodium) 112 Mcg Tablet 112 Mcg PO DAILY06 Atorvastatin Calcium 20 Mg Tablet 20 Mg PO HS Metoprolol Succinate ( Xl ) (Metoprolol Succinate) 25 Mg Tab.er.24h 25 Mg PO DAILY Tylenol (Acetaminophen) 325 Mg Tablet 500 Mg PO Q6HRS PRN Aspirin 81 Mg Tab.chew 81 Mg PO DAILY Multi Vitamin Daily (Multivitamin) 1 Each Tablet 1 Each PO DAILY Allergies Allergies: Coded Allergies: No Known Drug Allergies (Unverified , 07/04/14) ROS Review of System Negative unless stated otherwise in HPI Physical Exam General: Alert, Oriented X3 HEENT: Atraumatic Lungs: Other (Left-sided Pleurx catheter noted) Heart: Regular rate, Normal S1, Normal S2 Abdomen: Normal bowel sounds, Soft Extremities: No cyanosis Skin: No rashes Neuro: Normal speech Psych/Mental Status: Mental status NL MUSCULOSKELETAL: No joint tenderness Vitals VITALS Vital Signs Date Time Temp Pulse Resp B/P (MAP) Pulse Ox O2 Delivery O2 Flow Rate FiO2 10/18/20 08:18 76 143/73 10/18/20 08:00 Nasal Cannula 4.0 10/18/20 07:00 97.5 20 95 97.5 Labs Labs Laboratory Tests Test 10/18/20 06:30 White Blood Count 7.4 x10^3/uL (4.0-11.0) Red Blood Count 4.30 x10^6/uL (3.50-5.40) Hemoglobin 12.4 g/dL (12.0-15.5) Hematocrit 38.7 % (36.0-47.0) Mean Corpuscular Volume 90 fL (79-100) Mean Corpuscular Hemoglobin 29 pg (25-35) Mean Corpuscular Hemoglobin Concent 32 g/dL (31-37) Red Cell Distribution Width 14.9 % (11.5-14.5) Platelet Count 364 x10^3/uL (140-400) Sodium Level 143 mmol/L (136-145) Potassium Level 3.7 mmol/L (3.5-5.1) Chloride Level 107 mmol/L (98-107) Carbon Dioxide Level 28 mmol/L (21-32) Anion Gap 8 (6-14) Blood Urea Nitrogen 13 mg/dL (7-20) Creatinine 0.9 mg/dL (0.6-1.0) Estimated GFR (Cockcroft-Gault) 60.2 BUN/Creatinine Ratio 14 (6-20) Glucose Level 100 mg/dL (70-99) Calcium Level 9.2 mg/dL (8.5-10.1) Total Bilirubin 0.8 mg/dL (0.2-1.0) Aspartate Amino Transf (AST/SGOT) 35 U/L (15-37) Alanine Aminotransferase (ALT/SGPT) 11 U/L (14-59) Alkaline Phosphatase 53 U/L (46-116) Total Protein 6.2 g/dL (6.4-8.2) Albumin 2.2 g/dL (3.4-5.0) Albumin/Globulin Ratio 0.6 (1.0-1.7) Laboratory Tests Test 10/18/20 06:30 White Blood Count 7.4 x10^3/uL (4.0-11.0) Red Blood Count 4.30 x10^6/uL (3.50-5.40) Hemoglobin 12.4 g/dL (12.0-15.5) Hematocrit 38.7 % (36.0-47.0) Mean Corpuscular Volume 90 fL (79-100) Mean Corpuscular Hemoglobin 29 pg (25-35) Mean Corpuscular Hemoglobin Concent 32 g/dL (31-37) Red Cell Distribution Width 14.9 % (11.5-14.5) Platelet Count 364 x10^3/uL (140-400) Sodium Level 143 mmol/L (136-145) Potassium Level 3.7 mmol/L (3.5-5.1) Chloride Level 107 mmol/L (98-107) Carbon Dioxide Level 28 mmol/L (21-32) Anion Gap 8 (6-14) Blood Urea Nitrogen 13 mg/dL (7-20) Creatinine 0.9 mg/dL (0.6-1.0) Estimated GFR (Cockcroft-Gault) 60.2 BUN/Creatinine Ratio 14 (6-20) Glucose Level 100 mg/dL (70-99) Calcium Level 9.2 mg/dL (8.5-10.1) Total Bilirubin 0.8 mg/dL (0.2-1.0) Aspartate Amino Transf (AST/SGOT) 35 U/L (15-37) Alanine Aminotransferase (ALT/SGPT) 11 U/L (14-59) Alkaline Phosphatase 53 U/L (46-116) Total Protein 6.2 g/dL (6.4-8.2) Albumin 2.2 g/dL (3.4-5.0) Albumin/Globulin Ratio 0.6 (1.0-1.7) Assessment/Plan Assessment/Plan Assessment: Metastatic pancreatic cancer Malignant pleural effusion 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 Bruce and Dr. Bell -Continue physical therapy efforts while inpatient. Anticipate discharge to rehabilitation after hospital stay -I once again discussed the potential risks and benefits of palliative systemic therapy with the patient and her son. Given her borderline performance status, would favor single agent gemcitabine therapy or combination therapy with gemci tabine and nab-paclitaxel. I discussed the potential side effects of these agents with the patient and her son. I recommended deferring initiation of systemic therapy until functional status improves. She retains a functional status of ECOG 3 at this time -Rest per Dr. Blel -We will continue to follow Roel Corbin MD Medical Oncology/Hematology Ph: [phone] ELVER CORBIN MD Oct 18, 2020 12:22
[2020-10-18 12:36] LABS: VANC TR 13.3 mcg/mL (10.0-20.0)
--- NOTE | 2020-10-18 13:42 | PDOC2 ---
CONSULT Date of Consult Date of Consult DATE: 10/18/20 TIME: 13:20 Reason for Consult Reason for Consult: Palliative radiation to painful T7 metastasis Referring Physician Referring Physician: Dr Blanco Identification/Chief Complaint Chief Complaint Back pain Source Source: Chart review, Patient History of Present Illness Reason for Visit: Mrs. Mcallister is an 80-year-old woman with a history of left breast cancer status post mastectomy 21 years ago without adjuvant chemotherapy or radiation. She was living independently until she developed severe dyspnea. Chest x-ray on 09/01/2020 showed left pleural effusion. CT chest on 09/05/2020 confirmed left pleural effusion and 1.2 cm right lower lobe nodule. On 09/14/2020, ultrasound-guided thoracentesis removed 1.15 L of clear emmy fluid. Cytology showed adenocarcinoma, with immunostains showing possible primary sites to include lung and pancreaticobiliary tract, origin from breast appeared unlikely. CT chest abdomen pelvis on 09/18/2020 showed large loculated left pleural effusion and right pulmonary nodules. Liver and pancreas were not normal. No abdominal lymphadenopathy. There was sclerotic lesion at T7. MRCP on 09/22/2020 showed 6 cm infiltrating soft tissue mass in the tail of the pancreas, left pleural effusion, and T8 vertebral body enhancing lesion. She required chest tube placement which was performed on 09/19/2020 under ultrasound and fluoroscopic guidance. She was then discharged to [facility] rehab facility. She was readmitted on 10/15/2020 with increasing chest pain and dyspnea. CT chest ruled out pulmonary embolism. Bone scan on 10/17/2020 showed focal hyperintense uptake at T7 vertebral body consistent with metastases. She is mostly bedbound due to her back pain. No weakness, tingling, numbness in her legs. She has control of her bowel and bladder function. She complains of anorexia. No nausea, vomiting, hematemesis, jaundice, diarrhea, or abdominal pain. She has 15 pound weight loss over the last month. Past Medical History Cardiovascular: CAD, CHF, HTN, Hyperlipidemia CENTRAL NERVOUS SYSTEM: Other Heme/Onc: Cancer, Other Psych: Anxiety Musculoskeletal: Osteoarthritis Rheumatologic: No pertinent hx Infectious disease: No pertinent hx Renal/: No pertinent hx Endocrine: Hypothyroidism Past Surgical History Past Surgical History: Mastectomy, Total knee replacement, Hysterectomy, Other Family History Family History: Cancer (Daughter of breast cancer. Grandmother with unknown cancer.), Hypertension Social History No ALCOHOL: none Drugs: None Lives: with Family Current Problem List Problem List Problems Medical Problems: (1) Acute respiratory failure with hypoxia Status: Acute Current Medications Current Medications Current Medications Iohexol (Omnipaque 350 Mg/ml) 75 ml 1X ONCE IV Last administered on 10/15/20at 19:34; Start 10/15/20 at 18:30; Stop 10/15/20 at 18:31; Status DC Info (CONTRAST GIVEN -- Rx MONITORING) 1 each PRN DAILY PRN MC SEE COMMENTS; Start 10/15/20 at 18:30; Stop 10/17/20 at 18:29; Status DC Ondansetron HCl (Zofran) 4 mg PRN Q8HRS PRN IV NAUSEA/VOMITING; Start 10/15/20 at 18:30; Stop 10/16/20 at 18:29; Status DC Morphine Sulfate (Morphine Sulfate) 4 mg PRN Q2HR PRN IV PAIN; Start 10/15/20 at 18:30; Stop 10/16/20 at 18:29; Status DC Acetaminophen (Tylenol) 500 mg PRN Q6HRS PRN PO pain ; Start 10/16/20 at 03:45; Stop 10/16/20 at 09:07; Status DC Aspirin (Aspirin Chewable) 81 mg DAILYWBKFT PO Last administered on 10/18/20at 08:17; Start 10/16/20 at 08:00 Atorvastatin Calcium (Lipitor) 20 mg HS PO Last administered on 10/17/20at 20:43; Start 10/16/20 at 21:00 Docusate Sodium (Colace) 100 mg PRN DAILY PRN PO CONSTIPATION Last administered on 10/18/20at 08:30; Start 10/16/20 at 03:45 Fenofibrate (Lofibra) 134 mg DAILY PO Last administered on 10/18/20at 08:16; Start 10/16/20 at 09:00 Levothyroxine Sodium (Synthroid) 112 mcg DAILY06 PO Last administered on 10/18/20at 05:16; Start 10/16/20 at 06:00 Lorazepam (Ativan) 0.5 mg HS PO Last administered on 10/17/20at 20:42; Start 10/16/20 at 21:00 Metoprolol Succinate (Toprol Xl) 25 mg DAILY PO Last administered on 10/18/20at 08:18; Start 10/16/20 at 09:00 Temazepam (Restoril) 15 mg HS PO Last administered on 10/16/20at 22:05; Start 10/16/20 at 21:00; Stop 10/17/20 at 13:33; Status DC Tramadol HCl (Ultram) 50 mg PRN Q6HRS PRN PO PAIN Last administered on 10/18/20 at 05:16; Start 10/16/20 at 03:45; Stop 10/18/20 at 10:13; Status DC Ascorbic Acid (Vitamin C) 500 mg BID PO Last administered on 10/18/20at 08:17; Start 10/16/20 at 09:00 Dronabinol (Marinol) 5 mg BID PO Last administered on 10/17/20at 12:29; Start 10/16/20 at 09:00; Stop 10/17/20 at 13:19; Status DC Multivitamins (Thera M Plus) 1 tab DAILY PO Last administered on 10/18/20at 08: 16; Start 10/16/20 at 09:00 Ondansetron HCl (Zofran Odt) 4 mg PRN Q6HRS PRN PO NAUSEA/VOMITING; Start 10/16/20 at 04:00 Pantoprazole Sodium (Protonix) 40 mg DAILYAC PO Last administered on 10/18/20at 05:15; Start 10/16/20 at 07:30 Multivitamins/ Minerals (I-Cheyanne) 1 tab DAILY PO Last administered on 10/18/20at 08:16; Start 10/16/20 at 09:00 Acetaminophen (Tylenol) 500 mg PRN Q6HRS PRN PO MILD PAIN 1-3 Last administered on 10/17/20at 21:45; Start 10/16/20 at 09:15 Piperacillin Sod/ Tazobactam Sod 3.375 gm/Sodium Chloride 50 ml @ 100 mls/hr Q6HRS IV ; Start 10/16/20 at 12:00; Status UNV Vancomycin HCl (Vanco Per Pharmacy) 1 each PRN DAILY PRN MC SEE COMMENTS Last administered on 10/17/20at 13:46; Start 10/16/20 at 11:45 Enoxaparin Sodium (Lovenox 40mg Syringe) 40 mg Q24H SQ Last administered on 10/18/20at 12:05; Start 10/16/20 at 12:00 Piperacillin Sod/ Tazobactam Sod 4.5 gm/Sodium Chloride 100 ml @ 200 mls/hr Q6HRS IV Last administered on 10/18/20at 12:05; Start 10/16/20 at 12:00 Vancomycin HCl 1.5 gm/Sodium Chloride 500 ml @ 250 mls/hr Q24H IV Last administered on 10/17/20at 14:27; Start 10/16/20 at 13:00 Vancomycin HCl (Vancomycin Trough Level) 1 each 1X ONCE MC ; Start 10/18/20 at 12:30; Stop 10/18/20 at 12:31; Status DC Lactobacillus Rhamnosus (Culturelle) 1 cap BID PO Last administered on 10/18/20at 08:16; Start 10/16/20 at 21:00 Dronabinol (Marinol) 5 mg BIDWMEALS PO Last administered on 10/18/20at 08:17; Start 10/17/20 at 17:00 Temazepam (Restoril) 7.5 mg HS PO Last administered on 10/17/20at 20:43; Start 10/17/20 at 21:00 Tramadol HCl (Ultram) 50 mg PRN Q4HRS PRN PO MODERATE PAIN, SEVERE PAIN; Start 10/18/20 at 10:15 Active Scripts Active Reported Zofran (Ondansetron Hcl) 4 Mg Tablet 4 Mg PO PRN Q6HRS PRN Vitamin C (Ascorbic Acid) 500 Mg Capsule.er 500 Mg PO BID Tramadol Hcl 50 Mg Tablet 50 Mg PO Q6HRS PRN Restoril (Temazepam) 15 Mg Capsule 15 Mg PO HS Protonix (Pantoprazole Sodium) 20 Mg Tablet.dr 40 Mg PO DAILY Dronabinol 10 Mg Capsule 5 Mg PO BID Fenofibrate (Fenofibrate,Micronized) 134 Mg Capsule 134 Mg PO DAILY Colace (Docusate Sodium) 100 Mg Capsule 100 Mg PO PRN DAILY PRN Ativan (Lorazepam) 0.5 Mg Tablet 0.5 Mg PO HS Preservision Areds Softgel (Vit A/Vit C/Vit E/Zinc/Copper) 1 Each Capsule 1 Tab PO DAILY Euthyrox (Levothyroxine Sodium) 112 Mcg Tablet 112 Mcg PO DAILY06 Atorvastatin Calcium 20 Mg Tablet 20 Mg PO HS Metoprolol Succinate ( Xl ) (Metoprolol Succinate) 25 Mg Tab.er.24h 25 Mg PO DAILY Tylenol (Acetaminophen) 325 Mg Tablet 500 Mg PO Q6HRS PRN Aspirin 81 Mg Tab.chew 81 Mg PO DAILY Multi Vitamin Daily (Multivitamin) 1 Each Tablet 1 Each PO DAILY Allergies Allergies: Coded Allergies: No Known Drug Allergies (Unverified , 07/04/14) Physical Exam General: Alert, Oriented X3, Cooperative, No acute distress HEENT: PERRLA, EOMI, Mucous membr. moist/pink Lungs: Clear to auscultation, Normal air movement Heart: Regular rate, No murmurs Abdomen: Normal bowel sounds, No tenderness, No masses, Other (no ascites) Extremities: No clubbing, No cyanosis, No edema Neuro: Normal speech, Strength at 5/5 X4 ext, Normal tone, Cranial nerves 3-12 NL Psych/Mental Status: Mental status NL MUSCULOSKELETAL: Other (Point tenderness around midline T7-T8 level, where her back pain originates) Vitals VITALS Vital Signs Date Time Temp Pulse Resp B/P (MAP) Pulse Ox O2 Delivery O2 Flow Rate FiO2 10/18/20 11:00 97.6 72 19 127/60 (82) 96 Nasal Cannula 3.0 97.6 Labs Labs Laboratory Tests Test 10/18/20 06:30 10/18/20 12:10 White Blood Count 7.4 x10^3/uL (4.0-11.0) Red Blood Count 4.30 x10^6/uL (3.50-5.40) Hemoglobin 12.4 g/dL (12.0-15.5) Hematocrit 38.7 % (36.0-47.0) Mean Corpuscular Volume 90 fL (79-100) Mean Corpuscular Hemoglobin 29 pg (25-35) Mean Corpuscular Hemoglobin Concent 32 g/dL (31-37) Red Cell Distribution Width 14.9 % (11.5-14.5) Platelet Count 364 x10^3/uL (140-400) Sodium Level 143 mmol/L (136-145) Potassium Level 3.7 mmol/L (3.5-5.1) Chloride Level 107 mmol/L (98-107) Carbon Dioxide Level 28 mmol/L (21-32) Anion Gap 8 (6-14) Blood Urea Nitrogen 13 mg/dL (7-20) Creatinine 0.9 mg/dL (0.6-1.0) Estimated GFR (Cockcroft-Gault) 60.2 BUN/Creatinine Ratio 14 (6-20) Glucose Level 100 mg/dL (70-99) Calcium Level 9.2 mg/dL (8.5-10.1) Total Bilirubin 0.8 mg/dL (0.2-1.0) Aspartate Amino Transf (AST/SGOT) 35 U/L (15-37) Alanine Aminotransferase (ALT/SGPT) 11 U/L (14-59) Alkaline Phosphatase 53 U/L (46-116) Total Protein 6.2 g/dL (6.4-8.2) Albumin 2.2 g/dL (3.4-5.0) Albumin/Globulin Ratio 0.6 (1.0-1.7) Vancomycin Level Trough 13.3 mcg/mL (10.0-20.0) Vancomycin Last Dose Date 10/17/20 Vancomycin Last Dose Time 1300 Laboratory Tests Test 10/18/20 06:30 10/18/20 12:10 White Blood Count 7.4 x10^3/uL (4.0-11.0) Red Blood Count 4.30 x10^6/uL (3.50-5.40) Hemoglobin 12.4 g/dL (12.0-15.5) Hematocrit 38.7 % (36.0-47.0) Mean Corpuscular Volume 90 fL (79-100) Mean Corpuscular Hemoglobin 29 pg (25-35) Mean Corpuscular Hemoglobin Concent 32 g/dL (31-37) Red Cell Distribution Width 14.9 % (11.5-14.5) Platelet Count 364 x10^3/uL (140-400) Sodium Level 143 mmol/L (136-145) Potassium Level 3.7 mmol/L (3.5-5.1) Chloride Level 107 mmol/L (98-107) Carbon Dioxide Level 28 mmol/L (21-32) Anion Gap 8 (6-14) Blood Urea Nitrogen 13 mg/dL (7-20) Creatinine 0.9 mg/dL (0.6-1.0) Estimated GFR (Cockcroft-Gault) 60.2 BUN/Creatinine Ratio 14 (6-20) Glucose Level 100 mg/dL (70-99) Calcium Level 9.2 mg/dL (8.5-10.1) Total Bilirubin 0.8 mg/dL (0.2-1.0) Aspartate Amino Transf (AST/SGOT) 35 U/L (15-37) Alanine Aminotransferase (ALT/SGPT) 11 U/L (14-59) Alkaline Phosphatase 53 U/L (46-116) Total Protein 6.2 g/dL (6.4-8.2) Albumin 2.2 g/dL (3.4-5.0) Albumin/Globulin Ratio 0.6 (1.0-1.7) Vancomycin Level Trough 13.3 mcg/mL (10.0-20.0) Vancomycin Last Dose Date 10/17/20 Vancomycin Last Dose Time 1300 Assessment/Plan Assessment/Plan 80-year-old female with 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 Plan We discussed palliative radiotherapy to T7 metastases to help with pain. Radiation procedure involves a planning CT followed by 5 daily treatments. The side effects, including the acute and late side effects, were discussed. She would like to consult with her daughter and son prior to making a decision. We will have a family conference, hopefully later this afternoon. AILYN JONES MD Oct 18, 2020 13:42
[2020-10-18 15:00] VITALS: BP 127/70
[2020-10-18] MEDS: VANCOMYCIN PER PHARMACY MC PRN ×2 (15:57→16:01)
--- NOTE | 2020-10-18 15:58 | NUR ---
Pharmacy Vancomycin Dosing Note S:Consulted to monitor and dose vancomycin started 10/16/20. O:ARUN SANTOS is a 80 year old F with Pneumonia . Height: 5 feet, 6 inches Weight: 100.199449 kg [place] Body Weight: 197.30 Adjusted Body Weight: 158.58 Dosing Weight: Actual Other Antibiotics: ZOSYN 4.5G IV Q6HRS LABS: Last BUN: 13 Last Creatinine: 0.9 Creatinine Clearance: 52 mL/min Last WBC: 7.4 Last Procalcitonin: - Tmax (past 24 hours): 98 Microbiology: - I/O: 1240/500 Drug Levels: Last Trough level: 13.3 on 10/17/20 at 1427 Last dose given at Vancomycin Dosing: Loading Dose: x1 Dosing Weight: Actual Target Trough: 15-20 A: Based on: LOW TROUGH FOR INDICATION, P: 1. CHANGE INTERVAL TO Vancomycin 1500 mg IV q18H 2. Follow up Trough level on 10/20/20 at 0330 3. Pharmacy will continue to monitor, follow and adjust therapy as needed. AVERY TUTTLE RPH, 10/18/20 1558 Addendum: 10/18/20 at 1600 by AVERY TUTTLE RPH PHA NEXT TROUGH IS 10/20 988
[2020-10-18] MEDS: VANCOMYCIN 1.5 GM in IV NORMAL SALINE 500ML BAG 500 ML IV SCH (16:22)
[2020-10-18 19:00] VITALS: BP 121/67
[2020-10-18] MEDS: ATORVASTATIN CALCIUM 20 MG TABLET PO SCH (21:00)
[2020-10-18] MEDS: LORazepam 0.5 MG TABLET PO SCH (21:28)
[2020-10-18] MEDS: TEMAZEPAM 7.5 MG CAPSULE PO SCH (21:28)
[2020-10-18 23:00] VITALS: BP 154/74
[2020-10-19] MEDS: PIPERACILLIN/TAZOBACTAM 4.5 GM in IV NORMAL SALINE 100ML 100 ML IV SCH ×4 (00:46→18:04)
[2020-10-19 03:00] VITALS: BP 148/70
[2020-10-19] MEDS: LEVOTHYROXINE 112 MCG TABLET PO SCH (05:56)
[2020-10-19 07:00] VITALS: BP 138/71
[2020-10-19] MEDS: DRONABINOL 2.5 MG CAPSULE. PO SCH ×2 (08:00→18:08)
[2020-10-19] MEDS: MULTIVITAMIN with MINERAL TABLET. PO SCH (08:54)
[2020-10-19] MEDS: PANTOPRAZOLE 40 MG TABLET.DR. PO SCH (08:54)
[2020-10-19] MEDS: LACTOBACILLUS RHAMNOSUS GG 1 CAPSULE. PO SCH ×2 (08:54→21:11)
[2020-10-19] MEDS: MULTIVITAMIN I-VITE TABLET. PO SCH (08:54)
[2020-10-19] MEDS: ASPIRIN CHEWABLE 81 MG TABLET. PO SCH (08:54)
[2020-10-19] MEDS: ASCORBIC ACID 500 MG TABLET PO SCH ×2 (08:54→21:11)
[2020-10-19] MEDS: FENOFIBRATE,MICRONIZED 134 MG CAPSULE PO SCH (08:54)
[2020-10-19] MEDS: METOPROLOL SUCC 24HR ER 25 MG TAB.ER.24H. PO SCH (08:55)
[2020-10-19] MEDS: traMADol 50 MG TABLET PO PRN ×3 (09:10→21:12)
--- NOTE | 2020-10-19 09:53 | PDOC ---
PULMONARY PROGRESS NOTES DATE: 10/19/20 TIME: 09:53 Subjective Patient has some back pain, no increasing shortness of air Vitals Vital Signs Date Time Temp Pulse Resp B/P (MAP) Pulse Ox O2 Delivery O2 Flow Rate FiO2 10/19/20 09:10 95 Nasal Cannula 3.0 10/19/20 08:55 81 167/81 10/19/20 07:00 98.3 20 98.3 ROS: No Nausea, No Chest Pain, No Abdominal Pain, No Increase Cough General: Alert, No acute distress Lungs: Crackles Cardiovascular: S1, S2 Abdomen: Soft Neuro Exam: Alert Extremities: No Edema Skin: Warm Labs Laboratory Tests Test 10/18/20 06:30 10/18/20 12:10 White Blood Count 7.4 x10^3/uL (4.0-11.0) Red Blood Count 4.30 x10^6/uL (3.50-5.40) Hemoglobin 12.4 g/dL (12.0-15.5) Hematocrit 38.7 % (36.0-47.0) Mean Corpuscular Volume 90 fL (79-100) Mean Corpuscular Hemoglobin 29 pg (25-35) Mean Corpuscular Hemoglobin Concent 32 g/dL (31-37) Red Cell Distribution Width 14.9 % (11.5-14.5) Platelet Count 364 x10^3/uL (140-400) Sodium Level 143 mmol/L (136-145) Potassium Level 3.7 mmol/L (3.5-5.1) Chloride Level 107 mmol/L (98-107) Carbon Dioxide Level 28 mmol/L (21-32) Anion Gap 8 (6-14) Blood Urea Nitrogen 13 mg/dL (7-20) Creatinine 0.9 mg/dL (0.6-1.0) Estimated GFR (Cockcroft-Gault) 60.2 BUN/Creatinine Ratio 14 (6-20) Glucose Level 100 mg/dL (70-99) Calcium Level 9.2 mg/dL (8.5-10.1) Total Bilirubin 0.8 mg/dL (0.2-1.0) Aspartate Amino Transf (AST/SGOT) 35 U/L (15-37) Alanine Aminotransferase (ALT/SGPT) 11 U/L (14-59) Alkaline Phosphatase 53 U/L (46-116) Total Protein 6.2 g/dL (6.4-8.2) Albumin 2.2 g/dL (3.4-5.0) Albumin/Globulin Ratio 0.6 (1.0-1.7) Vancomycin Level Trough 13.3 mcg/mL (10.0-20.0) Vancomycin Last Dose Date 10/17/20 Vancomycin Last Dose Time 1300 Laboratory Tests Test 10/18/20 12:10 Vancomycin Level Trough 13.3 mcg/mL (10.0-20.0) Vancomycin Last Dose Date 10/17/20 Vancomycin Last Dose Time 1300 Medications Active Scripts Medications Dose Route/Sig Max Daily Dose Days Date Category Zofran (Ondansetron Hcl) 4 Mg Tablet 4 Mg PO PRN Q6HRS PRN 10/16/20 Reported Vitamin C (Ascorbic Acid) 500 Mg Capsule.er 500 Mg PO BID 10/16/20 Reported Tramadol Hcl 50 Mg Tablet 50 Mg PO Q6HRS PRN 10/16/20 Reported Restoril (Temazepam) 15 Mg Capsule 15 Mg PO HS 10/16/20 Reported Protonix (Pantoprazole Sodium) 20 Mg Tablet.dr 40 Mg PO DAILY 10/16/20 Reported Dronabinol 10 Mg Capsule 5 Mg PO BID 10/16/20 Reported Fenofibrate (Fenofibrate,Micronized) 134 Mg Capsule 134 Mg PO DAILY 10/16/20 Reported Colace (Docusate Sodium) 100 Mg Capsule 100 Mg PO PRN DAILY PRN 10/16/20 Reported Ativan (Lorazepam) 0.5 Mg Tablet 0.5 Mg PO HS 10/16/20 Reported Preservision Areds Softgel (Vit A/Vit C/Vit E/Zinc/Copper) 1 Each Capsule 1 Tab PO DAILY 09/13/20 Reported Euthyrox (Levothyroxine Sodium) 112 Mcg Tablet 112 Mcg PO DAILY06 09/13/20 Reported Atorvastatin Calcium 20 Mg Tablet 20 Mg PO HS 09/13/20 Reported Metoprolol Succinate ( Xl ) (Metoprolol Succinate) 25 Mg Tab.er.24h 25 Mg PO DAILY 09/13/20 Reported Tylenol (Acetaminophen) 325 Mg Tablet 500 Mg PO Q6HRS PRN 09/13/20 Reported Aspirin 81 Mg Tab.chew 81 Mg PO DAILY 09/13/20 Reported Multi Vitamin Daily (Multivitamin) 1 Each Tablet 1 Each PO DAILY 07/02/14 Reported Impression . IMPRESSION: 1. Acute hypoxemic respiratory failure, suspect multifactorial secondary to pneumonia and hydropneumothorax. 2. Metastatic pancreatic cancer, 3. 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 4. Possible pneumonia, gram-positive and gram-negative. 5. CT chest revealing no evidence of pulmonary embolism. There is a moderate- sized hydropneumothorax. 6. Negative influenza screen. 7. Coronary artery disease with previous percutaneous coronary intervention. 8. History of breast cancer 20 years ago, status post mastectomy. 9. History of status post abdominal hysterectomy. Plan . Updated 10/18 Radiation oncology recommended palliative radiotherapy to T7 metastatic disease to help the pain Dr. Manrique to remove Pleurx catheter Continue treatment for pneumonia PT OT Appreciate medical oncology input, Dr. Abraham, recommended deferring systemic therapy until functional status improved Discussed with Dr. Bell Updated 10/17 Case discussed with medical oncology and interventional radiology We will proceed with removal of Pleurx catheter, currently nonfunctional, risk of infection is high Continue empiric antibiotics for pneumonia Once patient improves she will revisit with medical oncology for possible palliative chemotherapy The above was discussed with the son Donell who lives in [place] per telephone, I informed them that we will be removing the Pleurx catheter, I informed them that she will be treated for pneumonia I answered all of his questions, he was satisfied with the above plan. 10/16 1. We will continue empiric antibiotics for both gram-positive and gram-negative organisms. 2. We will discuss case with Medical Oncology and make further recommendations. 3. 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 I do not think that the lung will reexpand with the current chest tube that is in place. May consider discontinuing PleurX catheter. 4. Ideally, if the patient did not have comorbidities as such stated above, I would recommend a video-assisted thorascopic approach for decortication of the left lung. Considering her comorbidities, I do not think that this is a great option at this time. 5. I attempted calling her son who lives in [place], there was no answer, I left a message on his cell phone. RAFY CAMP MD Oct 19, 2020 09:53
[2020-10-19] MEDS: VANCOMYCIN 1.5 GM in IV NORMAL SALINE 500ML BAG 500 ML IV SCH (10:00)
[2020-10-19 11:00] VITALS: BP 139/76
[2020-10-19] MEDS: VANCOMYCIN PER PHARMACY MC PRN (11:22)
[2020-10-19] MEDS: ENOXAPARIN 40 MG/0.4 ML SYRINGE. SQ SCH (12:00)
--- NOTE | 2020-10-19 12:00 | PN ---
DATE: 10/19/2020 SUBJECTIVE: The patient is resting, slightly propped up in her recliner, in no apparent distress. She continued to complain of back pain, is aggravated by movement. She was seen by Dr. Blanco as well as the radiation oncologist and she was offered the palliative radiation, but apparently, she is reluctant to undergo that. I offered to give her stronger pain medication, but she is still also reluctant. I just increased the frequency of her tramadol. PHYSICAL EXAMINATION: GENERAL: When I examined her today, she was somewhat pale, but no jaundice, cyanosis or thyromegaly. No jugular venous distension. No limb edema. VITAL SIGNS: Her heart rate was 81, blood pressure was 167/81, temperature was 98.3, respiratory rate was 20, and oxygen saturation was 95% on 3 liters of oxygen. HEAD, EYES, EARS, NOSE AND THROAT: Showed normocephalic, atraumatic. NECK: Supple. HEART: Showed normal first and second heart sounds. No gallop or murmur. CHEST: Shows central trachea and good chest expansion with air entry on the right side, reduced expansion with reduced air entry on the left side, vesicular breath sounds. I could not really appreciate any crepitation or rhonchi. ABDOMEN: Distended, soft, nontender. NEUROLOGIC: She was grossly intact. Her intake was 1240, output 500. LABORATORY DATA: As of yesterday, her white cell count was 7400, hemoglobin 12, hematocrit 38, MCV 90 and platelet count 364,000. Her chemistry showed a serum sodium 143, potassium 3.7, chloride 107, bicarbonate 28, anion gap of 8, BUN 13, creatinine 0.9, estimated GFR was 60 mL per minute. Her glucose was 100, calcium was 9.2, total bilirubin, AST, ALT, alkaline phosphatase were normal. Total protein 6.2, albumin was 2.2. ASSESSMENT: 1. Acute hypoxic respiratory failure. 2. Bilateral lung infiltrates, probably healthcare-associated pneumonia versus lymphangitis carcinomatosis. 3. Metastatic pancreatic cancer with metastasis to bone and the lung. 4. Malignant pleural effusion for which she has a PleurX placed and the patient has been drained on a daily basis while at [facility]; however, the patient has loculated hydropneumothorax that is not connected to the PleurX tube. 5. Persistent back pain with no evidence of any rib fracture and most likely metastasis to T7; however, the patient is reluctant to undergo any palliative radiation therapy. The patient is understandably seemed to be depressed and discouraged. PLAN: My plan is to continue with IV antibiotic. I will contact her son to explain all the findings. OTONIEL SCOTT MD DR: SERGEI/ezio JOB#: [id number] / [id number]
[2020-10-19 15:00] VITALS: BP 136/78
[2020-10-19 15:35] LABS: PROTHROMBIN TIME PATIENT 15.7 SEC (11.7-14.0)
[2020-10-19 19:00] VITALS: BP 148/89
[2020-10-19] MEDS: LORazepam 0.5 MG TABLET PO SCH (21:11)
[2020-10-19] MEDS: ATORVASTATIN CALCIUM 20 MG TABLET PO SCH (21:12)
[2020-10-19] MEDS: TEMAZEPAM 7.5 MG CAPSULE PO SCH (21:12)
[2020-10-19 23:00] VITALS: BP 151/73
[2020-10-20] VITALS (14 sets, daily range): BP systolic 135–195; BP diastolic 66–108
[2020-10-20] MEDS: PIPERACILLIN/TAZOBACTAM 4.5 GM in IV NORMAL SALINE 100ML 100 ML IV SCH ×2 (00:45→05:13)
[2020-10-20 04:05] LABS: HEMATOCRIT 39.4 % (36.0-47.0); HEMOGLOBIN 12.8 g/dL (12.0-15.5); RED BLOOD COUNT 4.38 x10^6/uL (3.50-5.40)
[2020-10-20 04:24] LABS: ALBUMIN 2.2 g/dL (3.4-5.0); ALBUMIN/GLOBULIN RATIO 0.5 (1.0-1.7); CALCIUM 9.7 mg/dL (8.5-10.1); CREATININE 0.7 mg/dL (0.6-1.0); GFR 80.5; POTASSIUM 3.6 mmol/L (3.5-5.1); TOTAL BILIRUBIN 0.8 mg/dL (0.2-1.0); TOTAL PROTEIN 6.4 g/dL (6.4-8.2)
[2020-10-20] MEDS: LEVOTHYROXINE 112 MCG TABLET PO SCH (05:13)
[2020-10-20] MEDS: VANCOMYCIN 1.5 GM in IV NORMAL SALINE 500ML BAG 500 ML IV SCH (05:13)
[2020-10-20] MEDS: DRONABINOL 2.5 MG CAPSULE. PO SCH ×2 (08:00→17:00)
[2020-10-20] MEDS ORDERED: MIDAZOLAM HCL/PF 2 MG/2 ML VIAL. ONE (09:49)
[2020-10-20] MEDS ORDERED: fentaNYL PF VIAL 100 MCG/2 ML VIAL ONE (09:49)
[2020-10-20] MEDS ORDERED: LIDOCAINE 2%/EPI 1:100,000 20 ML VIAL. ONE (09:58)
[2020-10-20] MEDS ORDERED: MIDAZOLAM HCL/PF 2 MG/2 ML VIAL. IV ONE (10:00)
[2020-10-20] MEDS ORDERED: fentaNYL PF VIAL 100 MCG/2 ML VIAL IV ONE (10:00)
[2020-10-20] MEDS: LIDOCAINE 2%/EPI 1:100,000 20 ML VIAL. IJ ONE ×2 (10:00→10:45)
--- NOTE | 2020-10-20 10:03 | PN ---
DATE: SUBJECTIVE: The patient is resting, slightly propped up in bed, in no apparent distress. She is apparently scheduled for removal of her PleurX catheter and she is kept n.p.o. and has been complaining of dry mouth, but otherwise denied any other complaint. She seemed to be somewhat confused, depressed, and discouraged. I did show her the finding on her CT scan that radiation will help the pain. PHYSICAL EXAMINATION: GENERAL: When I examined her this morning, she was pale. No jaundice, cyanosis or thyromegaly. No jugular venous distention. No limb edema. VITAL SIGNS: Her heart rate was 84, blood pressure 156/89, temperature 97.7, respiratory rate 20, and oxygen saturation was 93% on 3 liters of oxygen by nasal cannula. HEAD, EYES, EARS, NOSE AND THROAT: Normocephalic, atraumatic. NECK: Supple. HEART: Normal first and second heart sounds. No gallop, rub or murmur. CHEST: Clear to auscultation. No crepitation or rhonchi. ABDOMEN: Distended, soft, nontender. NEUROLOGIC: She is grossly intact. She has PleurX at the left hemithorax that is scheduled to have it removed today. Her intake over the last 24 hours was 700, no output was recorded. LABORATORY DATA: As of this morning, her white cell count was 8000, hemoglobin 13, hematocrit 39, MCV 90 and platelet count 423,000. Her chemistry showed a serum sodium 143, potassium 3.6, chloride 107, bicarbonate 27, anion gap of 9, BUN 12, creatinine was 0.7, estimated GFR was 80 mL per minute. Her glucose was 98, calcium was 9.7. Total bilirubin, AST, ALT, alkaline phosphatase were normal. Her total protein 6.4, albumin 2.2. ASSESSMENT: 1. Acute hypoxic respiratory failure. 2. Bilateral lung infiltrates, probably healthcare-associated pneumonia versus lymphangitis carcinomatosis. 3. Metastatic pancreatic cancer, metastasis to the bone and lung. 4. Malignant pleural effusion for which she has a PleurX placed and the patient has been trained on a daily basis while at [facility]; however, the patient has loculated hydropneumothorax and is not connected to thorax and her PleurX is scheduled to be removed. 5. Persistent back pain with no evidence of any rib fracture, most likely causes metastasis at T7. The patient is reluctant to undergo any palliative radiation therapy. 6. The patient is understandably depressed and discouraged. I did show her the CT scan and a bone scan that is only one particular point that is causing the pain that can be alleviated with radiation therapy. Meanwhile, we will continue with IV antibiotic. Continue with pain management. Continue with DVT prophylaxis and if she remains stable tomorrow, we can discharge her back to [place]. OTONIEL SCOTT MD DR: SERGEI/ezio JOB#: [id number] / [id number]
--- NOTE | 2020-10-20 10:24 | PDOC ---
PULMONARY PROGRESS NOTES DATE: 10/20/20 TIME: 10:23 Subjective Drain removed earlier today, now feels somewhat tired somewhat short of air Vitals Vital Signs Date Time Temp Pulse Resp B/P (MAP) Pulse Ox O2 Delivery O2 Flow Rate FiO2 10/20/20 08:00 Nasal Cannula 3.0 10/20/20 07:50 97.7 84 20 156/89 (111) 93 97.7 ROS: No Nausea, No Chest Pain, No Abdominal Pain, No Increase Cough General: Alert, No acute distress Lungs: Crackles Cardiovascular: S1, S2 Abdomen: Soft Neuro Exam: Alert Extremities: No Edema Skin: Warm Labs Laboratory Tests Test 10/18/20 12:10 10/19/20 15:03 10/20/20 03:55 Vancomycin Level Trough 13.3 mcg/mL (10.0-20.0) Vancomycin Last Dose Date 10/17/20 Vancomycin Last Dose Time 1300 Prothrombin Time 15.7 SEC (11.7-14.0) Prothromb Time International Ratio 1.3 (0.8-1.1) White Blood Count 8.0 x10^3/uL (4.0-11.0) Red Blood Count 4.38 x10^6/uL (3.50-5.40) Hemoglobin 12.8 g/dL (12.0-15.5) Hematocrit 39.4 % (36.0-47.0) Mean Corpuscular Volume 90 fL (79-100) Mean Corpuscular Hemoglobin 29 pg (25-35) Mean Corpuscular Hemoglobin Concent 33 g/dL (31-37) Red Cell Distribution Width 15.0 % (11.5-14.5) Platelet Count 423 x10^3/uL (140-400) Sodium Level 143 mmol/L (136-145) Potassium Level 3.6 mmol/L (3.5-5.1) Chloride Level 107 mmol/L (98-107) Carbon Dioxide Level 27 mmol/L (21-32) Anion Gap 9 (6-14) Blood Urea Nitrogen 12 mg/dL (7-20) Creatinine 0.7 mg/dL (0.6-1.0) Estimated GFR (Cockcroft-Gault) 80.5 BUN/Creatinine Ratio 17 (6-20) Glucose Level 98 mg/dL (70-99) Calcium Level 9.7 mg/dL (8.5-10.1) Total Bilirubin 0.8 mg/dL (0.2-1.0) Aspartate Amino Transf (AST/SGOT) 54 U/L (15-37) Alanine Aminotransferase (ALT/SGPT) 19 U/L (14-59) Alkaline Phosphatase 58 U/L (46-116) Total Protein 6.4 g/dL (6.4-8.2) Albumin 2.2 g/dL (3.4-5.0) Albumin/Globulin Ratio 0.5 (1.0-1.7) Laboratory Tests Test 10/19/20 15:03 10/20/20 03:55 Prothrombin Time 15.7 SEC (11.7-14.0) Prothromb Time International Ratio 1.3 (0.8-1.1) White Blood Count 8.0 x10^3/uL (4.0-11.0) Red Blood Count 4.38 x10^6/uL (3.50-5.40) Hemoglobin 12.8 g/dL (12.0-15.5) Hematocrit 39.4 % (36.0-47.0) Mean Corpuscular Volume 90 fL (79-100) Mean Corpuscular Hemoglobin 29 pg (25-35) Mean Corpuscular Hemoglobin Concent 33 g/dL (31-37) Red Cell Distribution Width 15.0 % (11.5-14.5) Platelet Count 423 x10^3/uL (140-400) Sodium Level 143 mmol/L (136-145) Potassium Level 3.6 mmol/L (3.5-5.1) Chloride Level 107 mmol/L (98-107) Carbon Dioxide Level 27 mmol/L (21-32) Anion Gap 9 (6-14) Blood Urea Nitrogen 12 mg/dL (7-20) Creatinine 0.7 mg/dL (0.6-1.0) Estimated GFR (Cockcroft-Gault) 80.5 BUN/Creatinine Ratio 17 (6-20) Glucose Level 98 mg/dL (70-99) Calcium Level 9.7 mg/dL (8.5-10.1) Total Bilirubin 0.8 mg/dL (0.2-1.0) Aspartate Amino Transf (AST/SGOT) 54 U/L (15-37) Alanine Aminotransferase (ALT/SGPT) 19 U/L (14-59) Alkaline Phosphatase 58 U/L (46-116) Total Protein 6.4 g/dL (6.4-8.2) Albumin 2.2 g/dL (3.4-5.0) Albumin/Globulin Ratio 0.5 (1.0-1.7) Medications Active Scripts Medications Dose Route/Sig Max Daily Dose Days Date Category Zofran (Ondansetron Hcl) 4 Mg Tablet 4 Mg PO PRN Q6HRS PRN 10/16/20 Reported Vitamin C (Ascorbic Acid) 500 Mg Capsule.er 500 Mg PO BID 10/16/20 Reported Tramadol Hcl 50 Mg Tablet 50 Mg PO Q6HRS PRN 10/16/20 Reported Restoril (Temazepam) 15 Mg Capsule 15 Mg PO HS 10/16/20 Reported Protonix (Pantoprazole Sodium) 20 Mg Tablet.dr 40 Mg PO DAILY 10/16/20 Reported Dronabinol 10 Mg Capsule 5 Mg PO BID 10/16/20 Reported Fenofibrate (Fenofibrate,Micronized) 134 Mg Capsule 134 Mg PO DAILY 10/16/20 Reported Colace (Docusate Sodium) 100 Mg Capsule 100 Mg PO PRN DAILY PRN 10/16/20 Reported Ativan (Lorazepam) 0.5 Mg Tablet 0.5 Mg PO HS 10/16/20 Reported Preservision Areds Softgel (Vit A/Vit C/Vit E/Zinc/Copper) 1 Each Capsule 1 Tab PO DAILY 09/13/20 Reported Euthyrox (Levothyroxine Sodium) 112 Mcg Tablet 112 Mcg PO DAILY06 09/13/20 Reported Atorvastatin Calcium 20 Mg Tablet 20 Mg PO HS 09/13/20 Reported Metoprolol Succinate ( Xl ) (Metoprolol Succinate) 25 Mg Tab.er.24h 25 Mg PO DAILY 09/13/20 Reported Tylenol (Acetaminophen) 325 Mg Tablet 500 Mg PO Q6HRS PRN 09/13/20 Reported Aspirin 81 Mg Tab.chew 81 Mg PO DAILY 09/13/20 Reported Multi Vitamin Daily (Multivitamin) 1 Each Tablet 1 Each PO DAILY 07/02/14 Reported Impression . IMPRESSION: 1. Acute hypoxemic respiratory failure, suspect multifactorial secondary to pneumonia and hydropneumothorax. 2. Metastatic pancreatic cancer, 3. 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 4. Possible pneumonia, gram-positive and gram-negative. 5. CT chest revealing no evidence of pulmonary embolism. There is a moderate- sized hydropneumothorax. 6. Negative influenza screen. 7. Coronary artery disease with previous percutaneous coronary intervention. 8. History of breast cancer 20 years ago, status post mastectomy. 9. History of status post abdominal hysterectomy. Plan . Updated 10/20 Had Pleurx catheter removed, subsequently fluid came out from previous chest tube placement Drained approximately 700 cc We will continue treatment for pneumonia I spoke with the patient regarding her CODE STATUS, I recommend DNR, continue aggressive care for now Updated 10/18 Radiation oncology recommended palliative radiotherapy to T7 metastatic disease to help the pain Dr. Manrique to remove Pleurx catheter Continue treatment for pneumonia PT OT Appreciate medical oncology input, Dr. Abraham, recommended deferring systemic therapy until functional status improved Discussed with Dr. Bell Updated 10/17 Case discussed with medical oncology and interventional radiology We will proceed with removal of Pleurx catheter, currently nonfunctional, risk of infection is high Continue empiric antibiotics for pneumonia Once patient improves she will revisit with medical oncology for possible palliative chemotherapy The above was discussed with the son Donell who lives in [place] per telephone, I informed them that we will be removing the Pleurx catheter, I informed them that she will be treated for pneumonia I answered all of his questions, he was satisfied with the above plan. 10/16 1. We will continue empiric antibiotics for both gram-positive and gram-negative organisms. 2. We will discuss case with Medical Oncology and make further recommendations. 3. 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 I do not think that the lung will reexpand with the current chest tube that is in place. May consider discontinuing PleurX catheter. 4. Ideally, if the patient did not have comorbidities as such stated above, I would recommend a video-assisted thorascopic approach for decortication of the left lung. Considering her comorbidities, I do not think that this is a great option at this time. 5. I attempted calling her son who lives in [place], there was no answer, I left a message on his cell phone. RAFY CAMP MD Oct 20, 2020 10:24
[2020-10-20] MEDS: ENOXAPARIN 40 MG/0.4 ML SYRINGE. SQ SCH (12:00)
--- NOTE | 2020-10-20 12:20 | NUR ---
PATIENT RETURNED TO THE UNIT FROM VASCULAR LAB, PLEUREX DRAIN REMOVED AND THORACENTESIS PERFORMED (750CC REMOVED) DUE TO LEAKAGE AFTER DRAIN REMOVED. PATIENT AHS A GAUZE/OP SITE COVERING TO HER LEFT FLANK AREA, WILL REVIEW ORDERS.
--- NOTE | 2020-10-20 12:56 | RAD ---
XR CHEST 1V History: Reason: Chest tube removal / Spl. Instructions: / History: Comparison: October 15, 2020 Findings: Increased moderate loculated left basilar hydropneumothorax. Unchanged fluid component. Increased lef t mid and lower lung consolidations. Patchy right mid and basilar opacities, unchanged. Interval bubba dru of left chest tube. Prior granulomatous disease within the chest. Postoperative changes left axil la. Impression: 1. Increased moderate loculated left basilar hydropneumothorax. Interval removal of pleural drain. FOR INTERNAL CODING PURPOSES Critical result: Findings discussed with patient's nursing team at 10/20/2020 12:47 PM. RESULT CODE: (C) Electronically signed by: Papito Olea DO (10/20/2020 12:54 PM) [id number]
--- NOTE | 2020-10-20 16:45 | RAD ---
Removal of left-sided tunneled thoracostomy tube 10/20/2020 10/20/2020 2:39 PM Clinical Indication: Patient no longer desires to have the catheter Discussion: The procedure was explained in its entirety to the patient or the patients designated branch sales and service representative by a member of the treatment team, including a discussion of the risks, benefits and commonly accepted alternatives to the procedure, as well as the expected consequences of no therapy whatsoever. Discussion of the risks included, but was not limited to, those that are most frequent and those that are rare but possibly severe or life-threatening, as well as the possibility of unforeseen complications. All elements of maximal sterile barrier technique including the use of a cap, mask, sterile gown, sterile gloves, large sterile sheet, appropriate hand hygiene, and 2% chlorhexidine for cutaneous antisepsis (or acceptable alternative antiseptic per current guidelines) were followed for this procedure. 1% lidocaine was administered for local anesthesia. The catheter was removed with traction. Pleural fluid was seen to be probably catheter exit site. A thoracentesis was therefore performed. Stitch was placed to close the catheter exit site. Sterile dressing including the sling gauze was placed. Total fluoroscopy time: 0.3 minutes Dose area product: 3 Gycm2 The procedures performed under conscious sedation including continuous cardiopulmonary monitoring via dedicated sedation nurse. [id number] sedation time: 30 minutes Impression: 1. Removal of tunneled left thoracostomy tube 2. Thoracentesis
[2020-10-20] MEDS: MULTIVITAMIN I-VITE TABLET. PO SCH (16:51)
[2020-10-20] MEDS: LACTOBACILLUS RHAMNOSUS GG 1 CAPSULE. PO SCH ×2 (16:51→20:49)
[2020-10-20] MEDS: PANTOPRAZOLE 40 MG TABLET.DR. PO SCH (16:51)
[2020-10-20] MEDS: ASPIRIN CHEWABLE 81 MG TABLET. PO SCH (16:51)
[2020-10-20] MEDS: FENOFIBRATE,MICRONIZED 134 MG CAPSULE PO SCH (16:51)
[2020-10-20] MEDS: MULTIVITAMIN with MINERAL TABLET. PO SCH (16:51)
[2020-10-20] MEDS: METOPROLOL SUCC 24HR ER 25 MG TAB.ER.24H. PO SCH (16:52)
[2020-10-20] MEDS: ASCORBIC ACID 500 MG TABLET PO SCH ×2 (16:52→20:49)
[2020-10-20] MEDS: AMOXICILLIN/K CLAV 500/125MG TABLET. PO SCH ×2 (16:55→20:49)
[2020-10-20] MEDS: traMADol 50 MG TABLET PO PRN ×2 (16:56→20:51)
[2020-10-20] MEDS: DOCUSATE SODIUM 100 MG CAPSULE. PO PRN (17:07)
[2020-10-20] MEDS: ATORVASTATIN CALCIUM 20 MG TABLET PO SCH (20:49)
[2020-10-20] MEDS: LORazepam 0.5 MG TABLET PO SCH (20:49)
[2020-10-20] MEDS: TEMAZEPAM 7.5 MG CAPSULE PO SCH (20:49)
[2020-10-21 03:00] VITALS: BP 136/64
[2020-10-21] MEDS: LEVOTHYROXINE 112 MCG TABLET PO SCH (06:31)
[2020-10-21 07:00] VITALS: BP 141/65
[2020-10-21] MEDS: MULTIVITAMIN I-VITE TABLET. PO SCH (10:06)
[2020-10-21] MEDS: ASCORBIC ACID 500 MG TABLET PO SCH ×2 (10:06→20:22)
[2020-10-21] MEDS: AMOXICILLIN/K CLAV 500/125MG TABLET. PO SCH ×2 (10:06→20:22)
[2020-10-21] MEDS: DRONABINOL 2.5 MG CAPSULE. PO SCH ×2 (10:06→17:21)
[2020-10-21] MEDS: PANTOPRAZOLE 40 MG TABLET.DR. PO SCH (10:06)
[2020-10-21] MEDS: LACTOBACILLUS RHAMNOSUS GG 1 CAPSULE. PO SCH ×2 (10:06→20:21)
[2020-10-21] MEDS: METOPROLOL SUCC 24HR ER 25 MG TAB.ER.24H. PO SCH (10:07)
[2020-10-21] MEDS: ASPIRIN CHEWABLE 81 MG TABLET. PO SCH (10:07)
[2020-10-21] MEDS: FENOFIBRATE,MICRONIZED 134 MG CAPSULE PO SCH (10:07)
[2020-10-21] MEDS: MULTIVITAMIN with MINERAL TABLET. PO SCH (10:07)
--- NOTE | 2020-10-21 10:12 | PDOC ---
PULMONARY PROGRESS NOTES DATE: 10/21/20 TIME: 10:06 Subjective tired sob better has occ cough denies pain Vitals Vital Signs Date Time Temp Pulse Resp B/P (MAP) Pulse Ox O2 Delivery O2 Flow Rate FiO2 10/21/20 07:00 98.1 76 20 141/65 (90) 96 Nasal Cannula 3.0 98.1 ROS: No Nausea, No Chest Pain, No Abdominal Pain, No Increase Cough General: Alert, No acute distress Lungs: Crackles, Other (dull at l base ) Cardiovascular: S1, S2 Abdomen: Soft Neuro Exam: Alert Extremities: No Edema Skin: Warm Labs Laboratory Tests Test 10/19/20 15:03 10/20/20 03:55 Prothrombin Time 15.7 SEC (11.7-14.0) Prothromb Time International Ratio 1.3 (0.8-1.1) White Blood Count 8.0 x10^3/uL (4.0-11.0) Red Blood Count 4.38 x10^6/uL (3.50-5.40) Hemoglobin 12.8 g/dL (12.0-15.5) Hematocrit 39.4 % (36.0-47.0) Mean Corpuscular Volume 90 fL (79-100) Mean Corpuscular Hemoglobin 29 pg (25-35) Mean Corpuscular Hemoglobin Concent 33 g/dL (31-37) Red Cell Distribution Width 15.0 % (11.5-14.5) Platelet Count 423 x10^3/uL (140-400) Sodium Level 143 mmol/L (136-145) Potassium Level 3.6 mmol/L (3.5-5.1) Chloride Level 107 mmol/L (98-107) Carbon Dioxide Level 27 mmol/L (21-32) Anion Gap 9 (6-14) Blood Urea Nitrogen 12 mg/dL (7-20) Creatinine 0.7 mg/dL (0.6-1.0) Estimated GFR (Cockcroft-Gault) 80.5 BUN/Creatinine Ratio 17 (6-20) Glucose Level 98 mg/dL (70-99) Calcium Level 9.7 mg/dL (8.5-10.1) Total Bilirubin 0.8 mg/dL (0.2-1.0) Aspartate Amino Transf (AST/SGOT) 54 U/L (15-37) Alanine Aminotransferase (ALT/SGPT) 19 U/L (14-59) Alkaline Phosphatase 58 U/L (46-116) Total Protein 6.4 g/dL (6.4-8.2) Albumin 2.2 g/dL (3.4-5.0) Albumin/Globulin Ratio 0.5 (1.0-1.7) Medications Active Scripts Medications Dose Route/Sig Max Daily Dose Days Date Category Zofran (Ondansetron Hcl) 4 Mg Tablet 4 Mg PO PRN Q6HRS PRN 10/16/20 Reported Vitamin C (Ascorbic Acid) 500 Mg Capsule.er 500 Mg PO BID 10/16/20 Reported Tramadol Hcl 50 Mg Tablet 50 Mg PO Q6HRS PRN 10/16/20 Reported Restoril (Temazepam) 15 Mg Capsule 15 Mg PO HS 10/16/20 Reported Protonix (Pantoprazole Sodium) 20 Mg Tablet.dr 40 Mg PO DAILY 10/16/20 Reported Dronabinol 10 Mg Capsule 5 Mg PO BID 10/16/20 Reported Fenofibrate (Fenofibrate,Micronized) 134 Mg Capsule 134 Mg PO DAILY 10/16/20 Reported Colace (Docusate Sodium) 100 Mg Capsule 100 Mg PO PRN DAILY PRN 10/16/20 Reported Ativan (Lorazepam) 0.5 Mg Tablet 0.5 Mg PO HS 10/16/20 Reported Preservision Areds Softgel (Vit A/Vit C/Vit E/Zinc/Copper) 1 Each Capsule 1 Tab PO DAILY 09/13/20 Reported Euthyrox (Levothyroxine Sodium) 112 Mcg Tablet 112 Mcg PO DAILY06 09/13/20 Reported Atorvastatin Calcium 20 Mg Tablet 20 Mg PO HS 09/13/20 Reported Metoprolol Succinate ( Xl ) (Metoprolol Succinate) 25 Mg Tab.er.24h 25 Mg PO DAILY 09/13/20 Reported Tylenol (Acetaminophen) 325 Mg Tablet 500 Mg PO Q6HRS PRN 09/13/20 Reported Aspirin 81 Mg Tab.chew 81 Mg PO DAILY 09/13/20 Reported Multi Vitamin Daily (Multivitamin) 1 Each Tablet 1 Each PO DAILY 07/02/14 Reported Impression . IMPRESSION: 1. Acute hypoxemic respiratory failure, suspect multifactorial secondary to pneumonia and hydropneumothorax. 2. Metastatic pancreatic cancer, 3. 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 4. Possible pneumonia, gram-positive and gram-negative. 5. CT chest revealing no evidence of pulmonary embolism. There is a moderate- sized hydropneumothorax. 6. Negative influenza screen. 7. Coronary artery disease with previous percutaneous coronary intervention. 8. History of breast cancer 20 years ago, status post mastectomy. 9. History of status post abdominal hysterectomy. Plan . Updated 10/21 Had Pleurx catheter removed 10/20, subsequently fluid came out from previous chest tube placement s/p thoracentesis 10/20, approximately 700 cc We will continue treatment for pneumonia w abx total abx [address] mcgill spoke with the patient regarding her CODE STATUS, I recommend DNR, continue aggressive care for now prognosis poor discussed w pt rn Updated 10/18 Radiation oncology recommended palliative radiotherapy to T7 metastatic disease to help the pain Dr. Manrique to remove Pleurx catheter Continue treatment for pneumonia PT OT Appreciate medical oncology input, Dr. Abraham, recommended deferring systemic therapy until functional status improved Discussed with Dr. Bell Updated 10/17 Case discussed with medical oncology and interventional radiology We will proceed with removal of Pleurx catheter, currently nonfunctional, risk of infection is high Continue empiric antibiotics for pneumonia Once patient improves she will revisit with medical oncology for possible palliative chemotherapy The above was discussed with the son Donell who lives in [place] per telephone, I informed them that we will be removing the Pleurx catheter, I informed them that she will be treated for pneumonia I answered all of his questions, he was satisfied with the above plan. 10/16 1. We will continue empiric antibiotics for both gram-positive and gram-negative organisms. 2. We will discuss case with Medical Oncology and make further recommendations. 3. 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 I do not think that the lung will reexpand with the current chest tube that is in place. May consider discontinuing PleurX catheter. 4. Ideally, if the patient did not have comorbidities as such stated above, I would recommend a video-assisted thorascopic approach for decortication of the left lung. Considering her comorbidities, I do not think that this is a great option at this time. 5. I attempted calling her son who lives in [place], there was no answer, I left a message on his cell phone. JAKE JIMENES MD Oct 21, 2020 10:11
[2020-10-21 11:00] VITALS: BP 138/70
[2020-10-21] MEDS: ENOXAPARIN 40 MG/0.4 ML SYRINGE. SQ SCH (13:06)
[2020-10-21 15:00] VITALS: BP 156/76
[2020-10-21] MEDS: DOCUSATE SODIUM 100 MG CAPSULE. PO PRN (17:21)
--- NOTE | 2020-10-21 17:21 | PN ---
DATE: 10/21/2020 SUBJECTIVE: The patient is resting, slightly propped up in bed, in no apparent distress. She continued to complain of back pain and she is apparently agreeable to radiation therapy for palliative radiation. I spoke with Dr. Blanco and they said that this can be done as an inpatient. I left a message with ____ but he did not call me back. PHYSICAL EXAMINATION: GENERAL: When I examined her this morning, she was pale, no jaundice, cyanosis or thyromegaly. No jugular venous distention or limb edema. VITAL SIGNS: His heart rate was 76, blood pressure 141/65, her temperature was 98.1, respiratory rate was 20, and oxygen saturation was 96% on 3 liters of oxygen. HEAD, EYES, EARS, NOSE AND THROAT: Showed normocephalic, atraumatic. NECK: Supple. HEART: Showed normal first and second heart sounds. No gallop or murmur. CHEST: Clear to auscultation. No crepitation or rhonchi. ABDOMEN: Distended, soft, nontender. NEUROLOGIC: She is grossly intact. LABORATORY DATA: As of yesterday, her white cell count was 8000, hemoglobin 12.8, hematocrit 39, MCV 90 and platelet count of 123,000. Her chemistry showed a serum sodium 143, potassium 3.6, chloride 107, bicarbonate 27, anion gap of 9, BUN 12, creatinine 0.7, estimated GFR was 80 mL per minute. Her glucose was 98, calcium was 9.7. Total bilirubin, AST, ALT, alkaline phosphatase were normal. Total protein was 6.4, albumin was 2.2. ASSESSMENT: 1. Acute hypoxic respiratory failure. 2. Bilateral lung infiltrates, probably healthcare-associated pneumonia versus lymphangitis carcinomatosa. 3. Metastatic pancreatic cancer, metastatsis to the bones and lung. 4. Malignant pleural effusion for which she has a PleurX placed and the patient has been drained on a daily basis while at [facility], her PleurX was removed yesterday; however, the patient continued to have loculated hydropneumothorax. 5. Persistent back pain with no evidence of any rib fracture, most likely due to metastasis to the T7. Patient apparently has agreed to go on radiation therapy that can be given as an inpatient according to Dr. Manthravadi. 6. I did a bone scan, which again showed no evidence of any rib fracture or metastasis to the ribs and only finding was the increased uptake with the tracer to the T7. PLAN: I am awaiting for the call back from ____ and if he says this can be done as an inpatient then the patient will stay in the hospital, have her radiation therapy and can be eventually discharged to [facility]. OTONIEL SCOTT MD DR: SERGEI/ezio JOB#: [id number] / [id number]
[2020-10-21 19:00] VITALS: BP 162/70
[2020-10-21] MEDS: traMADol 50 MG TABLET PO PRN (19:21)
[2020-10-21] MEDS: LORazepam 0.5 MG TABLET PO SCH (20:21)
[2020-10-21] MEDS: TEMAZEPAM 7.5 MG CAPSULE PO SCH (20:22)
[2020-10-21] MEDS: ATORVASTATIN CALCIUM 20 MG TABLET PO SCH (20:22)
[2020-10-21 23:00] VITALS: BP 148/73
[2020-10-22 03:00] VITALS: BP 140/80
[2020-10-22] MEDS: LEVOTHYROXINE 112 MCG TABLET PO SCH (06:23)
[2020-10-22] MEDS: PANTOPRAZOLE 40 MG TABLET.DR. PO SCH (06:23)
[2020-10-22 07:00] VITALS: BP 157/83
[2020-10-22] MEDS: traMADol 50 MG TABLET PO PRN (09:22)
[2020-10-22] MEDS: ASPIRIN CHEWABLE 81 MG TABLET. PO SCH (09:22)
[2020-10-22] MEDS: DRONABINOL 2.5 MG CAPSULE. PO SCH ×2 (09:22→17:50)
[2020-10-22] MEDS: ASCORBIC ACID 500 MG TABLET PO SCH ×2 (09:22→20:18)
[2020-10-22] MEDS: MULTIVITAMIN with MINERAL TABLET. PO SCH (09:22)
[2020-10-22] MEDS: FENOFIBRATE,MICRONIZED 134 MG CAPSULE PO SCH (09:22)
[2020-10-22] MEDS: MULTIVITAMIN I-VITE TABLET. PO SCH (09:22)
[2020-10-22] MEDS: DOCUSATE SODIUM 100 MG CAPSULE. PO PRN (09:23)
[2020-10-22] MEDS: METOPROLOL SUCC 24HR ER 25 MG TAB.ER.24H. PO SCH (09:23)
[2020-10-22] MEDS: AMOXICILLIN/K CLAV 500/125MG TABLET. PO SCH ×2 (09:23→20:16)
[2020-10-22] MEDS: LACTOBACILLUS RHAMNOSUS GG 1 CAPSULE. PO SCH ×2 (09:23→20:17)
--- NOTE | 2020-10-22 09:28 | PN ---
DATE: 10/22/2020 SUBJECTIVE: The patient is resting, slightly propped up in bed, in no apparent distress. She is complaining of constipation and she has not had bowel movement for the last 4 days despite being on Colace and MiraLax. She continued to complain of back pain, has aggravated by movement. She is scheduled to start radiotherapy tomorrow. PHYSICAL EXAMINATION: GENERAL: When I examined her this morning, she looked well and was clearly in no apparent respiratory distress, pale. No jaundice, cyanosis, or thyromegaly. No jugular venous distension. No lower limb edema. VITAL SIGNS: Her heart rate was 80, blood pressure was 157/83, temperature was 97.9, respiratory rate was 25, and oxygen saturation was 92% on 3 liters of oxygen. HEAD, EYES, EARS, NOSE, AND THROAT: Showed normocephalic, atraumatic. NECK: Supple. HEART: Showed normal first and second heart sounds. No gallop, rub or murmur. CHEST: Clear to auscultation. No crepitation or rhonchi. ABDOMEN: Distended, soft, nontender. NEUROLOGIC: She is awake, alert, responding appropriately. All cranial nerves intact. She moves extremities without difficulty, although she is mostly bedbound. Her intake over the last 24 hours was 440. LABORATORY DATA: Her most recent white cell count was 8000; hemoglobin 13; hematocrit 39; MCV 90; and platelet count 423,000. Her serum sodium 143, potassium 3.6, chloride 107, bicarbonate 27, anion gap of 9, BUN 12, creatinine 0.7, estimated GFR was 80 mL per minute. Her glucose was 98, calcium was 9.7. Total bilirubin, AST, ALT, alkaline phosphatase were normal. Total protein 6.4, albumin was 2.2. ASSESSMENT: 1. Acute hypoxic respiratory failure. 2. Bilateral lung infiltrates, probably healthcare-associated pneumonia versus lymphangitis carcinomatosa. 3. Metastatic pancreatic cancer with metastasis to bones and lung. 4. Malignant pleural effusion, for which she has PleurX placed and the patient has been drained on a daily basis while at [facility]. Her PleurX was removed 2 days ago; however, the patient continued to have loculated hydropneumothorax. 5. Persistent back pain with no evidence of any rib fracture. It was felt that it is most likely due to metastasis of T7. The patient agreed to radiation therapy and it will be started tomorrow. PLAN: To start her on mag citrate and if she does not have any bowel movement, we will order Relistor. OTONIEL SCOTT MD DR: SERGEI/ezio JOB#: [id number] / [id number]
[2020-10-22] MEDS ORDERED: MAGNESIUM CITRATE 296 ML SOLUTION. PO ONE (09:30)
--- NOTE | 2020-10-22 10:42 | PDOC ---
PULMONARY PROGRESS NOTES DATE: 10/22/20 TIME: 10:41 Subjective tired sob better has occ cough denies pain on 02 3 lpm Vitals Vital Signs Date Time Temp Pulse Resp B/P (MAP) Pulse Ox O2 Delivery O2 Flow Rate FiO2 10/22/20 09:23 80 157/83 10/22/20 09:22 18 Nasal Cannula 3.0 10/22/20 07:00 97.9 92 97.9 ROS: No Nausea, No Chest Pain, No Abdominal Pain, No Increase Cough General: Alert, No acute distress Lungs: Other (diminished bs ) Cardiovascular: S1, S2 Abdomen: Soft Neuro Exam: Alert Extremities: No Edema Skin: Warm Medications Active Scripts Medications Dose Route/Sig Max Daily Dose Days Date Category Zofran (Ondansetron Hcl) 4 Mg Tablet 4 Mg PO PRN Q6HRS PRN 10/16/20 Reported Vitamin C (Ascorbic Acid) 500 Mg Capsule.er 500 Mg PO BID 10/16/20 Reported Tramadol Hcl 50 Mg Tablet 50 Mg PO Q6HRS PRN 10/16/20 Reported Restoril (Temazepam) 15 Mg Capsule 15 Mg PO HS 10/16/20 Reported Protonix (Pantoprazole Sodium) 20 Mg Tablet.dr 40 Mg PO DAILY 10/16/20 Reported Dronabinol 10 Mg Capsule 5 Mg PO BID 10/16/20 Reported Fenofibrate (Fenofibrate,Micronized) 134 Mg Capsule 134 Mg PO DAILY 10/16/20 Reported Colace (Docusate Sodium) 100 Mg Capsule 100 Mg PO PRN DAILY PRN 10/16/20 Reported Ativan (Lorazepam) 0.5 Mg Tablet 0.5 Mg PO HS 10/16/20 Reported Preservision Areds Softgel (Vit A/Vit C/Vit E/Zinc/Copper) 1 Each Capsule 1 Tab PO DAILY 09/13/20 Reported Euthyrox (Levothyroxine Sodium) 112 Mcg Tablet 112 Mcg PO DAILY06 09/13/20 Reported Atorvastatin Calcium 20 Mg Tablet 20 Mg PO HS 09/13/20 Reported Metoprolol Succinate ( Xl ) (Metoprolol Succinate) 25 Mg Tab.er.24h 25 Mg PO DAILY 09/13/20 Reported Tylenol (Acetaminophen) 325 Mg Tablet 500 Mg PO Q6HRS PRN 09/13/20 Reported Aspirin 81 Mg Tab.chew 81 Mg PO DAILY 09/13/20 Reported Multi Vitamin Daily (Multivitamin) 1 Each Tablet 1 Each PO DAILY 07/02/14 Reported Impression . IMPRESSION: 1. Acute hypoxemic respiratory failure, suspect multifactorial secondary to pneumonia and hydropneumothorax. 2. Metastatic pancreatic cancer, 3. 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 4. Possible pneumonia, gram-positive and gram-negative. 5. CT chest revealing no evidence of pulmonary embolism. There is a moderate- sized hydropneumothorax. 6. Negative influenza screen. 7. Coronary artery disease with previous percutaneous coronary intervention. 8. History of breast cancer 20 years ago, status post mastectomy. 9. History of status post abdominal hysterectomy. Plan . Updated 10/22 xrt start on friday Had Pleurx catheter removed 10/20, s/p thoracentesis 10/20, approximately 700 cc We will continue treatment for pneumonia w abx total abx [address] mcgill spoke with the patient regarding her CODE STATUS, ? DNR, continue aggressive care for now prognosis poor discussed w pt rn Updated 10/18 Radiation oncology recommended palliative radiotherapy to T7 metastatic disease to help the pain Dr. Manrique to remove Pleurx catheter Continue treatment for pneumonia PT OT Appreciate medical oncology input, Dr. Abraham, recommended deferring systemic therapy until functional status improved Discussed with Dr. Bell Updated 10/17 Case discussed with medical oncology and interventional radiology We will proceed with removal of Pleurx catheter, currently nonfunctional, risk of infection is high Continue empiric antibiotics for pneumonia Once patient improves she will revisit with medical oncology for possible palliative chemotherapy The above was discussed with the son Donell who lives in [place] per telephone, I informed them that we will be removing the Pleurx catheter, I informed them that she will be treated for pneumonia I answered all of his questions, he was satisfied with the above plan. 10/16 1. We will continue empiric antibiotics for both gram-positive and gram-negative organisms. 2. We will discuss case with Medical Oncology and make further recommendations. 3. 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 I do not think that the lung will reexpand with the current chest tube that is in place. May consider discontinuing PleurX catheter. 4. Ideally, if the patient did not have comorbidities as such stated above, I would recommend a video-assisted thorascopic approach for decortication of the left lung. Considering her comorbidities, I do not think that this is a great option at this time. 5. I attempted calling her son who lives in [place], there was no answer, I left a message on his cell phone. JAKE JIMENES MD Oct 22, 2020 10:42
[2020-10-22 11:00] VITALS: BP 144/86
[2020-10-22] MEDS: ENOXAPARIN 40 MG/0.4 ML SYRINGE. SQ SCH (12:29)
[2020-10-22 15:00] VITALS: BP 141/77
[2020-10-22 19:00] VITALS: BP 131/76
[2020-10-22] MEDS: TEMAZEPAM 7.5 MG CAPSULE PO SCH (20:16)
[2020-10-22] MEDS: ATORVASTATIN CALCIUM 20 MG TABLET PO SCH (20:17)
[2020-10-22] MEDS: LORazepam 0.5 MG TABLET PO SCH (20:17)
[2020-10-22 22:59] VITALS: BP 133/75
[2020-10-23 03:00] VITALS: BP 124/70
[2020-10-23] MEDS: LEVOTHYROXINE 112 MCG TABLET PO SCH (05:47)
[2020-10-23 07:00] VITALS: BP 147/82
[2020-10-23] MEDS: AMOXICILLIN/K CLAV 500/125MG TABLET. PO SCH ×2 (09:14→21:09)
[2020-10-23] MEDS: FENOFIBRATE,MICRONIZED 134 MG CAPSULE PO SCH (09:14)
[2020-10-23] MEDS: PANTOPRAZOLE 40 MG TABLET.DR. PO SCH (09:14)
[2020-10-23] MEDS: MULTIVITAMIN with MINERAL TABLET. PO SCH (09:15)
[2020-10-23] MEDS: MULTIVITAMIN I-VITE TABLET. PO SCH (09:15)
[2020-10-23] MEDS: ASCORBIC ACID 500 MG TABLET PO SCH ×2 (09:15→21:09)
[2020-10-23] MEDS: ASPIRIN CHEWABLE 81 MG TABLET. PO SCH (09:15)
[2020-10-23] MEDS: DOCUSATE SODIUM 100 MG CAPSULE. PO PRN (09:15)
[2020-10-23] MEDS: METOPROLOL SUCC 24HR ER 25 MG TAB.ER.24H. PO SCH (09:16)
[2020-10-23] MEDS: LACTOBACILLUS RHAMNOSUS GG 1 CAPSULE. PO SCH ×2 (09:16→21:09)
[2020-10-23] MEDS: DRONABINOL 2.5 MG CAPSULE. PO SCH ×2 (09:17→18:04)
[2020-10-23 10:53] LABS: ALBUMIN 2.6 g/dL (3.4-5.0); ALBUMIN/GLOBULIN RATIO 0.5 (1.0-1.7); CALCIUM 10.7 mg/dL (8.5-10.1); CREATININE 1.1 mg/dL (0.6-1.0); GFR 47.8; POTASSIUM 3.6 mmol/L (3.5-5.1); TOTAL BILIRUBIN 0.8 mg/dL (0.2-1.0); TOTAL PROTEIN 7.5 g/dL (6.4-8.2)
--- NOTE | 2020-10-23 10:53 | PN ---
DATE: 10/23/2020 SUBJECTIVE: The patient is resting, slightly propped up in bed, in no apparent respiratory distress. She continued to have back pain. PHYSICAL EXAMINATION: GENERAL: When I examined , she looked pale, but no jaundice, cyanosis or thyromegaly. No jugular venous distention or limb edema. VITAL SIGNS: Her heart rate was 81, blood pressure was 147/82, temperature 97.4, respiratory rate was 21 and oxygen saturation was 99% on 3 liters of oxygen. HEAD, EYES, EARS, NOSE AND THROAT Showed normocephalic, atraumatic. NECK: Supple. HEART: Showed normal first and second heart sounds. No gallop or murmur. CHEST: Shows central trachea. Good chest expansion and air entry on the right side. Reduced expansion, air entry on the left side. ABDOMEN: Distended, soft, nontender. NEUROLOGIC: She is grossly intact. LABORATORY DATA: She has no lab work done today. Her intake and output was 800 and no output. ASSESSMENT: 1. Acute hypoxic respiratory failure. 2. Bilateral lung infiltrates, probably healthcare-associated pneumonia versus lymphangitis carcinomatosa. 3. Metastatic pancreatic cancer with metastasis to bone and lung. 4. Malignant pleural effusion for which she had Pleurx placed and the patient was drained on a daily basis while at [facility]. Her PleurX was removed 3 days ago; however, the patient continued to have loculated hydropneumothorax. 5. Persistent back pain with no evidence of any rib fracture, could be most likely due to metastasis. 6. She is scheduled for radiation therapy. PLAN: To obviously continue with pain management. Continue nutritional support. OTONIEL SCOTT MD DR: SERGEI/ezio JOB#: [id number] / [id number]
[2020-10-23 11:00] VITALS: BP 129/56
--- NOTE | 2020-10-23 12:11 | PDOC ---
PULMONARY PROGRESS NOTES DATE: 10/23/20 TIME: 12:09 Subjective tired sob better has occ cough denies pain on 02 3 lpm Vitals Vital Signs Date Time Temp Pulse Resp B/P (MAP) Pulse Ox O2 Delivery O2 Flow Rate FiO2 10/23/20 11:00 97.0 87 16 129/56 (80) 100 Nasal Cannula 3.0 97.0 ROS: No Nausea, No Chest Pain, No Abdominal Pain, No Increase Cough General: Alert, No acute distress Lungs: Other (diminished bs ) Cardiovascular: S1, S2 Abdomen: Soft Neuro Exam: Alert Extremities: No Edema Skin: Warm Labs Laboratory Tests Test 10/23/20 09:50 Sodium Level 147 mmol/L (136-145) Potassium Level 3.6 mmol/L (3.5-5.1) Chloride Level 105 mmol/L (98-107) Carbon Dioxide Level 30 mmol/L (21-32) Anion Gap 12 (6-14) Blood Urea Nitrogen 22 mg/dL (7-20) Creatinine 1.1 mg/dL (0.6-1.0) Estimated GFR (Cockcroft-Gault) 47.8 BUN/Creatinine Ratio 20 (6-20) Glucose Level 132 mg/dL (70-99) Calcium Level 10.7 mg/dL (8.5-10.1) Total Bilirubin 0.8 mg/dL (0.2-1.0) Aspartate Amino Transf (AST/SGOT) 107 U/L (15-37) Alanine Aminotransferase (ALT/SGPT) 37 U/L (14-59) Alkaline Phosphatase 79 U/L (46-116) Total Protein 7.5 g/dL (6.4-8.2) Albumin 2.6 g/dL (3.4-5.0) Albumin/Globulin Ratio 0.5 (1.0-1.7) Laboratory Tests Test 10/23/20 09:50 Sodium Level 147 mmol/L (136-145) Potassium Level 3.6 mmol/L (3.5-5.1) Chloride Level 105 mmol/L (98-107) Carbon Dioxide Level 30 mmol/L (21-32) Anion Gap 12 (6-14) Blood Urea Nitrogen 22 mg/dL (7-20) Creatinine 1.1 mg/dL (0.6-1.0) Estimated GFR (Cockcroft-Gault) 47.8 BUN/Creatinine Ratio 20 (6-20) Glucose Level 132 mg/dL (70-99) Calcium Level 10.7 mg/dL (8.5-10.1) Total Bilirubin 0.8 mg/dL (0.2-1.0) Aspartate Amino Transf (AST/SGOT) 107 U/L (15-37) Alanine Aminotransferase (ALT/SGPT) 37 U/L (14-59) Alkaline Phosphatase 79 U/L (46-116) Total Protein 7.5 g/dL (6.4-8.2) Albumin 2.6 g/dL (3.4-5.0) Albumin/Globulin Ratio 0.5 (1.0-1.7) Medications Active Scripts Medications Dose Route/Sig Max Daily Dose Days Date Category Zofran (Ondansetron Hcl) 4 Mg Tablet 4 Mg PO PRN Q6HRS PRN 10/16/20 Reported Vitamin C (Ascorbic Acid) 500 Mg Capsule.er 500 Mg PO BID 10/16/20 Reported Tramadol Hcl 50 Mg Tablet 50 Mg PO Q6HRS PRN 10/16/20 Reported Restoril (Temazepam) 15 Mg Capsule 15 Mg PO HS 10/16/20 Reported Protonix (Pantoprazole Sodium) 20 Mg Tablet.dr 40 Mg PO DAILY 10/16/20 Reported Dronabinol 10 Mg Capsule 5 Mg PO BID 10/16/20 Reported Fenofibrate (Fenofibrate,Micronized) 134 Mg Capsule 134 Mg PO DAILY 10/16/20 Reported Colace (Docusate Sodium) 100 Mg Capsule 100 Mg PO PRN DAILY PRN 10/16/20 Reported Ativan (Lorazepam) 0.5 Mg Tablet 0.5 Mg PO HS 10/16/20 Reported Preservision Areds Softgel (Vit A/Vit C/Vit E/Zinc/Copper) 1 Each Capsule 1 Tab PO DAILY 09/13/20 Reported Euthyrox (Levothyroxine Sodium) 112 Mcg Tablet 112 Mcg PO DAILY06 09/13/20 Reported Atorvastatin Calcium 20 Mg Tablet 20 Mg PO HS 09/13/20 Reported Metoprolol Succinate ( Xl ) (Metoprolol Succinate) 25 Mg Tab.er.24h 25 Mg PO DAILY 09/13/20 Reported Tylenol (Acetaminophen) 325 Mg Tablet 500 Mg PO Q6HRS PRN 09/13/20 Reported Aspirin 81 Mg Tab.chew 81 Mg PO DAILY 09/13/20 Reported Multi Vitamin Daily (Multivitamin) 1 Each Tablet 1 Each PO DAILY 07/02/14 Reported Impression . IMPRESSION: 1. Acute hypoxemic respiratory failure, suspect multifactorial secondary to pneumonia and hydropneumothorax. 2. Metastatic pancreatic cancer, 3. 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 4. Possible pneumonia, gram-positive and gram-negative. 5. CT chest revealing no evidence of pulmonary embolism. There is a moderate- sized hydropneumothorax. 6. Negative influenza screen. 7. Coronary artery disease with previous percutaneous coronary intervention. 8. History of breast cancer 20 years ago, status post mastectomy. 9. History of status post abdominal hysterectomy. Plan . Updated 10/23 d/w daughter . will order cxr today. she has trap lung PTX unlikely to improve. If effusion re -accumulates, may need PleurX catheter back xrt start on friday Had Pleurx catheter removed 10/20, s/p thoracentesis 10/20, approximately 700 cc We will continue treatment for pneumonia w abx total abx 7 days prognosis poor discussed w pt rn Updated 10/22 xrt start on friday Had Pleurx catheter removed 10/20, s/p thoracentesis 10/20, approximately 700 cc We will continue treatment for pneumonia w abx total abx [address] mcgill spoke with the patient regarding her CODE STATUS, ? DNR, continue aggressive care for now prognosis poor discussed w pt rn FRIDA FERNANDES MD Oct 23, 2020 12:11
[2020-10-23] MEDS: ENOXAPARIN 40 MG/0.4 ML SYRINGE. SQ SCH (12:17)
[2020-10-23 15:00] VITALS: BP 157/85
[2020-10-23] MEDS: traMADol 50 MG TABLET PO PRN ×2 (15:59→21:20)
--- NOTE | 2020-10-23 17:39 | RAD ---
EXAM: CHEST 1 VIEW History: Hydropneumothorax COMPARISON: 10/20/2020 TECHNIQUE: Single portable radiograph of the chest Findings/ impression: Low lung volumes and technique accentuates heart size and pulmonary vascularity. Hydropneumothorax on the left again identified with mild increase in left pleural effusion. Mild prominent bilateral inte rstitial lung markings. Linear atelectasis right lung. Electronically signed by: Levi Harris MD (10/23/2020 5:37 PM) [id number]
[2020-10-23 19:00] VITALS: BP 121/64
[2020-10-23] MEDS: ATORVASTATIN CALCIUM 20 MG TABLET PO SCH (21:09)
[2020-10-23] MEDS: TEMAZEPAM 7.5 MG CAPSULE PO SCH (21:09)
[2020-10-23] MEDS: LORazepam 0.5 MG TABLET PO SCH (21:09)
[2020-10-23 22:49] VITALS: BP 128/72
[2020-10-24 03:08] VITALS: BP 128/66
[2020-10-24] MEDS: LEVOTHYROXINE 112 MCG TABLET PO SCH (06:00)
[2020-10-24 07:00] VITALS: BP 122/69
[2020-10-24 07:18] LABS: HEMATOCRIT 38.9 % (36.0-47.0); HEMOGLOBIN 12.9 g/dL (12.0-15.5); RED BLOOD COUNT 4.4 x10^6/uL (3.50-5.40); WHITE BLOOD COUNT 7.7 x10^3/uL (4.0-11.0)
[2020-10-24 11:00] VITALS: BP 136/73
[2020-10-24] MEDS: MULTIVITAMIN with MINERAL TABLET. PO SCH (11:13)
[2020-10-24] MEDS: ASCORBIC ACID 500 MG TABLET PO SCH ×2 (11:13→19:46)
[2020-10-24] MEDS: ASPIRIN CHEWABLE 81 MG TABLET. PO SCH (11:14)
[2020-10-24] MEDS: AMOXICILLIN/K CLAV 500/125MG TABLET. PO SCH (11:14)
[2020-10-24] MEDS: MULTIVITAMIN I-VITE TABLET. PO SCH (11:15)
[2020-10-24] MEDS: METOPROLOL SUCC 24HR ER 25 MG TAB.ER.24H. PO SCH (11:24)
[2020-10-24] MEDS: PANTOPRAZOLE 40 MG TABLET.DR. PO SCH (11:24)
[2020-10-24] MEDS: DRONABINOL 2.5 MG CAPSULE. PO SCH ×2 (11:25→17:05)
[2020-10-24] MEDS: FENOFIBRATE,MICRONIZED 134 MG CAPSULE PO SCH (11:54)
[2020-10-24] MEDS: LACTOBACILLUS RHAMNOSUS GG 1 CAPSULE. PO SCH ×2 (11:54→19:46)
[2020-10-24] MEDS: ENOXAPARIN 40 MG/0.4 ML SYRINGE. SQ SCH (11:55)
--- NOTE | 2020-10-24 12:15 | PDOC ---
PULMONARY PROGRESS NOTES DATE: 10/24/20 TIME: 12:13 Subjective tired sob better has occ cough denies pain on 02 3 lpm Vitals Vital Signs Date Time Temp Pulse Resp B/P (MAP) Pulse Ox O2 Delivery O2 Flow Rate FiO2 10/24/20 11:24 78 122/69 10/24/20 07:00 97.3 20 96 Nasal Cannula 4.0 97.3 ROS: No Nausea, No Chest Pain, No Abdominal Pain, No Increase Cough General: Alert, No acute distress Lungs: Other (diminished bs ) Cardiovascular: S1, S2 Abdomen: Soft Neuro Exam: Alert Extremities: No Edema Skin: Warm Labs Laboratory Tests Test 10/23/20 09:50 10/24/20 06:40 Sodium Level 147 mmol/L (136-145) Potassium Level 3.6 mmol/L (3.5-5.1) Chloride Level 105 mmol/L (98-107) Carbon Dioxide Level 30 mmol/L (21-32) Anion Gap 12 (6-14) Blood Urea Nitrogen 22 mg/dL (7-20) Creatinine 1.1 mg/dL (0.6-1.0) Estimated GFR (Cockcroft-Gault) 47.8 BUN/Creatinine Ratio 20 (6-20) Glucose Level 132 mg/dL (70-99) Calcium Level 10.7 mg/dL (8.5-10.1) Total Bilirubin 0.8 mg/dL (0.2-1.0) Aspartate Amino Transf (AST/SGOT) 107 U/L (15-37) Alanine Aminotransferase (ALT/SGPT) 37 U/L (14-59) Alkaline Phosphatase 79 U/L (46-116) Total Protein 7.5 g/dL (6.4-8.2) Albumin 2.6 g/dL (3.4-5.0) Albumin/Globulin Ratio 0.5 (1.0-1.7) White Blood Count 7.7 x10^3/uL (4.0-11.0) Red Blood Count 4.40 x10^6/uL (3.50-5.40) Hemoglobin 12.9 g/dL (12.0-15.5) Hematocrit 38.9 % (36.0-47.0) Mean Corpuscular Volume 88 fL (79-100) Mean Corpuscular Hemoglobin 29 pg (25-35) Mean Corpuscular Hemoglobin Concent 33 g/dL (31-37) Red Cell Distribution Width 15.0 % (11.5-14.5) Platelet Count 414 x10^3/uL (140-400) Laboratory Tests Test 10/24/20 06:40 White Blood Count 7.7 x10^3/uL (4.0-11.0) Red Blood Count 4.40 x10^6/uL (3.50-5.40) Hemoglobin 12.9 g/dL (12.0-15.5) Hematocrit 38.9 % (36.0-47.0) Mean Corpuscular Volume 88 fL (79-100) Mean Corpuscular Hemoglobin 29 pg (25-35) Mean Corpuscular Hemoglobin Concent 33 g/dL (31-37) Red Cell Distribution Width 15.0 % (11.5-14.5) Platelet Count 414 x10^3/uL (140-400) Medications Active Scripts Medications Dose Route/Sig Max Daily Dose Days Date Category Zofran (Ondansetron Hcl) 4 Mg Tablet 4 Mg PO PRN Q6HRS PRN 10/16/20 Reported Vitamin C (Ascorbic Acid) 500 Mg Capsule.er 500 Mg PO BID 10/16/20 Reported Tramadol Hcl 50 Mg Tablet 50 Mg PO Q6HRS PRN 10/16/20 Reported Restoril (Temazepam) 15 Mg Capsule 15 Mg PO HS 10/16/20 Reported Protonix (Pantoprazole Sodium) 20 Mg Tablet.dr 40 Mg PO DAILY 10/16/20 Reported Dronabinol 10 Mg Capsule 5 Mg PO BID 10/16/20 Reported Fenofibrate (Fenofibrate,Micronized) 134 Mg Capsule 134 Mg PO DAILY 10/16/20 Reported Colace (Docusate Sodium) 100 Mg Capsule 100 Mg PO PRN DAILY PRN 10/16/20 Reported Ativan (Lorazepam) 0.5 Mg Tablet 0.5 Mg PO HS 10/16/20 Reported Preservision Areds Softgel (Vit A/Vit C/Vit E/Zinc/Copper) 1 Each Capsule 1 Tab PO DAILY 09/13/20 Reported Euthyrox (Levothyroxine Sodium) 112 Mcg Tablet 112 Mcg PO DAILY06 09/13/20 Reported Atorvastatin Calcium 20 Mg Tablet 20 Mg PO HS 09/13/20 Reported Metoprolol Succinate ( Xl ) (Metoprolol Succinate) 25 Mg Tab.er.24h 25 Mg PO DAILY 09/13/20 Reported Tylenol (Acetaminophen) 325 Mg Tablet 500 Mg PO Q6HRS PRN 09/13/20 Reported Aspirin 81 Mg Tab.chew 81 Mg PO DAILY 09/13/20 Reported Multi Vitamin Daily (Multivitamin) 1 Each Tablet 1 Each PO DAILY 07/02/14 Reported Impression . IMPRESSION: 1. Acute hypoxemic respiratory failure, suspect multifactorial secondary to pneumonia and hydropneumothorax. 2. Metastatic pancreatic cancer, 3. 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 4. Possible pneumonia, gram-positive and gram-negative. 5. CT chest revealing no evidence of pulmonary embolism. There is a moderate- sized hydropneumothorax. 6. Negative influenza screen. 7. Coronary artery disease with previous percutaneous coronary intervention. 8. History of breast cancer 20 years ago, status post mastectomy. 9. History of status post abdominal hysterectomy. Plan . Updated 10/24 cxr 10/23 with re-accumulation of left effusion.she also has trap lung PTX unlikely to improve. may need PleurX catheter back. d/w Pt . will d/w daughter again xrt Had Pleurx catheter removed 10/20, s/p thoracentesis 10/20, approximately 700 cc We will continue treatment for pneumonia w abx total abx 7 days prognosis poor discussed w pt rn Updated 10/23 d/w daughter . will order cxr today. she has trap lung PTX unlikely to improve. If effusion re -accumulates, may need PleurX catheter back xrt start on friday Had Pleurx catheter removed 10/20, s/p thoracentesis 10/20, approximately 700 cc We will continue treatment for pneumonia w abx total abx 7 days prognosis poor discussed w pt rn Updated 10/22 xrt start on friday Had Pleurx catheter removed 10/20, s/p thoracentesis 10/20, approximately 700 cc We will continue treatment for pneumonia w abx total abx [address] mcgill spoke with the patient regarding her CODE STATUS, ? DNR, continue aggressive care for now prognosis poor discussed w pt rn FRIDA FERNANDES MD Oct 24, 2020 12:14
[2020-10-24 15:00] VITALS: BP 130/65
[2020-10-24] MEDS: traMADol 50 MG TABLET PO PRN (19:20)
--- NOTE | 2020-10-24 19:42 | PN ---
DATE: 10/24/2020 SUBJECTIVE: The patient is resting, slightly propped up in bed, in no apparent respiratory distress. She continued somehow lethargic, weak and debilitated. She has had her first radiation treatment yesterday. Has had another chest x-ray done, which showed that she has low lung volumes and technique accentuates heart size and pulmonary vascularity. She has hydropneumothorax in the left, again identified with mild increase in left pleural effusion, mild prominent bilateral interstitial lung marking, linear atelectasis of the right lung. PHYSICAL EXAMINATION: GENERAL: On examining her, she looked pale, but no jaundice, cyanosis or thyromegaly. No jugular venous distension. No lower limb edema. VITAL SIGNS: Her heart rate was 78, blood pressure was 122/69, temperature was 97.3, respiratory rate was 20 and oxygen saturation was 96%. HEAD, EYES, EARS, NOSE AND THROAT: Showed normocephalic, atraumatic. NECK: Supple. HEART: Normal first and second heart sounds. No gallop or murmur. CHEST: Shows central trachea. Good chest expansion and air entry on the right side. Reduced expansion, reduced air entry and dull percussion noted on the left side posteriorly. ABDOMEN: Distended, soft, nontender. NEUROLOGIC: She was grossly intact. Her intake and output are incompletely recorded. LABORATORY DATA: Her lab work this morning showed a white cell count 7700, hemoglobin 13, hematocrit 39, MCV 88 and platelet count of 414,000. Her chemistry showed a serum sodium 147, potassium 3.6, chloride 105, bicarbonate 30, anion gap of 12, BUN 22, creatinine 1.1, estimated GFR was 48 mL per minute. Her glucose 132, calcium was 10.7. Total bilirubin, AST, ALT, alkaline phosphatase were normal. Total protein was 7.5, albumin was 2.6. ASSESSMENT: 1. Acute hypoxic respiratory failure. The patient continued to require 4 liters of oxygen by nasal cannula and her chest x-ray continued to show hydropneumothorax in the left, identified with mild increase in left pleural effusion. She has also mild prominent bilateral interstitial lung marking and linear atelectasis in the right lung, bilateral lung infiltrate, probably healthcare-associated pneumonia versus lymphangitis carcinomatosis. 2. Metastatic pancreatic cancer, metastasis to bone and lung. 3. Malignant pleural effusion, for which she has had PleurX placed and the patient was drained on a daily basis while at [facility]. Her PleurX was removed 4 days ago; however, the patient continued to have loculated hydropneumothorax. 4. 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 The patient also has hypercalcemia. 5. Corrected for hypoalbuminemia. Her serum calcium is up to 11.82 mg/dL. PLAN: Obviously to continue with the radiation therapy. Continue with pain management. Continue with nutritional support as well as physical and occupational therapy. As far as hypercalcemia, could be obviously because of inability and/or malignancy, and I will discuss that with the oncologist to see whether we need to treat her with pamidronate or adjust IV fluid. OTONIEL SCOTT MD DR: SERGEI/ezio JOB#: [id number] / [id number]
[2020-10-24 19:46] VITALS: BP 136/69
[2020-10-24] MEDS: TEMAZEPAM 7.5 MG CAPSULE PO SCH (19:46)
[2020-10-24] MEDS: LORazepam 0.5 MG TABLET PO SCH (19:46)
[2020-10-24] MEDS: ATORVASTATIN CALCIUM 20 MG TABLET PO SCH (19:46)
[2020-10-24 23:21] VITALS: BP 132/65
[2020-10-25 03:55] VITALS: BP 131/74
[2020-10-25] MEDS: LEVOTHYROXINE 112 MCG TABLET PO SCH (05:11)
[2020-10-25 07:00] VITALS: BP 149/79
[2020-10-25] MEDS: MULTIVITAMIN I-VITE TABLET. PO SCH (08:52)
[2020-10-25] MEDS: FENOFIBRATE,MICRONIZED 134 MG CAPSULE PO SCH (08:52)
[2020-10-25] MEDS: DRONABINOL 2.5 MG CAPSULE. PO SCH ×2 (08:52→16:59)
[2020-10-25] MEDS: ASPIRIN CHEWABLE 81 MG TABLET. PO SCH (08:53)
[2020-10-25] MEDS: LACTOBACILLUS RHAMNOSUS GG 1 CAPSULE. PO SCH ×2 (08:53→20:11)
[2020-10-25] MEDS: PANTOPRAZOLE 40 MG TABLET.DR. PO SCH (08:53)
[2020-10-25] MEDS: ASCORBIC ACID 500 MG TABLET PO SCH ×2 (08:53→20:11)
[2020-10-25] MEDS: METOPROLOL SUCC 24HR ER 25 MG TAB.ER.24H. PO SCH (08:53)
[2020-10-25] MEDS: MULTIVITAMIN with MINERAL TABLET. PO SCH (08:53)
[2020-10-25] MEDS ORDERED: LORazepam 0.5 MG TABLET PO SCH (10:00)
--- NOTE | 2020-10-25 10:25 | PDOC ---
PULMONARY PROGRESS NOTES DATE: 10/25/20 TIME: 10:24 Subjective tired sob better has occ cough denies pain on 02 3 lpm Vitals Vital Signs Date Time Temp Pulse Resp B/P (MAP) Pulse Ox O2 Delivery O2 Flow Rate FiO2 10/25/20 08:53 88 149/79 10/25/20 07:00 96.7 30 96 Nasal Cannula 4.0 96.7 ROS: No Nausea, No Chest Pain, No Abdominal Pain, No Increase Cough General: Alert, No acute distress Lungs: Other (diminished bs ) Cardiovascular: S1, S2 Abdomen: Soft Neuro Exam: Alert Extremities: No Edema Skin: Warm Labs Laboratory Tests Test 10/24/20 06:40 White Blood Count 7.7 x10^3/uL (4.0-11.0) Red Blood Count 4.40 x10^6/uL (3.50-5.40) Hemoglobin 12.9 g/dL (12.0-15.5) Hematocrit 38.9 % (36.0-47.0) Mean Corpuscular Volume 88 fL (79-100) Mean Corpuscular Hemoglobin 29 pg (25-35) Mean Corpuscular Hemoglobin Concent 33 g/dL (31-37) Red Cell Distribution Width 15.0 % (11.5-14.5) Platelet Count 414 x10^3/uL (140-400) Medications Active Scripts Medications Dose Route/Sig Max Daily Dose Days Date Category Zofran (Ondansetron Hcl) 4 Mg Tablet 4 Mg PO PRN Q6HRS PRN 10/16/20 Reported Vitamin C (Ascorbic Acid) 500 Mg Capsule.er 500 Mg PO BID 10/16/20 Reported Tramadol Hcl 50 Mg Tablet 50 Mg PO Q6HRS PRN 10/16/20 Reported Restoril (Temazepam) 15 Mg Capsule 15 Mg PO HS 10/16/20 Reported Protonix (Pantoprazole Sodium) 20 Mg Tablet.dr 40 Mg PO DAILY 10/16/20 Reported Dronabinol 10 Mg Capsule 5 Mg PO BID 10/16/20 Reported Fenofibrate (Fenofibrate,Micronized) 134 Mg Capsule 134 Mg PO DAILY 10/16/20 Reported Colace (Docusate Sodium) 100 Mg Capsule 100 Mg PO PRN DAILY PRN 10/16/20 Reported Ativan (Lorazepam) 0.5 Mg Tablet 0.5 Mg PO HS 10/16/20 Reported Preservision Areds Softgel (Vit A/Vit C/Vit E/Zinc/Copper) 1 Each Capsule 1 Tab PO DAILY 09/13/20 Reported Euthyrox (Levothyroxine Sodium) 112 Mcg Tablet 112 Mcg PO DAILY06 09/13/20 Reported Atorvastatin Calcium 20 Mg Tablet 20 Mg PO HS 09/13/20 Reported Metoprolol Succinate ( Xl ) (Metoprolol Succinate) 25 Mg Tab.er.24h 25 Mg PO DAILY 09/13/20 Reported Tylenol (Acetaminophen) 325 Mg Tablet 500 Mg PO Q6HRS PRN 09/13/20 Reported Aspirin 81 Mg Tab.chew 81 Mg PO DAILY 09/13/20 Reported Multi Vitamin Daily (Multivitamin) 1 Each Tablet 1 Each PO DAILY 07/02/14 Reported Impression . IMPRESSION: 1. Acute hypoxemic respiratory failure, suspect multifactorial secondary to pneumonia and hydropneumothorax. 2. Metastatic pancreatic cancer, 3. 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 4. Possible pneumonia, gram-positive and gram-negative. 5. CT chest revealing no evidence of pulmonary embolism. There is a moderate- sized hydropneumothorax. 6. Negative influenza screen. 7. Coronary artery disease with previous percutaneous coronary intervention. 8. History of breast cancer 20 years ago, status post mastectomy. 9. History of status post abdominal hysterectomy. Plan . Updated 10/25 cxr 10/23 with re-accumulation of left effusion.she also has trap lung PTX unlikely to improve. will need PleurX catheter back. d/w Pt . d/w daughter . Both agrees xrt Had Pleurx catheter removed 10/20, s/p thoracentesis 10/20, approximately 700 cc We will continue treatment for pneumonia w abx total abx 7 days prognosis poor discussed w pt rn Updated 10/24 cxr 10/23 with re-accumulation of left effusion.she also has trap lung PTX unlikely to improve. may need PleurX catheter back. d/w Pt . will d/w daughter again xrt Had Pleurx catheter removed 10/20, s/p thoracentesis 10/20, approximately 700 cc We will continue treatment for pneumonia w abx total abx 7 days prognosis poor discussed w pt rn Updated 10/23 d/w daughter . will order cxr today. she has trap lung PTX unlikely to improve. If effusion re -accumulates, may need PleurX catheter back xrt start on friday Had Pleurx catheter removed 10/20, s/p thoracentesis 10/20, approximately 700 cc We will continue treatment for pneumonia w abx total abx 7 days prognosis poor discussed w pt rn FRIDA FERNANDES MD Oct 25, 2020 10:25
[2020-10-25 11:00] VITALS: BP 125/83
--- NOTE | 2020-10-25 11:13 | PN ---
DATE: 10/25/2020 SUBJECTIVE: The patient is resting, slightly propped up, continued to be very sleepy. She is scheduled for a third session of radiotherapy. She was seen by Dr. Crawford, who is planning to arrange for another PleurX. PHYSICAL EXAMINATION: GENERAL: When I examined her this afternoon, she looked well and was clearly in no apparent respiratory distress. No pallor, jaundice, cyanosis, or thyromegaly. No jugular venous distension. No lower limb edema. VITAL SIGNS: Her heart rate was 88, blood pressure was 149/79, temperature 96.7, respiratory rate 30 and oxygen saturation was 96% on 4 liters of oxygen. HEAD, EYES, EARS, NOSE, AND THROAT: Showed normocephalic, atraumatic. NECK: Supple. HEART: Showed normal first and second heart sounds. No gallop, rub or murmur. CHEST: Shows central trachea, equal bilateral chest expansion. The air entry is much better on the right than the left with dull percussion noted and absent breath sounds on the left side posteriorly. ABDOMEN: Distended, soft, nontender. NEUROLOGIC: She is sleepy, but arousable. All cranial nerves intact. She moves extremities without difficulty. Her intake was 800, no output was recorded. LABORATORY DATA: Her white cell count yesterday was 7700; hemoglobin 13; hematocrit 39; MCV 88; and platelet count 414,000. Serum sodium 147, potassium 3.6, chloride 105, bicarbonate 30, anion gap of 12, BUN 22, creatinine 1.1, estimated GFR was 48 mL per minute. Her glucose was 132, calcium was 10.7. Total bilirubin, AST, ALT, alkaline phosphatase are slightly elevated. Total protein 7.5, albumin 2.6. ASSESSMENT AND PLAN: 1. Acute hypoxic respiratory failure. The patient continued to require 4 liters of oxygen by nasal cannula. Her chest x-ray continued to show hydropneumothorax in the left identified, which might increase in the left pleural effusion. She also has prominent bilateral interstitial lung marking and linear atelectasis in the right lung. 2. Bilateral lung infiltrates, probably healthcare-associated pneumonia versus lymphangitis carcinomatosis. 3. Metastatic pancreatic cancer, metastasis to bone and lung. 4. Malignant pleural effusion, for which she has had PleurX placed and eventually it was removed about 5 days ago. The patient continued to have loculated hydropneumothorax. 5. 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 6. The patient has hypercalcemia; corrected for hypoalbuminemia. Serum calcium is up to 11.82 mg/dL. Given excessive sedation, my plan is I discontinued the Ativan and also the Restoril, cut down tramadol to every 6 hours. I have started her also on melatonin to assist with sleep and cut down the lorazepam to 0.25 mg and add melatonin and see if that will make her more awake. OTONIEL SCOTT MD DR: SERGEI/ezio JOB#: [id number] / [id number]
[2020-10-25] MEDS: ENOXAPARIN 40 MG/0.4 ML SYRINGE. SQ SCH (12:00)
[2020-10-25] MEDS: IV NORMAL SALINE 1000ML BAG 1,000 ML IV SCH ×2 (12:14→20:15)
--- NOTE | 2020-10-25 12:34 | NUR ---
Pt has pleural catheter scheduled 10/26/20. This RN verified with Felicia from IR to hold lovenox at this time for procedure.
[2020-10-25] MEDS ORDERED: PAMIDRONATE 60 MG in IV NORMAL SALINE 250ML 250 ML IV ONE (13:00)
[2020-10-25] MEDS: traMADol 50 MG TABLET PO PRN ×2 (14:23→20:15)
[2020-10-25 15:00] VITALS: BP 150/71
[2020-10-25 19:50] VITALS: BP 141/67
[2020-10-25] MEDS: ATORVASTATIN CALCIUM 20 MG TABLET PO SCH (20:11)
[2020-10-25] MEDS: traZODone 50 MG TABLET. PO SCH (20:11)
[2020-10-25 23:36] VITALS: BP 123/79
[2020-10-26] VITALS (13 sets, daily range): BP systolic 129–172; BP diastolic 66–99
[2020-10-26 05:08] LABS: ALBUMIN 2.2 g/dL (3.4-5.0); ALBUMIN/GLOBULIN RATIO 0.5 (1.0-1.7); CALCIUM 9.4 mg/dL (8.5-10.1); CREATININE 0.9 mg/dL (0.6-1.0); GFR 60.2; POTASSIUM 3.6 mmol/L (3.5-5.1); TOTAL BILIRUBIN 0.8 mg/dL (0.2-1.0); TOTAL PROTEIN 6.4 g/dL (6.4-8.2)
[2020-10-26] MEDS: LEVOTHYROXINE 112 MCG TABLET PO SCH (06:00)
[2020-10-26] MEDS: IV NORMAL SALINE 1000ML BAG 1,000 ML IV SCH ×2 (06:15→16:19)
[2020-10-26] MEDS: PANTOPRAZOLE 40 MG TABLET.DR. PO SCH (07:30)
[2020-10-26] MEDS: ASPIRIN CHEWABLE 81 MG TABLET. PO SCH (08:00)
[2020-10-26] MEDS: DRONABINOL 2.5 MG CAPSULE. PO SCH ×2 (08:00→16:57)
[2020-10-26] MEDS ORDERED: LIDOCAINE 2%/EPI 1:100,000 20 ML VIAL. ONE (08:34)
[2020-10-26] MEDS: MULTIVITAMIN with MINERAL TABLET. PO SCH (09:00)
[2020-10-26] MEDS: FENOFIBRATE,MICRONIZED 134 MG CAPSULE PO SCH (09:00)
[2020-10-26] MEDS: METOPROLOL SUCC 24HR ER 25 MG TAB.ER.24H. PO SCH (09:00)
[2020-10-26] MEDS: LACTOBACILLUS RHAMNOSUS GG 1 CAPSULE. PO SCH ×2 (09:00→21:36)
[2020-10-26] MEDS: ASCORBIC ACID 500 MG TABLET PO SCH ×2 (09:00→21:36)
[2020-10-26] MEDS: MULTIVITAMIN I-VITE TABLET. PO SCH (09:00)
[2020-10-26] MEDS ORDERED: fentaNYL PF VIAL 100 MCG/2 ML VIAL ONE (09:53)
[2020-10-26] MEDS ORDERED: MIDAZOLAM HCL/PF 2 MG/2 ML VIAL. ONE (09:53)
[2020-10-26] MEDS ORDERED: MIDAZOLAM HCL/PF 2 MG/2 ML VIAL. IV ONE (10:15)
[2020-10-26] MEDS ORDERED: LIDOCAINE 2%/EPI 1:100,000 20 ML VIAL. IJ ONE (10:15)
[2020-10-26] MEDS ORDERED: fentaNYL PF VIAL 100 MCG/2 ML VIAL IV ONE (10:15)
--- NOTE | 2020-10-26 10:24 | PDOC ---
MODERATE SEDATION ASSESSMENT RISKS/ALTERNATIVES Risks/Alternatives Risks and alternatives of this type of sedation and procedure discussed with: RISK/ALTERNATIVES: Patient H & P ON CHART H & P H & P on chart and reviewed for co-morbid conditions and appropriate labs. H&P ON CHART: Yes STATUS PREG STATUS ASSESSED: Yes MEDS/ALLERGIES REVIEWED Meds/Allergies Reviewed Medications and Allergies including time and route of recently administered narcotics and sedatives. MEDS/ALLERGIES REVIEWED: Yes ASA RATING ASA RATING: II AIRWAY ASSESSMENT Airway Assessment Airway patency, oral function limitations, presence of caps, crowns, dentures, partials, and ability to extend neck assessed. AIRWAY ASSESSMENT: Yes MALLAMPATI SCORE MALLAMPATI SCORE: II PRE-SEDATION ASSESSMENT PRE-SEDATION ASSESSMENT: Yes PANCHITO GREEN MD Oct 26, 2020 10:24
--- NOTE | 2020-10-26 10:25 | PDOC ---
BRIEF OPERATIVE NOTE Pre-Op Diagnosis Left malignant effusion Post-Op Diagnosis malignant left effusion Procedure Performed Left chest pleurX Surgeon Ham EBL minimal Anesthesia Type: Conscious Sedation Specimens Obtained none Findings left chest pleurX and therapeutic thoracentesis Complications No immediate PANCHITO GREEN MD Oct 26, 2020 10:25
[2020-10-26] MEDS: ENOXAPARIN 40 MG/0.4 ML SYRINGE. SQ SCH (11:13)
--- NOTE | 2020-10-26 11:48 | PDOC ---
PULMONARY PROGRESS NOTES DATE: 10/26/20 TIME: 11:45 Subjective tired sob better has occ cough denies pain on 02 3 lpm s/p re-do PleurX catheter 10/26 Vitals Vital Signs Date Time Temp Pulse Resp B/P (MAP) Pulse Ox O2 Delivery O2 Flow Rate FiO2 10/26/20 10:29 88 22 98 Nasal Cannula 3.0 10/26/20 07:00 95.3 144/74 (97) 95.3 ROS: No Nausea, No Chest Pain, No Abdominal Pain, No Increase Cough General: Alert, No acute distress Lungs: Other (diminished bs ) Cardiovascular: S1, S2 Abdomen: Soft Neuro Exam: Alert Extremities: No Edema Skin: Warm Labs Laboratory Tests Test 10/26/20 03:10 Sodium Level 147 mmol/L (136-145) Potassium Level 3.6 mmol/L (3.5-5.1) Chloride Level 109 mmol/L (98-107) Carbon Dioxide Level 32 mmol/L (21-32) Anion Gap 6 (6-14) Blood Urea Nitrogen 17 mg/dL (7-20) Creatinine 0.9 mg/dL (0.6-1.0) Estimated GFR (Cockcroft-Gault) 60.2 BUN/Creatinine Ratio 19 (6-20) Glucose Level 107 mg/dL (70-99) Calcium Level 9.4 mg/dL (8.5-10.1) Total Bilirubin 0.8 mg/dL (0.2-1.0) Aspartate Amino Transf (AST/SGOT) 79 U/L (15-37) Alanine Aminotransferase (ALT/SGPT) 33 U/L (14-59) Alkaline Phosphatase 79 U/L (46-116) Total Protein 6.4 g/dL (6.4-8.2) Albumin 2.2 g/dL (3.4-5.0) Albumin/Globulin Ratio 0.5 (1.0-1.7) Laboratory Tests Test 10/26/20 03:10 Sodium Level 147 mmol/L (136-145) Potassium Level 3.6 mmol/L (3.5-5.1) Chloride Level 109 mmol/L (98-107) Carbon Dioxide Level 32 mmol/L (21-32) Anion Gap 6 (6-14) Blood Urea Nitrogen 17 mg/dL (7-20) Creatinine 0.9 mg/dL (0.6-1.0) Estimated GFR (Cockcroft-Gault) 60.2 BUN/Creatinine Ratio 19 (6-20) Glucose Level 107 mg/dL (70-99) Calcium Level 9.4 mg/dL (8.5-10.1) Total Bilirubin 0.8 mg/dL (0.2-1.0) Aspartate Amino Transf (AST/SGOT) 79 U/L (15-37) Alanine Aminotransferase (ALT/SGPT) 33 U/L (14-59) Alkaline Phosphatase 79 U/L (46-116) Total Protein 6.4 g/dL (6.4-8.2) Albumin 2.2 g/dL (3.4-5.0) Albumin/Globulin Ratio 0.5 (1.0-1.7) Medications Active Scripts Medications Dose Route/Sig Max Daily Dose Days Date Category Zofran (Ondansetron Hcl) 4 Mg Tablet 4 Mg PO PRN Q6HRS PRN 10/16/20 Reported Vitamin C (Ascorbic Acid) 500 Mg Capsule.er 500 Mg PO BID 10/16/20 Reported Tramadol Hcl 50 Mg Tablet 50 Mg PO Q6HRS PRN 10/16/20 Reported Restoril (Temazepam) 15 Mg Capsule 15 Mg PO HS 10/16/20 Reported Protonix (Pantoprazole Sodium) 20 Mg Tablet.dr 40 Mg PO DAILY 10/16/20 Reported Dronabinol 10 Mg Capsule 5 Mg PO BID 10/16/20 Reported Fenofibrate (Fenofibrate,Micronized) 134 Mg Capsule 134 Mg PO DAILY 10/16/20 Reported Colace (Docusate Sodium) 100 Mg Capsule 100 Mg PO PRN DAILY PRN 10/16/20 Reported Ativan (Lorazepam) 0.5 Mg Tablet 0.5 Mg PO HS 10/16/20 Reported Preservision Areds Softgel (Vit A/Vit C/Vit E/Zinc/Copper) 1 Each Capsule 1 Tab PO DAILY 09/13/20 Reported Euthyrox (Levothyroxine Sodium) 112 Mcg Tablet 112 Mcg PO DAILY06 09/13/20 Reported Atorvastatin Calcium 20 Mg Tablet 20 Mg PO HS 09/13/20 Reported Metoprolol Succinate ( Xl ) (Metoprolol Succinate) 25 Mg Tab.er.24h 25 Mg PO DAILY 09/13/20 Reported Tylenol (Acetaminophen) 325 Mg Tablet 500 Mg PO Q6HRS PRN 09/13/20 Reported Aspirin 81 Mg Tab.chew 81 Mg PO DAILY 09/13/20 Reported Multi Vitamin Daily (Multivitamin) 1 Each Tablet 1 Each PO DAILY 07/02/14 Reported Impression . IMPRESSION: 1. Acute hypoxemic respiratory failure, suspect multifactorial secondary to pneumonia and hydropneumothorax. 2. Metastatic pancreatic cancer, 3. Malignant pleural effusion secondary to pancreatic metastatic cancer. 4. Possible pneumonia, gram-positive and gram-negative. 5. CT chest revealing no evidence of pulmonary embolism. There is a moderate- sized hydropneumothorax. 6. Negative influenza screen. 7. Coronary artery disease with previous percutaneous coronary intervention. 8. History of breast cancer 20 years ago, status post mastectomy. 9. History of status post abdominal hysterectomy. Plan . updated 10/26 s/p re-do PleurX catheter 10/26. 1000 cc removed cxr 10/23 with re-accumulation of left effusion.she also has trap lung PTX unlikely to improve. xrt to continue Had Pleurx catheter removed 10/20 previously but had to be replaced 10/26 s/p thoracentesis 10/20, approximately 700 cc We will continue treatment for pneumonia w abx total abx 7 days prognosis poor discussed w pt rn Updated 10/25 cxr 10/23 with re-accumulation of left effusion.she also has trap lung PTX unlikely to improve. will need PleurX catheter back. d/w Pt . d/w daughter . Both agrees xrt Had Pleurx catheter removed 10/20, s/p thoracentesis 10/20, approximately 700 cc We will continue treatment for pneumonia w abx total abx 7 days prognosis poor discussed w pt rn FRIDA FERNANDES MD Oct 26, 2020 11:48
--- NOTE | 2020-10-26 12:20 | PN ---
DATE: 10/26/2020 SUBJECTIVE: The patient is resting, slightly propped up in bed, in no apparent distress. She is definitely more awake, lucid and less confused. On questioning her, continued obviously to have back pain, but denied any other complaint. She is scheduled for another radiation therapy this morning and thorax tube placement by the interventional radiologist. PHYSICAL EXAMINATION: GENERAL: When I examined her, she was somewhat pale, but no jaundice, cyanosis or thyromegaly. No jugular venous distension. No limb edema. VITAL SIGNS: Her heart rate was 84, blood pressure was 144/74, temperature was 95.3, respiratory rate was 18 and oxygen saturation was 94% on 4 liters of oxygen. HEAD, EYES, EARS, NOSE AND THROAT: Showed normocephalic, atraumatic. NECK: Supple. HEART: Showed normal first and second heart sounds. No gallop, rub or murmur. CHEST: Shows central trachea, good air entry on the right side, decreased air entry on the left side. ABDOMEN: Distended, soft, nontender. NEUROLOGIC: She was grossly intact. LABORATORY DATA: Her lab work this morning showed a white cell count 7.7, hemoglobin 13, hematocrit 39, MCV 88 and platelet count 414,000. Her serum sodium slightly up at 147, potassium 3.6, chloride 109, bicarbonate 32, anion gap of 6, BUN 17, creatinine 0.9, estimated GFR was 60 mL per minute. Her glucose was 107, calcium was 9.4. Total bilirubin, AST, ALT, alkaline phosphatase were normal. Total protein was 6.4, albumin 2.2. ASSESSMENT: 1. Acute hypoxic respiratory failure. The patient continued to require 4 liters of oxygen by nasal cannula. Chest x-ray continued to show hydropneumothorax in the left and there is also some increase in the left sided pleural effusion. She also has prominent bilateral interstitial lung marking linear atelectasis at the right lung. 2. Bilateral lung infiltrates, probably healthcare-associated pneumonia versus lymphangitis carcinomatosis. 3. Metastatic pancreatic cancer, metastatic to bone and lung. 4. Malignant pleural effusion, for which she has had a PleurX placed and eventually was removed about 5 days ago. She is scheduled for another PleurX tube placement today. She has also loculated hydropneumothorax. 5. 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 6. The patient has hypercalcemia corrected for hypoalbuminemia. Her serum calcium was up to 11.82 mg/dL for which she has received pamidronate and IV normal saline. 7. Given excessive sedation, I have discontinued her Ativan and Restoril and cut down tramadol to every 6 hours. I did start her on trazodone for insomnia. OTONIEL SCOTT MD DR: SERGEI/ezio JOB#: [id number] / [id number]
--- NOTE | 2020-10-26 14:48 | RAD ---
Procedure: Fluoroscopic guided left chest Pleurx catheter placement. Clinical Indication: Adult female with recurrent malignant left pleural effusion Sedation: Conscious sedation was administered with a total intraprocedural [id number] time of 22 minutes. The patient was monitored by a qualified independent observer throughout the time of sedation. Please refer to the medical record for exact doses of medications utilized to achieve moderate sedation. Antibiotics: Antibiotic was administered intravenously within 1 hour of the procedure start time. Exposure: Kerma-Area Product: 2 Contrast: None Sterility: All elements of maximal sterile barrier technique including the use of a cap, mask, sterile gown, sterile gloves, large sterile sheet, appropriate hand hygiene, and 2% chlorhexidine for cutaneous antisepsis (or acceptable alternative antiseptic per current guidelines) were followed for this procedure. Consent: The procedure was explained in its entirety to the patient or the patients designated sales utility representative by a member of the treatment team, including a discussion of the risks, benefits and commonly accepted alternatives to the procedure, as well as the expected consequences of no therapy whatsoever. Discussion of the risks included, but was not limited to, those that are most frequent and those that are rare but possibly severe or life-threatening, as well as the possibility of unforeseen complications. Technique and Findings: Following informed consent, the patient was prepped and draped in usual sterile fashion. Ultrasound interrogation of the left chest revealed a large air and fluid pocket. 1% lidocaine was used to achieve local anesthesia. A small dermatotomy was made. Under ultrasound guidance, an 18-gauge sheath needle was advanced into the pleural space and fluid was aspirated. The needle was then exchanged over wire for a large peel-away sheath. The skin over the left lateral chest wall was copiously anesthetized with 1% lidocaine plus epinephrine. A small dermatotomy was made. A tunneled Pleurx catheter was then tunneled subcutaneously towards the pleural puncture site and then deployed through the peel-away sheath. The catheter was then used to perform paracentesis resulting in extraction of 1 L of dark emmy fluid. A single 4-0 Vicryl suture was used to close the skin overlying the pleural puncture site. The catheter was sutured to the skin using 2-0 proline. Fluoroscopic image was performed demonstrating good position of the catheter within the pleural space. Complications: No immediate Impression: 1. Ultrasound and fluoroscopic guided placement of a left chest tunneled Pleurx catheter as described.
[2020-10-26] MEDS: ONDANSETRON ODT 4 MG TAB.RAPDIS. PO PRN (16:25)
[2020-10-26] MEDS: traZODone 50 MG TABLET. PO SCH (21:35)
[2020-10-26] MEDS: ATORVASTATIN CALCIUM 20 MG TABLET PO SCH (21:36)
[2020-10-27] MEDS: IV NORMAL SALINE 1000ML BAG 1,000 ML IV SCH ×2 (02:04→12:13)
[2020-10-27 03:18] VITALS: BP 129/60
[2020-10-27] MEDS: LEVOTHYROXINE 112 MCG TABLET PO SCH (05:57)
[2020-10-27 07:00] VITALS: BP 139/76
[2020-10-27] MEDS: METOPROLOL SUCC 24HR ER 25 MG TAB.ER.24H. PO SCH (09:58)
[2020-10-27] MEDS: LACTOBACILLUS RHAMNOSUS GG 1 CAPSULE. PO SCH ×2 (09:58→21:28)
[2020-10-27] MEDS: DRONABINOL 2.5 MG CAPSULE. PO SCH ×2 (09:58→17:29)
[2020-10-27] MEDS: FENOFIBRATE,MICRONIZED 134 MG CAPSULE PO SCH (09:59)
[2020-10-27] MEDS: MULTIVITAMIN with MINERAL TABLET. PO SCH (09:59)
[2020-10-27] MEDS: PANTOPRAZOLE 40 MG TABLET.DR. PO SCH (09:59)
[2020-10-27] MEDS: ASPIRIN CHEWABLE 81 MG TABLET. PO SCH (09:59)
[2020-10-27] MEDS: MULTIVITAMIN I-VITE TABLET. PO SCH (09:59)
[2020-10-27] MEDS: ASCORBIC ACID 500 MG TABLET PO SCH ×2 (09:59→21:28)
--- NOTE | 2020-10-27 10:51 | PDOC ---
PULMONARY PROGRESS NOTES DATE: 10/27/20 TIME: 10:49 Subjective tired sob better has occ cough denies pain on 02 3 lpm s/p re-do PleurX catheter 10/26 Vitals Vital Signs Date Time Temp Pulse Resp B/P (MAP) Pulse Ox O2 Delivery O2 Flow Rate FiO2 10/27/20 09:58 92 139/76 10/27/20 07:00 97.8 18 96 Nasal Cannula 4.0 97.8 ROS: No Nausea, No Chest Pain, No Abdominal Pain, No Increase Cough General: Alert, No acute distress Lungs: Other (diminished bs ) Cardiovascular: S1, S2 Abdomen: Soft Neuro Exam: Alert Extremities: No Edema Skin: Warm Labs Laboratory Tests Test 10/26/20 03:10 Sodium Level 147 mmol/L (136-145) Potassium Level 3.6 mmol/L (3.5-5.1) Chloride Level 109 mmol/L (98-107) Carbon Dioxide Level 32 mmol/L (21-32) Anion Gap 6 (6-14) Blood Urea Nitrogen 17 mg/dL (7-20) Creatinine 0.9 mg/dL (0.6-1.0) Estimated GFR (Cockcroft-Gault) 60.2 BUN/Creatinine Ratio 19 (6-20) Glucose Level 107 mg/dL (70-99) Calcium Level 9.4 mg/dL (8.5-10.1) Total Bilirubin 0.8 mg/dL (0.2-1.0) Aspartate Amino Transf (AST/SGOT) 79 U/L (15-37) Alanine Aminotransferase (ALT/SGPT) 33 U/L (14-59) Alkaline Phosphatase 79 U/L (46-116) Total Protein 6.4 g/dL (6.4-8.2) Albumin 2.2 g/dL (3.4-5.0) Albumin/Globulin Ratio 0.5 (1.0-1.7) Medications Active Scripts Medications Dose Route/Sig Max Daily Dose Days Date Category Zofran (Ondansetron Hcl) 4 Mg Tablet 4 Mg PO PRN Q6HRS PRN 10/16/20 Reported Vitamin C (Ascorbic Acid) 500 Mg Capsule.er 500 Mg PO BID 10/16/20 Reported Tramadol Hcl 50 Mg Tablet 50 Mg PO Q6HRS PRN 10/16/20 Reported Restoril (Temazepam) 15 Mg Capsule 15 Mg PO HS 10/16/20 Reported Protonix (Pantoprazole Sodium) 20 Mg Tablet.dr 40 Mg PO DAILY 10/16/20 Reported Dronabinol 10 Mg Capsule 5 Mg PO BID 10/16/20 Reported Fenofibrate (Fenofibrate,Micronized) 134 Mg Capsule 134 Mg PO DAILY 10/16/20 Reported Colace (Docusate Sodium) 100 Mg Capsule 100 Mg PO PRN DAILY PRN 10/16/20 Reported Ativan (Lorazepam) 0.5 Mg Tablet 0.5 Mg PO HS 10/16/20 Reported Preservision Areds Softgel (Vit A/Vit C/Vit E/Zinc/Copper) 1 Each Capsule 1 Tab PO DAILY 09/13/20 Reported Euthyrox (Levothyroxine Sodium) 112 Mcg Tablet 112 Mcg PO DAILY06 09/13/20 Reported Atorvastatin Calcium 20 Mg Tablet 20 Mg PO HS 09/13/20 Reported Metoprolol Succinate ( Xl ) (Metoprolol Succinate) 25 Mg Tab.er.24h 25 Mg PO DAILY 09/13/20 Reported Tylenol (Acetaminophen) 325 Mg Tablet 500 Mg PO Q6HRS PRN 09/13/20 Reported Aspirin 81 Mg Tab.chew 81 Mg PO DAILY 09/13/20 Reported Multi Vitamin Daily (Multivitamin) 1 Each Tablet 1 Each PO DAILY 07/02/14 Reported Impression . IMPRESSION: 1. Acute hypoxemic respiratory failure, suspect multifactorial secondary to pneumonia and hydropneumothorax. 2. Metastatic pancreatic cancer, 3. Malignant pleural effusion secondary to pancreatic metastatic cancer. 4. Possible pneumonia, gram-positive and gram-negative. 5. CT chest revealing no evidence of pulmonary embolism. There is a moderate- sized hydropneumothorax. 6. Negative influenza screen. 7. Coronary artery disease with previous percutaneous coronary intervention. 8. History of breast cancer 20 years ago, status post mastectomy. 9. History of status post abdominal hysterectomy. Plan . updated 10/27 s/p re-do PleurX catheter 10/26. 1000 cc removed cxr 10/23 with re-accumulation of left effusion.she also has trap lung PTX unlikely to improve. xrt to continue Had Pleurx catheter removed 10/20 previously but had to be replaced 10/26 s/p thoracentesis 10/20, approximately 700 cc We will continue treatment for pneumonia w abx total abx 7 days prognosis poor discussed w pt rn / daughter very weak f/u oncology rec updated 10/26 s/p re-do PleurX catheter 10/26. 1000 cc removed cxr 10/23 with re-accumulation of left effusion.she also has trap lung PTX unlikely to improve. xrt to continue Had Pleurx catheter removed 10/20 previously but had to be replaced 10/26 s/p thoracentesis 10/20, approximately 700 cc We will continue treatment for pneumonia w abx total abx 7 days prognosis poor discussed w pt rn Updated 10/25 cxr 10/23 with re-accumulation of left effusion.she also has trap lung PTX unlikely to improve. will need PleurX catheter back. d/w Pt . d/w daughter . Both agrees xrt Had Pleurx catheter removed 10/20, s/p thoracentesis 10/20, approximately 700 cc We will continue treatment for pneumonia w abx total abx 7 days prognosis poor discussed w pt rn FRIDA FERNANDES MD Oct 27, 2020 10:51
[2020-10-27 11:00] VITALS: BP 123/69
--- NOTE | 2020-10-27 12:16 | PN ---
DATE: 10/27/2020 SUBJECTIVE: The patient is resting, slightly propped up in bed, in no apparent distress. She apparently continued to be confused, continued to be weak and debilitated. She has finished 4 treatments of radiation therapy for her T7 metastatic disease. It was not clear whether that has made any difference to her pain management. I did discontinue her Restoril and Ativan and cut down her tramadol and started on trazodone for insomnia but she does not seem to have really returned back to her baseline. I think she is depressed and that she had expressed her desire not to go through any of these chemotherapy before radiation treatment. PHYSICAL EXAMINATION: GENERAL: When I examined her this morning, she was pale, but no jaundice, cyanosis or thyromegaly. No jugular venous distention. No lower limb edema. VITAL SIGNS: Her heart rate was 92, blood pressure 139/76, temperature was 97.8, respiratory rate was 18 and oxygen saturation was 96% on 4 liters of oxygen. HEENT: Examination of the head, eyes, ears, nose and throat showed normocephalic, atraumatic. NECK: Supple. HEART: Showed normal first and second heart sounds. No gallop, rub or murmur. CHEST: Clear to auscultation. No crepitation or rhonchi. ABDOMEN: Distended, soft, nontender. NEUROLOGIC: She was somewhat sleepy, but arousable. All cranial nerves intact. She moves extremities without difficulty, although she is mostly bedbound. Her intake and output normal. LABORATORY DATA: As of yesterday, her serum sodium was high at 147, potassium 3.6, chloride 109, bicarbonate 32, anion gap of 6, BUN 17, creatinine 0.9, estimated GFR was 60 mL per minute. Her glucose was 107, calcium was 9.4. Total bilirubin, AST, ALT, alkaline phosphatase were normal. Total protein 6.4, albumin of 2.2. ASSESSMENT: 1. Acute hypoxic respiratory failure, probably multifactorial. The patient continued to require 4 liters of oxygen by nasal cannula. Her chest x-ray continued to show hydropneumothorax on the left. There is some increase in the left-sided pleural effusion for which a PleurX tube was placed yesterday by the interventional radiologist. 2. Bilateral lung infiltrates, probably healthcare-associated pneumonia versus metastatic disease. 3. Metastatic pancreatic cancer with metastasis to bone and lung. 4. Malignant left-sided pleural effusion for which she has had a PleurX placed and eventually was removed about 6 days ago. She has had another PleurX tube placed yesterday. She also has loculated hydropneumothorax. 5. Persistent back pain with no evidence of fracture, felt to be due to metastasis to T7 for which she received so far 4 sessions of radiation therapy 6 years. The patient has hypercalcemia with a serum calcium up to 11.82 mg/dL corrected for serum albumin for which she received pamidronate and IV normal saline. 7. Given excessive sedation. I did discontinue her Ativan and Restoril, cut down her tramadol, start her on trazodone for sleep. 8. The patient has hypernatremia and hypokalemia. I did discontinue her normal saline. Advised her to drink more water. I spoke with her daughter. We will ask physical and occupational therapy to work with her and she might be able to be discharged back to [facility] tomorrow. OTONIEL SCOTT MD DR: SERGEI/ezio JOB#: [id number] / [id number]
[2020-10-27] MEDS: ENOXAPARIN 40 MG/0.4 ML SYRINGE. SQ SCH (12:18)
[2020-10-27 15:00] VITALS: BP 114/65
--- NOTE | 2020-10-27 17:13 | NUR ---
ADRIAN following this BPCI patient today, 10/27. Pt resides in LTC at [place]. Updated clinicals sent to [place] yesterday per transit planner. Pt on IV fluids and room air. Pleurx drain placed 10/26. Prognosis poor. Possible discharge back to [place] [facility] or with hospice.
[2020-10-27 19:00] VITALS: BP 117/62
[2020-10-27] MEDS: traZODone 50 MG TABLET. PO SCH (21:28)
[2020-10-27] MEDS: ATORVASTATIN CALCIUM 20 MG TABLET PO SCH (21:28)
[2020-10-27 23:00] VITALS: BP 133/71
[2020-10-28 03:00] VITALS: BP 108/30
[2020-10-28] MEDS: LEVOTHYROXINE 112 MCG TABLET PO SCH (06:22)
[2020-10-28 07:00] VITALS: BP 142/80
[2020-10-28 07:46] LABS: BASO # 0.1 x10^3/uL (0.0-0.2); BASO % 1 % (0-3); EOS # 0.1 x10^3/uL (0.0-0.7); EOS % 2 % (0-3); HEMATOCRIT 39.7 % (36.0-47.0); HEMOGLOBIN 12.6 g/dL (12.0-15.5); LYMPH # 0.9 x10^3/uL (1.0-4.8); LYMPH % 12 % (24-48); MEAN CORPUSCULAR HEMOGLOBIN 29 pg (25-35); MEAN CORPUSCULAR HGB CONC 32 g/dL (31-37); MEAN CORPUSCULAR VOLUME 90 fL (79-100); MONO # 0.6 x10^3/uL (0.0-1.1); MONO % 8 % (0-9); NEUT # 5.9 x10^3/uL (1.8-7.7); NEUT % 78 % (31-73); PLATELET COUNT 412 x10^3/uL (140-400); RED BLOOD COUNT 4.41 x10^6/uL (3.50-5.40); RED CELL DISTRIBUTION WIDTH 15.7 % (11.5-14.5); WHITE BLOOD COUNT 7.5 x10^3/uL (4.0-11.0)
[2020-10-28 07:56] LABS: ALBUMIN 1.9 g/dL (3.4-5.0); ALBUMIN/GLOBULIN RATIO 0.4 (1.0-1.7); CALCIUM 8.9 mg/dL (8.5-10.1); GFR 53.3; POTASSIUM 4.1 mmol/L (3.5-5.1); TOTAL BILIRUBIN 0.6 mg/dL (0.2-1.0); TOTAL PROTEIN 6.2 g/dL (6.4-8.2)
[2020-10-28] MEDS: DRONABINOL 2.5 MG CAPSULE. PO SCH ×2 (08:00→17:42)
[2020-10-28] MEDS: MULTIVITAMIN I-VITE TABLET. PO SCH (09:58)
[2020-10-28] MEDS: PANTOPRAZOLE 40 MG TABLET.DR. PO SCH (09:58)
[2020-10-28] MEDS: FENOFIBRATE,MICRONIZED 134 MG CAPSULE PO SCH (09:58)
[2020-10-28] MEDS: ASPIRIN CHEWABLE 81 MG TABLET. PO SCH (09:58)
[2020-10-28] MEDS: METOPROLOL SUCC 24HR ER 25 MG TAB.ER.24H. PO SCH (09:59)
[2020-10-28] MEDS: ASCORBIC ACID 500 MG TABLET PO SCH ×2 (10:00→21:06)
[2020-10-28] MEDS: MULTIVITAMIN with MINERAL TABLET. PO SCH (10:00)
[2020-10-28] MEDS: LACTOBACILLUS RHAMNOSUS GG 1 CAPSULE. PO SCH ×2 (10:00→21:05)
--- NOTE | 2020-10-28 10:56 | PDOC ---
PULMONARY PROGRESS NOTES DATE: 10/28/20 TIME: 10:53 Subjective Patient is resting comfortably in bed on 3 L nasal cannula, denies any shortness of breath, cough or chest pain Reports mild fatigue s/p re-do PleurX catheter 10/26 Vitals Vital Signs Date Time Temp Pulse Resp B/P (MAP) Pulse Ox O2 Delivery O2 Flow Rate FiO2 10/28/20 09:59 86 142/80 10/28/20 07:00 96.8 16 97 Nasal Cannula 4.0 96.8 ROS: No Nausea, No Chest Pain, No Abdominal Pain, No Increase Cough General: Alert, Oriented X4, No acute distress Cardiovascular: S1, S2 Abdomen: Soft Neuro Exam: Alert Extremities: No Edema Skin: Warm Labs Laboratory Tests Test 10/28/20 07:30 White Blood Count 7.5 x10^3/uL (4.0-11.0) Red Blood Count 4.41 x10^6/uL (3.50-5.40) Hemoglobin 12.6 g/dL (12.0-15.5) Hematocrit 39.7 % (36.0-47.0) Mean Corpuscular Volume 90 fL (79-100) Mean Corpuscular Hemoglobin 29 pg (25-35) Mean Corpuscular Hemoglobin Concent 32 g/dL (31-37) Red Cell Distribution Width 15.7 % (11.5-14.5) Platelet Count 412 x10^3/uL (140-400) Neutrophils (%) (Auto) 78 % (31-73) Lymphocytes (%) (Auto) 12 % (24-48) Monocytes (%) (Auto) 8 % (0-9) Eosinophils (%) (Auto) 2 % (0-3) Basophils (%) (Auto) 1 % (0-3) Neutrophils # (Auto) 5.9 x10^3/uL (1.8-7.7) Lymphocytes # (Auto) 0.9 x10^3/uL (1.0-4.8) Monocytes # (Auto) 0.6 x10^3/uL (0.0-1.1) Eosinophils # (Auto) 0.1 x10^3/uL (0.0-0.7) Basophils # (Auto) 0.1 x10^3/uL (0.0-0.2) Sodium Level 148 mmol/L (136-145) Potassium Level 4.1 mmol/L (3.5-5.1) Chloride Level 109 mmol/L (98-107) Carbon Dioxide Level 31 mmol/L (21-32) Anion Gap 8 (6-14) Blood Urea Nitrogen 22 mg/dL (7-20) Creatinine 1.0 mg/dL (0.6-1.0) Estimated GFR (Cockcroft-Gault) 53.3 BUN/Creatinine Ratio 22 (6-20) Glucose Level 104 mg/dL (70-99) Calcium Level 8.9 mg/dL (8.5-10.1) Total Bilirubin 0.6 mg/dL (0.2-1.0) Aspartate Amino Transf (AST/SGOT) 80 U/L (15-37) Alanine Aminotransferase (ALT/SGPT) 27 U/L (14-59) Alkaline Phosphatase 82 U/L (46-116) Total Protein 6.2 g/dL (6.4-8.2) Albumin 1.9 g/dL (3.4-5.0) Albumin/Globulin Ratio 0.4 (1.0-1.7) Laboratory Tests Test 10/28/20 07:30 White Blood Count 7.5 x10^3/uL (4.0-11.0) Red Blood Count 4.41 x10^6/uL (3.50-5.40) Hemoglobin 12.6 g/dL (12.0-15.5) Hematocrit 39.7 % (36.0-47.0) Mean Corpuscular Volume 90 fL (79-100) Mean Corpuscular Hemoglobin 29 pg (25-35) Mean Corpuscular Hemoglobin Concent 32 g/dL (31-37) Red Cell Distribution Width 15.7 % (11.5-14.5) Platelet Count 412 x10^3/uL (140-400) Neutrophils (%) (Auto) 78 % (31-73) Lymphocytes (%) (Auto) 12 % (24-48) Monocytes (%) (Auto) 8 % (0-9) Eosinophils (%) (Auto) 2 % (0-3) Basophils (%) (Auto) 1 % (0-3) Neutrophils # (Auto) 5.9 x10^3/uL (1.8-7.7) Lymphocytes # (Auto) 0.9 x10^3/uL (1.0-4.8) Monocytes # (Auto) 0.6 x10^3/uL (0.0-1.1) Eosinophils # (Auto) 0.1 x10^3/uL (0.0-0.7) Basophils # (Auto) 0.1 x10^3/uL (0.0-0.2) Sodium Level 148 mmol/L (136-145) Potassium Level 4.1 mmol/L (3.5-5.1) Chloride Level 109 mmol/L (98-107) Carbon Dioxide Level 31 mmol/L (21-32) Anion Gap 8 (6-14) Blood Urea Nitrogen 22 mg/dL (7-20) Creatinine 1.0 mg/dL (0.6-1.0) Estimated GFR (Cockcroft-Gault) 53.3 BUN/Creatinine Ratio 22 (6-20) Glucose Level 104 mg/dL (70-99) Calcium Level 8.9 mg/dL (8.5-10.1) Total Bilirubin 0.6 mg/dL (0.2-1.0) Aspartate Amino Transf (AST/SGOT) 80 U/L (15-37) Alanine Aminotransferase (ALT/SGPT) 27 U/L (14-59) Alkaline Phosphatase 82 U/L (46-116) Total Protein 6.2 g/dL (6.4-8.2) Albumin 1.9 g/dL (3.4-5.0) Albumin/Globulin Ratio 0.4 (1.0-1.7) Medications Active Scripts Medications Dose Route/Sig Max Daily Dose Days Date Category Zofran (Ondansetron Hcl) 4 Mg Tablet 4 Mg PO PRN Q6HRS PRN 10/16/20 Reported Vitamin C (Ascorbic Acid) 500 Mg Capsule.er 500 Mg PO BID 10/16/20 Reported Tramadol Hcl 50 Mg Tablet 50 Mg PO Q6HRS PRN 10/16/20 Reported Restoril (Temazepam) 15 Mg Capsule 15 Mg PO HS 10/16/20 Reported Protonix (Pantoprazole Sodium) 20 Mg Tablet.dr 40 Mg PO DAILY 10/16/20 Reported Dronabinol 10 Mg Capsule 5 Mg PO BID 10/16/20 Reported Fenofibrate (Fenofibrate,Micronized) 134 Mg Capsule 134 Mg PO DAILY 10/16/20 Reported Colace (Docusate Sodium) 100 Mg Capsule 100 Mg PO PRN DAILY PRN 10/16/20 Reported Ativan (Lorazepam) 0.5 Mg Tablet 0.5 Mg PO HS 10/16/20 Reported Preservision Areds Softgel (Vit A/Vit C/Vit E/Zinc/Copper) 1 Each Capsule 1 Tab PO DAILY 09/13/20 Reported Euthyrox (Levothyroxine Sodium) 112 Mcg Tablet 112 Mcg PO DAILY06 09/13/20 Reported Atorvastatin Calcium 20 Mg Tablet 20 Mg PO HS 09/13/20 Reported Metoprolol Succinate ( Xl ) (Metoprolol Succinate) 25 Mg Tab.er.24h 25 Mg PO DAILY 09/13/20 Reported Tylenol (Acetaminophen) 325 Mg Tablet 500 Mg PO Q6HRS PRN 09/13/20 Reported Aspirin 81 Mg Tab.chew 81 Mg PO DAILY 09/13/20 Reported Multi Vitamin Daily (Multivitamin) 1 Each Tablet 1 Each PO DAILY 07/02/14 Reported Impression . IMPRESSION: 1. Acute hypoxemic respiratory failure, suspect multifactorial secondary to pneumonia and hydropneumothorax-- improved 2. Metastatic pancreatic cancer, 3. Malignant pleural effusion secondary to pancreatic metastatic cancer. 4. Possible pneumonia, gram-positive and gram-negative. 5. CT chest revealing no evidence of pulmonary embolism. There is a moderate- sized hydropneumothorax. 6. Negative influenza screen. 7. Coronary artery disease with previous percutaneous coronary intervention. 8. History of breast cancer 20 years ago, status post mastectomy. 9. History of status post abdominal hysterectomy. Plan . updated 10/28 Continue supplemental oxygen to keep oxygen saturations greater than 92%, currently on 3 L nasal cannula Pleurx catheter removed 10/20 s/p thoracentesis 10/20, approximately 700 cc and now s/p re-do PleurX catheter 10/26, planned to drain today cxr 10/23 with re-accumulation of left effusion.she also has trap lung PTX unlikely to improve. f/u oncology rec--- received 4 doses of radiation prognosis poor Physical therapy/Occupational Therapy discussed w pt rn / daughter Plan for possible discharge back to [facility] on Friday with last dose of radiation updated 10/27 s/p re-do PleurX catheter 10/26. 1000 cc removed cxr 10/23 with re-accumulation of left effusion.she also has trap lung PTX unlikely to improve. xrt to continue Had Pleurx catheter removed 10/20 previously but had to be replaced 10/26 s/p thoracentesis 10/20, approximately 700 cc We will continue treatment for pneumonia w abx total abx 7 days prognosis poor discussed w pt rn / daughter very weak f/u oncology rec updated 10/26 s/p re-do PleurX catheter 10/26. 1000 cc removed cxr 10/23 with re-accumulation of left effusion.she also has trap lung PTX unlikely to improve. xrt to continue Had Pleurx catheter removed 10/20 previously but had to be replaced 10/26 s/p thoracentesis 10/20, approximately 700 cc We will continue treatment for pneumonia w abx total abx 7 days prognosis poor discussed w pt FRIDA Weber MD Oct 28, 2020 10:56
[2020-10-28 11:00] VITALS: BP 125/67
--- NOTE | 2020-10-28 12:40 | PN ---
DATE: 10/28/2020 SUBJECTIVE: The patient continued to be extremely weak, lethargic, confused despite discontinuing or holding all of her medication that might contribute to her altered mental status. She has not received any tramadol overnight or this morning. She has not received even trazodone. I have discontinued her Restoril and Ativan and we treated her hypercalcemia. Her appetite is poor. She has not eaten. She is not eating or drinking. She is mostly bedbound, extremely weak. PHYSICAL EXAMINATION: GENERAL: When I examined her, she was pale. No jaundice, cyanosis or thyromegaly. No jugular venous distension. No limb edema. VITAL SIGNS: Her heart rate was 85, blood pressure was 108/70, temperature was 97.8, respiratory rate was 20, and oxygen saturation was 94% on 4 liters of oxygen. HEENT: Normocephalic, atraumatic. NECK: Supple. HEART: Showed normal first and second heart sounds. No gallop or murmur. CHEST: Clear to auscultation. No crepitation or rhonchi. ABDOMEN: Distended, soft, nontender. NEUROLOGIC: She is sleepy, but arousable. All cranial nerves intact. She moves extremities without difficulty, although she is mostly bedbound. Her intake was incompletely recorded, output was 1000. LABORATORY DATA: Today's labs are still pending at the time of this dictation. ASSESSMENT: 1. Acute hypoxic respiratory failure, probably multifactorial. The patient continues to require 4 liters of oxygen by nasal cannula. Her chest x-ray continued to show hydropneumothorax on the left side, there is some increase in her left side pleural effusion for which she has a PleurX tube placed successfully by the interventional radiologist. 2. Bilateral lung infiltrate, probably healthcare-associated pneumonia versus metastatic disease. 3. Metastatic pancreatic cancer with metastasis to the bone and lung. 4. Malignant left sided pleural effusion for which she has another PleurX tube placed successfully. 5. Resistant back pain with no evidence of rib fracture, felt to be due to metastasis to T7 for which she so far has received 4 sessions of radiation therapy. 6. Hypercalcemia of malignancy, treated with IV normal saline and pamidronate. Today's labs are still pending at the time of this dictation. 7. The patient has hypernatremia and hypokalemia. I discontinued the normal saline. PLAN: Plan is to continue with pain management. Continue with physical and occupational therapy. Today's labs are still pending at the time of this dictation. The patient's overall prognosis is very poor. She is not really doing very well and probably extremely depressed. We will need probably to consider hospice care. OTONIEL SCOTT MD DR: SERGEI/ezio JOB#: [id number] / [id number]
[2020-10-28 15:00] VITALS: BP 160/79
[2020-10-28] MEDS: ENOXAPARIN 40 MG/0.4 ML SYRINGE. SQ SCH (15:03)
[2020-10-28 19:53] VITALS: BP 133/69
[2020-10-28] MEDS: traZODone 50 MG TABLET. PO SCH (21:05)
[2020-10-28] MEDS: ATORVASTATIN CALCIUM 20 MG TABLET PO SCH (21:05)
[2020-10-28 23:09] VITALS: BP 139/68
[2020-10-29 03:31] VITALS: BP 137/73
[2020-10-29] MEDS: LEVOTHYROXINE 112 MCG TABLET PO SCH (06:08)
[2020-10-29 06:53] LABS: CALCIUM 8.8 mg/dL (8.5-10.1); CREATININE 0.9 mg/dL (0.6-1.0); GFR 60.2; POTASSIUM 4.1 mmol/L (3.5-5.1)
[2020-10-29 07:00] VITALS: BP 151/77
[2020-10-29] MEDS: DRONABINOL 2.5 MG CAPSULE. PO SCH ×2 (09:12→17:00)
[2020-10-29] MEDS: LACTOBACILLUS RHAMNOSUS GG 1 CAPSULE. PO SCH ×2 (09:13→20:17)
[2020-10-29] MEDS: ASPIRIN CHEWABLE 81 MG TABLET. PO SCH (09:13)
[2020-10-29] MEDS: MULTIVITAMIN I-VITE TABLET. PO SCH (09:13)
[2020-10-29] MEDS: ASCORBIC ACID 500 MG TABLET PO SCH ×2 (09:13→20:19)
[2020-10-29] MEDS: MULTIVITAMIN with MINERAL TABLET. PO SCH (09:13)
[2020-10-29] MEDS: FENOFIBRATE,MICRONIZED 134 MG CAPSULE PO SCH (09:13)
[2020-10-29] MEDS: METOPROLOL SUCC 24HR ER 25 MG TAB.ER.24H. PO SCH (09:13)
[2020-10-29] MEDS: PANTOPRAZOLE 40 MG TABLET.DR. PO SCH (09:13)
[2020-10-29] MEDS: ONDANSETRON ODT 4 MG TAB.RAPDIS. PO PRN (09:22)
--- NOTE | 2020-10-29 09:33 | PDOC ---
PULMONARY PROGRESS NOTES DATE: 10/29/20 TIME: 09:30 Subjective Patient is resting comfortably in bed on 3 L nasal cannula, denies any shortness of breath, cough or chest pain s/p re-do PleurX catheter 10/26 Remains very weak Vitals Vital Signs Date Time Temp Pulse Resp B/P (MAP) Pulse Ox O2 Delivery O2 Flow Rate FiO2 10/29/20 09:13 81 137/73 10/29/20 03:31 97.4 20 94 Nasal Cannula 2.0 97.4 ROS: No Nausea, No Chest Pain, No Abdominal Pain, No Increase Cough General: Alert, Oriented X4, No acute distress Cardiovascular: S1, S2 Abdomen: Soft Neuro Exam: Alert Extremities: No Edema Skin: Warm Labs Laboratory Tests Test 10/28/20 07:30 10/29/20 06:00 White Blood Count 7.5 x10^3/uL (4.0-11.0) Red Blood Count 4.41 x10^6/uL (3.50-5.40) Hemoglobin 12.6 g/dL (12.0-15.5) Hematocrit 39.7 % (36.0-47.0) Mean Corpuscular Volume 90 fL (79-100) Mean Corpuscular Hemoglobin 29 pg (25-35) Mean Corpuscular Hemoglobin Concent 32 g/dL (31-37) Red Cell Distribution Width 15.7 % (11.5-14.5) Platelet Count 412 x10^3/uL (140-400) Neutrophils (%) (Auto) 78 % (31-73) Lymphocytes (%) (Auto) 12 % (24-48) Monocytes (%) (Auto) 8 % (0-9) Eosinophils (%) (Auto) 2 % (0-3) Basophils (%) (Auto) 1 % (0-3) Neutrophils # (Auto) 5.9 x10^3/uL (1.8-7.7) Lymphocytes # (Auto) 0.9 x10^3/uL (1.0-4.8) Monocytes # (Auto) 0.6 x10^3/uL (0.0-1.1) Eosinophils # (Auto) 0.1 x10^3/uL (0.0-0.7) Basophils # (Auto) 0.1 x10^3/uL (0.0-0.2) Sodium Level 148 mmol/L (136-145) 148 mmol/L (136-145) Potassium Level 4.1 mmol/L (3.5-5.1) 4.1 mmol/L (3.5-5.1) Chloride Level 109 mmol/L (98-107) 111 mmol/L (98-107) Carbon Dioxide Level 31 mmol/L (21-32) 32 mmol/L (21-32) Anion Gap 8 (6-14) 5 (6-14) Blood Urea Nitrogen 22 mg/dL (7-20) 21 mg/dL (7-20) Creatinine 1.0 mg/dL (0.6-1.0) 0.9 mg/dL (0.6-1.0) Estimated GFR (Cockcroft-Gault) 53.3 60.2 BUN/Creatinine Ratio 22 (6-20) Glucose Level 104 mg/dL (70-99) 104 mg/dL (70-99) Calcium Level 8.9 mg/dL (8.5-10.1) 8.8 mg/dL (8.5-10.1) Total Bilirubin 0.6 mg/dL (0.2-1.0) Aspartate Amino Transf (AST/SGOT) 80 U/L (15-37) Alanine Aminotransferase (ALT/SGPT) 27 U/L (14-59) Alkaline Phosphatase 82 U/L (46-116) Total Protein 6.2 g/dL (6.4-8.2) Albumin 1.9 g/dL (3.4-5.0) Albumin/Globulin Ratio 0.4 (1.0-1.7) Laboratory Tests Test 10/29/20 06:00 Sodium Level 148 mmol/L (136-145) Potassium Level 4.1 mmol/L (3.5-5.1) Chloride Level 111 mmol/L (98-107) Carbon Dioxide Level 32 mmol/L (21-32) Anion Gap 5 (6-14) Blood Urea Nitrogen 21 mg/dL (7-20) Creatinine 0.9 mg/dL (0.6-1.0) Estimated GFR (Cockcroft-Gault) 60.2 Glucose Level 104 mg/dL (70-99) Calcium Level 8.8 mg/dL (8.5-10.1) Medications Active Scripts Medications Dose Route/Sig Max Daily Dose Days Date Category Zofran (Ondansetron Hcl) 4 Mg Tablet 4 Mg PO PRN Q6HRS PRN 10/16/20 Reported Vitamin C (Ascorbic Acid) 500 Mg Capsule.er 500 Mg PO BID 10/16/20 Reported Tramadol Hcl 50 Mg Tablet 50 Mg PO Q6HRS PRN 10/16/20 Reported Restoril (Temazepam) 15 Mg Capsule 15 Mg PO HS 10/16/20 Reported Protonix (Pantoprazole Sodium) 20 Mg Tablet.dr 40 Mg PO DAILY 10/16/20 Reported Dronabinol 10 Mg Capsule 5 Mg PO BID 10/16/20 Reported Fenofibrate (Fenofibrate,Micronized) 134 Mg Capsule 134 Mg PO DAILY 10/16/20 Reported Colace (Docusate Sodium) 100 Mg Capsule 100 Mg PO PRN DAILY PRN 10/16/20 Reported Ativan (Lorazepam) 0.5 Mg Tablet 0.5 Mg PO HS 10/16/20 Reported Preservision Areds Softgel (Vit A/Vit C/Vit E/Zinc/Copper) 1 Each Capsule 1 Tab PO DAILY 09/13/20 Reported Euthyrox (Levothyroxine Sodium) 112 Mcg Tablet 112 Mcg PO DAILY06 09/13/20 Reported Atorvastatin Calcium 20 Mg Tablet 20 Mg PO HS 09/13/20 Reported Metoprolol Succinate ( Xl ) (Metoprolol Succinate) 25 Mg Tab.er.24h 25 Mg PO DAILY 09/13/20 Reported Tylenol (Acetaminophen) 325 Mg Tablet 500 Mg PO Q6HRS PRN 09/13/20 Reported Aspirin 81 Mg Tab.chew 81 Mg PO DAILY 09/13/20 Reported Multi Vitamin Daily (Multivitamin) 1 Each Tablet 1 Each PO DAILY 07/02/14 Reported Impression . IMPRESSION: 1. Acute hypoxemic respiratory failure, suspect multifactorial secondary to pneumonia and hydropneumothorax-- improved 2. Metastatic pancreatic cancer, 3. Malignant pleural effusion secondary to pancreatic metastatic cancer. 4. Possible pneumonia, gram-positive and gram-negative. 5. CT chest revealing no evidence of pulmonary embolism. There is a moderate- sized hydropneumothorax. 6. Negative influenza screen. 7. Coronary artery disease with previous percutaneous coronary intervention. 8. History of breast cancer 20 years ago, status post mastectomy. 9. History of status post abdominal hysterectomy. Plan . updated 10/29 Continue supplemental oxygen to keep oxygen saturations greater than 92%, curr ently on 3 L nasal cannula Pleurx catheter removed 10/20 s/p thoracentesis 10/20, approximately 700 cc and now s/p re-do PleurX catheter 10/26,---Drain q 3 days cxr 10/23 with re-accumulation of left effusion.she also has trap lung PTX unlikely to improve. f/u oncology rec--- received 4 doses of radiation prognosis poor Physical therapy/Occupational Therapy Plan for possible discharge back to [place] on Friday with last dose of radiation Ok to D/C to rehab from our standpoint D/W Dr. Bell --planning to discuss hospice with family updated 10/28 Continue supplemental oxygen to keep oxygen saturations greater than 92%, currently on 3 L nasal cannula Pleurx catheter removed 10/20 s/p thoracentesis 10/20, approximately 700 cc and now s/p re-do PleurX catheter 10/26, planned to drain today cxr 10/23 with re-accumulation of left effusion.she also has trap lung PTX unlikely to improve. f/u oncology rec--- received 4 doses of radiation prognosis poor Physical therapy/Occupational Therapy discussed w pt rn / daughter Plan for possible discharge back to [place] on Friday with last dose of radiation updated 10/27 s/p re-do PleurX catheter 10/26. 1000 cc removed cxr 10/23 with re-accumulation of left effusion.she also has trap lung PTX unlikely to improve. xrt to continue Had Pleurx catheter removed 10/20 previously but had to be replaced 10/26 s/p thoracentesis 10/20, approximately 700 cc We will continue treatment for pneumonia w abx total abx 7 days prognosis poor discussed w pt rn / daughter very weak f/u oncology rec updated 10/26 s/p re-do PleurX catheter 10/26. 1000 cc removed cxr 10/23 with re-accumulation of left effusion.she also has trap lung PTX unlikely to improve. xrt to continue Had Pleurx catheter removed 10/20 previously but had to be replaced 10/26 s/p thoracentesis 10/20, approximately 700 cc We will continue treatment for pneumonia w abx total abx 7 days prognosis poor discussed w pt rn FRIDA FERNANDES MD Oct 29, 2020 09:33
[2020-10-29 11:00] VITALS: BP 147/89
[2020-10-29 15:00] VITALS: BP 129/72
[2020-10-29] MEDS: ENOXAPARIN 40 MG/0.4 ML SYRINGE. SQ SCH (17:19)
[2020-10-29 19:38] VITALS: BP 147/80
[2020-10-29] MEDS: traZODone 50 MG TABLET. PO SCH (20:17)
[2020-10-29] MEDS: traMADol 50 MG TABLET PO PRN (20:18)
[2020-10-29] MEDS: ATORVASTATIN CALCIUM 20 MG TABLET PO SCH (20:19)
--- NOTE | 2020-10-29 22:07 | PN ---
DATE: 10/29/2020 SUBJECTIVE: The patient is sitting comfortably in her bed, in no apparent distress. On questioning her, she denied any complaints and nursing staff did not voice any concern and stated that she has generally uneventful night. OBJECTIVE: GENERAL: On examining her, she was somewhat pale, but no jaundice or cyanosis. No lymphadenopathy, no thyromegaly. No jugular venous distention or limb edema. VITAL SIGNS: Her heart rate was 81, blood pressure was 137/73, temperature 97.4, respiratory rate 20, and oxygen saturation was 94% on 2 liters of oxygen. HEAD, EYES, EARS, NOSE AND THROAT: Normocephalic, atraumatic. NECK: Supple. HEART: Showed normal first and second heart sounds. No gallop, rub or murmur. CHEST: Clear to auscultation. No crepitation or rhonchi. She does have dull percussion note and absent breath sounds on the left side posteriorly. ABDOMEN: Distended, soft, nontender. NEUROLOGIC: She is grossly intact. Intake and output are incompletely recorded. LABORATORY DATA: Her chemistry this morning, her serum sodium of 148, potassium 4.1, chloride 111, bicarbonate 32, anion gap of 6, BUN 21, creatinine 0.9, estimated GFR was 60 mL per minute. Her glucose 104, calcium was 8.8. ASSESSMENT: 1. Acute hypoxic respiratory failure, multifactorial. She is now on 3 liters of oxygen by nasal cannula. 2. Bilateral lung infiltrates, likely due to healthcare-associated pneumonia versus metastatic disease. 3. Metastatic pancreatic cancer with metastasis to bone and lung. 4. Malignant left-sided pleural effusion, for which another PleurX tube was successfully placed and about 1000 mL of fluid was removed yesterday. 5. Persistent back pain with no evidence of any rib fracture, felt to be due to metastatic disease to T7, for which she has received 4 sessions of radiation therapy. 6. Hypercalcemia of malignancy, treated with IV normal saline and pamidronate. 7. The patient has hypernatremia and hypokalemia for which I have discontinued her normal saline. PLAN: To continue with pain management. Continue with physical and occupational therapy. The patient is not doing very well and her overall prognosis is very poor. Once she has received her fifth radiation therapy tomorrow, we will discharge her back to [facility] and if she continued to do poorly, we will have to consider hospice care. OTONIEL SCOTT MD DR: SERGEI/ezio JOB#: [id number] / [id number]
[2020-10-29 23:14] VITALS: BP 133/72
[2020-10-30 03:19] VITALS: BP 138/75
[2020-10-30 05:26] LABS: HEMATOCRIT 41.5 % (36.0-47.0); RED BLOOD COUNT 4.6 x10^6/uL (3.50-5.40); WHITE BLOOD COUNT 7.5 x10^3/uL (4.0-11.0)
[2020-10-30] MEDS: LEVOTHYROXINE 112 MCG TABLET PO SCH (05:47)
[2020-10-30 05:58] LABS: ALBUMIN/GLOBULIN RATIO 0.4 (1.0-1.7); GFR 53.3; POTASSIUM 3.8 mmol/L (3.5-5.1); TOTAL BILIRUBIN 0.7 mg/dL (0.2-1.0); TOTAL PROTEIN 6.5 g/dL (6.4-8.2)
[2020-10-30 07:00] VITALS: BP 131/77
[2020-10-30] MEDS: PANTOPRAZOLE 40 MG TABLET.DR. PO SCH ×2 (07:30→09:45)
[2020-10-30] MEDS: DRONABINOL 2.5 MG CAPSULE. PO SCH ×3 (08:00→17:00)
[2020-10-30] MEDS: ASPIRIN CHEWABLE 81 MG TABLET. PO SCH ×2 (08:00→09:45)
--- NOTE | 2020-10-30 08:58 | SNU/HH DC ---
DISCHARGE ORDERS DISCHARGE INFORMATION: DISCHARGE DATE: Oct 30, 2020 FINAL DIAGNOSIS Problems Medical Problems: (1) Acute respiratory failure with hypoxia Status: Acute CONDITION ON DISCHARGE: Stable CODE STATUS: Code Status: Full FDC: SNF STAY <30 DAYS: Yes POST DISCHARGE ORDERS: ACTIVITY ORDERS: Activity as tolerated WEIGHT BEARING STATUS: As tolerated DIET AFTER DISCHARGE: Regular CHECKS AFTER DISCHARGE: COMMENTS: lateral back TREATMENT/EQUIPMENT ORDERS: Physical Therapy For: Evalulation/Treatment Occupational Therapy For: Evaluation/Treatment DISCHARGE MEDICATIONS: Home Meds Reported Medications Ondansetron Hcl (ZOFRAN) 4 Mg Tablet, 4 MG PO PRN Q6HRS PRN for NAUSEA/VOMITING, TAB 10/16/20 Ascorbic Acid (VITAMIN C) 500 Mg Capsule.er, 500 MG PO BID for wound healing, CAP.SR 10/16/20 Tramadol Hcl (TRAMADOL HCL) 50 Mg Tablet, 50 MG PO Q6HRS PRN for PAIN, TAB 10/16/20 Pantoprazole Sodium (PROTONIX) 20 Mg Tablet.dr, 40 MG PO DAILY for gerd, TAB 10/16/20 Dronabinol (DRONABINOL) 10 Mg Capsule, 5 MG PO BID for appetite stimulant, CAP 10/16/20 Fenofibrate,Micronized (FENOFIBRATE) 134 Mg Capsule, 134 MG PO DAILY for hld, CA P 10/16/20 Docusate Sodium (COLACE) 100 Mg Capsule, 100 MG PO PRN DAILY PRN for CONSTIPATION, CAP 10/16/20 Vit A/Vit C/Vit E/Zinc/Copper (PRESERVISION AREDS SOFTGEL) 1 Each Capsule, 1 TAB PO DAILY for eyes, CAP 09/13/20 Levothyroxine Sodium (Euthyrox) 112 Mcg Tablet, 112 MCG PO DAILY06 for thyroid, TAB 09/13/20 Atorvastatin Calcium (ATORVASTATIN CALCIUM) 20 Mg Tablet, 20 MG PO HS for FOR CHOLESTEROL, #30 TAB 0 Refills 09/13/20 Metoprolol Succinate (METOPROLOL SUCCINATE ( XL )) 25 Mg Tab.er.24h, 25 MG PO DAILY for FOR HYPERTENSION, #30 TAB 0 Refills 09/13/20 Acetaminophen (TYLENOL) 325 Mg Tablet, 500 MG PO Q6HRS PRN for pain , TAB 09/13/20 Aspirin (ASPIRIN) 81 Mg Tab.chew, 81 MG PO DAILY for heart health, TAB.CHEW 09/13/20 Multivitamin (MULTI VITAMIN DAILY) 1 Each Tablet, 1 EACH PO DAILY 07/02/14 Discontinued Reported Medications Temazepam (RESTORIL) 15 Mg Capsule, 15 MG PO HS for insomnia, CAP 10/16/20 Lorazepam (ATIVAN) 0.5 Mg Tablet, 0.5 MG PO HS for anxiety, TAB 10/16/20 OTONIEL SCOTT MD Oct 30, 2020 08:58
[2020-10-30] MEDS: METOPROLOL SUCC 24HR ER 25 MG TAB.ER.24H. PO SCH ×2 (09:00→09:45)
[2020-10-30] MEDS: MULTIVITAMIN I-VITE TABLET. PO SCH ×2 (09:00→09:44)
[2020-10-30] MEDS: FENOFIBRATE,MICRONIZED 134 MG CAPSULE PO SCH ×2 (09:00→09:44)
[2020-10-30] MEDS: MULTIVITAMIN with MINERAL TABLET. PO SCH ×2 (09:00→09:45)
[2020-10-30] MEDS: LACTOBACILLUS RHAMNOSUS GG 1 CAPSULE. PO SCH ×3 (09:00→21:00)
[2020-10-30] MEDS: ASCORBIC ACID 500 MG TABLET PO SCH ×3 (09:00→21:00)
[2020-10-30 11:00] VITALS: BP 136/67
--- NOTE | 2020-10-30 12:22 | PDOC ---
PULMONARY PROGRESS NOTES DATE: 10/30/20 TIME: 12:20 Subjective Patient is resting comfortably in bed on 3 L nasal cannula, denies any shortness of breath, cough or chest pain s/p re-do PleurX catheter 10/26 Remains very weak 350 cc removed 10/29 Vitals Vital Signs Date Time Temp Pulse Resp B/P (MAP) Pulse Ox O2 Delivery O2 Flow Rate FiO2 10/30/20 11:00 97.0 87 23 136/67 (90) 97 Nasal Cannula 2.0 97.0 ROS: No Nausea, No Chest Pain, No Abdominal Pain, No Increase Cough General: Alert, Oriented X4, No acute distress Cardiovascular: S1, S2 Abdomen: Soft Neuro Exam: Alert Extremities: No Edema Skin: Warm Labs Laboratory Tests Test 10/29/20 06:00 10/30/20 03:20 Sodium Level 148 mmol/L (136-145) 148 mmol/L (136-145) Potassium Level 4.1 mmol/L (3.5-5.1) 3.8 mmol/L (3.5-5.1) Chloride Level 111 mmol/L (98-107) 108 mmol/L (98-107) Carbon Dioxide Level 32 mmol/L (21-32) 31 mmol/L (21-32) Anion Gap 5 (6-14) 9 (6-14) Blood Urea Nitrogen 21 mg/dL (7-20) 23 mg/dL (7-20) Creatinine 0.9 mg/dL (0.6-1.0) 1.0 mg/dL (0.6-1.0) Estimated GFR (Cockcroft-Gault) 60.2 53.3 Glucose Level 104 mg/dL (70-99) 99 mg/dL (70-99) Calcium Level 8.8 mg/dL (8.5-10.1) 9.0 mg/dL (8.5-10.1) White Blood Count 7.5 x10^3/uL (4.0-11.0) Red Blood Count 4.60 x10^6/uL (3.50-5.40) Hemoglobin 13.0 g/dL (12.0-15.5) Hematocrit 41.5 % (36.0-47.0) Mean Corpuscular Volume 90 fL (79-100) Mean Corpuscular Hemoglobin 28 pg (25-35) Mean Corpuscular Hemoglobin Concent 31 g/dL (31-37) Red Cell Distribution Width 16.0 % (11.5-14.5) Platelet Count 503 x10^3/uL (140-400) BUN/Creatinine Ratio 23 (6-20) Total Bilirubin 0.7 mg/dL (0.2-1.0) Aspartate Amino Transf (AST/SGOT) 167 U/L (15-37) Alanine Aminotransferase (ALT/SGPT) 55 U/L (14-59) Alkaline Phosphatase 96 U/L (46-116) Total Protein 6.5 g/dL (6.4-8.2) Albumin 2.0 g/dL (3.4-5.0) Albumin/Globulin Ratio 0.4 (1.0-1.7) Laboratory Tests Test 10/30/20 03:20 White Blood Count 7.5 x10^3/uL (4.0-11.0) Red Blood Count 4.60 x10^6/uL (3.50-5.40) Hemoglobin 13.0 g/dL (12.0-15.5) Hematocrit 41.5 % (36.0-47.0) Mean Corpuscular Volume 90 fL (79-100) Mean Corpuscular Hemoglobin 28 pg (25-35) Mean Corpuscular Hemoglobin Concent 31 g/dL (31-37) Red Cell Distribution Width 16.0 % (11.5-14.5) Platelet Count 503 x10^3/uL (140-400) Sodium Level 148 mmol/L (136-145) Potassium Level 3.8 mmol/L (3.5-5.1) Chloride Level 108 mmol/L (98-107) Carbon Dioxide Level 31 mmol/L (21-32) Anion Gap 9 (6-14) Blood Urea Nitrogen 23 mg/dL (7-20) Creatinine 1.0 mg/dL (0.6-1.0) Estimated GFR (Cockcroft-Gault) 53.3 BUN/Creatinine Ratio 23 (6-20) Glucose Level 99 mg/dL (70-99) Calcium Level 9.0 mg/dL (8.5-10.1) Total Bilirubin 0.7 mg/dL (0.2-1.0) Aspartate Amino Transf (AST/SGOT) 167 U/L (15-37) Alanine Aminotransferase (ALT/SGPT) 55 U/L (14-59) Alkaline Phosphatase 96 U/L (46-116) Total Protein 6.5 g/dL (6.4-8.2) Albumin 2.0 g/dL (3.4-5.0) Albumin/Globulin Ratio 0.4 (1.0-1.7) Medications Active Scripts Medications Dose Route/Sig Max Daily Dose Days Date Category Zofran (Ondansetron Hcl) 4 Mg Tablet 4 Mg PO PRN Q6HRS PRN 10/16/20 Reported Vitamin C (Ascorbic Acid) 500 Mg Capsule.er 500 Mg PO BID 10/16/20 Reported Tramadol Hcl 50 Mg Tablet 50 Mg PO Q6HRS PRN 10/16/20 Reported Restoril (Temazepam) 15 Mg Capsule 15 Mg PO HS 10/16/20 Reported Protonix (Pantoprazole Sodium) 20 Mg Tablet.dr 40 Mg PO DAILY 10/16/20 Reported Dronabinol 10 Mg Capsule 5 Mg PO BID 10/16/20 Reported Fenofibrate (Fenofibrate,Micronized) 134 Mg Capsule 134 Mg PO DAILY 10/16/20 Reported Colace (Docusate Sodium) 100 Mg Capsule 100 Mg PO PRN DAILY PRN 10/16/20 Reported Ativan (Lorazepam) 0.5 Mg Tablet 0.5 Mg PO HS 10/16/20 Reported Preservision Areds Softgel (Vit A/Vit C/Vit E/Zinc/Copper) 1 Each Capsule 1 Tab PO DAILY 09/13/20 Reported Euthyrox (Levothyroxine Sodium) 112 Mcg Tablet 112 Mcg PO DAILY06 09/13/20 Reported Atorvastatin Calcium 20 Mg Tablet 20 Mg PO HS 09/13/20 Reported Metoprolol Succinate ( Xl ) (Metoprolol Succinate) 25 Mg Tab.er.24h 25 Mg PO DAILY 09/13/20 Reported Tylenol (Acetaminophen) 325 Mg Tablet 500 Mg PO Q6HRS PRN 09/13/20 Reported Aspirin 81 Mg Tab.chew 81 Mg PO DAILY 09/13/20 Reported Multi Vitamin Daily (Multivitamin) 1 Each Tablet 1 Each PO DAILY 07/02/14 Reported Impression . IMPRESSION: 1. Acute hypoxemic respiratory failure, suspect multifactorial secondary to pneumonia and hydropneumothorax-- improved . s/p re-do Pleurx catheter, continues to drain 2. Metastatic pancreatic cancer, 3. Malignant pleural effusion secondary to pancreatic metastatic cancer. 4. Possible pneumonia, gram-positive and gram-negative. 5. CT chest revealing no evidence of pulmonary embolism. There is a moderate- sized hydropneumothorax. 6. Negative influenza screen. 7. Coronary artery disease with previous percutaneous coronary intervention. 8. History of breast cancer 20 years ago, status post mastectomy. 9. History of status post abdominal hysterectomy. Plan . updated 10/30 Continue supplemental oxygen to keep oxygen saturations greater than 92%, currently on 3 L nasal cannula Pleurx catheter removed 10/20 s/p thoracentesis 10/20, approximately 700 cc and now s/p re-do PleurX catheter 10/26,---Drain q 3 days cxr 10/23 with re-accumulation of left effusion.she also has trap lung PTX unlikely to improve. / oncology rec--- received 4 doses of radiation prognosis poor Physical therapy/Occupational Therapy Plan for possible discharge back to [place] on Friday with last dose of radiation Ok to D/C to rehab from our standpoint D/W Dr. Bell --planning to discuss hospice with family updated 10/29 Continue supplemental oxygen to keep oxygen saturations greater than 92%, currently on 3 L nasal cannula Pleurx catheter removed 10/20 s/p thoracentesis 10/20, approximately 700 cc and now s/p re-do PleurX catheter 10/26,---Drain q 3 days cxr 10/23 with re-accumulation of left effusion.she also has trap lung PTX unlikely to improve. [facility] oncology rec--- received 4 doses of radiation prognosis poor Physical therapy/Occupational Therapy Plan for possible discharge back to [place] on Friday with last dose of radiation Ok to D/C to rehab from our standpoint D/W Dr. Bell --planning to discuss hospice with family updated 10/28 Continue supplemental oxygen to keep oxygen saturations greater than 92%, currently on 3 L nasal cannula Pleurx catheter removed 10/20 s/p thoracentesis 10/20, approximately 700 cc and now s/p re-do PleurX catheter 10/26, planned to drain today cxr 10/23 with re-accumulation of left effusion.she also has trap lung PTX unlikely to improve. / oncology rec--- received 4 doses of radiation prognosis poor Physical therapy/Occupational Therapy discussed w pt rn / daughter Plan for possible discharge back to [place] on Friday with last dose of radiation FRIDA FERNANDES MD Oct 30, 2020 12:22
[2020-10-30] MEDS: AMINO AC 3%/ELECTROLYTE/GLYCER 1,000 ML IV SCH ×2 (13:12→23:15)
[2020-10-30] MEDS: ENOXAPARIN 40 MG/0.4 ML SYRINGE. SQ SCH (13:13)
[2020-10-30 15:00] VITALS: BP 129/71
[2020-10-30 19:00] VITALS: BP 113/55
[2020-10-30] MEDS: traZODone 50 MG TABLET. PO SCH (21:00)
[2020-10-30] MEDS: ATORVASTATIN CALCIUM 20 MG TABLET PO SCH (21:00)
[2020-10-30 23:00] VITALS: BP 137/81
[2020-10-31] MEDS ORDERED: MORPHINE SULFATE 2 MG/ML VIAL. IV PRN (01:30)
[2020-10-31 03:00] VITALS: BP 145/107
[2020-10-31] MEDS: LEVOTHYROXINE 112 MCG TABLET PO SCH (06:00)
[2020-10-31 07:00] VITALS: BP 150/85
[2020-10-31] MEDS: DRONABINOL 2.5 MG CAPSULE. PO SCH ×2 (08:00→17:00)
--- NOTE | 2020-10-31 08:24 | PDOC ---
PULMONARY PROGRESS NOTES DATE: 10/31/20 TIME: 08:24 Subjective Patient weak today, worked with PT and OT s/p re-do PleurX catheter 10/26 Vitals Vital Signs Date Time Temp Pulse Resp B/P (MAP) Pulse Ox O2 Delivery O2 Flow Rate FiO2 10/31/20 07:00 97.4 102 21 150/85 (106) 92 Nasal Cannula 2.0 97.4 ROS: No Nausea, No Chest Pain, No Abdominal Pain, No Increase Cough General: Alert, Oriented X4, No acute distress Cardiovascular: S1, S2 Abdomen: Soft Neuro Exam: Alert Extremities: No Edema Skin: Warm Labs Laboratory Tests Test 10/30/20 03:20 White Blood Count 7.5 x10^3/uL (4.0-11.0) Red Blood Count 4.60 x10^6/uL (3.50-5.40) Hemoglobin 13.0 g/dL (12.0-15.5) Hematocrit 41.5 % (36.0-47.0) Mean Corpuscular Volume 90 fL (79-100) Mean Corpuscular Hemoglobin 28 pg (25-35) Mean Corpuscular Hemoglobin Concent 31 g/dL (31-37) Red Cell Distribution Width 16.0 % (11.5-14.5) Platelet Count 503 x10^3/uL (140-400) Sodium Level 148 mmol/L (136-145) Potassium Level 3.8 mmol/L (3.5-5.1) Chloride Level 108 mmol/L (98-107) Carbon Dioxide Level 31 mmol/L (21-32) Anion Gap 9 (6-14) Blood Urea Nitrogen 23 mg/dL (7-20) Creatinine 1.0 mg/dL (0.6-1.0) Estimated GFR (Cockcroft-Gault) 53.3 BUN/Creatinine Ratio 23 (6-20) Glucose Level 99 mg/dL (70-99) Calcium Level 9.0 mg/dL (8.5-10.1) Total Bilirubin 0.7 mg/dL (0.2-1.0) Aspartate Amino Transf (AST/SGOT) 167 U/L (15-37) Alanine Aminotransferase (ALT/SGPT) 55 U/L (14-59) Alkaline Phosphatase 96 U/L (46-116) Total Protein 6.5 g/dL (6.4-8.2) Albumin 2.0 g/dL (3.4-5.0) Albumin/Globulin Ratio 0.4 (1.0-1.7) Medications Active Scripts Medications Dose Route/Sig Max Daily Dose Days Date Category Zofran (Ondansetron Hcl) 4 Mg Tablet 4 Mg PO PRN Q6HRS PRN 10/16/20 Reported Vitamin C (Ascorbic Acid) 500 Mg Capsule.er 500 Mg PO BID 10/16/20 Reported Tramadol Hcl 50 Mg Tablet 50 Mg PO Q6HRS PRN 10/16/20 Reported Restoril (Temazepam) 15 Mg Capsule 15 Mg PO HS 10/16/20 Reported Protonix (Pantoprazole Sodium) 20 Mg Tablet.dr 40 Mg PO DAILY 10/16/20 Reported Dronabinol 10 Mg Capsule 5 Mg PO BID 10/16/20 Reported Fenofibrate (Fenofibrate,Micronized) 134 Mg Capsule 134 Mg PO DAILY 10/16/20 Reported Colace (Docusate Sodium) 100 Mg Capsule 100 Mg PO PRN DAILY PRN 10/16/20 Reported Ativan (Lorazepam) 0.5 Mg Tablet 0.5 Mg PO HS 10/16/20 Reported Preservision Areds Softgel (Vit A/Vit C/Vit E/Zinc/Copper) 1 Each Capsule 1 Tab PO DAILY 09/13/20 Reported Euthyrox (Levothyroxine Sodium) 112 Mcg Tablet 112 Mcg PO DAILY06 09/13/20 Reported Atorvastatin Calcium 20 Mg Tablet 20 Mg PO HS 09/13/20 Reported Metoprolol Succinate ( Xl ) (Metoprolol Succinate) 25 Mg Tab.er.24h 25 Mg PO DAILY 09/13/20 Reported Tylenol (Acetaminophen) 325 Mg Tablet 500 Mg PO Q6HRS PRN 09/13/20 Reported Aspirin 81 Mg Tab.chew 81 Mg PO DAILY 09/13/20 Reported Multi Vitamin Daily (Multivitamin) 1 Each Tablet 1 Each PO DAILY 07/02/14 Reported Impression . IMPRESSION: 1. Acute hypoxemic respiratory failure, suspect multifactorial secondary to pneumonia and hydropneumothorax-- improved . s/p re-do Pleurx catheter, continues to drain 2. Metastatic pancreatic cancer, 3. Malignant pleural effusion secondary to pancreatic metastatic cancer. 4. Possible pneumonia, gram-positive and gram-negative. 5. CT chest revealing no evidence of pulmonary embolism. There is a moderate- sized hydropneumothorax. 6. Negative influenza screen. 7. Coronary artery disease with previous percutaneous coronary intervention. 8. History of breast cancer 20 years ago, status post mastectomy. 9. History of status post abdominal hysterectomy. Plan . Updated 10/31 Patient weak today slightly more short of breath Work with PT earlier this morning Completed a course of radiation, she states that she feels less pain discussed with family at the bedside. Continue current support updated 10/30 Continue supplemental oxygen to keep oxygen saturations greater than 92%, currently on 3 L nasal cannula Pleurx catheter removed 10/20 s/p thoracentesis 10/20, approximately 700 cc and now s/p re-do PleurX catheter 10/26,---Drain q 3 days cxr 10/23 with re-accumulation of left effusion.she also has trap lung PTX unli gloria to improve. f/u oncology rec--- received 4 doses of radiation prognosis poor Physical therapy/Occupational Therapy Plan for possible discharge back to [place] on Friday with last dose of radiation Ok to D/C to rehab from our standpoint D/W Dr. Bell --planning to discuss hospice with family updated 10/29 Continue supplemental oxygen to keep oxygen saturations greater than 92%, currently on 3 L nasal cannula Pleurx catheter removed 10/20 s/p thoracentesis 10/20, approximately 700 cc and now s/p re-do PleurX catheter 10/26,---Drain q 3 days cxr 10/23 with re-accumulation of left effusion.she also has trap lung PTX unlikely to improve. f/u oncology rec--- received 4 doses of radiation prognosis poor Physical therapy/Occupational Therapy Plan for possible discharge back to [place] on Friday with last dose of radiation Ok to D/C to rehab from our standpoint D/W Dr. Bell --planning to discuss hospice with family RAFY CAMP MD Oct 31, 2020 08:24
[2020-10-31] MEDS: LACTOBACILLUS RHAMNOSUS GG 1 CAPSULE. PO SCH ×2 (09:00→21:25)
[2020-10-31] MEDS: ASCORBIC ACID 500 MG TABLET PO SCH ×2 (09:00→21:25)
[2020-10-31] MEDS: MULTIVITAMIN I-VITE TABLET. PO SCH (09:00)
[2020-10-31] MEDS: FENOFIBRATE,MICRONIZED 134 MG CAPSULE PO SCH (09:00)
[2020-10-31] MEDS: MULTIVITAMIN with MINERAL TABLET. PO SCH (09:00)
--- NOTE | 2020-10-31 10:15 | PN ---
DATE: 10/31/2020 SUBJECTIVE: The patient is resting, slightly propped up in bed, in no apparent distress. She continued to be extremely confused and very weak. She requires 2-person assist. We plan to discharge her yesterday; however, she has failed her swallowing evaluation and therefore we canceled the discharge. We will plan to evaluate her swallowing again today. I have spoken at length with her daughter and her son. The plan is that if she is able to swallow and we have consistency that she can tolerate like maybe pureed diet and nectar thickened liquid then she can go to [facility] if they accept there. The only other option if she is unable to swallow is for her to go home with hospice and her son is agreeable to this plan. PHYSICAL EXAMINATION: GENERAL: When I saw her this morning, she looked pale, but no jaundice, cyanosis or thyromegaly. No jugular venous distention. No limb edema. VITAL SIGNS: Her heart rate was 102, blood pressure was 150/85, temperature 97.4, respiratory rate was 21 and oxygen saturation was 92% on 2 liters of oxygen. HEAD, EYES, EARS, NOSE, AND THROAT: Showed normocephalic, atraumatic. NECK: Supple. HEART: Showed normal first and second heart sounds. No gallop or murmur. CHEST: Shows central trachea, equal bilateral expansion, air entry and dull percussion note and absent breath sounds on the left side posteriorly. ABDOMEN: Distended, soft, nontender. NEUROLOGIC: She is very confused; however, all her cranial nerves are intact. She moves her upper extremities to much good extent than the lower extremities. She has continued to be extremely weak and debilitated. She is also confused. Her intake was incompletely recorded as well as output. LABORATORY DATA: As of yesterday showed a white cell count 7500; hemoglobin 13; hematocrit 41; MCV 90; and platelet count of 503,000. Her chemistry showed a serum sodium of 148, potassium 3.8, chloride 108, bicarbonate 31, anion gap of 9, BUN 23, creatinine 1. Estimated GFR was 53 mL per minute. Her glucose was 99, calcium was 9. Total bilirubin normal. AST, ALT, alkaline phosphatase were normal. Total protein 6.5, albumin 2. ASSESSMENT: 1. Acute hypoxic respiratory failure, multifactorial, currently on 3 liters of oxygen. 2. Bilateral lung infiltrates, probably healthcare-associated pneumonia versus metastatic disease. 3. Metastatic pancreatic cancer with metastases to the bone and lung. 4. Malignant left-sided pleural effusion for which she has another PleurX tube placed successfully and about 400 mL of fluid drained yesterday. 5. Persistent back pain that has responded to radiation treatment. 6. Hypercalcemia of malignancy, treated with IV normal saline, pamidronate and resolved. 7. The patient has hypernatremia and hypokalemia that has somewhat improved. I discontinued her normal saline and she is now on PPN. PLAN: To again evaluate for swallowing and if she is successful in perhaps even being on pureed diet with nectar thickened liquid and [facility] is willing to accept her then she can be transferred there. Otherwise, if she has failed again her swallowing evaluation, she can go home with hospice. OTONIEL SCOTT MD DR: SERGEI/ezio JOB#: [id number] / [id number]
[2020-10-31 11:00] VITALS: BP 147/64
[2020-10-31] MEDS: AMINO AC 3%/ELECTROLYTE/GLYCER 1,000 ML IV SCH (12:37)
[2020-10-31] MEDS: ENOXAPARIN 40 MG/0.4 ML SYRINGE. SQ SCH (12:38)
[2020-10-31] MEDS: ASPIRIN CHEWABLE 81 MG TABLET. PO SCH (14:45)
[2020-10-31] MEDS: PANTOPRAZOLE 40 MG TABLET.DR. PO SCH (14:46)
[2020-10-31] MEDS: METOPROLOL SUCC 24HR ER 25 MG TAB.ER.24H. PO SCH (14:46)
[2020-10-31 15:00] VITALS: BP 154/87
[2020-10-31] MEDS: traMADol 50 MG TABLET PO PRN (18:31)
[2020-10-31 19:00] VITALS: BP 165/88
[2020-10-31] MEDS: traZODone 50 MG TABLET. PO SCH (21:25)
[2020-10-31] MEDS: ATORVASTATIN CALCIUM 20 MG TABLET PO SCH (21:25)
[2020-10-31 23:05] VITALS: BP 163/89
[2020-11-01] MEDS: AMINO AC 3%/ELECTROLYTE/GLYCER 1,000 ML IV SCH ×2 (01:15→13:45)
[2020-11-01 02:25] VITALS: BP 128/75
[2020-11-01] MEDS: LEVOTHYROXINE 112 MCG TABLET PO SCH (06:04)
[2020-11-01] MEDS: traMADol 50 MG TABLET PO PRN (06:04)
[2020-11-01 07:30] VITALS: BP 153/93
[2020-11-01] MEDS: DRONABINOL 2.5 MG CAPSULE. PO SCH (08:00)
--- NOTE | 2020-11-01 08:46 | PDOC ---
PULMONARY PROGRESS NOTES DATE: 11/01/20 TIME: 08:46 Subjective Patient weak today, worked with PT and OT s/p re-do PleurX catheter 10/26 Vitals Vital Signs Date Time Temp Pulse Resp B/P (MAP) Pulse Ox O2 Delivery O2 Flow Rate FiO2 11/01/20 07:30 97.7 102 22 153/93 (113) 96 Nasal Cannula 2.0 97.7 ROS: No Nausea, No Chest Pain, No Abdominal Pain, No Increase Cough General: Alert, Oriented X4, No acute distress Cardiovascular: S1, S2 Abdomen: Soft Neuro Exam: Alert Extremities: No Edema Skin: Warm Medications Active Scripts Medications Dose Route/Sig Max Daily Dose Days Date Category Zofran (Ondansetron Hcl) 4 Mg Tablet 4 Mg PO PRN Q6HRS PRN 10/16/20 Reported Vitamin C (Ascorbic Acid) 500 Mg Capsule.er 500 Mg PO BID 10/16/20 Reported Tramadol Hcl 50 Mg Tablet 50 Mg PO Q6HRS PRN 10/16/20 Reported Restoril (Temazepam) 15 Mg Capsule 15 Mg PO HS 10/16/20 Reported Protonix (Pantoprazole Sodium) 20 Mg Tablet.dr 40 Mg PO DAILY 10/16/20 Reported Dronabinol 10 Mg Capsule 5 Mg PO BID 10/16/20 Reported Fenofibrate (Fenofibrate,Micronized) 134 Mg Capsule 134 Mg PO DAILY 10/16/20 Reported Colace (Docusate Sodium) 100 Mg Capsule 100 Mg PO PRN DAILY PRN 10/16/20 Reported Ativan (Lorazepam) 0.5 Mg Tablet 0.5 Mg PO HS 10/16/20 Reported Preservision Areds Softgel (Vit A/Vit C/Vit E/Zinc/Copper) 1 Each Capsule 1 Tab PO DAILY 09/13/20 Reported Euthyrox (Levothyroxine Sodium) 112 Mcg Tablet 112 Mcg PO DAILY06 09/13/20 Reported Atorvastatin Calcium 20 Mg Tablet 20 Mg PO HS 09/13/20 Reported Metoprolol Succinate ( Xl ) (Metoprolol Succinate) 25 Mg Tab.er.24h 25 Mg PO DAILY 09/13/20 Reported Tylenol (Acetaminophen) 325 Mg Tablet 500 Mg PO Q6HRS PRN 09/13/20 Reported Aspirin 81 Mg Tab.chew 81 Mg PO DAILY 09/13/20 Reported Multi Vitamin Daily (Multivitamin) 1 Each Tablet 1 Each PO DAILY 12/6/14 Reported Impression . IMPRESSION: 1. Acute hypoxemic respiratory failure, suspect multifactorial secondary to pneumonia and hydropneumothorax-- improved . s/p re-do Pleurx catheter, continues to drain 2. Metastatic pancreatic cancer, 3. Malignant pleural effusion secondary to pancreatic metastatic cancer. 4. Possible pneumonia, gram-positive and gram-negative. 5. CT chest revealing no evidence of pulmonary embolism. There is a moderate- sized hydropneumothorax. 6. Negative influenza screen. 7. Coronary artery disease with previous percutaneous coronary intervention. 8. History of breast cancer 20 years ago, status post mastectomy. 9. History of status post abdominal hysterectomy. Plan . Updated 11/01 Patient to discharge home with hospice Answered all questions that family had for me Updated 10/31 Patient weak today slightly more short of breath Work with PT earlier this morning Completed a course of radiation, she states that she feels less pain discussed with family at the bedside. Continue current support updated 10/30 Continue supplemental oxygen to keep oxygen saturations greater than 92%, currently on 3 L nasal cannula Pleurx catheter removed 10/20 s/p thoracentesis 10/20, approximately 700 cc and now s/p re-do PleurX catheter 10/26,---Drain q 3 days cxr 10/23 with re-accumulation of left effusion.she also has trap lung PTX unlikely to improve. f/u oncology rec--- received 4 doses of radiation prognosis poor Physical therapy/Occupational Therapy Plan for possible discharge back to [facility] on Friday with last dose of radiation Ok to D/C to rehab from our standpoint D/W Dr. Bell --planning to discuss hospice with family updated 10/29 Continue supplemental oxygen to keep oxygen saturations greater than 92%, currently on 3 L nasal cannula Pleurx catheter removed 10/20 s/p thoracentesis 10/20, approximately 700 cc and now s/p re-do PleurX catheter 10/26,---Drain q 3 days cxr 10/23 with re-accumulation of left effusion.she also has trap lung PTX unlikely to improve. f/u oncology rec--- received 4 doses of radiation prognosis poor Physical therapy/Occupational Therapy Plan for possible discharge back to [facility] on Friday with last dose of radiation Ok to D/C to rehab from our standpoint D/W Dr. Bell --planning to discuss hospice with family RAFY CAMP MD Nov 01, 2020 08:46
--- NOTE | 2020-11-01 10:00 | SNU/HH DC ---
DISCHARGE ORDERS DISCHARGE INFORMATION: DISCHARGE DATE: Nov 01, 2020 FINAL DIAGNOSIS Problems Medical Problems: (1) Acute respiratory failure with hypoxia Status: Acute CONDITION ON DISCHARGE: Stable CODE STATUS: Code Status: Full HOSPICE: HOSPICE: Yes HOSPICE EVAL & TREAT: Yes POST DISCHARGE ORDERS: ACTIVITY ORDERS: Activity as tolerated WEIGHT BEARING STATUS: As tolerated DIET AFTER DISCHARGE: Regular CHECKS AFTER DISCHARGE: COMMENTS: lateral back TREATMENT/EQUIPMENT ORDERS: Physical Therapy For: Evalulation/Treatment Occupational Therapy For: Evaluation/Treatment DISCHARGE MEDICATIONS: Home Meds Reported Medications Ondansetron Hcl (ZOFRAN) 4 Mg Tablet, 4 MG PO PRN Q6HRS PRN for NAUSEA/VOMITING, TAB 10/16/20 Ascorbic Acid (VITAMIN C) 500 Mg Capsule.er, 500 MG PO BID for wound healing, CAP.SR 10/16/20 Tramadol Hcl (TRAMADOL HCL) 50 Mg Tablet, 50 MG PO Q6HRS PRN for PAIN, TAB 10/16/20 Pantoprazole Sodium (PROTONIX) 20 Mg Tablet.dr, 40 MG PO DAILY for gerd, TAB 10/16/20 Dronabinol (DRONABINOL) 10 Mg Capsule, 5 MG PO BID for appetite stimulant, CAP 10/16/20 Fenofibrate,Micronized (FENOFIBRATE) 134 Mg Capsule, 134 MG PO DAILY for hld, CAP 10/16/20 Docusate Sodium (COLACE) 100 Mg Capsule, 100 MG PO PRN DAILY PRN for CONSTIPATION, CAP 10/16/20 Vit A/Vit C/Vit E/Zinc/Copper (PRESERVISION AREDS SOFTGEL) 1 Each Capsule, 1 TAB PO DAILY for eyes, CAP 09/13/20 Levothyroxine Sodium (Euthyrox) 112 Mcg Tablet, 112 MCG PO DAILY06 for thyroid, TAB 09/13/20 Atorvastatin Calcium (ATORVASTATIN CALCIUM) 20 Mg Tablet, 20 MG PO HS for FOR CHOLESTEROL, #30 TAB 0 Refills 09/13/20 Metoprolol Succinate (METOPROLOL SUCCINATE ( XL )) 25 Mg Tab.er.24h, 25 MG PO DAILY for FOR HYPERTENSION, #30 TAB 0 Refills 09/13/20 Acetaminophen (TYLENOL) 325 Mg Tablet, 500 MG PO Q6HRS PRN for pain , TAB 09/13/20 Aspirin (ASPIRIN) 81 Mg Tab.chew, 81 MG PO DAILY for heart health, TAB.CHEW 09/13/20 Multivitamin (MULTI VITAMIN DAILY) 1 Each Tablet, 1 EACH PO DAILY 07/02/14 Discontinued Reported Medications Temazepam (RESTORIL) 15 Mg Capsule, 15 MG PO HS for insomnia, CAP 10/16/20 Lorazepam (ATIVAN) 0.5 Mg Tablet, 0.5 MG PO HS for anxiety, TAB 10/16/20 OTONIEL SCOTT MD Nov 01, 2020 10:00
[2020-11-01] MEDS: FENOFIBRATE,MICRONIZED 134 MG CAPSULE PO SCH (10:21)
[2020-11-01] MEDS: PANTOPRAZOLE 40 MG TABLET.DR. PO SCH (10:21)
[2020-11-01] MEDS: ASCORBIC ACID 500 MG TABLET PO SCH (10:21)
[2020-11-01] MEDS: MULTIVITAMIN I-VITE TABLET. PO SCH (10:21)
[2020-11-01] MEDS: ASPIRIN CHEWABLE 81 MG TABLET. PO SCH (10:23)
[2020-11-01] MEDS: METOPROLOL SUCC 24HR ER 25 MG TAB.ER.24H. PO SCH (10:23)
[2020-11-01] MEDS: MULTIVITAMIN with MINERAL TABLET. PO SCH (10:23)
[2020-11-01] MEDS: LACTOBACILLUS RHAMNOSUS GG 1 CAPSULE. PO SCH (10:23)
[2020-11-01 10:54] VITALS: BP 127/86
--- NOTE | 2020-11-01 11:16 | NUR ---
ADRIAN following this patient today for discharge planning. Spoke with RN and reviewed chart. Met with Dr. Bell. Pt's family plans to take pt home today, 11/01 with [facility], (phone), (fax). Discharge orders written. ADRIAN met with pt's son and daughter and pt will discharge home today with 24 hour care from family and [facility]. Patient choice of vendor form completed. Spoke with Dawn from [facility] and faxed clinicals and discharge orders. Bed and home 02 to be delivered to pt's home. SW confirmed home address with family. SW awaiting confirmation of DME delivery to arrange for ambulance transportation home. Update to Jennifer at [facility] that pt will not be returning. ADRIAN following. Addendum: 11/01/20 at 1146 by DEANDRE CAMPBELL Spoke with Dawn and orders received. DME will be delivered between 2 and 4 hours. ADRIAN arranged for non medical transportation home with 02 at 1600. RN notified. DNR signed. No further SW needs at this time. Addendum: 11/01/20 at 1157 by DEANDRE CAMPBELL [facility] form faxed and copy on chart. Copy scripts on chart.
[2020-11-01] MEDS: ENOXAPARIN 40 MG/0.4 ML SYRINGE. SQ SCH (12:00)
[2020-11-01 14:56] VITALS: BP 162/84
--- NOTE | 2020-11-01 17:15 | NUR ---
EMS on floor to transport pt home. Nursing packet with H&P, prescriptions, and outside of the hospital DNR form given to EMS personnel. Pt taken home by sussy.
== END 2020-11-01 17:20 | disposition hospice, home (50) | DRG 177 ==
LOC: ER 14:04 → 6 SOUTH 20:38
PROVIDERS: ADMIT Internal Medicine; ATTEND Internal Medicine
PROC: 0WP800Z Removal of Drainage Device from Chest Wall, Open Approach (ICD-10-PCS; principal; 2020-10-20)
PROC: 0W9B3ZZ Drainage of Left Pleural Cavity, Percutaneous Approach (ICD-10-PCS; 2020-10-20)
PROC: 0W9B30Z Drainage of Left Pleural Cavity with Drainage Device, Percutaneous Approach (ICD-10-PCS; 2020-10-26)
DX: J15.6 Pneumonia due to other Gram-negative bacteria (principal); J96.01 Acute respiratory failure with hypoxia; J94.8 Other specified pleural conditions; J91.0 Malignant pleural effusion; N39.0 Urinary tract infection, site not specified; C79.51 Secondary malignant neoplasm of bone; C78.02 Secondary malignant neoplasm of left lung; J44.0 Chronic obstructive pulmonary disease with (acute) lower respiratory infection; C25.2 Malignant neoplasm of tail of pancreas; J98.11 Atelectasis; E87.0 Hyperosmolality and hypernatremia; J15.9 Unspecified bacterial pneumonia; I25.10 Atherosclerotic heart disease of native coronary artery without angina pectoris; Y95 Nosocomial condition; G89.3 Neoplasm related pain (acute) (chronic); E88.09 Other disorders of plasma-protein metabolism, not elsewhere classified; M54.9 Dorsalgia, unspecified; E83.52 Hypercalcemia; E87.6 Hypokalemia; F41.9 Anxiety disorder, unspecified; K21.9 Gastro-esophageal reflux disease without esophagitis; E03.9 Hypothyroidism, unspecified; E78.00 Pure hypercholesterolemia, unspecified; E78.5 Hyperlipidemia, unspecified; Z96.651 Presence of right artificial knee joint; F32.9 Major depressive disorder, single episode, unspecified; I11.0 Hypertensive heart disease with heart failure; I50.9 Heart failure, unspecified; Z20.822 Contact with and (suspected) exposure to COVID-19; K59.00 Constipation, unspecified; M15.9 Polyosteoarthritis, unspecified; Z80.3 Family history of malignant neoplasm of breast; Z95.5 Presence of coronary angioplasty implant and graft; Z85.3 Personal history of malignant neoplasm of breast; Z82.0 Family history of epilepsy and other diseases of the nervous system; Z82.3 Family history of stroke; Z82.49 Family history of ischemic heart disease and other diseases of the circulatory system; Z83.3 Family history of diabetes mellitus; Z85.07 Personal history of malignant neoplasm of pancreas; Z85.118 Personal history of other malignant neoplasm of bronchus and lung; Z87.891 Personal history of nicotine dependence; Z90.12 Acquired absence of left breast and nipple; Z90.49 Acquired absence of other specified parts of digestive tract; Z90.710 Acquired absence of both cervix and uterus; Z98.41 Cataract extraction status, right eye; Z98.42 Cataract extraction status, left eye; Z90.89 Acquired absence of other organs
CPT/HCPCS: 32550; 32552; 32555; 36415; 36600; 71045; 71100; 71275; 75989; 76942; 78306; 80048; 80053; 80202; 81001; 82550; 82805; 83880; 84484; 85025; 85027; 85610; 87804; 93005; 99152; 99153; A9503; C1729; C1892; J0690; J1650; J2250; J2270; J2430; J2543; J3010; J3370; J3490; J7030; J7040; J7050; Q9967; U0003; 92526-GN; 92610-GN; 97110-GO; 97110-GP; 97530-GO; 97530-GP; 97535-GO; 99285-25; G0378; Q0167